=== PATIENT | male | born 1960 | race Caucasian/White ===

== ENCOUNTER 2019-08-23 00:23 | Emergency (ER) | payer MEDICARE, SELFPAY ==
[2019-08-23] VITALS (10 sets, daily range): BP systolic 125–159; BP diastolic 59–98; PULSE 88–100; RESP 20–26; TEMP 36.7; O2SAT 98–100
--- NOTE | ~2019-08-23 | XR_ITS ---
EXAMINATION: XR chest 2V DATE: 08/23/2019 01:14 INDICATION: Chest pain and shortness of breath TECHNIQUE: AP and lateral views of the chest are obtained. COMPARISON: 07/03/2019 FINDINGS: The lungs are free of acute opacities. There is no pleural effusion or pneumothorax. The ca rdiomediastinal silhouette is normal. There are multiple bilateral rib fractures as well as numerous thoracic compression fractures. IMPRESSION: 1. No acute cardiopulmonary abnormality. Reviewed, dictated and finalized at location A. TAL MEDIA ANALYST
--- NOTE | ~2019-08-23 | CT_ITS ---
EXAMINATION: CTA chest PE protocol DATE: 08/23/2019 02:02 INDICATION: Chest pain and shortness of breath TECHNIQUE: Computed tomography (CT) pulmonary angiogram of the chest was performed with 100 mL Omnipa que-350 intravenous contrast. Additional 3D reconstructions utilizing coronal maximum intensity proje ction (MIP) were performed. Automated exposure control and iterative reconstruction technique were em ployed. The dose-length product was 787.65 mGy-cm. COMPARISON: None FINDINGS: Good contrast opacification of the pulmonary arteries. There is mild streak artifact from dense contr ast in the superior vena cava and right atrium. Moderate to severe lower lung predominant scattered r espiratory motion artifact. This significantly decreases sensitivity in the segmental and more periph eral subsegmental pulmonary arteries, essentially nondiagnostic at the bilateral lung bases. No centr al pulmonary embolism identified through the lobar pulmonary arteries. No definitive pulmonary emboli in the segmental pulmonary arteries. Posterior basilar atelectasis in the bilateral lower lobes. Add itional mild discoid atelectasis tracking along the bilateral major fissures. No pulmonary edema or p leural effusion. Borderline heart size. No pericardial effusion. Thoracic aorta is normal in caliber with no dissection. No pathologically enlarged thoracic lymphadenopathy. 6.4 cm thick-walled fluid co llection at the upper pole of the right kidney. There are a few nonobstructing renal stones in the le ft kidney measuring up to 6 mm in maximal diameter. Osteopenia. Severe thoracic kyphosis with multipl e chronic appearing compression fractures throughout the thoracic and upper lumbar spine. Old healed sternal fractures. Numerous bilateral healed and chronic nonunited rib fractures. Additional old heal ed or healing fractures of the right clavicle, left glenoid and right scapular body. IMPRESSION: 1. No definite central pulmonary embolism through the segmental arteries with decreased sensitivity a t the segmental arteries and nondiagnostic evaluation of the more peripheral arteries due to signific ant respiratory motion. 2. 6.4 cm thick-walled fluid collection at the upper pole of the right kidney which could represent e ither severe hydronephrosis or large parapelvic cyst with surrounding renal parenchymal atrophy versu s a thick-walled cyst which would raise concern for renal cell carcinoma. Would further evaluation wi th pre and postcontrast MRI or CT of the abdomen. 3. Diffuse osteopenia with numerous thoracic and lumbar compression/burst fractures, numerous bilater al rib fractures and additional fractures of the sternum, right clavicle, left glenoid and right scap ular body. Reviewed, dictated and finalized at location A. LIFT MECHANIC IMPRESSION: 1. No definite central pulmonary embolism through the segmental arteries with d ecreased sensitivity at the segmental arteries and nondiagnostic evaluation of the more peripheral arteries due to significant respiratory motion. 2. 6.4 cm thick-walled fluid collection at the upper pole of the right kidney w hich could represent either severe hydronephrosis or large parapelvic cyst with surrounding renal parenchymal atrophy versus a thick-walled cyst which would r aise concern for renal cell carcinoma. Would further evaluation with pre and po stcontrast MRI or CT of the abdomen. 3. Diffuse osteopenia with numerous thoracic and lumbar compression/burst fract ures, numerous bilateral rib fractures and additional fractures of the sternum, right clavicle, left glenoid and right scapular body.
--- NOTE | 2019-08-23 00:35 | ECG_ITS ---
Measurements Intervals [place] Rate: 101 P: 36 WA: 164 QRS: -41 QRSD: 94 T: 91 QT: 313 QTc: 406 Interpretive Statements SINUS TACHYCARDIA SUPRAVENTRICULAR BIGEMINY LEFT AXIS DEVIATION VOLTAGE CRITERIA FOR LVH POOR R WAVE PROGRESSION, ANTERIOR LEADS BORDERLINE ST-T WAVE ABNORMALITY- LATERAL LEADS BASELINE ARTIFACT- I, II, III, AVR, AVL, AVF, V2 ABNORMAL ECG Electronically Signed On 08-23-2019 7:34:09 CONTRACTING ENGINEER by Junior Renner D.O.
--- NOTE | 2019-08-23 00:43 | ED.CHESTPAIN ---
HPI - Chest Pain General Chief Complaint: Chest Pain Stated Complaint: sob Time Seen by Provider: 08/23/19 00:36 Source: patient, family and RN notes reviewed Mode of arrival: ambulatory Limitations: no limitations History of Present Illness HPI narrative: Pt is a 58 y/o male with a Hx of COPD, who presents to the ED with c/o lt sided chest pain and SOB. He notes that he has had pain in the lt side of his chest for the past 3 days. Pt states that he has a Hx of sleep apnea, and notes that he has recently been having episodes where he stops breathing during his sleep. He states that he wakes up due to the lack of breathing and begins coughing. Pt notes that his chest pain is aggravated by the cough as well as exertion. He denies any fever, chills, rhinorrhea, or sore throat. Pt states that his CP is currently resolved. MD complaint: chest pain and other (SOB) Onset (ago): day(s) (3) Timing of current episode: now resolved Pain location: left chest Exacerbating factors: exertion and other (cough) Associated symptoms: cough Related Data Home Medications Medication Instructions Recorded Confirmed albuterol sulfate [ProAir HFA] 1 puff INHALATION QID PRN 07/03/19 08/17/19 aspirin 81 mg PO DAILY 07/03/19 08/17/19 atorvastatin 10 mg PO DAILY 07/03/19 08/17/19 budesonide-formoterol [Symbicort] 2 puff INHALATION Q12H 07/03/19 08/17/19 calcium carbonate-vitamin D3 tablet 07/03/19 08/17/19 [Calcium 500 + D (D3)] denosumab [Prolia] 60 mg SUBCUT [id number] 07/03/19 08/17/19 ipratropium-albuterol 3 ml INHALATION TID 07/03/19 08/17/19 lisinopril 2.5 mg PO DAILY 07/03/19 08/17/19 meloxicam 7.5 mg PO DAILY 07/03/19 08/17/19 metformin 2,000 mg PO DAILY 07/03/19 08/17/19 tamsulosin 0.4 mg PO DAILY 07/03/19 08/17/19 Allergies Allergy/AdvReac Type Severity Reaction Status Date / Time No Known Allergies Allergy Unknown Verified 08/17/19 13:43 Review of Systems Review of Systems: All systems reviewed & are unremarkable except as noted in HPI and below Constitutional: Constitutional: Denies chills and Denies fever(s) ENT: Denies nasal discharge and Denies sore throat Cardiovascular: Cardiovascular: Reports chest pain (lt sided) Respiratory: Respiratory: Reports cough and Reports dyspnea PMFSH Past Medical History Medical History Allergy to environmental factors Bilateral hip fractures BPH w/o urinary obs/LUTS COPD (chronic obstructive pulmonary disease) COPD mixed type Dyslipidemia Essential (primary) hypertension Femur fracture Hypothyroidism (acquired) SAVANNA (obstructive sleep apnea) Osteoarthritis Osteoporosis Type 2 diabetes mellitus without complication, without long-term current use of insulin Vitamin D deficiency Surgical History Surgical History History of hip surgery rods placed in bilateral hips Hx of partial nephrectomy lt kidney Social History Social History Smoking packs per day: 1.5 Smoking cigarettes per day: 30.0 Years smoked: 30 Smoking pack-years: 45.00 Smoking status: Current every day smoker Tobacco type: cigarettes Second hand tobacco smoke exposure: Yes Alcohol intake: current Substance use: never Substance use type: does not use Gender identity (if verbalized by the patient): Male Comments PCP is Dr. Adamson. Exam Narrative: Exam Narrative: GENERAL: Chronically ill-appearing, well-nourished, and in no acute distress. HEAD: Normocephalic, atraumatic. EYES: PERRL and EOMI. ENT: Mucous membranes moist. CHEST: Diffuse wheezing. Mildly tachypneic. HEART: Regular rate and rhythm. Normal peripheral pulses. ABDOMEN: Soft, nontender, nondistended. EXTREMITIES: Normal range of motion. 1+ edema of the lower extremities. SKIN: Warm, dry, no rash. NEURO: Alert and oriented x3. Course Course Emergency Course: Patient wheezing improvin
[2019-08-23 00:45] LABS: Basophils Absolute Auto 0.1 K/mm3 (0.0-0.1); Basophils Percent Auto 0.5 % (0.2-1.2); Eosinophils Absolute Auto 0.2 K/mm3 (0-0.3); Eosinophils Percent Auto 1.8 % (0-4.4); Hematocrit 47.9 % (42.0-52.0); Hemoglobin 15.6 g/dL (14.0-18.0); Immature Granulocyte Absolute 0.06 K/mm3 (0.00-0.031); Immature Granulocyte Percent A 0.6 % (0-0.5); Lymphocytes Absolute Auto 1.67 K/mm3 (0.9-3.2); Lymphocytes Percent Auto 17.4 % (18.3-44.2); Mean Corpuscular HGB Conc 32.6 g/dl (32-36); Mean Corpuscular Hemoglobin 28.1 pg (26-34); Mean Corpuscular Volume 86.3 fl (80-100); Mean Platelet Volume 8.5 fl (7.4-10.4); Monocytes Absolute Auto 0.8 K/mm3 (0.1-0.6); Monocytes Percent Auto 7.8 % (2.6-8.5); Neutrophils Absolute Auto 6.9 K/mm3 (1.3-6.7); Neutrophils Percent Auto 71.9 % (45.5-73.1); Platelet Count Result 376 k/mm3 (150-375); Red Blood Count 5.55 M/mm3 (4.6-6.20); Red Cell Distribution Width 17.4 % (11.5-14.5); White Blood Count 9.6 K/mm3 (4.5-10.0)
--- NOTE | 2019-08-23 00:53 | PC.NURSE ---
Called lab to add on d-dimer.
[2019-08-23 00:54] LABS: INR 0.9; Prothrombin Time 11.8 Seconds (11.1-14.7)
[2019-08-23 00:55] LABS: Partial Thromboplastin Time 29.7 SECONDS (22.3-36.8)
[2019-08-23 01:03] LABS: Blood Urea Nitrogen 19 mg/dL (9-20); Calcium 9.5 mg/dL (8.4-10.2); Carbon Dioxide 22 mmol/L (22-30); Chloride 101 mmol/L (98-107); D Dimer 0.83 ug/mL (<0.48); Estimated Glomerular Filt Rate > 60; Glucose 121 mg/dL (75-110); Potassium 4.8 mmol/L (3.4-5.0); Sodium 140 mmol/L (137-145)
[2019-08-23 01:12] LABS: Troponin I < 0.012 ng/mL (0.000-0.034)
[2019-08-23] MEDS: ALBUTEROL SULFATE NEB 2.5 MG/0.5 ML INH 5 MG INHALATION (02:41)
[2019-08-23] MEDS: IPRATROPIUM BR 0.02% INH SOLN 0.5 MG/2.5 ML VIAL INHALATION (02:41)
[2019-08-23 04:02] LABS: NT Pro B Type Natriuretic Pept 59 PG/ML (5-100)
[2019-08-23 04:06] LABS: Troponin I < 0.012 ng/mL (0.000-0.034)
== END 2019-08-23 05:07 | disposition home or self-care (01) ==
PROVIDERS: Emergency Provider Emergency Medicine; PCP Family Medicine
DX: J44.9 Chronic obstructive pulmonary disease, unspecified (principal); N40.0 Benign prostatic hyperplasia without lower urinary tract symptoms; E78.5 Hyperlipidemia, unspecified; I10 Essential (primary) hypertension; E03.9 Hypothyroidism, unspecified; G47.33 Obstructive sleep apnea (adult) (pediatric); M19.90 Unspecified osteoarthritis, unspecified site; M81.0 Age-related osteoporosis without current pathological fracture; E11.9 Type 2 diabetes mellitus without complications; E55.9 Vitamin D deficiency, unspecified; Z90.5 Acquired absence of kidney; F17.210 Nicotine dependence, cigarettes, uncomplicated; R00.0 Tachycardia, unspecified; R00.8 Other abnormalities of heart beat; R94.31 Abnormal electrocardiogram [ECG] [EKG]
CPT/HCPCS: 36415; 71046; 71275; 80048; 83880; 84484; 85025; 85380; 85610; 85730; 93005; 94640; 99284; Q9967

== ENCOUNTER 2019-09-02 00:09 | Emergency (ER) | payer MEDICARE, SELFPAY ==
[2019-09-02] VITALS (7 sets, daily range): BP systolic 116–154; BP diastolic 62–94; PULSE 85–113; RESP 17–25; TEMP 36.8; O2SAT 95–99
--- NOTE | ~2019-09-02 | XR_ITS ---
EXAMINATION: XR chest 2V DATE: 09/02/2019 01:30 INDICATION: Shortness of breath. TECHNIQUE: Frontal and lateral views of the chest were obtained on 3 radiographs. COMPARISON: Chest 2 views 08/23/2019, chest CT 08/23/2019 FINDINGS: There is mild atelectasis in the lower lung zones. There is blunting of the posterior costo phrenic angles, likely scarring. No pleural effusion or pneumothorax. The heart size is normal. There is kyphosis of thoracic spine with numerous chronic burst fractures. There is an old healed fracture deformity of the sternum. There are old healed rib fractures bilaterally. There is an old healed fra cture of right clavicle. IMPRESSION: 1. Mild atelectasis in the lower lung zones. Reviewed, dictated and finalized at location A. 'S OFFICER
--- NOTE | 2019-09-02 00:35 | ED.CHESTPAIN ---
HPI - Chest Pain General Chief Complaint: Shortness of Breath/Dyspnea Stated Complaint: l sided cp and back pain Time Seen by Provider: 09/02/19 00:34 Source: patient, RN notes reviewed and old records reviewed Mode of arrival: ambulatory Limitations: no limitations History of Present Illness HPI narrative: Pt is a 58 y/o male with a Hx of COPD, who presents to the ED with c/o lt sided chest pain starting last night. According to old records, the pt was evaluated in the [place] ED on 08/23/19 for similar symptoms. Pt was diagnosed with bronchitis and discharged home with Prednisone. He notes that he developed pain in the lt side of his chest while laying in bed last night. Pt states that his pain radiates into his lt upper back. He also reports SOB and sinus congestion, but denies any fever, ABD pain, nausea, or vomiting. Pt states that he currently uses a CPAP at night for his sleep apnea. He notes that he is currently following with the bone health program at [facility] in [place]. complaint: chest pain Onset (ago): day(s) (1) Prior episodes: Yes Onset: during rest Pain location: left chest Pain radiation: left scapula Context: recent illness (bronchitis) Associated symptoms: dyspnea and other (sinus congestion) Related Data Home Medications Medication Instructions Recorded Confirmed albuterol sulfate [ProAir HFA] 1 puff INHALATION QID PRN 07/03/19 08/17/19 aspirin 81 mg PO DAILY 07/03/19 08/17/19 atorvastatin 10 mg PO DAILY 07/03/19 08/17/19 budesonide-formoterol [Symbicort] 2 puff INHALATION Q12H 07/03/19 08/17/19 calcium carbonate-vitamin D3 tablet 07/03/19 08/17/19 [Calcium 500 + D (D3)] denosumab [Prolia] 60 mg SUBCUT [id number] 07/03/19 08/17/19 ipratropium-albuterol 3 ml INHALATION TID 07/03/19 08/17/19 lisinopril 2.5 mg PO DAILY 07/03/19 08/17/19 meloxicam 7.5 mg PO DAILY 07/03/19 08/17/19 metformin 2,000 mg PO DAILY 07/03/19 08/17/19 Allergies Allergy/AdvReac Type Severity Reaction Status Date / Time No Known Allergies Allergy Unknown Verified 09/02/19 00:39 Review of Systems Review of Systems: Narrative: CONSTITUTIONAL: Denies fever, chills, or sweats. ENT: Denies rhinorrhea, sore throat, or otalgia. Reports sinus congestion. CARDIOVASCULAR: Reports lt sided chest pain radiating into lt upper back. Denies palpitations. RESPIRATORY: Reports dyspnea. GASTROINTESTINAL: Denies abdominal pain, nausea, vomiting, or diarrhea. All systems reviewed & are unremarkable except as noted in HPI and below PMFSH Past Medical History Medical History (Updated 09/02/19 @ 04:53 by Aimee Yañez MD) Allergy to environmental factors Bilateral hip fractures BPH w/o urinary obs/LUTS COPD (chronic obstructive pulmonary disease) COPD mixed type Dyslipidemia Essential (primary) hypertension Femur fracture Hypothyroidism (acquired) SAVANNA (obstructive sleep apnea) uses CPAP Osteoarthritis Osteoporosis Type 2 diabetes mellitus without complication, without long-term current use of insulin Vitamin D deficiency Surgical History Surgical History History of hip surgery rods placed in bilateral hips Hx of partial nephrectomy lt kidney Social History Social History Smoking packs per day: 1.5 Smoking cigarettes per day: 30.0 Years smoked: 30 Smoking pack-years: 45.00 Smoking status: Current every day smoker Tobacco type: cigarettes Second hand tobacco smoke exposure: Yes Alcohol intake: current Substance use: never Substance use type: does not use Gender identity (if verbalized by the patient): Male Comments PCP is Dr. Adamson. Exam Narrative: Exam Narrative: GENERAL: Well-appearing, well-nourished, and in moderate respiratory distress. HEAD: Normocephalic, atraumatic. EYES: PERRLA and EOMI. ENT: Nares clear, no rhinorrhea or epistaxis. Mucous membranes moist. NECK: Supple. CHEST: Expi
[2019-09-02] MEDS: IPRATROPIUM BR 0.02% INH SOLN 0.5 MG/2.5 ML VIAL INHALATION (00:56)
[2019-09-02] MEDS: ALBUTEROL SULFATE NEB 2.5 MG/0.5 ML INH 5 MG INHALATION (00:56)
[2019-09-02 01:07] LABS: Alveolar/Arterial O2 Gradient 28.2 mmHg; Base Excess ABG -4.2 mEq/l (+/-2.0); Fractional Inspired Oxygen 21 %; Oxygen Content ABG 19.1 %vol (16.0-22.0); Oxygen Saturation ABG 95.9 % (95.0-100.0); Oxyhemoglobin 90.2 % THb (90.0-100.0); PCO2 ABG 34.2 mmHg (35.0-45.0); PO2 ABG 80.6 mmHg (80.0-100.0); PO2 FiO2 Ratio Arterial Blood 3.84 %; pH ABG 7.384 (7.350-7.450)
[2019-09-02 01:08] LABS: Device ROOM AIR; Modified Allen's Test Pass; Site Drawn LEFT RADIAL
[2019-09-02 01:09] LABS: Basophils Absolute Auto 0.1 K/mm3 (0.0-0.1); Basophils Percent Auto 0.5 % (0.2-1.2); Eosinophils Absolute Auto 0.2 K/mm3 (0-0.3); Eosinophils Percent Auto 1.7 % (0-4.4); Hematocrit 44.9 % (42.0-52.0); Hemoglobin 14.4 g/dL (14.0-18.0); Immature Granulocyte Absolute 0.14 K/mm3 (0.00-0.031); Immature Granulocyte Percent A 1.3 % (0-0.5); Lymphocytes Absolute Auto 1.73 K/mm3 (0.9-3.2); Lymphocytes Percent Auto 15.9 % (18.3-44.2); Mean Corpuscular HGB Conc 32.1 g/dl (32-36); Mean Corpuscular Hemoglobin 27.5 pg (26-34); Mean Corpuscular Volume 85.9 fl (80-100); Mean Platelet Volume 8.4 fl (7.4-10.4); Monocytes Absolute Auto 0.8 K/mm3 (0.1-0.6); Monocytes Percent Auto 7.7 % (2.6-8.5); Neutrophils Absolute Auto 7.9 K/mm3 (1.3-6.7); Neutrophils Percent Auto 72.9 % (45.5-73.1); Platelet Count Result 392 k/mm3 (150-375); Red Blood Count 5.23 M/mm3 (4.6-6.20); Red Cell Distribution Width 17.5 % (11.5-14.5); White Blood Count 10.9 K/mm3 (4.5-10.0)
[2019-09-02 01:26] LABS: INR 0.9; Partial Thromboplastin Time 27.4 SECONDS (22.3-36.8); Prothrombin Time 11.9 Seconds (11.1-14.7)
[2019-09-02] MEDS: SODIUM CHLORIDE 0.9% IV 500 ML 999 ML IV CONT (01:30)
[2019-09-02 01:31] LABS: Alanine Aminotransferase 26 U/L (4-50); Albumin Level 3.5 g/dL (3.5-5.1); Alkaline Phosphatase 105 U/L (38-126); Aspartate Amino Transferase 23 U/L (17-59); Bilirubin,Total 0.3 mg/dL (0.2-1.3); Blood Urea Nitrogen 26 mg/dL (9-20); Calcium 8.9 mg/dL (8.4-10.2); Carbon Dioxide 25 mmol/L (22-30); Chloride 102 mmol/L (98-107); Estimated Glomerular Filt Rate > 60; Glucose 127 mg/dL (75-110); Sodium 140 mmol/L (137-145)
[2019-09-02] MEDS: methylPREDNISolone SOD SUCC 125 MG VIAL IV PUSH (01:33)
[2019-09-02 01:35] LABS: NT Pro B Type Natriuretic Pept 55 PG/ML (5-100); Troponin I < 0.012 ng/mL (0.000-0.034)
[2019-09-02 04:46] LABS: Troponin I < 0.012 ng/mL (0.000-0.034)
== END 2019-09-02 05:25 | disposition home or self-care (01) ==
PROVIDERS: Emergency Provider Emergency Medicine; PCP Family Medicine
DX: R07.9 Chest pain, unspecified (principal); J44.1 Chronic obstructive pulmonary disease with (acute) exacerbation; N40.0 Benign prostatic hyperplasia without lower urinary tract symptoms; E78.5 Hyperlipidemia, unspecified; I10 Essential (primary) hypertension; E03.9 Hypothyroidism, unspecified; G47.33 Obstructive sleep apnea (adult) (pediatric); M19.90 Unspecified osteoarthritis, unspecified site; M81.0 Age-related osteoporosis without current pathological fracture; E11.9 Type 2 diabetes mellitus without complications; E55.9 Vitamin D deficiency, unspecified; Z90.5 Acquired absence of kidney; F17.210 Nicotine dependence, cigarettes, uncomplicated; Z79.82 Long term (current) use of aspirin; Z79.84 Long term (current) use of oral hypoglycemic drugs
CPT/HCPCS: 36415; 36600; 71046; 80053; 82805; 83880; 84484; 85025; 85610; 85730; 87804; 94640; 96374; 99284; J2930; J7040

== ENCOUNTER 2019-11-17 07:07 | Emergency (ER) | payer MEDICARE, SELFPAY ==
--- NOTE | ~2019-11-17 | XR_ITS ---
EXAMINATION: XR clavicle LT DATE: 11/17/2019 07:36 INDICATION: Left shoulder pain. TECHNIQUE: 2 views of left clavicle were obtained. COMPARISON: Chest CT 08/23/2019 FINDINGS: Bone alignment is normal. No acute fracture. There is an old healed fracture of the scapula r glenoid. There is moderate osteoarthritis of glenohumeral joint and mild osteoarthritis of acromioc lavicular joint. There are multiple old healed rib fractures. IMPRESSION: 1. Polyarticular osteoarthritis. Reviewed, dictated and finalized at location A.
--- NOTE | ~2019-11-17 | XR_ITS ---
EXAMINATION: XR shoulder LT min 2V DATE: 11/17/2019 07:36 INDICATION: Left shoulder pain. TECHNIQUE: 4 views of left shoulder were obtained. COMPARISON: Chest CT 08/23/2019 FINDINGS: Bone alignment is normal. There is an old healed fracture of the scapular glenoid. There is moderate osteoarthritis of glenohumeral joint and mild osteoarthritis of acromioclavicular joint. Th ere are multiple old healed rib fractures. IMPRESSION: 1. Polyarticular osteoarthritis. Reviewed, dictated and finalized at location A.
[2019-11-17 07:11] VITALS: BP 185/113; PULSE 95; RESP 24; TEMP 36.7; O2SAT 96
--- NOTE | 2019-11-17 07:21 | ED.UPPEXIN ---
HPI - Extremity Injury (Upper) General Chief Complaint: Extremity Injury, Upper Stated Complaint: Shoulder pain Time Seen by Provider: 11/17/19 07:15 History of Present Illness HPI narrative: Patient presents with his for left shoulder pain. Started last night without injury. He has 0 pain when he sitting still but severe pain with any motion at all. No fever chills or sweats. He has knee arthritis and has had both hips replaced. He has 2 orthopedic surgeons in [place]. He tried Tylenol without any improvement, He denies smoking drinking or drugs. He denies any recent illness. He says he does not eat much and his bowels are moving. He does not have his teeth in. MD complaint: injury to: left Onset (ago): day(s) Other Extremity Injury: Left: shoulder Other injuries: none Place: home Severity: severe Relieving factors: immobilization Exacerbating factors: movement of extremity Context: other (No trauma) Associated symptoms: denies other symptoms Treatments prior to arrival: other (None) Related Data Home Medications Medication Instructions Recorded Confirmed aspirin 81 mg PO DAILY 07/03/19 09/08/19 atorvastatin 10 mg PO DAILY 07/03/19 09/08/19 budesonide-formoterol [Symbicort] 2 puff INHALATION Q12H 07/03/19 09/08/19 calcium carbonate-vitamin D3 tablet 07/03/19 09/08/19 [Calcium 500 + D (D3)] denosumab [Prolia] 60 mg SUBCUT [id number] 07/03/19 09/08/19 ipratropium-albuterol 3 ml INHALATION TID 07/03/19 09/08/19 lisinopril 2.5 mg PO DAILY 07/03/19 09/08/19 meloxicam 7.5 mg PO DAILY 07/03/19 09/08/19 Allergies Allergy/AdvReac Type Severity Reaction Status Date / Time No Known Allergies Allergy Unknown Verified 11/17/19 07:14 Review of Systems Review of Systems: Narrative: CONSTITUTIONAL: Denies fever, chills, or sweats. EYES: Denies visual changes, redness, or discharge. ENT: Denies rhinorrhea, congestion, sore throat, or otalgia. CARDIOVASCULAR: Denies chest pain, palpitations, or edema. RESPIRATORY: Denies cough or dyspnea. GASTROINTESTINAL: Denies abdominal pain, nausea, vomiting, or diarrhea. GENITOURINARY: Denies dysuria or hematuria. SKIN: Denies rash or itching. MUSCULOSKELETAL: Denies back pain or myalgia. NEUROLOGIC: Denies headache, numbness, or weakness. PSYCHIATRIC: Denies anxiety or depression. [facility] Past Medical History Medical History Allergy to environmental factors Bilateral hip fractures BPH w/o urinary obs/LUTS COPD (chronic obstructive pulmonary disease) COPD mixed type Dyslipidemia Essential (primary) hypertension Femur fracture Hypothyroidism (acquired) SAVANNA (obstructive sleep apnea) uses CPAP Osteoarthritis Osteoporosis Type 2 diabetes mellitus without complication, without long-term current use of insulin Vitamin D deficiency Surgical History Surgical History History of hip surgery rods placed in bilateral hips Hx of partial nephrectomy lt kidney Social History Social History (Updated 11/17/19 @ 07:24 by Suly Barragan MD) Smoking packs per day: 1.5 Smoking cigarettes per day: 30.0 Years smoked: 30 Smoking pack-years: 45.00 Smoking status: Former smoker Tobacco type: cigarettes Second hand tobacco smoke exposure: Yes Alcohol intake: current Substance use: never Substance use type: does not use Gender identity (if verbalized by the patient): Male Exam Narrative: Exam Narrative: GENERAL: Well-appearing, well-nourished, and in no acute distress. Disheveled. Short stature. HEAD: Normocephalic, atraumatic. EYES: PERRLA and EOMI. ENT: Nares clear, no rhinorrhea or epistaxis. Mucous membranes moist. No teeth. NECK: Supple. CHEST: Clear to auscultation. No respiratory distress. HEART: Regular rate and rhythm. No murmur heard. Normal peripheral pulses. ABDOMEN: Soft, nontender, nondistended, normal active bowel sounds. EXTREMITIES: Le
[2019-11-17] MEDS: IBUPROFEN 600 MG TABLET PO (07:24)
[2019-11-17 07:27] VITALS: BP 156/89
[2019-11-17 08:27] VITALS: BP 145/78; PULSE 78; RESP 18; O2SAT 97
== END 2019-11-17 08:27 | disposition home or self-care (01) ==
PROVIDERS: Emergency Provider Emergency Medicine; PCP Family Medicine
DX: M19.012 Primary osteoarthritis, left shoulder (principal); M17.10 Unilateral primary osteoarthritis, unspecified knee; Z96.643 Presence of artificial hip joint, bilateral; N40.0 Benign prostatic hyperplasia without lower urinary tract symptoms; J44.9 Chronic obstructive pulmonary disease, unspecified; I10 Essential (primary) hypertension; E78.5 Hyperlipidemia, unspecified; G47.33 Obstructive sleep apnea (adult) (pediatric); M81.0 Age-related osteoporosis without current pathological fracture; E11.9 Type 2 diabetes mellitus without complications; E55.9 Vitamin D deficiency, unspecified; Z87.891 Personal history of nicotine dependence; Z79.82 Long term (current) use of aspirin
CPT/HCPCS: 73000; 73030; 99283; A9270

== ENCOUNTER 2019-11-21 17:32 | Observation (INO) | payer MEDICARE, SELFPAY ==
--- NOTE | ~2019-11-21 | US_ITS ---
EXAMINATION: US venous doppler [facility] DATE: 11/22/2019 10:40 INDICATION: Lower limb swelling TECHNIQUE: Grayscale ultrasound images without and with compression and Doppler ultrasound images of the bilateral lower extremity veins were obtained. COMPARISON: None. FINDINGS: The visualized portions of right common femoral vein, profunda (deep) femoral vein, femoral vein, pop liteal vein, posterior tibial veins, peroneal veins, gastrocnemius vein and greater saphenous vein ou tflow are patent. The visualized portions of left common femoral vein, profunda femoral vein, femoral vein, popliteal v ein, posterior tibial veins, peroneal veins, gastrocnemius vein and greater saphenous vein outflow ar e patent. IMPRESSION: 1. No deep venous thrombosis in either lower limb. Reviewed, dictated and finalized at location A.
--- NOTE | ~2019-11-21 | XR_ITS ---
EXAMINATION: XR chest 1V portable DATE: 11/21/2019 18:23 INDICATION: Inability to walk. TECHNIQUE: frontal view of the chest was obtained. COMPARISON: Chest radiograph dated 09/02/2019 FINDINGS: Lung volumes appear decreased due to a thoracic kyphosis but appreciated on the prior study. No focal airspace opacities, pulmonary edema, pleural effusion or pneumothorax. The cardiomediastinal silhoue tte is normal. Multiple old bilateral rib fractures. IMPRESSION: 1. No acute cardiopulmonary disease. Reviewed, dictated and finalized at location A.
--- NOTE | ~2019-11-21 | CT_ITS ---
EXAMINATION: CT pelvis wo con DATE: 11/21/2019 21:08 INDICATION: Left hip pain and inability to walk TECHNIQUE: High resolution computed tomography (CT) of the pelvis was performed without intravenous c ontrast. Additional sagittal and coronal reconstructions were performed. Automated exposure control a nd iterative reconstruction technique were employed. The dose-length product was 898.00 mGy-cm. COMPARISON: None FINDINGS: There is a nondisplaced fracture extending along the mid to lateral aspect of the left iliac crest an d extending inferiorly along the anterior iliac spine to the anterior margin of the left acetabulum. No evident intra-articular fracture line to involve the left acetabulum proper. No evident extension across the anterior or posterior columns. There are old healed fracture deformities of the left super ior and inferior pubic rami. There is still some discernible lucency along a healing intertrochanteri c/subtrochanteric fractures of the proximal left and right femurs, both with antegrade intramedullary blas and interlocking femoral neck screw fixations. Chronic L1-L5 compression fractures with central vertebral body height loss at each level. Likely chronic severe right hydronephrosis with severe chioma ical atrophy. There is a 7 mm stone in the dependent aspect of the dilated right renal pelvis however no stone is evident at the transition point located at the ureteropelvic junction. There are multipl e nonobstructing stones at the right kidney, the largest measuring up to 6 mm with no left hydronephr osis. Small calcified stone at the neck of the normal-appearing gallbladder with no evident wall thic kening or pericholecystic inflammatory change to suggest acute cholecystitis. His last liver is tom l. No intra-axial hepatic biliary ductal dilation. Pancreas and visualized portions of the spleen and bilateral adrenal glands are normal. There is mild colonic diverticulosis with a sigmoid predominanc e. There is no adjacent inflammatory change to suggest diverticulitis. Normal appendix. No bowel obs truction. Fat-containing umbilical and right inguinal hernias. There are few old bilateral lower rib fractures. IMPRESSION: 1. Nondisplaced relatively acute extra-articular fracture extending along the left iliac crest and an terior iliac spine. 2. Multiple chronic lumbar compression fractures, old healed left superior and inferior pubic rami fr actures, multiple old healed bilateral rib fractures and healing internally fixed intertrochanteric f ractures of the proximal left and right femurs. 3. Likely chronic right ureteropelvic junction obstruction with severe hydronephrosis and severe like ly secondary right renal cortical atrophy. 4. Bilateral nonobstructing nephrolithiasis. 5. Cholelithiasis. 6. Fat-containing umbilical and right inguinal hernias. Reviewed, dictated and finalized at location A. IMPRESSION: 1. Nondisplaced relatively acute extra-articular fracture extending along the l eft iliac crest and anterior iliac spine. 2. Multiple chronic lumbar compression fractures, old healed left superior and inferior pubic rami fractures, multiple old healed bilateral rib fractures and healing internally fixed intertrochanteric fractures of the proximal left and r ight femurs. 3. Likely chronic right ureteropelvic junction obstruction with severe hydronep hrosis and severe likely secondary right renal cortical atrophy. 4. Bilateral nonobstructing nephrolithiasis. 5. Cholelithiasis. 6. Fat-containing umbilical and right inguinal hernias.
--- NOTE | ~2019-11-21 | XR_ITS ---
EXAMINATION: XR hip LT 2V w AP pelvis DATE: 11/21/2019 18:23 INDICATION: Left hip pain and inability to walk TECHNIQUE: Anteroposterior view of the pelvis and anteroposterior and cross-table lateral views of th e left hip more distal femur were obtained. COMPARISON: Radiographs dated 09/15/2012, 09/13/[address] dated 01/14/2019 FINDINGS: Bilateral antegrade intramedullary rods and interlocking femoral neck screw fixations at both the lef t and right femurs. On the right disc extends to the mid diaphysis with an additional distal interloc jared screw. On the left the intramedullary blas extends to near the knee with an interlocking screw ti p of which extends beyond the anteromedial cortex. Alignment appears near-anatomic. No acute fracture s identified although evaluation of the femoral head and neck and pelvis is limited by underpenetrati on related to patient body habitus. Relatively symmetric chronic indolent appearing periosteal reacti on along the medial side of the bilateral femoral diaphyses. Mild polyarticular osteoarthritis at the left knee and bilateral hips. IMPRESSION: 1. No evident acute osseous abnormality. Evaluation at the pelvis and femoral head neck is however li mited by patient body habitus. Reviewed, dictated and finalized at location A. IMPRESSION: 1. No evident acute osseous abnormality. Evaluation at the pelvis and femoral h ead neck is however limited by patient body habitus.
[2019-11-21 17:31] VITALS: BP 150/92; PULSE 90; RESP 14; TEMP 36.8; O2SAT 95
--- NOTE | 2019-11-21 17:46 | ED.EXTPRO ---
HPI - Extremity Problem General Chief complaint: Extremity Problem,Nontraumatic <Suly Barragan MD - Last Filed: 11/21/19 18:57> Stated complaint: L HIP PAIN <Suly Barragan MD - Last Filed: 11/21/19 18:57> History of Present Illness HPI Narrative: Patient presents with his via EMS for left hip pain. He has not been able to walk on it for 3 days. There was no injury or trauma. He was seen here 4 days ago for left shoulder pain. <Suly Barragan MD - Last Filed: 11/21/19 18:57> MD Complaint: extremity pain <Suly Barragan MD - Last Filed: 11/21/19 18:57> Onset (ago): day(s) <Suly Barragan MD - Last Filed: 11/21/19 18:57> Pain Consistency: constant <Suly Barragan MD - Last Filed: 11/21/19 18:57> Location: left <Suly Barragan MD - Last Filed: 11/21/19 18:57> Severity scale (1-10): 9 <Suly Barragan MD - Last Filed: 11/21/19 18:57> Radiation: none <Suly Barragan MD - Last Filed: 11/21/19 18:57> Relieving factors: nothing <Suly Barragan MD - Last Filed: 11/21/19 18:57> Exacerbating factors: range of motion, weight bearing and walking <Suly Barragan MD - Last Filed: 11/21/19 18:57> Related Data Home medications: Home Medications Medication Instructions Recorded Confirmed aspirin 81 mg PO DAILY 07/03/19 11/22/19 atorvastatin 10 mg PO DAILY 07/03/19 11/22/19 budesonide-formoterol [Symbicort] 2 puff INHALATION Q12H 07/03/19 11/22/19 calcium carbonate-vitamin D3 1 tablet PO BID 07/03/19 11/22/19 [Calcium 500 + D (D3)] denosumab [Prolia] 60 mg SUBCUT [id number] 07/03/19 11/22/19 ipratropium-albuterol 3 ml INHALATION TID 07/03/19 11/22/19 albuterol sulfate [ProAir HFA] 1 puff INHALATION Q4H 11/22/19 11/22/19 lisinopril 2.5 mg PO DAILY 11/22/19 11/22/19 meloxicam 7.5 mg PO DAILY 11/22/19 11/22/19 metformin 1,000 mg PO BID 11/22/19 11/22/19 <Suly Barragan MD - Last Filed: 11/21/19 18:57> Allergies/Adverse reactions: Allergies Allergy/AdvReac Type Severity Reaction Status Date / Time No Known Allergies Allergy Unknown Verified 11/17/19 07:14 <Suly Barragan MD - Last Filed: 11/21/19 18:57> Review of Systems Review of Systems: Narrative: CONSTITUTIONAL: Denies fever, chills, or sweats. EYES: Denies visual changes, redness, or discharge. ENT: Denies rhinorrhea, congestion, sore throat, or otalgia. CARDIOVASCULAR: Denies chest pain, palpitations, or edema. RESPIRATORY: Denies cough or dyspnea. GASTROINTESTINAL: Denies abdominal pain, nausea, vomiting, or diarrhea. GENITOURINARY: Denies dysuria or hematuria. SKIN: Denies rash or itching. MUSCULOSKELETAL: Denies myalgia. NEUROLOGIC: Denies headache, numbness, or weakness. PSYCHIATRIC: Denies anxiety or depression. <Suly Barragan MD - Last Filed: 11/21/19 18:57> [facility] Past Medical History Medical History: Medical History (Updated 11/22/19 @ 06:41 by Jin Barron MD) Allergy to environmental factors Bilateral hip fractures BPH w/o urinary obs/LUTS COPD mixed type Diastolic dysfunction Dyslipidemia Essential (primary) hypertension Femur fracture Hypothyroidism (acquired) SAVANNA (obstructive sleep apnea) uses CPAP Osteoarthritis Osteoporosis Type 2 diabetes mellitus without complication, without long-term current use of insulin Vitamin D deficiency <Suly Barragan MD - Last Filed: 11/21/19 18:57> Surgical History Surgical History: Surgical History History of hip surgery rods placed in bilateral hips Hx of partial nephrectomy lt kidney <Suly Barragan MD - Last Filed: 11/21/19 18:57> Social History Social History: Social History (Updated 11/22/19 @ 02:12 by Peggy Pedroza DO) Social History: Primary care physician: Dr. Caity Adamson Code status: Full code Smoking packs per day: 1.5 Smoking cigarettes per day: 30.0 Years smoked: 30 Smoking pack-years: 45.00
[2019-11-21] MEDS: MORPHINE SULFATE 4 MG/ML INJ IV PUSH (18:26)
[2019-11-21 18:50] LABS: Basophils Absolute Auto 0.1 K/mm3 (0.0-0.1); Basophils Percent Auto 0.6 % (0.2-1.2); Eosinophils Absolute Auto 0.2 K/mm3 (0-0.3); Eosinophils Percent Auto 2.4 % (0-4.4); Hematocrit 41.5 % (42.0-52.0); Hemoglobin 13.3 g/dL (14.0-18.0); Immature Granulocyte Absolute 0.03 K/mm3 (0.00-0.031); Immature Granulocyte Percent A 0.4 % (0-0.5); Lymphocytes Absolute Auto 0.94 K/mm3 (0.9-3.2); Lymphocytes Percent Auto 11.2 % (18.3-44.2); Mean Corpuscular Hemoglobin 27.8 pg (26-34); Mean Corpuscular Volume 86.6 fl (80-100); Mean Platelet Volume 8.3 fl (7.4-10.4); Monocytes Absolute Auto 0.8 K/mm3 (0.1-0.6); Monocytes Percent Auto 9.2 % (2.6-8.5); Neutrophils Absolute Auto 6.4 K/mm3 (1.3-6.7); Neutrophils Percent Auto 76.2 % (45.5-73.1); Platelet Count Result 363 k/mm3 (150-375); Red Blood Count 4.79 M/mm3 (4.6-6.20); White Blood Count 8.4 K/mm3 (4.5-10.0)
[2019-11-21 19:05] LABS: Alanine Aminotransferase 17 U/L (4-50); Albumin Level 3.9 g/dL (3.5-5.1); Alkaline Phosphatase 135 U/L (38-126); Aspartate Amino Transferase 20 U/L (17-59); Bilirubin,Total 0.2 mg/dL (0.2-1.3); Blood Urea Nitrogen 22 mg/dL (9-20); CRP 3.6 mg/dL (<1.0); Calcium 8.8 mg/dL (8.4-10.2); Carbon Dioxide 25 mmol/L (22-30); Chloride 105 mmol/L (98-107); Estimated Glomerular Filt Rate > 60; Glucose 73 mg/dL (75-110); Potassium 5.3 mmol/L (3.4-5.0); Sodium 137 mmol/L (137-145)
[2019-11-21 19:18] LABS: Add Urine Microscopic? YES; Appearance Urine Clear (Clear); Bilirubin Urine Negative (Negative); Blood Urine 1+ (Negative); Color Urine Yellow (Yellow); Glucose Urine UA 1+ mg/dL (Negative); Ketones Urine Negative (Negative); Leukocyte Esterase Ur Negative LEU/UL (Negative); Mucus Urine Rare /lpf; Nitrate Urine Negative (Negative); Protein Urine 1+ mg/dL (Negative); Specific Grav Ur 1.021 (1.001-1.035); Squamous Epithelial Cell Urine Rare /hpf (Few); Urobilinogen Urine Negative mg/dL (<2.0); WBC Urine 0-3 /hpf
[2019-11-21 19:32] LABS: Erythrocyte Sedimentation Rate 23 mm/hr (0-20)
--- NOTE | 2019-11-21 20:41 | PC.NURSE ---
Went to ambulate pt. Pt states being confused as to what Dr Barron told him and is asking to speak with Anderson before he does anything further.
[2019-11-21 20:49] VITALS: BP 156/76; PULSE 91; RESP 20; O2SAT 96
--- NOTE | 2019-11-21 20:59 | PC.NURSE ---
Pt up to ambulate with walker. pt became very dyspnic and was unable to walk more than 5 ft. Pt complained of extreme hip pain while ambulating. ERP aware.
[2019-11-21 22:32] VITALS: BP 131/70; PULSE 92; RESP 20; O2SAT 96
[2019-11-22] VITALS (13 sets, daily range): BP systolic 116–133; BP diastolic 54–78; PULSE 75–94; RESP 18–23; TEMP 36.1–37.1; O2SAT 93–100; BMI 42.5
--- NOTE | 2019-11-22 01:00 | ADMGEN ---
This patient, Campbell Chandra, was admitted to 2 Medical Room 240-. Patient/family oriented to hospital policies and general routines including ID bracelet, bed and alarms, visiting hours, pain management, procedures, bathroom and other care routines, personal items, smoking policy, room service/diet, and visiting hours. Valuables list has been completed. Information on how to activate the Rapid Response Team has been discussed. Patient/Family are encouraged to report perceived risks to care and to ask questions if they do not understand what they are told or what they should do.
--- NOTE | 2019-11-22 01:05 | PM.IMHP ---
H&P: HPI History of Present Illness Chief complaint: pelvic fracture Narrative: Date and time of patient contact: 11/22/2019 at 1:05 a.m. Campbell Chandra is a 58 year old male with a past medical history of COPD, mild cognitive disability, numerous insufficiency fractures, and obstructive sleep apnea who presented to the ER via EMS with left hip pain. Pain is severe in intensity and aching. He has been having pain both at rest but it is worse with walking. He has not been able to bear any weight on his hip for 3 days. He denies any falls, injury or trauma. That the pain started when he woke up 3 days ago. His glucoses on EMS arrival were 55 he received oral glucose. The patient refused to take the entire oral glucose supplement. To the ER was 73. The patient was noted to be tachypneic on my arrival to bedside. He had decreased breath sounds bilaterally. He reports that he feels short of breath any time he does not get his scheduled nebulizers. He denies any cough, congestion, fevers or chills. He reports that he has had orthopnea for several months. He also reported lower extremity swelling that is been ongoing for couple of months. He has also had steady weight gain for the last couple of years. Just before I left the room the patient asked me for a Q-tip because his ears feel like they are full of wax. Instead I examined the patient's ears. He reported pain to the anti tragus the right ear. He had copious exudative drainage from the ear and perforated eardrum. His left ear also showed maceration and exudate however that ear drum was intact. His abdomen was quite distended but he reports that this is his baseline. He reports that his last bowel movement was yesterday and denies any blood in his stool. Denies any dysuria or changes in urinary frequency. He denied ever having had an echo before. However he did have an echocardiogram in December of 2018 which demonstrated grade 1 diastolic dysfunction onset EF of 70-75% Review of Systems Review of Systems: Narrative: 12 systems were reviewed with pertinent positives and negatives per HPI. Except as documented in the HPI, all other systems were reviewed and are negative. However the patient is only a fair to poor historian at baseline. [facility] Past Medical History Medical History (Updated 11/22/19 @ 02:30 by Peggy Pedroza DO) Allergy to environmental factors Bilateral hip fractures BPH w/o urinary obs/LUTS COPD mixed type Diastolic dysfunction Dyslipidemia Essential (primary) hypertension Femur fracture Hypothyroidism (acquired) SAVANNA (obstructive sleep apnea) uses CPAP Osteoarthritis Osteoporosis Type 2 diabetes mellitus without complication, without long-term current use of insulin Vitamin D deficiency Surgical History Surgical History History of hip surgery rods placed in bilateral hips Hx of partial nephrectomy lt kidney Social History Social History (Updated 11/22/19 @ 02:12 by Peggy Pedroza DO) Social History: Primary care physician: Dr. Caity Adamson Code status: Full code Smoking packs per day: 1.5 Smoking cigarettes per day: 30.0 Years smoked: 30 Smoking pack-years: 45.00 Smoking status: Current every day smoker Tobacco type: cigarettes Second hand tobacco smoke exposure: Yes Alcohol intake: current Alcohol use details: On occasion and in moderation. Substance use: never Substance use type: does not use Living arrangements: with family Additional living arrangements comments: The patient lives at home with his . They do not have any children. He ambulates with a walker. Additional occupation/education comments: Patient is disabled. Gender identity (if verbalized by the patient): Male Meds Home Medications and Allergies Home Medications Medication Instructions Recorded Confirmed Type aspirin 81 mg PO DAILY 07/03/19
[2019-11-22] MEDS: LEVOTHYROXINE SODIUM 100 MCG TABLET PO (05:39)
[2019-11-22] MEDS: LEVOTHYROXINE SODIUM 75 MCG TABLET PO (05:39)
[2019-11-22] MEDS: ALBUTEROL SULFATE NEB 2.5 MG/0.5 ML INH INHALATION ×3 (08:18→19:43)
[2019-11-22] MEDS: IPRATROPIUM BR 0.02% INH SOLN 0.5 MG/2.5 ML VIAL INHALATION ×3 (08:18→19:44)
[2019-11-22 08:21] LABS: Glucose Point of Care 75 (65-105)
[2019-11-22] MEDS: CIPROFLOXACIN HC OTIC 10 ML 3 DROP EACH EAR ×2 (09:08→20:59)
[2019-11-22] MEDS: MELOXICAM 7.5 MG TABLET PO (09:08)
[2019-11-22] MEDS: metFORMIN HCL XR 500 MG TAB.SR.24H 1000 MG PO ×2 (09:08→16:47)
[2019-11-22] MEDS: glipiZIDE XL 5 MG TABCR 10 MG PO (09:09)
[2019-11-22] MEDS: lisinopriL 2.5 MG TABLET PO (09:09)
[2019-11-22] MEDS: ENOXAPARIN 40 MG/0.4 ML SYRINGE SUB-Q (09:09)
[2019-11-22] MEDS: ASPIRIN 81 MG CHEWABLE TABLET PO (09:10)
[2019-11-22] MEDS: TAMSULOSIN HCL 0.4 MG CAPSULE PO (09:10)
[2019-11-22] MEDS: ATORVASTATIN 10 MG TABLET PO (09:10)
[2019-11-22 09:28] LABS: Hematocrit 42.2 % (42.0-52.0); Hemoglobin 13.6 g/dL (14.0-18.0); Mean Corpuscular HGB Conc 32.2 g/dl (32-36); Mean Platelet Volume 8.3 fl (7.4-10.4); Platelet Count Result 375 k/mm3 (150-375); Red Blood Count 4.85 M/mm3 (4.6-6.20); Red Cell Distribution Width 15.1 % (11.5-14.5); Reticulocyte Hemoglobin Conten 29.8 pg (28.2-35.7); Reticulocyte Percent 1.04 % (0.7-4.3); Reticulocytes Absolute 0.05 B/L (32.2-175.7); White Blood Count 7.3 K/mm3 (4.5-10.0)
[2019-11-22 09:46] LABS: Alanine Aminotransferase 17 U/L (4-50); Alkaline Phosphatase 131 U/L (38-126); Aspartate Amino Transferase 21 U/L (17-59); Bilirubin,Total 0.4 mg/dL (0.2-1.3); Blood Urea Nitrogen 20 mg/dL (9-20); Calcium 8.9 mg/dL (8.4-10.2); Carbon Dioxide 27 mmol/L (22-30); Chloride 104 mmol/L (98-107); Estimated Glomerular Filt Rate > 60; Glucose 101 mg/dL (75-110); Magnesium 1.9 mg/dL (1.6-2.3); Phosphorus 3.5 mg/dL (2.5-4.5); Potassium 5.3 mmol/L (3.4-5.0); Sodium 136 mmol/L (137-145)
[2019-11-22 09:59] LABS: Iron 69 ug/dL (49-181)
[2019-11-22 10:08] LABS: Percent Iron Saturation 19 % (20-50)
[2019-11-22 10:15] LABS: Parathyroid Intact 39.2 pg/mL (7.5-53.5)
[2019-11-22 11:00] LABS: Folic Acid 15.1 ng/mL (2.76->20)
[2019-11-22 12:26] LABS: Glucose Point of Care 88 (65-105)
--- NOTE | 2019-11-22 13:33 | PM.IMPN ---
Progress Note: A&P Assessment and Plan (1) Closed pelvic fracture: Qualifiers: Encounter type: subsequent encounter Pelvic bone location: ilium Fracture morphology: unspecified fracture morphology Fracture alignment: nondisplaced Laterality: left Fracture healing: with routine healing Qualified Code(s): S32.302D - Unspecified fracture of left ilium, subsequent encounter for fracture with routine healing Code(s): S32.9XXA - Fracture of unspecified parts of lumbosacral spine and pelvis, initial encounter for closed fracture Status: Acute Assessment and Plan: Orthopedic consultation although treatment is unlikely to involve surgery Analgesics PRN PT and OT snf rehab (2) COPD mixed type: Code(s): J44.9 - Chronic obstructive pulmonary disease, unspecified Status: Acute Assessment and Plan: Without evidence of acute exacerbation. Continue home steroid inhalers and scheduled nebulizers. (3) SAVANNA (obstructive sleep apnea): Code(s): G47.33 - Obstructive sleep apnea (adult) (pediatric) Status: Acute Assessment and Plan: Auto titrating BiPAP (4) Diastolic dysfunction: Code(s): I51.89 - Other ill-defined heart diseases Status: Acute Assessment and Plan: Slight increased lower extremity edema but without evidence of volume overload otherwise 11/21 venous Dopplers negative for DVT Echocardiogram pending (5) Osteoarthritis: Qualifiers: Osteoarthritis location: unspecified site Osteoarthritis type: unspecified Qualified Code(s): M19.90 - Unspecified osteoarthritis, unspecified site Code(s): M19.90 - Unspecified osteoarthritis, unspecified site Status: Acute Assessment and Plan: Analgesics p.r.n. (6) Essential (primary) hypertension: Code(s): I10 - Essential (primary) hypertension Status: Acute Assessment and Plan: Monitor on home regimen (7) Osteoporosis with pathological fracture: Qualifiers: Encounter type: subsequent encounter Fracture healing: with routine healing Qualified Code(s): M80.00XD - Age-related osteoporosis with current pathological fracture, unspecified site, subsequent encounter for fracture with routine healing Code(s): M80.00XA - Age-related osteoporosis with current pathological fracture, unspecified site, initial encounter for fracture Status: Acute Assessment and Plan: TSH, PTH, 25 hydroxy D, testosterone (8) Smoker: Code(s): F17.200 - Nicotine dependence, unspecified, uncomplicated Status: Acute Assessment and Plan: The patient is not interested in quitting smoking. Subjective Date/time seen: 11/22/19 13:33 Interval history: Admitted 11/20 for pathological fracture of pelvis 11/21Complains of pain in the right femoral crease. Moderate. Severe with movement. Prior history of pathological fracture left hip. Review of Systems Review of Systems: All systems reviewed & are unremarkable except as noted in HPI and below Exam Narrative: Exam Narrative: HEENT: EOMI, PERRL, sclerae nonicteric, pharyngeal mucosa pink and intact NECK: No JVD, adenopathy, or thyromegaly CHEST: Normal effort. Coarse breath sounds throughout. Barrel chest with increased AP diameter. HEART: NL S1/S2, regular, no murmur ABDOMEN: BS+, soft, nontender, no mass, no bruits EXTREMITIES: No cyanosis, 1+ ankle edema NEUROLOGIC: CN intact and symmetric to inspection. MUSCULOSKELETAL: Tone and strength symmetric. PSYCH: Alert. Oriented to person, place, and time. Objective Data Vital Signs Vital Signs: Vital Signs - 24 hr 11/21/19 17:31 11/21/19 20:49 11/21/19 22:32 Temperature 98.3 F Pulse Rate 90 91 92 Respiratory Rate 14 20 20 Blood Pressure 150/92 H 156/76 H 131/70 Pulse Oximetry 95 96 96 11/22/19 00:00 11/22/19 01:07 11/22/19 01:12 Temperature 97.0 F L Pulse Rate 88 88 Respirator
[2019-11-22] MEDS: SENNOSIDES 8.6 MG TABLET PO (16:47)
[2019-11-22 17:18] LABS: Glucose Point of Care 89 (65-105)
[2019-11-22 20:36] LABS: Glucose Point of Care 82 (65-105)
[2019-11-22 23:12] LABS: Glucose Point of Care 83 (65-105)
[2019-11-23] VITALS (12 sets, daily range): BP systolic 128–146; BP diastolic 81–88; PULSE 75–101; RESP 16–22; TEMP 36–36.2; O2SAT 93–100
--- NOTE | 2019-11-23 | ECHO_ITS ---
Patient Info Name: Campbell Chandra Age: 58 years : 1960 Gender: Male Ht: 57 in Wt: 196 lbs BSA: 1.95 m2 HR: 95 bpm BP: 128 / 88 mmHg Heart Rhythm: Sinus Rhythm Technical Quality: Good Exam Date: 11/23/2019 11:39 AM Exam Location: [facility] Pulmonary Patient Status: Inpatient Admit Date: 11/21/2019 Staff Ordering Physician: Peggy Pedroza DO Electric Screw Driver Operator: Eugenio Mcgregor RDCS, RT Attending Provider: Peggy Pedroza DO Referring Physician: Yovany MATA; Exam Type: CA echo doppler color flow Study Info Indications R60.0 - Localized edema Complete two-dimensional, color flow and Doppler transthoracic echocardiogram is performed. Summary 1. Left ventricular chamber dimension is normal. 2. Left ventricular systolic function is normal, estimated at 65-70%. 3. Right ventricular chamber dimension is mildly enlarged. 4. The left ventricular diastolic function is grade I diastolic dysfunction. 5. Compared with December and Mar no difference seen. Left Ventricle Left ventricular chamber dimension is normal. Left ventricular systolic function is normal, estimated at 65-70%. The left ventricular diastolic function is grade I diastolic dysfunction. Right Ventricle Right ventricular chamber dimension is mildly enlarged. Left Atria Left atrial chamber dimension is normal. Right Atria Right atrial chamber dimension is normal. Aortic Valve The aortic valve is not well visualized. Pulmonic Valve The pulmonic valve is not well visualized. Mitral Valve The mitral valve has normal leaflets. Tricuspid Valve The tricuspid valve leaflets are not well visualized. Pericardium/Pleural The pericardium appears normal. Aorta The aortic root size at the sinus of Valsalva is normal. Left Ventricular Outflow Tract Name Value Normal LVOT 2D LVOT Diameter 1.9 cm LVOT Doppler LVOT Peak Gradient 4 mmHg LVOT Mean Gradient 2 mmHg LVOT VTI 17 cm LVOT VTI/AV VTI Ratio 0.9 LVOT Stroke Volume 48 ml LVOT CO 4.3 l/min LVOT CI 2.2 l/min/m2 Mitral Valve Name Value Normal MV Doppler MV Decel Jerauld 270 cm/s2 MV PHT 81 ms MV Area (PHT) 2.7 cm2 4.0-5.0 MV Diastolic Function MV E Peak Velocity 76 cm/s MV A Peak Velocity 91 cm/s MV E/A 0.8 MV Decel Time 281 ms Tricuspid Valve Name
[2019-11-23] MEDS: MORPHINE SULFATE 4 MG/ML INJ IV PUSH ×3 (05:58→17:02)
[2019-11-23] MEDS: LEVOTHYROXINE SODIUM 75 MCG TABLET PO (05:58)
[2019-11-23] MEDS: LEVOTHYROXINE SODIUM 100 MCG TABLET PO (05:58)
[2019-11-23 06:32] LABS: Glucose Point of Care 69 (65-105)
[2019-11-23] MEDS: CIPROFLOXACIN HC OTIC 10 ML 3 DROP EACH EAR ×2 (08:35→19:58)
[2019-11-23] MEDS: ASPIRIN 81 MG CHEWABLE TABLET PO (08:35)
[2019-11-23] MEDS: ATORVASTATIN 10 MG TABLET PO (08:35)
[2019-11-23] MEDS: metFORMIN HCL XR 500 MG TAB.SR.24H 1000 MG PO ×2 (08:35→15:50)
[2019-11-23] MEDS: glipiZIDE XL 5 MG TABCR 10 MG PO (08:35)
[2019-11-23] MEDS: SENNOSIDES 8.6 MG TABLET PO ×2 (08:36→15:50)
[2019-11-23] MEDS: ENOXAPARIN 40 MG/0.4 ML SYRINGE SUB-Q (08:36)
[2019-11-23] MEDS: TAMSULOSIN HCL 0.4 MG CAPSULE PO (08:36)
[2019-11-23] MEDS: IPRATROPIUM BR 0.02% INH SOLN 0.5 MG/2.5 ML VIAL INHALATION ×3 (08:37→20:30)
[2019-11-23] MEDS: ALBUTEROL SULFATE NEB 2.5 MG/0.5 ML INH INHALATION ×3 (08:37→20:30)
[2019-11-23 09:18] LABS: Glucose Point of Care 97 (65-105)
[2019-11-23 09:27] LABS: Blood Urea Nitrogen 23 mg/dL (9-20); Calcium 9.4 mg/dL (8.4-10.2); Carbon Dioxide 25 mmol/L (22-30); Chloride 105 mmol/L (98-107); Estimated Glomerular Filt Rate > 60; Glucose 103 mg/dL (75-110); Potassium 5.1 mmol/L (3.4-5.0); Sodium 136 mmol/L (137-145)
[2019-11-23] MEDS: TOLNAFTATE 1% POWDER 45 GM BTL 1 APPLIC TOPICAL ×2 (10:47→19:58)
[2019-11-23 11:23] LABS: Glucose Point of Care 98 (65-105)
--- NOTE | 2019-11-23 13:24 | P.PNIM_ITS ---
Progress Note: A&P Assessment and Plan (1) Closed pelvic fracture: Qualifiers: Encounter type: subsequent encounter Fracture alignment: nondisplaced Fracture healing: with routine healing Fracture morphology: unspecified fracture morphology Laterality: left Pelvic bone location: ilium Qualified Code(s): S32.302D - Unspecified fracture of left ilium, subsequent encounter for fracture with routine healing Code(s): S32.9XXA - Fracture of unspecified parts of lumbosacral spine and pelvis, initial encounter for closed fracture Status: Acute Assessment and Plan: * Orthopedic consultation although treatment is unlikely to involve surgery * Analgesics PRN * PT and OT * [facility] rehab (awaiting results for SARS-CoV-2 rt-PCR screen required by SNF) (2) COPD mixed type: Code(s): J44.9 - Chronic obstructive pulmonary disease, unspecified Status: Acute Assessment and Plan: * Without evidence of acute exacerbation. * Continue home steroid inhalers and scheduled nebulizers. (3) SAVANNA (obstructive sleep apnea): Code(s): G47.33 - Obstructive sleep apnea (adult) (pediatric) Status: Acute Assessment and Plan: * Auto titrating BiPAP (4) Diastolic dysfunction: Code(s): I51.89 - Other ill-defined heart diseases Status: Acute Assessment and Plan: * Slight increased lower extremity edema but without evidence of volume overload otherwise * 11/21 venous Dopplers negative for DVT * An element of cor pulmonale is likely * Echocardiogram: 1. Left ventricular chamber dimension is normal. 2. Left ventricular systolic function is normal, estimated at 65-70%. 3. Right ventricular chamber dimension is mildly enlarged. 4. The left ventricular diastolic function is grade I diastolic dysfunction. 5. Compared with December and Mar no difference seen. (5) Osteoarthritis: Qualifiers: Osteoarthritis location: unspecified site Osteoarthritis type: unspecified Qualified Code(s): M19.90 - Unspecified osteoarthritis, unspecified site Code(s): M19.90 - Unspecified osteoarthritis, unspecified site Status: Acute Assessment and Plan: * Analgesics p.r.n. (6) Essential (primary) hypertension: Code(s): I10 - Essential (primary) hypertension Status: Acute Assessment and Plan: * Lisinopril stopped due to hyperkalemia * Monitor (7) Osteoporosis with pathological fracture: Qualifiers: Encounter type: subsequent encounter Fracture healing: with routine healing Qualified Code(s): M80.00XD - Age-related osteoporosis with current pathological fracture, unspecified site, subsequent encounter for fracture with routine healing Code(s): M80.00XA - Age-related osteoporosis with current pathological fracture, unspecified site, initial encounter for fracture Status: Acute Assessment and Plan: * TSH, PTH, 25 hydroxy D, Calcium, Phos, Mag all WNL * Testosterone pending * Continue Calcium w/ D * DEXA between 2014 and 2017 had improved from t-score -2.8 to -1.8 on denosumab * Will need to f/u with [facility] as outpatient when stable (8) Smoker: Code(s): F17.200 - Nicotine dependence, unspecified, uncomplicated Status: Acute Assessment and Plan: * Aware of need to quit Subjective Date/time seen: 11/23/19 13:24 Interval history: Admitted 11/20 for pathological fracture of pelvis 11/22 Complains of pain in the right femoral crease. Moderate. Severe with movement. Some re
--- NOTE | 2019-11-23 13:24 | PM.IMPN ---
Progress Note: A&P Assessment and Plan (1) Closed pelvic fracture: Qualifiers: Encounter type: subsequent encounter Fracture alignment: nondisplaced Fracture healing: with routine healing Fracture morphology: unspecified fracture morphology Laterality: left Pelvic bone location: ilium Qualified Code(s): S32.302D - Unspecified fracture of left ilium, subsequent encounter for fracture with routine healing Code(s): S32.9XXA - Fracture of unspecified parts of lumbosacral spine and pelvis, initial encounter for closed fracture Status: Acute Assessment and Plan: Orthopedic consultation although treatment is unlikely to involve surgery Analgesics PRN PT and OT [facility] rehab (awaiting results for SARS-CoV-2 rt-PCR screen required by SNF) (2) COPD mixed type: Code(s): J44.9 - Chronic obstructive pulmonary disease, unspecified Status: Acute Assessment and Plan: Without evidence of acute exacerbation. Continue home steroid inhalers and scheduled nebulizers. (3) SAVANNA (obstructive sleep apnea): Code(s): G47.33 - Obstructive sleep apnea (adult) (pediatric) Status: Acute Assessment and Plan: Auto titrating BiPAP (4) Diastolic dysfunction: Code(s): I51.89 - Other ill-defined heart diseases Status: Acute Assessment and Plan: Slight increased lower extremity edema but without evidence of volume overload otherwise 11/21 venous Dopplers negative for DVT An element of cor pulmonale is likely Echocardiogram: 1. Left ventricular chamber dimension is normal. 2. Left ventricular systolic function is normal, estimated at 65-70%. 3. Right ventricular chamber dimension is mildly enlarged. 4. The left ventricular diastolic function is grade I diastolic dysfunction. 5. Compared with December and Mar no difference seen. (5) Osteoarthritis: Qualifiers: Osteoarthritis location: unspecified site Osteoarthritis type: unspecified Qualified Code(s): M19.90 - Unspecified osteoarthritis, unspecified site Code(s): M19.90 - Unspecified osteoarthritis, unspecified site Status: Acute Assessment and Plan: Analgesics p.r.n. (6) Essential (primary) hypertension: Code(s): I10 - Essential (primary) hypertension Status: Acute Assessment and Plan: Lisinopril stopped due to hyperkalemia Monitor (7) Osteoporosis with pathological fracture: Qualifiers: Encounter type: subsequent encounter Fracture healing: with routine healing Qualified Code(s): M80.00XD - Age-related osteoporosis with current pathological fracture, unspecified site, subsequent encounter for fracture with routine healing Code(s): M80.00XA - Age-related osteoporosis with current pathological fracture, unspecified site, initial encounter for fracture Status: Acute Assessment and Plan: TSH, PTH, 25 hydroxy D, Calcium, Phos, Mag all WNL Testosterone pending Continue Calcium w/ D DEXA between 2014 and 2017 had improved from t-score -2.8 to -1.8 on denosumab Will need to f/u with [facility] as outpatient when stable (8) Smoker: Code(s): F17.200 - Nicotine dependence, unspecified, uncomplicated Status: Acute Assessment and Plan: Aware of need to quit Subjective Date/time seen: 11/23/19 13:24 Interval history: Admitted 11/20 for pathological fracture of pelvis 11/22 Complains of pain in the right femoral crease. Moderate. Severe with movement. Some relief with morphine 4mg IV. No cp. Chronic BOBO. Mild edema. No GI or c/o. Prior history of pathological fracture left hip 07/2017 was treated at [facility]. Review of Systems Review of Systems: All systems reviewed & are unremarkable except as noted in HPI and below Exam Narrative: Exam Narrative: HEENT: EOMI, PERRL, sclerae nonicteric, pharyngeal mucosa pink and intact NECK: No JVD, adenopathy, or thyrom
[2019-11-23] MEDS: GLUCOSE ORAL GEL 15 GM OF GLUCSE IN 37.5 GM TUBE PO (15:56)
[2019-11-23] MEDS: DEXTROSE 50% 25 GM/50 ML SYRINGE IV PUSH (16:23)
[2019-11-23 16:39] LABS: Glucose Point of Care 54 (65-105)
[2019-11-23 16:39] LABS: Glucose Point of Care 51 (65-105)
[2019-11-23 16:39] LABS: Glucose Point of Care 133 (65-105)
--- NOTE | 2019-11-23 17:03 | PC.NURSE ---
dr mitchell notified of glucose 51 this evening, new orders received.
[2019-11-23 20:45] LABS: Glucose Point of Care 93 (65-105)
[2019-11-24] VITALS (12 sets, daily range): BP systolic 122–150; BP diastolic 69–77; PULSE 62–106; RESP 16–20; TEMP 36.3–36.4; O2SAT 89–98
[2019-11-24] MEDS: LEVOTHYROXINE SODIUM 100 MCG TABLET PO (06:01)
[2019-11-24] MEDS: LEVOTHYROXINE SODIUM 75 MCG TABLET PO (06:01)
[2019-11-24 06:07] LABS: Blood Urea Nitrogen 29 mg/dL (9-20); Calcium 9.8 mg/dL (8.4-10.2); Carbon Dioxide 27 mmol/L (22-30); Chloride 104 mmol/L (98-107); Estimated Glomerular Filt Rate 57; Glucose 73 mg/dL (75-110); Potassium 5.6 mmol/L (3.4-5.0); Sodium 138 mmol/L (137-145)
[2019-11-24] MEDS: ASPIRIN 81 MG CHEWABLE TABLET PO (08:00)
[2019-11-24] MEDS: TAMSULOSIN HCL 0.4 MG CAPSULE PO (08:01)
[2019-11-24] MEDS: SENNOSIDES 8.6 MG TABLET PO ×2 (08:01→16:22)
[2019-11-24] MEDS: CIPROFLOXACIN HC OTIC 10 ML 3 DROP EACH EAR ×2 (08:01→20:05)
[2019-11-24] MEDS: ENOXAPARIN 40 MG/0.4 ML SYRINGE SUB-Q (08:01)
[2019-11-24] MEDS: TOLNAFTATE 1% POWDER 45 GM BTL 1 APPLIC TOPICAL ×2 (08:01→20:05)
[2019-11-24] MEDS: ATORVASTATIN 10 MG TABLET PO (08:01)
[2019-11-24 08:39] LABS: Glucose Point of Care 85 (65-105)
[2019-11-24 08:39] LABS: Glucose Point of Care 66 (65-105)
[2019-11-24] MEDS: ALBUTEROL SULFATE NEB 2.5 MG/0.5 ML INH INHALATION ×3 (09:45→20:50)
[2019-11-24] MEDS: IPRATROPIUM BR 0.02% INH SOLN 0.5 MG/2.5 ML VIAL INHALATION ×3 (09:45→20:50)
[2019-11-24] MEDS: metFORMIN HCL XR 500 MG TAB.SR.24H 1000 MG PO ×2 (09:58→16:23)
[2019-11-24 11:26] LABS: Glucose Point of Care 89 (65-105)
--- NOTE | 2019-11-24 14:29 | P.PNIM_ITS ---
Progress Note: A&P Assessment and Plan (1) Closed pelvic fracture: Qualifiers: Encounter type: subsequent encounter Fracture alignment: nondisplaced Fracture healing: with routine healing Fracture morphology: unspecified fracture morphology Laterality: left Pelvic bone location: ilium Qualified Code(s): S32.302D - Unspecified fracture of left ilium, subsequent encounter for fracture with routine healing Code(s): S32.9XXA - Fracture of unspecified parts of lumbosacral spine and pelvis, initial encounter for closed fracture Status: Acute Assessment and Plan: * Orthopedic consultation although treatment is unlikely to involve surgery * Analgesics PRN * PT and OT * half-way rehab (awaiting results for SARS-CoV-2 rt-PCR screen required by SNF) (2) COPD mixed type: Code(s): J44.9 - Chronic obstructive pulmonary disease, unspecified Status: Acute Assessment and Plan: * Without evidence of acute exacerbation. * Continue home steroid inhalers and scheduled nebulizers. * O2 1 L nasal cannula at present (3) SAVANNA (obstructive sleep apnea): Code(s): G47.33 - Obstructive sleep apnea (adult) (pediatric) Status: Acute Assessment and Plan: * Auto titrating BiPAP (4) Diastolic dysfunction: Code(s): I51.89 - Other ill-defined heart diseases Status: Acute Assessment and Plan: * Slight increased lower extremity edema but without evidence of volume overload otherwise * 11/21 venous Dopplers negative for DVT * An element of cor pulmonale is likely * Echocardiogram: 1. Left ventricular chamber dimension is normal. 2. Left ventricular systolic function is normal, estimated at 65-70%. 3. Right ventricular chamber dimension is mildly enlarged. 4. The left ventricular diastolic function is grade I diastolic dysfunction. 5. Compared with December and Mar no difference seen. (5) Osteoarthritis: Qualifiers: Osteoarthritis location: unspecified site Osteoarthritis type: unspecified Qualified Code(s): M19.90 - Unspecified osteoarthritis, unspecified site Code(s): M19.90 - Unspecified osteoarthritis, unspecified site Status: Acute Assessment and Plan: * Analgesics p.r.n. (6) Essential (primary) hypertension: Code(s): I10 - Essential (primary) hypertension Status: Acute Assessment and Plan: * Lisinopril stopped due to hyperkalemia, Kayexalate today with potassium back to 5.6 * Monitor (7) Osteoporosis with pathological fracture: Qualifiers: Encounter type: subsequent encounter Fracture healing: with routine healing Qualified Code(s): M80.00XD - Age-related osteoporosis with current pathological fracture, unspecified site, subsequent encounter for fracture with routine healing Code(s): M80.00XA - Age-related osteoporosis with current pathological fracture, unspecified site, initial encounter for fracture Status: Acute Assessment and Plan: * TSH, PTH, 25 hydroxy D, Calcium, Phos, Mag all WNL * Testosterone pending * Continue Calcium w/ D * DEXA between 2014 and 2018 had improved from t-score -2.8 to -1.8 on denosumab * Will need to f/u with [facility] as outpatient when stable (8) Smoker: Code(s): F17.200 - Nicotine dependence, unspecified, uncomplicated Status: Acute Assessment and Plan: * Aware of need to quit Subjective Date/time seen: 11/24/19 14:29 Interval history: Admitted 11/20 for pathological fracture of pelvis 11/23 C
--- NOTE | 2019-11-24 14:29 | PM.IMPN ---
Progress Note: A&P Assessment and Plan (1) Closed pelvic fracture: Qualifiers: Encounter type: subsequent encounter Fracture alignment: nondisplaced Fracture healing: with routine healing Fracture morphology: unspecified fracture morphology Laterality: left Pelvic bone location: ilium Qualified Code(s): S32.302D - Unspecified fracture of left ilium, subsequent encounter for fracture with routine healing Code(s): S32.9XXA - Fracture of unspecified parts of lumbosacral spine and pelvis, initial encounter for closed fracture Status: Acute Assessment and Plan: Orthopedic consultation although treatment is unlikely to involve surgery Analgesics PRN PT and OT longterm rehab (awaiting results for SARS-CoV-2 rt-PCR screen required by SNF) (2) COPD mixed type: Code(s): J44.9 - Chronic obstructive pulmonary disease, unspecified Status: Acute Assessment and Plan: Without evidence of acute exacerbation. Continue home steroid inhalers and scheduled nebulizers. O2 1 L nasal cannula at present (3) SAVANNA (obstructive sleep apnea): Code(s): G47.33 - Obstructive sleep apnea (adult) (pediatric) Status: Acute Assessment and Plan: Auto titrating BiPAP (4) Diastolic dysfunction: Code(s): I51.89 - Other ill-defined heart diseases Status: Acute Assessment and Plan: Slight increased lower extremity edema but without evidence of volume overload otherwise 11/21 venous Dopplers negative for DVT An element of cor pulmonale is likely Echocardiogram: 1. Left ventricular chamber dimension is normal. 2. Left ventricular systolic function is normal, estimated at 65-70%. 3. Right ventricular chamber dimension is mildly enlarged. 4. The left ventricular diastolic function is grade I diastolic dysfunction. 5. Compared with December and Mar no difference seen. (5) Osteoarthritis: Qualifiers: Osteoarthritis location: unspecified site Osteoarthritis type: unspecified Qualified Code(s): M19.90 - Unspecified osteoarthritis, unspecified site Code(s): M19.90 - Unspecified osteoarthritis, unspecified site Status: Acute Assessment and Plan: Analgesics p.r.n. (6) Essential (primary) hypertension: Code(s): I10 - Essential (primary) hypertension Status: Acute Assessment and Plan: Lisinopril stopped due to hyperkalemia, Kayexalate today with potassium back to 5.6 Monitor (7) Osteoporosis with pathological fracture: Qualifiers: Encounter type: subsequent encounter Fracture healing: with routine healing Qualified Code(s): M80.00XD - Age-related osteoporosis with current pathological fracture, unspecified site, subsequent encounter for fracture with routine healing Code(s): M80.00XA - Age-related osteoporosis with current pathological fracture, unspecified site, initial encounter for fracture Status: Acute Assessment and Plan: TSH, PTH, 25 hydroxy D, Calcium, Phos, Mag all WNL Testosterone pending Continue Calcium w/ D DEXA between 2014 and 2017 had improved from t-score -2.8 to -1.8 on denosumab Will need to f/u with [facility] as outpatient when stable (8) Smoker: Code(s): F17.200 - Nicotine dependence, unspecified, uncomplicated Status: Acute Assessment and Plan: Aware of need to quit Subjective Date/time seen: 11/24/19 14:29 Interval history: Admitted 11/20 for pathological fracture of pelvis 11/23 Complains of pain in the right femoral crease as before Moderate. Severe with movement. No cp. Chronic BOBO. Mild edema. No GI or c/o. Prior history of pathological fracture left hip 07/2017 was treated at [facility]. Exam Narrative: Exam Narrative: Blood pressure 150/74 pulse is 96 saturating 95% L nasal cannula afebrile HEENT: PERRL, sclerae nonicteric, NECK: No, adenopathy, supple CHEST: . Coarse breath sounds
[2019-11-24] MEDS: SODIUM POLYSTYRENE SULFONONATE 15 GM/60 ML BTL PO (14:32)
[2019-11-24 16:22] LABS: Glucose Point of Care 78 (65-105)
[2019-11-24] MEDS: ONDANSETRON INJ 4 MG/2 ML VIAL IV PUSH (16:22)
[2019-11-24 19:07] LABS: IFOB Positive Control Positive; Immunochemical Fecal Occult Bl Positive (N)
--- NOTE | 2019-11-24 19:12 | PM.CNOR ---
Assessment and Plan Assessment and plan (1) Closed pelvic fracture: Qualifiers: Encounter type: subsequent encounter Fracture alignment: nondisplaced Fracture healing: with routine healing Fracture morphology: unspecified fracture morphology Laterality: left Pelvic bone location: ilium Qualified Code(s): S32.302D - Unspecified fracture of left ilium, subsequent encounter for fracture with routine healing Code(s): S32.9XXA - Fracture of unspecified parts of lumbosacral spine and pelvis, initial encounter for closed fracture Status: Acute Assessment and Plan: Minimally displaced fracture of the left iliac wing. Pathologic insufficiency fracture. History of multiple previous fractures including spinal compression fractures and bilateral intertrochanteric hip fractures. No recent injury. The fracture will be treated conservatively. I expect he will need several weeks of rehab, until the pain lessens. He may increase activity gradually as tolerated. Repeat pelvic xrays in 3 weeks. He may follow up as an outpatient in 4-6 weeks. History of Present Illness HPI Consult date: 11/24/19 Chief complaint: pelvic fracture Narrative: Complains of left hip and flank pain. Sharp, severe pain worse with movement. No numbness, tingling or other associated symptoms. No history of recent fall. Review of Systems Review of Systems: All systems reviewed & are unremarkable except as noted in HPI and below (refer to H and P documented by Peggy Pedroza DO, 11/22/19.) [facility] Past Medical History Medical History Allergy to environmental factors Bilateral hip fractures BPH w/o urinary obs/LUTS COPD mixed type Diastolic dysfunction Dyslipidemia Essential (primary) hypertension Femur fracture Hypothyroidism (acquired) SAVANNA (obstructive sleep apnea) uses CPAP Osteoarthritis Osteoporosis Type 2 diabetes mellitus without complication, without long-term current use of insulin Vitamin D deficiency Surgical History Surgical History History of hip surgery rods placed in bilateral hips Hx of partial nephrectomy lt kidney Family History Family History Father Lung cancer Social History Social History Social History: Primary care physician: Dr. Caity Adamson Code status: Full code Smoking packs per day: 1.5 Smoking cigarettes per day: 30.0 Years smoked: 30 Smoking pack-years: 45.00 Smoking status: Current every day smoker Tobacco type: cigarettes Second hand tobacco smoke exposure: Yes Alcohol intake: current Alcohol use details: On occasion and in moderation. Substance use: never Substance use type: does not use Living arrangements: with family Additional living arrangements comments: The patient lives at home with his . They do not have any children. He ambulates with a walker. Additional occupation/education comments: Patient is disabled. Gender identity (if verbalized by the patient): Male Meds Home Medications and Allergies Home Medications Medication Instructions Recorded Confirmed Type aspirin 81 mg PO DAILY 07/03/19 11/22/19 History atorvastatin 10 mg PO DAILY 07/03/19 11/22/19 History budesonide-formoterol [Symbicort] 2 puff INHALATION Q12H 07/03/19 11/22/19 History calcium carbonate-vitamin D3 1 tablet PO BID 07/03/19 11/22/19 History [Calcium 500 + D (D3)] denosumab [Prolia] 60 mg SUBCUT [id number] 07/03/19 11/22/19 History ipratropium-albuterol 3 ml INHALATION TID 07/03/19 11/22/19 History tamsulosin 0.4 mg capsule 0.4 mg PO DAILY #90 cap 08/24/19 11/22/19 Rx blood sugar diagnostic #300 each 09/08/19 11/22/19 Rx glipizide 10 mg tablet, extended 10 mg PO DAILY #90 tablet 09/14/19 11/22/19 Rx release
[2019-11-25 02:46] VITALS: PULSE 92; RESP 16; O2SAT 94
[2019-11-25 03:16] LABS: Glucose Point of Care 110 (65-105)
[2019-11-25] MEDS: LEVOTHYROXINE SODIUM 100 MCG TABLET PO (04:29)
[2019-11-25] MEDS: LEVOTHYROXINE SODIUM 75 MCG TABLET PO (04:29)
[2019-11-25 05:25] VITALS: BP 140/72; PULSE 91; RESP 18; TEMP 36.1; O2SAT 96
[2019-11-25 05:51] LABS: Blood Urea Nitrogen 27 mg/dL (9-20); Calcium 8.8 mg/dL (8.4-10.2); Carbon Dioxide 27 mmol/L (22-30); Chloride 103 mmol/L (98-107); Estimated Glomerular Filt Rate > 60; Glucose 108 mg/dL (75-110); Potassium 4.7 mmol/L (3.4-5.0); Sodium 137 mmol/L (137-145)
[2019-11-25 06:16] LABS: Hemoglobin A1C 6.2 % (<5.7)
[2019-11-25 07:55] LABS: Glucose Point of Care 83 (65-105)
[2019-11-25 08:21] LABS: Glucose Point of Care 110 (65-105)
[2019-11-25] MEDS: SENNOSIDES 8.6 MG TABLET PO (08:36)
[2019-11-25] MEDS: TAMSULOSIN HCL 0.4 MG CAPSULE PO (08:36)
[2019-11-25] MEDS: ASPIRIN 81 MG CHEWABLE TABLET PO (08:36)
[2019-11-25] MEDS: ATORVASTATIN 10 MG TABLET PO (08:36)
[2019-11-25] MEDS: CIPROFLOXACIN HC OTIC 10 ML 3 DROP EACH EAR (08:37)
[2019-11-25] MEDS: TOLNAFTATE 1% POWDER 45 GM BTL 1 APPLIC TOPICAL (08:37)
[2019-11-25] MEDS: ENOXAPARIN 40 MG/0.4 ML SYRINGE SUB-Q (08:37)
[2019-11-25 09:13] VITALS: PULSE 90; RESP 18; O2SAT 95
[2019-11-25] MEDS: ALBUTEROL SULFATE NEB 2.5 MG/0.5 ML INH INHALATION (09:13)
[2019-11-25] MEDS: IPRATROPIUM BR 0.02% INH SOLN 0.5 MG/2.5 ML VIAL INHALATION (09:13)
[2019-11-25 09:23] VITALS: PULSE 84; RESP 20
[2019-11-25 09:44] VITALS: O2SAT 92
[2019-11-25 09:45] VITALS: PULSE 96; RESP 17; O2SAT 92
--- NOTE | 2019-11-25 18:26 | P.DS_ITS ---
DS: Admitting Diagnosis Admitting Diagnosis Admitting Diagnosis: Pain in left hip DS: Discharge Diagnosis Discharge Diagnosis (1) Closed pelvic fracture: Qualifiers: Encounter type: subsequent encounter Fracture alignment: nondisplaced Fracture healing: with routine healing Fracture morphology: unspecified fracture morphology Laterality: left Pelvic bone location: ilium Qualified Code(s): S32.302D - Unspecified fracture of left ilium, subsequent encounter for fracture with routine healing Code(s): S32.9XXA - Fracture of unspecified parts of lumbosacral spine and pelvis, initial encounter for closed fracture Status: Acute Assessment and Plan: * Orthopedic consultation agreed with conservative treatment and will need a x- rays in about 3 weeks and follow-up with ortho in 4-6 * Analgesics PRN * PT and OT as tolerated [facility] (2) COPD mixed type: Code(s): J44.9 - Chronic obstructive pulmonary disease, unspecified Status: Acute Assessment and Plan: * Without evidence of acute exacerbation. * Continued home steroid inhalers and scheduled nebulizers. * O2 1 L nasal cannula at present and at discharge was 92% on room air (3) SAVANNA (obstructive sleep apnea): Code(s): G47.33 - Obstructive sleep apnea (adult) (pediatric) Status: Acute Assessment and Plan: * Auto titrating BiPAP which will continue had SNF (4) Diastolic dysfunction: Code(s): I51.89 - Other ill-defined heart diseases Status: Acute Assessment and Plan: * Slight increased lower extremity edema but without evidence of volume overload otherwise * 11/21 venous Dopplers negative for DVT * An element of cor pulmonale is likely * Echocardiogram: 1. Left ventricular chamber dimension is normal. 2. Left ventricular systolic function is normal, estimated at 65-70%. 3. Right ventricular chamber dimension is mildly enlarged. 4. The left ventricular diastolic function is grade I diastolic dysfunction. 5. Compared with December and Mar no difference seen. (5) Osteoarthritis: Qualifiers: Osteoarthritis location: unspecified site Osteoarthritis type: unspecified Qualified Code(s): M19.90 - Unspecified osteoarthritis, unspecified site Code(s): M19.90 - Unspecified osteoarthritis, unspecified site Status: Acute Assessment and Plan: * Analgesics p.r.n. (6) Essential (primary) hypertension: Code(s): I10 - Essential (primary) hypertension Status: Acute Assessment and Plan: * Lisinopril stopped due to hyperkalemia, Kayexalate 11/23 with potassium back to 5.6, and potassium 4.8 day of discharge * Monitor with basic metabolic profile and approximately 7-10 days (7) Osteoporosis with pathological fracture: Qualifiers: Encounter type: subsequent encounter Fracture healing: with routine healing Qualified Code(s): M80.00XD - Age-related osteoporosis with current pathological fracture, unspecified site, subsequent encounter for fracture with routine healing Code(s): M80.00XA - Age-related osteoporosis with current pathological fracture, unspecified site, initial encounter for fracture Status: Acute Assessment and Plan: * TSH, PTH, 25 hydroxy D, Calcium, Phos, Mag all WNL * Testosterone pending * Continue Calcium w/ D * DEXA between 2014 and 2018 had improved from t-score -2.8 to -1.8 on denosumab * Will need to f/u with [facility] as outpatient when stable (8) Smoker: Code(s): F17.200 - Nicotine depend
--- NOTE | 2019-11-25 18:26 | PM.DS ---
DS: Admitting Diagnosis Admitting Diagnosis Admitting Diagnosis: Pain in left hip DS: Discharge Diagnosis Discharge Diagnosis (1) Closed pelvic fracture: Qualifiers: Encounter type: subsequent encounter Fracture alignment: nondisplaced Fracture healing: with routine healing Fracture morphology: unspecified fracture morphology Laterality: left Pelvic bone location: ilium Qualified Code(s): S32.302D - Unspecified fracture of left ilium, subsequent encounter for fracture with routine healing Code(s): S32.9XXA - Fracture of unspecified parts of lumbosacral spine and pelvis, initial encounter for closed fracture Status: Acute Assessment and Plan: Orthopedic consultation agreed with conservative treatment and will need a x-rays in about 3 weeks and follow-up with ortho in 4-6 Analgesics PRN PT and OT as tolerated care home rehab 11/24) (2) COPD mixed type: Code(s): J44.9 - Chronic obstructive pulmonary disease, unspecified Status: Acute Assessment and Plan: Without evidence of acute exacerbation. Continued home steroid inhalers and scheduled nebulizers. O2 1 L nasal cannula at present and at discharge was 92% on room air (3) SAVANNA (obstructive sleep apnea): Code(s): G47.33 - Obstructive sleep apnea (adult) (pediatric) Status: Acute Assessment and Plan: Auto titrating BiPAP which will continue had SNF (4) Diastolic dysfunction: Code(s): I51.89 - Other ill-defined heart diseases Status: Acute Assessment and Plan: Slight increased lower extremity edema but without evidence of volume overload otherwise 11/21 venous Dopplers negative for DVT An element of cor pulmonale is likely Echocardiogram: 1. Left ventricular chamber dimension is normal. 2. Left ventricular systolic function is normal, estimated at 65-70%. 3. Right ventricular chamber dimension is mildly enlarged. 4. The left ventricular diastolic function is grade I diastolic dysfunction. 5. Compared with December and Mar no difference seen. (5) Osteoarthritis: Qualifiers: Osteoarthritis location: unspecified site Osteoarthritis type: unspecified Qualified Code(s): M19.90 - Unspecified osteoarthritis, unspecified site Code(s): M19.90 - Unspecified osteoarthritis, unspecified site Status: Acute Assessment and Plan: Analgesics p.r.n. (6) Essential (primary) hypertension: Code(s): I10 - Essential (primary) hypertension Status: Acute Assessment and Plan: Lisinopril stopped due to hyperkalemia, Kayexalate 11/23 with potassium back to 5.6, and potassium 4.8 day of discharge Monitor with basic metabolic profile and approximately 7-10 days (7) Osteoporosis with pathological fracture: Qualifiers: Encounter type: subsequent encounter Fracture healing: with routine healing Qualified Code(s): M80.00XD - Age-related osteoporosis with current pathological fracture, unspecified site, subsequent encounter for fracture with routine healing Code(s): M80.00XA - Age-related osteoporosis with current pathological fracture, unspecified site, initial encounter for fracture Status: Acute Assessment and Plan: TSH, PTH, 25 hydroxy D, Calcium, Phos, Mag all WNL Testosterone pending Continue Calcium w/ D DEXA between 2014 and 2018 had improved from t-score -2.8 to -1.8 on denosumab Will need to f/u with [facility] as outpatient when stable (8) Smoker: Code(s): F17.200 - Nicotine dependence, unspecified, uncomplicated Status: Acute Assessment and Plan: Aware of need to quit (9) Diabetes mellitus: Code(s): E11.9 - Type 2 diabetes mellitus without complications Status: Acute Assessment and Plan: Blood sugar random low at times while here an A1c was only 6.2, glipizide was discontinued and metformin continued DS: Summary Hospital Course Hos
[2019-11-26 01:37] LABS: Methylmalonic Acid 301 nmol/L (87-318)
[2019-11-26 04:53] LABS: Albumin 3.2 g/dL (3.8-4.8); Alpha 1 Globulin 0.4 g/dL (0.2-0.3); Alpha 2 Globulin 0.8 g/dL (0.5-0.9); Beta 1 Globulin 0.5 g/dL (0.4-0.6); Gamma Globulin 0.8 g/dL (0.8-1.7)
[2019-11-26 13:21] LABS: Testosterone Free 17.9 pg/mL (35.0-155.0); Testosterone Total 138 ng/dL (250-1100)
[2019-11-27 15:00] LABS: Creatinine, Random Urine 58 mg/dL (20-320); Total Protein/Creatinine Ratio 431 mg/g creat (22-128)
== END 2019-11-25 11:41 ==
LOC: ANHED 23:04 → ANH2MED 11-22 06:41
PROVIDERS: Internal Medicine; Admitting Provider Internal Medicine; Emergency Provider Emergency Medicine; PCP Family Medicine; Visit Provider Internal Medicine
DX: M84.454A Pathological fracture, pelvis, initial encounter for fracture (principal); E66.9 Obesity, unspecified; E11.9 Type 2 diabetes mellitus without complications; F17.210 Nicotine dependence, cigarettes, uncomplicated; G47.33 Obstructive sleep apnea (adult) (pediatric); I11.9 Hypertensive heart disease without heart failure; J44.9 Chronic obstructive pulmonary disease, unspecified; M19.90 Unspecified osteoarthritis, unspecified site; N40.0 Benign prostatic hyperplasia without lower urinary tract symptoms; R22.43 Localized swelling, mass and lump, lower limb, bilateral; Z90.5 Acquired absence of kidney; Z68.41 Body mass index [BMI] 40.0-44.9, adult; Z79.84 Long term (current) use of oral hypoglycemic drugs; Z20.828 Contact with and (suspected) exposure to other viral communicable diseases
CPT/HCPCS: 36415; 71045; 72192; 73502; 80048; 80053; 81001; 82274; 82306; 82570; 82607; 82746; 82948; 83036; 83540; 83550; 83735; 83921; 83970; 84100; 84155; 84156; 84165; 84166; 84402; 84403; 84443; 85025; 85027; 85046; 85652; 86140; 87635; 93306; 93970; 94640; 96372; 96374; 96375; 96376; 97110; 97161; 97165; 97530; 97535; 99285; A9270; C9803; G0378; J1650; J2270; J2405; U0003

== ENCOUNTER 2020-01-14 09:52 | Outpatient (CLI) | payer MEDICARE, SELFPAY ==
--- NOTE | ~2020-01-14 | MR_ITS ---
EXAMINATION: MR abdomen wo/w con DATE: 01/14/2020 11:44 INDICATION: Disorder of kidney and ureter. TECHNIQUE: Magnetic resonance imaging (MRI) of the abdomen was performed without and with 16 mL Multi Zamzam intravenous contrast. Sequences included coronal T2-weighted FS FSE, coronal and axial FIESTA F S, coronal LAVA-flex, axial LAVA, axial T2-weighted FSE, axial T1-weighted dual-echo FSPGR, axial STI R FSE, and axial DWI. Postcontrast sequences included coronal LAVA-flex and a time course of axial LA VA. COMPARISON: Pelvis CT 11/21/2019, lumbar spine MRI 08/07/2011 FINDINGS: There is a small left pleural effusion. The liver, gallbladder, spleen, pancreas, and adrenal glands are normal. There is severe atrophy of right kidney. There is a 9 mm cyst in right kidney. There is s evere right hydronephrosis with transition point at the ureteropelvic junction. There is cortical thi nning of left kidney. There is mild left hydronephrosis. There are no dilated loops of bowel. There a re no pathologically enlarged lymph nodes. There is no free intraperitoneal fluid. The prostate is mi ldly enlarged. There is internal fixation of the occipital femora. IMPRESSION: 1. Severe right hydronephrosis with transition point at the ureteropelvic junction. Severe right kidn ey atrophy. 2. Chronic mild left hydronephrosis. Cortical thinning of left kidney. Reviewed, dictated and finalized at location A. IMPRESSION: 1. Severe right hydronephrosis with transition point at the ureteropelvic junct ion. Severe right kidney atrophy. 2. Chronic mild left hydronephrosis. Cortical thinning of left kidney.
[2020-01-14 10:54] LABS: Estimated Glomerular Filt Rate > 60
== END 2020-01-14 09:53 | disposition home or self-care (01) ==
PROVIDERS: PCP Family Medicine; Visit Provider Family Medicine
DX: N28.9 Disorder of kidney and ureter, unspecified (principal)
CPT/HCPCS: 36415; 74183; A9577

== ENCOUNTER 2020-02-02 18:26 | Emergency (ER) | payer MEDICARE, SELFPAY ==
[2020-02-02] VITALS (9 sets, daily range): BP systolic 124–157; BP diastolic 67–100; PULSE 96–104; RESP 14–23; TEMP 36.8; O2SAT 96–100
--- NOTE | ~2020-02-02 | XR_ITS ---
XR chest 2V 02/02/2020 19:08 Indication: Dyspnea. History of COPD. Hypertension. Procedure: 2 view chest Comparison: Comparison to multiple prior studies sequentially, with oldest reviewed study dated 06/08. Findings: Cardiomegaly. No focal air space disease, pulmonary edema, pleural effusion or suspected pn eumothorax. There is a healing left clavicular fracture. Impression: 1: No acute cardiopulmonary disease. 2: Healing left clavicular fracture with callus formation. Reviewed, dictated and finalized at location A. Impression: 1: No acute cardiopulmonary disease. 2: Healing left clavicular fracture with callus formation.
--- NOTE | ~2020-02-02 | XR_ITS ---
XR hip LT 2V w AP pelvis 02/02/2020 20:20 Indication: Left hip pain Procedure: AP pelvis and 3 views left hip Comparison: 11/21/2019 and 01/07/2020 Findings: There is a fracture of the left ilium with stable position compared with prior examination. There is a probable healed left inferior pubic ramus fracture. There are intramedullary rods in the femurs bilaterally with compression screws in the femoral necks. There are degenerative changes of th e hips. No new fractures are identified. Osteopenia. Impression: 1: No new fractures. 2: Stable appearance to longitudinally oriented fracture of the left ilium. Reviewed, dictated and finalized at location A. Impression: 1: No new fractures. 2: Stable appearance to longitudinally oriented fracture of the left ilium.
[2020-02-02 18:33] LABS: Glucose Point of Care 124 (65-105)
--- NOTE | 2020-02-02 18:36 | ECG_ITS ---
Measurements Intervals [place] Rate: 96 P: 33 NV: 166 QRS: -53 QRSD: 97 T: 76 QT: 300 QTc: 380 Interpretive Statements SINUS RHYTHM ATRIAL PREMATURE COMPLEXES LEFT ANTERIOR FASCICULAR BLOCK VOLTAGE CRITERIA FOR LVH BORDERLINE ST-T WAVE ABNORMALITY- HIGH LATERAL LEADS ABNORMAL ECG Electronically Signed On 02-03-2020 6:49:26 CDT by Junior Renner D.O.
[2020-02-02 18:53] LABS: Basophils Absolute Auto 0.1 K/mm3 (0.0-0.1); Basophils Percent Auto 0.8 % (0.2-1.2); Eosinophils Absolute Auto 0.2 K/mm3 (0-0.3); Eosinophils Percent Auto 2.1 % (0-4.4); Hematocrit 38.6 % (42.0-52.0); Hemoglobin 12.3 g/dL (14.0-18.0); Immature Granulocyte Absolute 0.04 K/mm3 (0.00-0.031); Immature Granulocyte Percent A 0.5 % (0-0.5); Lymphocytes Absolute Auto 1.03 K/mm3 (0.9-3.2); Lymphocytes Percent Auto 13.6 % (18.3-44.2); Mean Corpuscular HGB Conc 31.9 g/dl (32-36); Mean Corpuscular Hemoglobin 27.2 pg (26-34); Mean Corpuscular Volume 85.4 fl (80-100); Mean Platelet Volume 8.2 fl (7.4-10.4); Monocytes Absolute Auto 0.7 K/mm3 (0.1-0.6); Monocytes Percent Auto 8.8 % (2.6-8.5); Neutrophils Absolute Auto 5.6 K/mm3 (1.3-6.7); Neutrophils Percent Auto 74.2 % (45.5-73.1); Platelet Count Result 374 k/mm3 (150-375); Red Blood Count 4.52 M/mm3 (4.6-6.20); Red Cell Distribution Width 16.2 % (11.5-14.5); White Blood Count 7.6 K/mm3 (4.5-10.0)
[2020-02-02 19:02] LABS: Anion Gap 14.3 mmol/L (7-16); Blood Urea Nitrogen 22 mg/dL (9-20); Calcium 8.8 mg/dL (8.4-10.2); Carbon Dioxide 23 mmol/L (22-30); Chloride 104 mmol/L (98-107); Estimated Glomerular Filt Rate > 60; Glucose 116 mg/dL (75-110); Potassium 5.3 mmol/L (3.4-5.0); Sodium 136 mmol/L (137-145)
--- NOTE | 2020-02-02 19:18 | PC.NURSE ---
Assumed care of pt at this time. Report from YOGESH Pastor
--- NOTE | 2020-02-02 19:30 | ED.SOB ---
HPI - SOB/Dyspnea General Chief Complaint: Shortness of Breath/Dyspnea Stated Complaint: SOB/HIP PAIN Time Seen by Provider: 02/02/20 19:03 History of Present Illness HPI Narrative: Shortness of breath for a few weeks. Associated with cough. No fever. He has COPD. Receiving all meds as prescribed. Also c/o intermittent left hip pain. Recent fracture. Hospitalized then went to rehab. Pain is coming back. No new injury. He says that he is currently being worked upo for fluid around his kidney . He says that he urinates every hour. Straining. Weak stream. No pain. Related Data Home Medications Medication Instructions Recorded Confirmed Prolia 60 mg SUBCUT [id number] 07/03/19 01/13/20 aspirin 81 mg PO DAILY 07/03/19 01/13/20 budesonide-formoterol [Symbicort] 2 puff INHALATION Q12H 07/03/19 01/13/20 calcium carbonate-vitamin D3 1 tablet PO BID 07/03/19 01/13/20 [Calcium 500 + D (D3)] ipratropium-albuterol 3 ml INHALATION TID 07/03/19 01/13/20 albuterol sulfate [ProAir HFA] 1 puff INHALATION Q4H 11/22/19 01/13/20 meloxicam 7.5 mg PO DAILY 11/22/19 01/13/20 metformin 1,000 mg PO BID 11/22/19 01/13/20 glipizide 10 mg tablet 10 mg PO DAILY 01/13/20 01/13/20 lisinopril 2.5 mg tablet 2.5 mg PO DAILY 01/13/20 01/13/20 Allergies Allergy/AdvReac Type Severity Reaction Status Date / Time No Known Allergies Allergy Unknown Verified 01/07/20 11:03 Review of Systems Review of Systems: All systems reviewed & are unremarkable except as noted in HPI and below Constitutional: Constitutional: Denies fever(s) Cardiovascular: Cardiovascular: Denies chest pain Respiratory: Respiratory: Reports cough, Reports dyspnea and Reports wheezing Gastrointestinal: Gastrointestinal: Denies nausea and Denies vomiting Genitourinary: Genitourinary: Reports oliguria and Reports urinary frequency Neurologic: Denies dizziness and Denies weakness [facility] Past Medical History Medical History Allergy to environmental factors Bilateral hip fractures BPH w/o urinary obs/LUTS COPD mixed type Degenerative arthritis of knee, bilateral Diastolic dysfunction Dyslipidemia Essential (primary) hypertension Femur fracture Hemoglobin A1c less than 7.0% Hypothyroidism (acquired) SAVANNA (obstructive sleep apnea) uses CPAP Osteoarthritis Osteoporosis Type 2 diabetes mellitus without complication, without long-term current use of insulin Vitamin D deficiency Surgical History Surgical History History of hip surgery rods placed in bilateral hips Hx of partial nephrectomy lt kidney Family History Family History Father Lung cancer Social History Social History Social History: Primary care physician: Dr. Caity Adamson Code status: Full code Smoking packs per day: 1.5 Smoking cigarettes per day: 30.0 Years smoked: 30 Smoking pack-years: 45.00 Smoking status: Former smoker Tobacco type: cigarettes Second hand tobacco smoke exposure: Yes Alcohol intake: current Substance use: never Substance use type: does not use Additional living arrangements comments: The patient lives at home with his . They do not have any children. He ambulates with a walker. Additional occupation/education comments: Patient is disabled. Gender identity (if verbalized by the patient): Male Exam Const: General: no acute distress and alert Orientation/consciousness: patient oriented x3 Other: Dwarfism HENMT: Head: normal to inspection Neck: Neck: normal visual inspection and no lymphadenopathy Chest: Chest palpation & inspection: no tenderness Resp: Effort & Inspection: normal respiratory effort Auscultation: clear to auscultation bilaterally, no rales, no rhonchi and wheezes Cardio: Jugular
[2020-02-02] MEDS: IPRATROPIUM BR 0.02% INH SOLN 0.5 MG/2.5 ML VIAL INHALATION (19:43)
[2020-02-02] MEDS: ALBUTEROL SULFATE NEB 2.5 MG/0.5 ML INH 5 MG INHALATION (19:43)
[2020-02-02] MEDS: methylPREDNISolone SOD SUCC 125 MG VIAL IV PUSH (19:47)
[2020-02-02 20:04] LABS: Add Urine Microscopic? YES; Appearance Urine Clear (Clear); Bilirubin Urine Negative (Negative); Blood Urine Negative (Negative); Color Urine Straw (Yellow); Glucose Urine UA Negative (Negative); Ketones Urine Negative (Negative); Leukocyte Esterase Ur Trace LEU/UL (Negative); Mucus Urine Rare /lpf; Nitrate Urine Negative (Negative); Protein Urine Negative (Negative); RBC Urine 0-2 /hpf (0-2); Specific Grav Ur 1.014 (1.001-1.035); Squamous Epithelial Cell Urine Few /hpf (Few); Urobilinogen Urine Negative mg/dL (<2.0); WBC Urine 0-3 /hpf
--- NOTE | 2020-02-02 20:37 | PC.NURSE ---
Bladder scanned pt post void. Pt. has 500+ mL in bladder
--- NOTE | 2020-02-02 20:50 | PC.NURSE ---
PT REFUSED WHATLEY CATHETER. RN NOTIFIED.
[2020-02-02] MEDS: TAMSULOSIN HCL 0.4 MG CAPSULE PO (21:28)
== END 2020-02-02 21:29 | disposition home or self-care (01) ==
PROVIDERS: Emergency Medicine; Emergency Provider Emergency Medicine; PCP Family Medicine
DX: J44.1 Chronic obstructive pulmonary disease with (acute) exacerbation (principal); N40.1 Benign prostatic hyperplasia with lower urinary tract symptoms; R33.8 Other retention of urine; M17.0 Bilateral primary osteoarthritis of knee; E78.5 Hyperlipidemia, unspecified; I10 Essential (primary) hypertension; E03.9 Hypothyroidism, unspecified; G47.33 Obstructive sleep apnea (adult) (pediatric); E11.9 Type 2 diabetes mellitus without complications; Z79.84 Long term (current) use of oral hypoglycemic drugs; Z90.5 Acquired absence of kidney; Z77.22 Contact with and (suspected) exposure to environmental tobacco smoke (acute) (chronic); I49.1 Atrial premature depolarization; I44.4 Left anterior fascicular block; R94.31 Abnormal electrocardiogram [ECG] [EKG]
CPT/HCPCS: 36415; 71046; 73502; 80048; 81001; 82948; 85025; 93005; 94640; 96374; 99284; A9270; J2930

== ENCOUNTER 2020-02-19 10:58 | Outpatient (CLI) | payer MEDICARE, SELFPAY ==
--- NOTE | ~2020-02-19 | NM_ITS ---
EXAMINATION: MARK allen renal scan DATE: 02/19/2020 13:11 INDICATION: Hydronephrosis TECHNIQUE: 8.2 mCi Tc-99m MAG3 was administered IV. 40 mg furosemide was administered IV immediately afterward. The patient was scanned in the supine position. A posterior abdominal radionuclide angiog wilmer was obtained. A subsequent time course of static images of the kidneys, ureters, and bladder was obtained. COMPARISON: None FINDINGS: The posterior abdominal radionuclide angiogram and sequential static images show normal size, positio n, and morphology of the left kidney. There is insufficient activity in the right kidney to assess fo r location or position. Peak renal parenchymal uptake was 5.5 min in left kidney unable to be calcula fern due to insufficient activity in the right kidney (normal peak 3-5 minutes). The relative early r enal uptake was 16% on the right and 84% on the left (<40% is abnormal). No abnormalities of the lef t ureter or bladder are seen. T1/2 for clearance of activity from the left kidney and proximal collecting system was 17 minutes. T1/2 for clearance of activity from the right kidney and proximal collecting system was unable to be calculated due to no appreciable uptake above the first pass baseline. Notes on interpretation: T1/2 <10 minutes is normal, 10-15 minutes is low grade obstruction of questionable clinical significance, 15-20 minutes is partial obstruction that is likely clinically significant, >20 minutes is high grade obstruction. Note that false positives may be seen with supine positioning, dehydration, severely di lated nonobstructed kidney, atonic collecting system, poor renal function, and chronic furosemide use . IMPRESSION: 1. Negligible uptake at the right kidney which is essentially indiscernible from the surrounding david kground precluding assessment for clearance. 2. Moderately delayed clearance from the left kidney consistent with partial obstruction which may b e clinically significant. Reviewed, dictated and finalized at location A. IMPRESSION: 1. Negligible uptake at the right kidney which is essentially indiscernible fr om the surrounding background precluding assessment for clearance. 2. Moderately delayed clearance from the left kidney consistent with partial o bstruction which may be clinically significant.
== END 2020-02-19 10:59 | disposition home or self-care (01) ==
PROVIDERS: PCP Family Medicine; Visit Provider Urology
DX: N13.30 Unspecified hydronephrosis (principal)
CPT/HCPCS: 78708; A9562; J1940

== ENCOUNTER 2020-05-25 16:54 | Emergency (ER) | payer MEDICARE, SELFPAY ==
--- NOTE | ~2020-05-25 | XR_ITS ---
EXAMINATION: XR knee LT 3V DATE: 05/25/2020 17:40 INDICATION: Left knee pain and swelling after palpable pop earlier in the day. TECHNIQUE: Anteroposterior, oblique, sunrise and crosstable lateral views of the left knee were obtai marguerite COMPARISON: 01/13/2019 FINDINGS: Again seen is an partially visualized antegrade intramedullary blas the left femoral diaphysis with in terlocking screw at the metaphyseal region. There is a new cortical interruption at location along th e anterior margin of the patella which is not seen on the prior study and which is suspicious for age indeterminate nondisplaced fracture. No other lesions suspicious for fracture identified. Mild trico mpartmental osteoarthritis at the left knee. Small left knee joint effusion is present. Diffuse osteo penia. IMPRESSION: 1. Indeterminate intraperitoneal articular cortex along the anterior margin of the patella without cl early defined lucent fracture line or overlying soft tissue swelling potentially related to age indet erminate fracture. Correlate for point tenderness at this location. 2. Small left knee joint effusion. 3. Mild tricompartmental osteoarthritis at the left knee. Reviewed, dictated and finalized at location H. ND [employer]AN IMPRESSION: 1. Indeterminate intraperitoneal articular cortex along the anterior margin of the patella without clearly defined lucent fracture line or overlying soft tiss ue swelling potentially related to age indeterminate fracture. Correlate for po int tenderness at this location. 2. Small left knee joint effusion. 3. Mild tricompartmental osteoarthritis at the left knee.
[2020-05-25 17:09] VITALS: BP 146/77; PULSE 94; RESP 20; TEMP 36.4; O2SAT 99
--- NOTE | 2020-05-25 17:24 | PC.NURSE ---
Pt unable to verify home medications. PT states I forgot my list at home.
--- NOTE | 2020-05-25 18:07 | ED.EXTPRO ---
HPI - Extremity Problem General Chief complaint: Extremity Problem,Nontraumatic Stated complaint: lt knee pain Time Seen by Provider: 05/25/20 17:18 Source: patient, family and EMS Mode of arrival: EMS History of Present Illness HPI Narrative: Patient is a 59-year-old male who presents with left knee pain was getting out of bed when he felt a pop in the left knee denies any direct trauma or other injury patient notes aching pain worse with weightbearing and activity with swelling of the knee joint patient on arrival has not had anything for pain patient appears uncomfortable but in no distress upon arrival Related Data Home Medications Medication Instructions Recorded Confirmed Prolia 60 mg SUBCUT [id number] 07/03/19 01/13/20 aspirin 81 mg PO DAILY 07/03/19 01/13/20 calcium carbonate-vitamin D3 1 tablet PO BID 07/03/19 01/13/20 [Calcium 500 + D (D3)] meloxicam 7.5 mg PO DAILY 11/22/19 01/13/20 lisinopril 2.5 mg tablet 2.5 mg PO DAILY 01/13/20 01/13/20 Allergies Allergy/AdvReac Type Severity Reaction Status Date / Time No Known Allergies Allergy Unknown Verified 05/25/20 17:24 Review of Systems Review of Systems: All systems reviewed & are unremarkable except as noted in HPI and below PMFSH Past Medical History Medical History (Updated 05/25/20 @ 18:58 by Tay Pace PA-C) Allergy to environmental factors Bilateral hip fractures BPH w/o urinary obs/LUTS COPD mixed type Degenerative arthritis of knee, bilateral Diastolic dysfunction Dyslipidemia Essential (primary) hypertension Femur fracture Hemoglobin A1c less than 7.0% Hypothyroidism (acquired) SAVANNA (obstructive sleep apnea) uses CPAP Osteoarthritis Osteoporosis Type 2 diabetes mellitus without complication, without long-term current use of insulin Vitamin D deficiency Surgical History Surgical History History of hip surgery rods placed in bilateral hips Hx of partial nephrectomy lt kidney Family History Family History Father Lung cancer Social History Social History Social History: Primary care physician: Dr. Caity Adamson Code status: Full code Smoking packs per day: 1.5 Smoking cigarettes per day: 30.0 Years smoked: 30 Smoking pack-years: 45.00 Smoking status: Former smoker Tobacco type: cigarettes Second hand tobacco smoke exposure: Yes Alcohol intake: current Substance use: never Substance use type: does not use Additional living arrangements comments: The patient lives at home with his . They do not have any children. He ambulates with a walker. Additional occupation/education comments: Patient is disabled. Gender identity (if verbalized by the patient): Male Exam Narrative: Exam Narrative: GENERAL: Well-appearing, well-nourished, and in no acute distress. HEAD: Normocephalic, atraumatic. EYES: PERRLA and EOMI. ENT: Nares clear, no rhinorrhea or epistaxis. Mucous membranes moist. EXTREMITIES: Swelling of the left knee joint no bruising or direct tenderness of the patella remainder of extremity nontender no deformity SKIN: Warm, dry, no rash. NEURO: No focal deficits. Alert and oriented x3. Cranial nerves II through XII grossly intact. Neurovascularly intact PSYCH: Normal mood and affect. Course Course Emergency Course: Patient aware of case findings treatment plan diagnosis has been given an Russell wrap and placed in the immobilizer and will follow with orthopedic surgery is aware of discussion with orthopedic surgery as well Consultations Consultation #1: Discussed case with orthopedic surgery would like the patient to be placed in the immobilizer and follow in clinic Date: 05/25/20 Time: 18:57 Vital Signs Vital signs: Vital Signs Temperature 97.6 F 05/25/20 17:09 Pulse Rate 94 05/25/20 17:
[2020-05-25] MEDS: HYDROcodone/acetaminophen (*CRX) 5-325 MG TABLET 1 TAB PO (19:01)
--- NOTE | 2020-05-25 19:04 | PC.NURSE ---
Report given to YOGESH Houston
[2020-05-25 20:15] VITALS: BP 138/86; PULSE 88; RESP 22; O2SAT 97
== END 2020-05-25 20:17 | disposition home or self-care (01) ==
PROVIDERS: Emergency Provider Emergency Medicine; PCP Family Medicine
DX: M23.92 Unspecified internal derangement of left knee (principal); N40.0 Benign prostatic hyperplasia without lower urinary tract symptoms; J44.9 Chronic obstructive pulmonary disease, unspecified; M17.10 Unilateral primary osteoarthritis, unspecified knee; E78.5 Hyperlipidemia, unspecified; I10 Essential (primary) hypertension; E03.9 Hypothyroidism, unspecified; G47.33 Obstructive sleep apnea (adult) (pediatric); M81.0 Age-related osteoporosis without current pathological fracture; E55.9 Vitamin D deficiency, unspecified; Z90.5 Acquired absence of kidney; Z87.891 Personal history of nicotine dependence; M17.12 Unilateral primary osteoarthritis, left knee
CPT/HCPCS: 73562; 99283; A9270

== ENCOUNTER → 2020-10-03 10:29 | Outpatient (CLI) | payer MEDICARE, SELFPAY ==
--- NOTE | ~2020-10-03 | CT_ITS ---
EXAMINATION: CT soft tissue neck w con EXAM DATE: 10/03/2020 11:12 INDICATION: Localized right neck mass, sialoadenitis. TECHNIQUE: Spiral CT of the neck was performed following intravenous injection of 75 mL Omnipaque 350 . Axial, coronal and sagittal images were reviewed. The dose-length product (DLP) for this examinat ion was 412.26 mGy-cm. The exposure was tailored according to patient size (auto mA exposure control ), and iterative reconstruction (ASIR) was used as additional dose reduction technique. Comparison is made to prior examination from 05/03/2017. FINDINGS: There is a right neck cystic mass measuring 4.2 x 2.3 cm, most likely a pathological level 2 lymph node. With its size, it is contiguous to the right submandibular gland and also the inferior margin of the right parotid gland. No other pathologically enlarged lymph nodes identified. This has developed compared to prior study. Clinical and histologic correlation for infection versus metastati c disease. There is large left submandibular duct stone measuring 1.7 cm again noted. Previously seen right subm andibular duct stone no longer identified. Previously seen right sialolithiasis no longer identified. The thyroid gland is unremarkable. The superior mediastinum is unremarkable. The airway is unrema rkable. Parapharyngeal and pre-glottic fat planes are preserved. The opacified vasculature is pat ent. Patient has had bilateral ocular lens surgery. Visualized sinuses and mastoid air cells are well aerated. There is diffusely heterogeneous bone marrow density, and patient has numerous fractures including bi lateral clavicular fractures, left of which is new compared to previous examination, spinous process fractures at C6, C7, T1, T2, T3 which appear chronic but are new compared to 2017 as well. There are compression fractures at T2, T3, T4, T5. These could be pathological from some physiologic process ca using such as renal osteodystrophy or parathyroid disease causing weak bones. Multiple myeloma and me tastatic disease could also be considered, but there is no focal cortical destruction identified as w ould be expected. There is cervical spondylosis. IMPRESSION: 1. Necrotic right neck mass, most likely level 2 pathological lymph node; clinical and histologic co rrelation recommended. 2. Large left-sided sialolithiasis. 3. Pathological bones with numerous chronic appearing fractures, more have developed compared to 201 7. Probably more likely some physiologic disorder such as renal osteodystrophy or parathyroid disorde r than multiple myeloma or metastatic disease. Again, clinical correlation. Reviewed, dictated and finalized at location A. IMPRESSION: 1. Necrotic right neck mass, most likely level 2 pathological lymph node; clin ical and histologic correlation recommended. 2. Large left-sided sialolithiasis. 3. Pathological bones with numerous chronic appearing fractures, more have dev eloped compared to 2017. Probably more likely some physiologic disorder such as renal osteodystrophy or parathyroid disorder than multiple myeloma or metastat ic disease. Again, clinical correlation.
[2020-10-03 10:59] LABS: Estimated Glomerular Filt Rate > 60
== END ==
PROVIDERS: Visit Provider Otolaryngology
DX: R22.1 Localized swelling, mass and lump, neck (principal); K11.20 Sialoadenitis, unspecified
CPT/HCPCS: 70491; Q9967

== ENCOUNTER 2020-10-17 10:08 | Outpatient (CLI) | payer MEDICARE, SELFPAY ==
--- NOTE | ~2020-10-17 | US_ITS ---
EXAMINATION: US biopsy lymph node DATE: 10/17/2020 11:21 INDICATION: Right cervical lymphadenopathy. TECHNIQUE: The procedure including the risks, benefits, and alternatives was discussed with the patie nt. Risks discussed included bleeding and infection. The patient understood the risks and agreed to p roceed. The skin overlying the right neck was prepped and draped in usual sterile fashion. Anestheti c was administered with 1% lidocaine subcutaneously. An 18 gauge core biopsy needle was then used to obtain 3 core biopsy specimens under continuous sonographic guidance. The entry site was cleaned and dressed. There were no immediate complications. FINDINGS: Ultrasound images demonstrate the needle in a 3.1 x 2.0 cm right internal jugular chain lym ph node. IMPRESSION: 1. Ultrasound-guided core needle biopsy of an enlarged right internal jugular chain lymph node. Reviewed, dictated and finalized at location A. IMPRESSION: 1. Ultrasound-guided core needle biopsy of an enlarged right internal jugular c tomas lymph node.
== END 2020-10-17 10:09 | disposition home or self-care (01) ==
PROVIDERS: PCP Family Medicine; Visit Provider Otolaryngology
DX: R22.1 Localized swelling, mass and lump, neck (principal)
CPT/HCPCS: 38505; 76942; 88305

== ENCOUNTER 2020-12-06 08:32 | Outpatient (CLI) | payer MEDICARE, SELFPAY ==
--- NOTE | ~2020-12-06 | PE_ITS ---
EXAMINATION: PET skull to mid thigh DATE: 12/06/2020 10:32 INDICATION: Cancer of larynx. TECHNIQUE: Blood glucose level was 92 mg/dL. 10.092 mCi of 18-fluorodeoxyglucose (18-FDG) was adminis tered i.v. Low dose computed tomography (CT) images were acquired from the base of the brain to the p roximal thighs for attenuation correction and anatomic localization. Automated exposure control was e mployed. Dose-length product (DLP) was 935 mGy-cm. Positron emission tomography (PET) images were acq uired in the same distribution. COMPARISON: CT neck 10/03/2020 FINDINGS: Head/neck: There is increased activity in the oral cavity, oropharynx, and paraspinal muscles without CT correlate, likely physiologic. There is a mass of the right true vocal cord with maximum SUV of 1 4.0. There is a 2.2 x 1.9 cm right high internal jugular chain node with maximum SUV is 16.0. There i s a 15 mm sialolith superomedial to left submandibular gland. Chest: There is increased activity in muscles of the shoulders without CT correlate, likely physiolog ic. There is increased activity in the upper esophagus without CT correlate, likely inflammation. The re is mild atelectasis in the lower lobes. No pleural effusion. The heart size is normal. No pericard ial effusion. There are coronary artery calcifications. There are old healed rib fractures bilaterall y. There are numerous old fracture deformities of the vertebral bodies and sternum. There is increase d activity in T7 vertebral body. There are old healed fractures of the clavicles and scapulae. Abdomen/pelvis/proximal thighs: There is diffuse hepatic steatosis. There is a gallstone in the gallb ladder, which is normal in size. The spleen, pancreas, and adrenal glands are normal. There is severe right hydronephrosis. There is severe atrophy of right kidney. There is a 17 mm cyst in right kidney . There is a 9 mm nonobstructing stone in right renal pelvis. The prostate is mildly enlarged. There are 3 stones in the bladder measuring up to 5 mm. There is cortical thinning of left kidney. There ar e approximately 6 stones in left kidney measuring up to 7 mm. There is diverticulosis of the colon wi thout evidence of diverticulitis. There are no dilated loops of bowel. The appendix is normal. There is a right inguinal hernia containing fat. There is instrumentation of the proximal femora. There is an old fracture of left iliac wing and anterior inferior left iliac spine. There are old healed fract ures of the superior and inferior pubic rami. There are numerous old fractures in the spine. There is increased activity in L4 vertebral body. IMPRESSION: 1. Mass in right true vocal cord with increased activity, consistent with primary squamous cell carci noma. 2. Enlarged high right internal jugular chain lymph node with increased activity, consistent with met astatic disease. 3. Severe right hydronephrosis with severe right kidney atrophy. 4. Increased activity in T7 and L4 vertebral bodies, which demonstrate old fracture deformities, most likely inflammation. Metastatic disease cannot be excluded. Reviewed, dictated and finalized at location A. IMPRESSION: 1. Mass in right true vocal cord with increased activity, consistent with prima ry squamous cell carcinoma. 2. Enlarged high right internal jugular chain lymph node with increased activit y, consistent with metastatic disease. 3. Severe right hydronephrosis with severe right kidney atrophy. 4. Increased activity in T7 and L4 vertebral bodies, which demonstrate old frac ture deformities, most likely inflammation. Metastatic disease cannot be exclud ed.
[2020-12-06 09:05] LABS: Glucose Point of Care 92 mg/dl (65-105)
== END 2020-12-06 08:33 | disposition home or self-care (01) ==
PROVIDERS: PCP Family Medicine; Visit Provider Radiology Radiation Oncology
DX: C32.8 Malignant neoplasm of overlapping sites of larynx (principal)
CPT/HCPCS: 78815; 82948; A9552

== ENCOUNTER 2020-12-26 16:45 | Observation (INO) | payer MEDICARE, SELFPAY ==
[2020-12-26] VITALS (24 sets, daily range): BP systolic 132–202; BP diastolic 67–119; PULSE 80–107; RESP 13–32; TEMP 36.4–36.6; O2SAT 95–100; BMI 43.7
--- NOTE | ~2020-12-26 | XR_ITS ---
EXAMINATION: XR chest 1V portable DATE: 12/26/2020 17:42 INDICATION: Shortness of breath. TECHNIQUE: A single frontal view of the chest was obtained. COMPARISON: Chest 2 views 02/02/2020, PET CT 12/06/2020 FINDINGS: There are old healed fractures of the clavicles and many bilateral ribs, which decreases se nsitivity for lung disease. There is no pneumonia, pleural effusion, or pneumothorax. The heart size is normal. IMPRESSION: 1. No acute cardiopulmonary disease. Reviewed, dictated and finalized at location A.
--- NOTE | 2020-12-26 16:49 | ECG_ITS ---
Measurements Intervals [place] Rate: 96 P: 24 HI: 174 QRS: -58 QRSD: 105 T: 33 QT: 311 QTc: 393 Interpretive Statements SINUS RHYTHM LEFT ANTERIOR FASCICULAR BLOCK ABNORMAL ECG Electronically Signed On 12-26-2020 19:50:22 CDT by Junior Renner D.O.
[2020-12-26] MEDS: EPINEPHrine HCL INJ 1 MG/ML AMPUL 0.3 MG IM (16:58)
--- NOTE | 2020-12-26 17:00 | ED.SOB ---
HPI - SOB/Dyspnea General Chief Complaint: Shortness of Breath/Dyspnea Stated Complaint: sob Time Seen by Provider: 12/26/20 16:56 History of Present Illness HPI Narrative: 60 male w/ h/o COPD, throat cancer presents to the ED for shortness of breath. He had sudden onset of SOB after receiving his first chemo infusion today. He tried his rescue inhaler without relief. No chest pain. History limited by medical condition. Related Data Home Medications Medication Instructions Recorded Confirmed Prolia 60 mg SUBCUT [id number] 07/03/19 12/26/20 aspirin 81 mg PO DAILY 07/03/19 12/26/20 calcium carbonate-vitamin D3 1 tablet PO BID 07/03/19 12/26/20 [Calcium 500 + D (D3)] Allergies Allergy/AdvReac Type Severity Reaction Status Date / Time No Known Allergies Allergy Unknown Verified 12/26/20 10:38 Review of Systems Constitutional: Constitutional: Denies fever(s) Cardiovascular: Cardiovascular: Denies chest pain Respiratory: Respiratory: Reports dyspnea Gastrointestinal: Gastrointestinal: Denies abdominal pain and Denies nausea Neurologic: Reports confusion and Denies weakness PMFSH Past Medical History Medical History Bilateral hip fractures BPH w/o urinary obs/LUTS Closed pelvic fracture COPD mixed type Degenerative arthritis of knee, bilateral Diastolic dysfunction Dyslipidemia Essential (primary) hypertension Femur fracture Hypothyroidism (acquired) SAVANNA (obstructive sleep apnea) uses CPAP Osteoarthritis Osteoporosis Smoker Vitamin D deficiency Surgical History Surgical History History of hip surgery (~2015) rods placed in bilateral hips R: 2016, L: 2018 Hx of partial nephrectomy (~1973) lt kidney Submandibular sialolithiasis bilateral - s/p surgical removal 2017 and 2018 Family History Family History Father Lung cancer Sibling Diabetes mellitus Hypertension Grandparent Kidney disease Social History Social History Social History: Primary care physician: Dr. Caity Adamson Code status: Full code Smoking packs per day: 2 Smoking cigarettes per day: 40.0 Years smoked: 46 Smoking pack-years: 92.00 Smoking status: Former smoker Tobacco type: cigarettes Second hand tobacco smoke exposure: Yes Alcohol intake: never Substance use: never Substance use type: does not use Additional living arrangements comments: The patient lives at home with his . They do not have any children. He ambulates with a walker. Additional occupation/education comments: Patient is disabled. Gender identity (if verbalized by the patient): Male Spiritual care concerns: No Exam Const: General: alert and ill appearing Orientation/consciousness: patient oriented x3 Other: moderate distress HENMT: Head: normal to inspection Other: hoarse voice Resp: Auscultation: diminished lung sounds Cardio: Rate: tachycardic Rhythm: regular rhythm GI: Inspection: distended GI Palp: No Tenderness to palpation present (GI) Skin: General skin exam: normal color Neuro: General: patient oriented x3, moves all extremities, no focal motor deficits and CN's II-XI intact bilaterally Course Vital Signs Vital signs: Vital Signs Pulse Rate 107 H 12/26/20 16:51 Respiratory Rate 26 H 12/26/20 16:51 Blood Pressure 202/97 H 12/26/20 16:51 Pulse Oximetry 95 12/26/20 16:51 Pulse Rate 96 12/26/20 18:20 Respiratory Rate 24 H 12/26/20 18:20 Blood Pressure 155/79 H 12/26/20 17:31 Pulse Oximetry 100 12/26/20 17:31 MDM - SOB/Dyspnea MDM Narrative Medical decision making narrative: CXR clear. Tolerating BIPAP well. I will admit for observation. Differential Diagnosis Differential diagnosis: Likely acute exacerbation of
[2020-12-26 17:09] LABS: Basophils Percent Auto 0.4 % (0.2-1.2); Eosinophils Percent Auto 0.2 % (0-4.4); Hematocrit 47.1 % (42.0-52.0); Hemoglobin 14.2 g/dL (14.0-18.0); Immature Granulocyte Absolute 0.07 K/mm3 (0.00-0.031); Immature Granulocyte Percent A 0.6 % (0-0.5); Lymphocytes Absolute Auto 0.68 K/mm3 (0.9-3.2); Lymphocytes Percent Auto 6.1 % (18.3-44.2); Mean Corpuscular HGB Conc 30.1 g/dl (32-36); Mean Corpuscular Hemoglobin 25.8 pg (26-34); Mean Corpuscular Volume 85.6 fl (80-100); Mean Platelet Volume 8.6 fl (7.4-10.4); Monocytes Absolute Auto 0.1 K/mm3 (0.1-0.6); Neutrophils Absolute Auto 10.1 K/mm3 (1.3-6.7); Neutrophils Percent Auto 91.7 % (45.5-73.1); Platelet Count Result 432 k/mm3 (150-375); Red Cell Distribution Width 17.2 % (11.5-14.5); White Blood Count 11.1 K/mm3 (4.5-10.0)
[2020-12-26] MEDS: ALBUTEROL SULFATE NEB 2.5 MG/0.5 ML INH 10 MG INHALATION (17:12)
[2020-12-26] MEDS: IPRATROPIUM BR 0.02% INH SOLN 0.5 MG/2.5 ML VIAL 1 MG INHALATION (17:13)
[2020-12-26 17:23] LABS: Anion Gap 12 mmol/L (8-16); Blood Urea Nitrogen 13 mg/dL (9-20); Calcium 8.8 mg/dL (8.4-10.2); Carbon Dioxide 20 mmol/L (22-30); Chloride 109 mmol/L (98-107); Estimated Glomerular Filt Rate > 60; Glucose 122 mg/dL (75-110); Potassium 5.8 mmol/L (3.4-5.0); Sodium 141 mmol/L (137-145)
[2020-12-26 17:24] LABS: Alveolar/Arterial O2 Gradient 43.2 mmHg; Base Excess ABG -6.5 mEq/l (+/-2.0); Carboxyhemoglobin 0.8 % THb (0-2.0); Fractional Inspired Oxygen 28 %; HCO3 ABG 19.6 mEq/l (22.0-26.0); Methemoglobin ABG 0.2 %THb (0-1.5); Oxygen Content ABG 19.4 %vol (16.0-22.0); Oxygen Saturation ABG 97.4 % (95.0-100.0); Oxyhemoglobin 96.5 % THb (90.0-100.0); PCO2 ABG 41.4 mmHg (35.0-45.0); PO2 ABG 107.6 mmHg (80.0-100.0); PO2 FiO2 Ratio Arterial Blood 3.84 %; Reduced Hemoglobin 2.5 %THb (0-5.0); Total Hemoglobin 14.2 g/dL (12.0-18.0); pH ABG 7.294 (7.350-7.450)
[2020-12-26 17:24] LABS: Prothrombin Time 13.3 Seconds (11.1-14.7)
[2020-12-26 17:25] LABS: Device NASAL CANNULA; Modified Allen's Test Pass; Site Drawn LEFT RADIAL
[2020-12-26 17:25] LABS: Partial Thromboplastin Time 28.2 SECONDS (22.3-36.8)
[2020-12-26 17:31] LABS: NT Pro B Type Natriuretic Pept 65 pg/mL (5-100); Troponin I < 0.012 ng/mL (0.000-0.034)
[2020-12-26 18:14] LABS: Lactic Acid Reflex 1.2 mmol/L (0.7-2.1)
[2020-12-26] MEDS: DEXAMETHASONE SOD PHOS INJ 4 MG/ML VIAL 10 MG IV PUSH (18:48)
--- NOTE | 2020-12-26 21:57 | PC.NURSE ---
This patient, Campbell Chandra, was admitted to IMU Room 231-01. Patient/family oriented to hospital policies and general routines including ID bracelet, bed and alarms, visiting hours, pain management, procedures, bathroom and other care routines, personal items, smoking policy, room service/diet, and visiting hours. Information on how to activate the Rapid Response Team has been discussed. Patient/Family are encouraged to report perceived risks to care and to ask questions if they do not understand what they are told or what they should do.
--- NOTE | 2020-12-26 22:16 | PM.IMHP ---
H&P: HPI History of Present Illness Date/Time: 12/26/20 22:16 this is a 60-year-old male patient who has a history of throat cancer. The patient underwent his 1st chemo and radiation treatment today. He also has a history of COPD. The patient had a sudden shortness of breath after his treatments today. He tried his rescue inhaler without relief. 7.294. O2 was 107.6. CO2 was normal. The patient was given an epinephrine injection in the emergency room for possible an anaphylactic reaction and he was given a dose of Decadron and a nebulizer treatment. The patient was placed on a BiPAP machine 18/01 and he appeared to be tolerating the CPAP well. The patient is being admitted to observation status on the date of service of 12/26/2020 Chief Complaint: Shortness of breath Review of Systems Review of Systems: All systems reviewed & are unremarkable except as noted in HPI and below Constitutional: Constitutional: Reports as per HPI and Reports no additional constitutional complaints Eyes: Eyes: Reports as per HPI and Reports no additional eye complaints ENT: Reports system reviewed and no additional complaints, except as documented and Reports Normal hearing present Cardiovascular: Cardiovascular: Reports no additional cardiovascular complaints Respiratory: Respiratory: Reports no additional respiratory complaints and Reports no additional respiratory complaints Gastrointestinal: Gastrointestinal: Reports as per HPI and Reports no additional gastrointestinal complaints Musculoskeletal: Musculoskeletal: Reports no additional musculoskeletal complaints Integumentary/Breasts: Skin/Breast: Reports system reviewed and no additional complaints, except as docu and Reports as per HPI Neurologic: Reports system reviewed and no additional complaints, except as documented, Reports as per HPI and Reports Normal hearing present Psychiatric: Psychiatric: Reports no additional psychiatric complaints and Reports as per HPI Endocrine: Endocrine: Reports no additional endocrine complaints Hematologic/Lymphatic: Hematologic/Lymphatic: Reports no additional hematologic/lymphatic complaints Allergic/Immunologic: Allergic/Immunologic: Reports no additional allergic/immunologic complaints [facility] Past Medical History Medical History (Updated 12/26/20 @ 22:23 by Bobbi eRbolledo NP) Bilateral hip fractures BPH w/o urinary obs/LUTS Closed pelvic fracture COPD mixed type Degenerative arthritis of knee, bilateral Diastolic dysfunction DM2 (diabetes mellitus, type 2) Dyslipidemia Essential (primary) hypertension Femur fracture Hypothyroidism (acquired) SAVANNA (obstructive sleep apnea) uses CPAP Osteoarthritis Osteoporosis Smoker Vitamin D deficiency Surgical History Surgical History History of hip surgery (~2015) rods placed in bilateral hips R: 2016, L: 2018 Hx of partial nephrectomy (~1973) lt kidney Submandibular sialolithiasis bilateral - s/p surgical removal 2016 and 2017 Family History Family History Father Lung cancer Sibling Diabetes mellitus Hypertension Grandparent Kidney disease Social History Social History Social History: Primary care physician: Dr. Caity Adamson Code status: Full code Smoking packs per day: 2 Smoking cigarettes per day: 40.0 Years smoked: 45 Smoking pack-years: 90.00 Smoking status: Former smoker Tobacco type: cigarettes Second hand tobacco smoke exposure: Yes Alcohol intake: never Substance use: never Substance use type: does not use Additional living arrangements comments: The patient lives at home with his . They do not have any children. He ambulates with a walker. Additional occupation/education comments: Patient is disabled. Gender identity (if verbalized by the patient): Tod
[2020-12-27] VITALS (26 sets, daily range): BP systolic 116–142; BP diastolic 55–75; PULSE 65–84; RESP 10–26; TEMP 35.9–36.4; O2SAT 94–100
[2020-12-27] MEDS: ATORVASTATIN 10 MG TABLET BY MOUTH ×2 (00:23→20:28)
[2020-12-27] MEDS: methylPREDNISolone SOD SUCC 125 MG VIAL 60 MG IV PUSH ×4 (00:24→17:28)
[2020-12-27 04:48] LABS: Alveolar/Arterial O2 Gradient 100.6 mmHg; Base Excess ABG -2.8 mEq/l (+/-2.0); Carboxyhemoglobin 0.3 % THb (0-2.0); Fractional Inspired Oxygen 40 %; HCO3 ABG 22.7 mEq/l (22.0-26.0); Methemoglobin ABG 0.3 %THb (0-1.5); Oxygen Content ABG 19.2 %vol (16.0-22.0); Oxygen Saturation ABG 98.6 % (95.0-100.0); Oxyhemoglobin 97.6 % THb (90.0-100.0); PCO2 ABG 41.7 mmHg (35.0-45.0); PO2 ABG 136.6 mmHg (80.0-100.0); PO2 FiO2 Ratio Arterial Blood 3.42 %; Reduced Hemoglobin 1.8 %THb (0-5.0); Total Hemoglobin 13.8 g/dL (12.0-18.0); pH ABG 7.353 (7.350-7.450)
[2020-12-27 04:49] LABS: Modified Allen's Test Pass; Site Drawn RIGHT RADIAL
[2020-12-27 04:50] LABS: Device NON-INVASIVE VENT; Non-Invasive Expiratory Pressure 7 CMH2O; Non-Invasive Inspiratory Pressure 14 CMH2O; Non-Invasive Vent Rate 4 /MIN
[2020-12-27 04:55] LABS: Basophils Percent Auto 0.2 % (0.2-1.2); Hematocrit 41.4 % (42.0-52.0); Immature Granulocyte Absolute 0.03 K/mm3 (0.00-0.031); Immature Granulocyte Percent A 0.7 % (0-0.5); Lymphocytes Absolute Auto 0.24 K/mm3 (0.9-3.2); Lymphocytes Percent Auto 5.4 % (18.3-44.2); Mean Corpuscular HGB Conc 31.4 g/dl (32-36); Mean Corpuscular Hemoglobin 26.4 pg (26-34); Mean Corpuscular Volume 84.1 fl (80-100); Mean Platelet Volume 8.1 fl (7.4-10.4); Monocytes Absolute Auto 0.1 K/mm3 (0.1-0.6); Monocytes Percent Auto 1.1 % (2.6-8.5); Neutrophils Absolute Auto 4.2 K/mm3 (1.3-6.7); Neutrophils Percent Auto 92.6 % (45.5-73.1); Platelet Count Result 362 k/mm3 (150-375); Red Blood Count 4.92 M/mm3 (4.6-6.20); Red Cell Distribution Width 16.6 % (11.5-14.5); White Blood Count 4.5 K/mm3 (4.5-10.0)
[2020-12-27 05:03] LABS: Hemoglobin A1C 6.5 % (<5.7)
[2020-12-27 05:12] LABS: Alanine Aminotransferase 21 U/L (4-50); Albumin Level 4.1 g/dL (3.5-5.1); Alkaline Phosphatase 121 U/L (38-126); Anion Gap 10 mmol/L (8-16); Aspartate Amino Transferase 26 U/L (17-59); Bilirubin,Total 0.2 mg/dL (0.2-1.3); Blood Urea Nitrogen 21 mg/dL (9-20); Calcium 8.7 mg/dL (8.4-10.2); Carbon Dioxide 22 mmol/L (22-30); Chloride 108 mmol/L (98-107); Estimated Glomerular Filt Rate > 60; Glucose 162 mg/dL (75-110); Magnesium 2.1 mg/dL (1.6-2.3); Potassium 5.6 mmol/L (3.4-5.0); Sodium 140 mmol/L (137-145)
[2020-12-27] MEDS: LEVOTHYROXINE SODIUM 100 MCG TABLET PO (05:39)
[2020-12-27] MEDS: LEVOTHYROXINE SODIUM 75 MCG TABLET PO (05:39)
[2020-12-27 05:49] LABS: Thyroid Stimulating Hormone Reflex 0.114 uIU/mL (0.465-4.68)
[2020-12-27] MEDS: IPRATROPIUM BR 0.02% INH SOLN 0.5 MG/2.5 ML VIAL INHALATION ×3 (07:15→21:55)
[2020-12-27] MEDS: ALBUTEROL SULFATE NEB 2.5 MG/0.5 ML INH INHALATION ×3 (07:16→21:55)
[2020-12-27 08:14] LABS: Glucose Point of Care 159 mg/dl (65-105)
[2020-12-27] MEDS: TAMSULOSIN HCL 0.4 MG CAPSULE BY MOUTH (08:54)
[2020-12-27] MEDS: MELOXICAM 7.5 MG TABLET BY MOUTH (08:54)
[2020-12-27] MEDS: glipiZIDE XL 5 MG TABCR BY MOUTH (08:54)
[2020-12-27] MEDS: lisinopriL 2.5 MG TABLET BY MOUTH (08:54)
[2020-12-27] MEDS: metFORMIN HCL XR 500 MG TAB.SR.24H 1000 MG BY MOUTH ×2 (08:54→17:28)
[2020-12-27] MEDS: ASPIRIN 81 MG CHEWABLE TABLET PO (08:54)
[2020-12-27 08:55] LABS: Free T4 Free Thyroxine Reflex 1.95 ng/dL (0.78-2.19)
[2020-12-27 09:58] LABS: Total Triiodothyronine (T3) 1.06 NG/ML (0.97-1.69)
[2020-12-27 12:32] LABS: Glucose Point of Care 247 mg/dl (65-105)
[2020-12-27 15:49] LABS: Glucose Point of Care 145 mg/dl (65-105)
--- NOTE | 2020-12-27 17:08 | PM.IMPN ---
Progress Note: A&P Assessment and Plan (1) COPD mixed type: Code(s): J44.9 - Chronic obstructive pulmonary disease, unspecified Status: Acute Assessment and Plan: The patient has wheezes and diminished lung sounds. This sounds more like an exacerbation of COPD. Continue with the steroids and neb treatments. 12/27/20 17:08 this is a 60-year-old male patient who has a history of throat cancer. The patient underwent his 1st chemo and radiation treatment today. He also has a history of COPD. The patient had a sudden shortness of breath after his treatments today. He tried his rescue inhaler without relief. 7.294. O2 was 107.6. CO2 was normal. The patient was given an epinephrine injection in the emergency room for possible an anaphylactic reaction and he was given a dose of Decadron and a nebulizer treatment. The patient was placed on a BiPAP machine 18/01 and he appeared to be tolerating the CPAP well. The patient is being admitted to observation status on the date of service of 12/26/202012/27 patient with history of throat cancer patient is started on chemotherapy presented emergency department with a complaint of shortness of breath suspected patient may have allergic reaction to chemotherapy initially patient was given Decadron and updraft, patient was switched over Solu-Medrol, currently patient is clinically stable denies any complaint of shortness of breath or wheezing, will monitor patient overnight for any worsening symptoms if remains clinically stable and no complaint of shortness of breath, wheezing of pharyngeal edema will discharge the patient home tomorrow. (2) Squamous cell carcinoma: Status: Acute Assessment and Plan: Consult Dr. angela euecda as the patient has been getting chemotherapy and radiation. It sounds like this may have been his 1st treatment. (3) Hypothyroidism (acquired): Code(s): E03.9 - Hypothyroidism, unspecified Status: Acute Assessment and Plan: Continue with levothyroxine and check thyroid level. (4) Diabetes mellitus: Code(s): E11.9 - Type 2 diabetes mellitus without complications Status: Acute Assessment and Plan: Accu-Cheks AC and HS. Check A1cHe is able to take p.o. and he is off the BiPAP. (5) Osteoporosis with pathological fracture: Qualifiers: Encounter type: subsequent encounter Fracture healing: with routine healing Qualified Code(s): M80.00XD - Age-related osteoporosis with current pathological fracture, unspecified site, subsequent encounter for fracture with routine healing Code(s): M80.00XA - Age-related osteoporosis with current pathological fracture, unspecified site, initial encounter for fracture Status: Acute Assessment and Plan: It looks like the patient is on Prolia every 6 months. (6) Essential (primary) hypertension: Code(s): I10 - Essential (primary) hypertension Status: Acute Assessment and Plan: Still waiting home medication reconciliation. I will do some p.r.n. hydralazine with parameters. Continue with home medications when able. The patient is on a BiPAP at this time so we may not be able to resume his p.o. medication till in the morning. (7) Dyslipidemia: Code(s): E78.5 - Hyperlipidemia, unspecified Status: Acute Assessment and Plan: Resume home medications when the patient is off the BiPAP. (8) SAVANNA (obstructive sleep apnea): Code(s): G47.33 - Obstructive sleep apnea (adult) (pediatric) Status: Acute Assessment and Plan: The patient has a CPAP at home. Subjective Date/time seen: 12/27/20 17:08 this is a 60-year-old male patient who has a history of throat cancer. The patient underwent his 1st chemo and radiation treatment today. He also has a history of COPD. The patient had a sudden shortness of breath after his treatments today. He tried his rescue inhaler without relief. 7.294. O2 was 107.6. CO2 was
[2020-12-27 20:22] LABS: Glucose Point of Care 173 mg/dl (65-105)
[2020-12-27] MEDS: MAGNES & ALUM HYD/SIMETH/DIPHENHYD/LIDOCAINE 119 ML MOUTHWASH BY MOUTH (20:25)
[2020-12-28] VITALS (10 sets, daily range): BP systolic 124–149; BP diastolic 61–74; PULSE 72–102; RESP 12–26; TEMP 36.2–36.9; O2SAT 96–99
[2020-12-28] MEDS: methylPREDNISolone SOD SUCC 125 MG VIAL 60 MG IV PUSH ×2 (00:09→05:44)
[2020-12-28] MEDS: ALBUTEROL SULFATE NEB 2.5 MG/0.5 ML INH INHALATION ×2 (02:40→08:42)
[2020-12-28] MEDS: IPRATROPIUM BR 0.02% INH SOLN 0.5 MG/2.5 ML VIAL INHALATION ×2 (02:40→08:41)
[2020-12-28] MEDS: LEVOTHYROXINE SODIUM 100 MCG TABLET PO (05:44)
[2020-12-28] MEDS: LEVOTHYROXINE SODIUM 75 MCG TABLET PO (05:44)
[2020-12-28 07:32] LABS: Glucose Point of Care 111 mg/dl (65-105)
[2020-12-28] MEDS: MELOXICAM 7.5 MG TABLET BY MOUTH (08:31)
[2020-12-28] MEDS: TAMSULOSIN HCL 0.4 MG CAPSULE BY MOUTH (08:31)
[2020-12-28] MEDS: metFORMIN HCL XR 500 MG TAB.SR.24H 1000 MG BY MOUTH (08:31)
[2020-12-28] MEDS: glipiZIDE XL 5 MG TABCR BY MOUTH (08:33)
[2020-12-28] MEDS: ASPIRIN 81 MG CHEWABLE TABLET PO (08:33)
[2020-12-28] MEDS: lisinopriL 2.5 MG TABLET BY MOUTH (08:33)
[2020-12-28 11:06] LABS: Glucose Point of Care 176 mg/dl (65-105)
[2020-12-28 11:32] LABS: Hematocrit 38.4 % (42.0-52.0); Hemoglobin 12.2 g/dL (14.0-18.0); Mean Corpuscular HGB Conc 31.8 g/dl (32-36); Mean Corpuscular Hemoglobin 26.1 pg (26-34); Mean Corpuscular Volume 82.2 fl (80-100); Mean Platelet Volume 8.8 fl (7.4-10.4); Platelet Count Result 386 k/mm3 (150-375); Red Blood Count 4.67 M/mm3 (4.6-6.20); Red Cell Distribution Width 17.2 % (11.5-14.5); White Blood Count 9.9 K/mm3 (4.5-10.0)
[2020-12-28 11:42] LABS: Anion Gap 10 mmol/L (8-16); Blood Urea Nitrogen 52 mg/dL (9-20); Calcium 9.7 mg/dL (8.4-10.2); Carbon Dioxide 20 mmol/L (22-30); Chloride 106 mmol/L (98-107); Estimated Glomerular Filt Rate 52; Glucose 173 mg/dL (75-110); Potassium 4.9 mmol/L (3.4-5.0); Sodium 136 mmol/L (137-145)
--- NOTE | 2020-12-28 12:24 | PM.DS ---
DS: Admitting Diagnosis Admitting Diagnosis Admitting Diagnosis: Chief Complaint: Shortness of breath DS: Discharge Diagnosis Discharge Diagnosis (1) COPD mixed type: Code(s): J44.9 - Chronic obstructive pulmonary disease, unspecified Status: Acute Assessment and Plan: The patient has wheezes and diminished lung sounds. This sounds more like an exacerbation of COPD. Continue with the steroids and neb treatments. 12/27/20 17:08 this is a 60-year-old male patient who has a history of throat cancer. The patient underwent his 1st chemo and radiation treatment today. He also has a history of COPD. The patient had a sudden shortness of breath after his treatments today. He tried his rescue inhaler without relief. 7.294. O2 was 107.6. CO2 was normal. The patient was given an epinephrine injection in the emergency room for possible an anaphylactic reaction and he was given a dose of Decadron and a nebulizer treatment. The patient was placed on a BiPAP machine 18/01 and he appeared to be tolerating the CPAP well. The patient is being admitted to observation status on the date of service of 12/26/202012/27 patient with history of throat cancer patient is started on chemotherapy presented emergency department with a complaint of shortness of breath suspected patient may have allergic reaction to chemotherapy initially patient was given Decadron and updraft, patient was switched over Solu-Medrol, currently patient is clinically stable denies any complaint of shortness of breath or wheezing, will monitor patient overnight for any worsening symptoms if remains clinically stable and no complaint of shortness of breath, wheezing of pharyngeal edema will discharge the patient home tomorrow. (2) Squamous cell carcinoma: Status: Acute Assessment and Plan: Consult Dr. angela euceda as the patient has been getting chemotherapy and radiation. It sounds like this may have been his 1st treatment. (3) Hypothyroidism (acquired): Code(s): E03.9 - Hypothyroidism, unspecified Status: Acute Assessment and Plan: Continue with levothyroxine and check thyroid level. (4) Diabetes mellitus: Code(s): E11.9 - Type 2 diabetes mellitus without complications Status: Acute Assessment and Plan: Accu-Cheks AC and HS. Check A1cHe is able to take p.o. and he is off the BiPAP. (5) Osteoporosis with pathological fracture: Qualifiers: Encounter type: subsequent encounter Fracture healing: with routine healing Qualified Code(s): M80.00XD - Age-related osteoporosis with current pathological fracture, unspecified site, subsequent encounter for fracture with routine healing Code(s): M80.00XA - Age-related osteoporosis with current pathological fracture, unspecified site, initial encounter for fracture Status: Acute Assessment and Plan: It looks like the patient is on Prolia every 6 months. (6) Essential (primary) hypertension: Code(s): I10 - Essential (primary) hypertension Status: Acute Assessment and Plan: Still waiting home medication reconciliation. I will do some p.r.n. hydralazine with parameters. Continue with home medications when able. The patient is on a BiPAP at this time so we may not be able to resume his p.o. medication till in the morning. (7) Dyslipidemia: Code(s): E78.5 - Hyperlipidemia, unspecified Status: Acute Assessment and Plan: Resume home medications when the patient is off the BiPAP. (8) SAVANNA (obstructive sleep apnea): Code(s): G47.33 - Obstructive sleep apnea (adult) (pediatric) Status: Acute Assessment and Plan: The patient has a CPAP at home. DS: Summary Hospital Course Reason for hospitalization: this is a 60-year-old male patient who has a history of throat cancer. The patient underwent his 1st chemo and radiation treatment today. He also has a history of COPD. The patient had a sudden s
--- NOTE | 2020-12-28 18:09 | PDONCCN ---
HPI - Date of Consult Date/Time: 12/28/20 18:09 Requesting Physician: Faiza Caldera MD Primary Care Provider: Caity Adamson MD - Consult Narrative Reason for consult: Head and neck cancer Narrative: Campbell Chandra is a 60 year old male with recent diagnosis of true vocal cord cancer locally advanced currently receiving radiation therapy and received 1st round of chemotherapy treatment with cisplatin day prior to that admission. After the completion of cisplatin treatment patient started having significant shortness of breath and was recommended to go to the hospital. Patient has a history of COPD. He denies any cough fevers and chills. Chest x-ray was performed that showed no acute cardiopulmonary disease. Patient is now feeling much better. He is ready to be discharged home today. Review of Systems - Review of Systems All systems reviewed & are unremarkable except as noted in HPI and bel - Neurologic Reports system reviewed and no additional complaints, except as documented, Reports hearing normal, Reports confusion, Denies weakness PMFSH Medical History: Medical History (Last Updated 12/26/20 @ 22:23 by Bobbi Rebolledo NP) Bilateral hip fractures BPH w/o urinary obs/LUTS Closed pelvic fracture COPD mixed type Degenerative arthritis of knee, bilateral Diastolic dysfunction DM2 (diabetes mellitus, type 2) Dyslipidemia Essential (primary) hypertension Femur fracture Hypothyroidism (acquired) SAVANNA (obstructive sleep apnea) uses CPAP Osteoarthritis Osteoporosis Smoker Vitamin D deficiency Surgical History: Surgical History (Last Reviewed 12/26/20 @ 22:24 by Bobbi Rebolledo NP) History of hip surgery Onset Date: ~2015 rods placed in bilateral hips R: 2016, L: 2018 Hx of partial nephrectomy Onset Date: ~1973 lt kidney Submandibular sialolithiasis bilateral - s/p surgical removal 2017 and 2018 Family History: Family History (Last Reviewed 12/26/20 @ 23:54 by Josefa Robledo RN) Father Lung cancer Sibling Diabetes mellitus Hypertension Grandparent Kidney disease - Social History Social History: Social History (Last Reviewed 12/26/20 @ 22:24 by Bobbi Rebolledo NP) Gender Identity: Gender identity (if verbalized by the patient): Male Alcohol Use: Alcohol intake: never Substance Use: Substance use: never Substance use type: does not use Others: Spiritual care concerns: No Smoking Status: Smoking status: Former smoker Tobacco type: cigarettes Second hand tobacco smoke exposure: Yes Approximate Smoking End Date: November 2019 Smoking Pack-years: Smoking packs per day: 2 Smoking cigarettes per day: 40.0 Years smoked: 45 Smoking pack-years: 90.00 Meds Home Medications Medication Instructions Recorded Confirmed Type Prolia 60 mg SUBCUT [id number] 07/03/19 12/26/20 History aspirin 81 mg PO DAILY 07/03/19 12/26/20 History calcium carbonate-vitamin D3 1 tablet PO BID 07/03/19 12/26/20 History [Calcium 500 + D (D3)] glipizide 10 mg tablet, extended See Rx Instructions .ROUTE 04/11/20 12/26/20 Rx release 24 hr .COMPLEX #90 tablet metformin 500 mg tablet,extended See Rx Instructions .ROUTE 05/11/20 12/26/20 Rx release 24 hr .COMPLEX #360 tablet meloxicam 7.5 mg tablet See Rx Instructions .ROUTE 08/17/20 12/26/20 Rx .COMPLEX #90 tablet tamsulosin 0.4 mg capsule See Rx Instructions .ROUTE 08/17/20 12/26/20 Rx .COMPLEX #90 cap levothyroxine 175 mcg tablet See Rx Instructions .ROUTE 10/12/20 12/26/20 Rx .COMPLEX #90 tablet lisinopril 2.5 mg tablet See Rx Instructions .ROUTE 10/12/20 12/26/20 Rx .COMPLEX #90 tablet atorvastatin 10 mg tablet See Rx Instructions .ROUTE 10/19/20 12/26/20 Rx .COMPLEX #90 tablet Magic Mouthwash (Dr. Hickman) 5 - 10 ml PO QID #120 ml 12/26/20 12/26/20 Rx albuterol sulfate [ProAir HFA] See Rx Instructions .ROUTE 12/26/20 12/26/20 History .COM
== END 2020-12-28 13:15 | disposition home or self-care (01) ==
LOC: ANHED 18:38 → ANHIMU 19:43
PROVIDERS: Nurse Practitioner; Admitting Provider Family Medicine; Emergency Provider Emergency Medicine; PCP Family Medicine; Visit Provider Family Medicine
DX: R06.02 Shortness of breath (principal); J44.9 Chronic obstructive pulmonary disease, unspecified; E11.9 Type 2 diabetes mellitus without complications; E03.9 Hypothyroidism, unspecified; E78.5 Hyperlipidemia, unspecified; G47.33 Obstructive sleep apnea (adult) (pediatric); I10 Essential (primary) hypertension; Z85.21 Personal history of malignant neoplasm of larynx; Z79.84 Long term (current) use of oral hypoglycemic drugs; Z92.21 Personal history of antineoplastic chemotherapy; Z87.891 Personal history of nicotine dependence
CPT/HCPCS: 36415; 36600; 71045; 77386; 80048; 80053; 82375; 82805; 82948; 83036; 83050; 83605; 83735; 83880; 84439; 84443; 84480; 84484; 85025; 85027; 85610; 85730; 93005; 94002; 94003; 94640; 94660; 96366; 96367; 96368; 96372; 96374; 96375; 96376; 96413; 96415; 99285; A9270; G0378; J0171; J1100; J1453; J2469; J2930; J3475; J3480; J7030; J7040; J9060

== ENCOUNTER 2021-01-16 16:04 | Inpatient (IN) | payer MEDICARE, SELFPAY ==
[2021-01-16] VITALS (39 sets, daily range): BP systolic 110–173; BP diastolic 61–101; PULSE 100–125; RESP 17–41; TEMP 36.4–37.1; O2SAT 68–100; BMI 38.0
--- NOTE | ~2021-01-16 | CT_ITS ---
EXAMINATION: CT soft tissue neck w con EXAM DATE: 01/16/2021 18:49 INDICATION: Throat cancer. TECHNIQUE: Spiral CT of the neck was performed following intravenous injection of 100 mL Omnipaque 35 0 (same bolus as the pulmonary scan). Axial, coronal and sagittal images were reviewed. The dose-le ngth product (DLP) for this examination was 1047.60 mGy-cm. The exposure was tailored according to p atient size (auto mA exposure control), and iterative reconstruction (ASIR) was used as additional do se reduction technique. Comparison is made to prior examination from 10/03/2020. FINDINGS: Previously seen enlarged right-sided necrotic lymph node no longer identified, correlate wi th any surgical history or other treatment. There is some soft tissue opacity within that region bety suring up to about 15 mm, probably scarring but can't exclude residual cancer. The thyroid gland is u nremarkable. The submandibular and parotid glands are symmetric. The superior mediastinum is unr emarkable. The airway is unremarkable. Parapharyngeal and pre-glottic fat planes are preserved. The opacified vasculature is patent. The orbits are unremarkable. Visualized sinuses and mastoid air cells are well aerated. Diffusely mottled bone density unchanged, could be renal osteodystrophy, other disorder of calcium tu rnover/parathyroid disorders. Difficult to totally exclude diffuse malignant infiltration. Multiple o ld thoracic, rib fractures, clavicular fractures. No cervical fracture. Similar appearance on prior s tudy, correlate with CT chest report. IMPRESSION: 1. Interval treatment previously seen necrotic right internal jugular chain lymph node, small residu al soft tissue probably scarring but can't exclude residual tumor. 2. Diffuse abnormal appearing bones unchanged with numerous old fractures. Reviewed, dictated and finalized at location A. IMPRESSION: 1. Interval treatment previously seen necrotic right internal jugular chain ly mph node, small residual soft tissue probably scarring but can't exclude residu al tumor. 2. Diffuse abnormal appearing bones unchanged with numerous old fractures.
--- NOTE | ~2021-01-16 | CT_ITS ---
EXAMINATION: CTA chest PE protocol EXAM DATE: 01/16/2021 18:49 INDICATION: Shortness of breath. Throat cancer. TECHNIQUE: Spiral CTA of the chest (pulmonary arteries) was performed with 100 cc Omnipaque 350 intr avenous contrast injection. Images were acquired during the pulmonary arterial phase. Coronal maxi mum intensity projection 3D-reconstructions were created by the technologist on dedicated workstation . Axial, coronal and sagittal reformatted images were reviewed. The dose-length product (DLP) for t his examination was 1047.60 mGy-cm. The exposure was tailored according to patient size (auto mA ex posure control), and iterative reconstruction (ASIR) was used as additional dose reduction technique. Comparison is made to prior examination from 08/23/2019. FINDINGS: Pulmonary scan positive for several right lower lobe and right upper lobe segmental pulmon theodore arteries, low clot burden. No evidence of right heart strain. No thoracic aortic dissection. Th ere is segmental right lower lobe, subsegmental left lower lobe atelectasis. Mild emphysema. There ar e no pleural or pericardial effusions. Tracheobronchial tree is patent. There is no mediastinal, hilar or axillary lymphadenopathy. There is no pneumothorax. Heart normal in size. There is mil d coronary arterial calcification, arterial sclerosis. Hepatic steatosis. Cholelithiasis. Left nephrolithiasis. Severe chronic right-sided hydronephrosis wi th renal cortical thinning. There are multiple old rib fractures and chronic compression and burst fr actures, mostly unchanged compared to prior study. Kyphosis. IMPRESSION: 1. Several right upper lobe, lower lobe segmental pulmonary emboli. 2. Bibasilar atelectasis. 3. Mild emphysema. 4. Chronic abdominal findings. 5. Numerous fractures of varying ages, but mostly chronic I discussed pulmonary emboli with Virginie Love MD at 18:47 PM CDT. Reviewed, dictated and finalized at location A.
--- NOTE | ~2021-01-16 | US_ITS ---
EXAMINATION: US renal BI EXAM DATE: 01/18/2021 10:14 INDICATION: Acute kidney insufficiency. TECHNIQUE: Multiple grayscale and Doppler images of the kidneys were obtained (by a technologist who performed the scan) and subsequently reviewed. Correlation is made to MR abdomen 01/14/2020. FINDINGS: Right kidney: Right kidney measures 15.3 x 9.8 x 8.1 centimeters. There is severe right-sided hydrone phrosis. There is echogenic focus with artifact in the renal pelvis likely stone measuring 1.3 cm, bu t this appears to be lying in the dependent portion rather than causing the obstruction. Severe hydro nephrosis was also noted on an MR abdomen January 2020, is chronic. Left kidney: There is normal contour and echogenicity. It measures 11.1 x 4.2 x 4.9 centimeters. Th ere are no focal renal lesions identified. Probable 1.3 cm nonobstructing calyceal stone. Bladder unremarkable. IMPRESSION: 1. Severe chronic right hydronephrosis with probable nonobstructing renal pelvic stone. 2. Probable left nonobstructing nephrolithiasis. Reviewed, dictated and finalized at location A. IMPRESSION: 1. Severe chronic right hydronephrosis with probable nonobstructing renal pelv ic stone. 2. Probable left nonobstructing nephrolithiasis.
--- NOTE | ~2021-01-16 | US_ITS ---
EXAMINATION: US venous doppler [facility] DATE: 01/17/2021 14:30 INDICATION: Acute pulmonary embolism. TECHNIQUE: Grayscale ultrasound images without and with compression and Doppler ultrasound images of the bilateral lower extremity veins were obtained. COMPARISON: Ultrasound 11/22/2019 FINDINGS: The visualized portions of right common femoral vein, profunda (deep) femoral vein, femoral vein, pop liteal vein, peroneal veins, posterior tibial veins, and greater saphenous vein outflow are patent. The visualized portions of left profunda femoral vein, femoral vein, popliteal vein, peroneal veins, posterior tibial veins, and greater saphenous vein outflow are patent. There is thrombus in left comm on femoral vein. IMPRESSION: 1. Acute deep vein thrombus involving left common femoral vein. Reviewed, dictated and finalized at location A.
--- NOTE | ~2021-01-16 | XR_ITS ---
EXAMINATION: XR chest 1V portable EXAM DATE: 01/16/2021 16:43 INDICATION: SOB, HX: COPD, DM2, HTN, SMOKING. TECHNIQUE: Portable AP frontal chest x-ray was obtained. Comparison is made to prior examination from 12/26/2020. FINDINGS: The lungs are clear. There are no pleural effusions. Cardiac silhouette is prominent but magnified on this AP technique. There is no pneumothorax suspected. The bones are osteopenic. The re are bony degenerative changes. Probable old right rib fractures. IMPRESSION: No acute cardiopulmonary findings. Reviewed, dictated and finalized at location A.
--- NOTE | 2021-01-16 16:20 | ECG_ITS ---
Measurements Intervals [place] Rate: 118 P: 15 NH: 157 QRS: -53 QRSD: 110 T: 111 QT: 271 QTc: 380 Interpretive Statements SINUS TACHYCARDIA LEFT ANTERIOR FASCICULAR BLOCK LEFT VENTRICULAR HYPERTROPHY AND ST-T CHANGE BORDERLINE ST-T WAVE ABNORMALITY- HIGH LATERAL LEADS BASELINE ARTIFACT- I, II, III, AVR, AVL,A VF, V1, V3-V6 ABNORMAL ECG Electronically Signed On 01-16-2021 16:31:31 CDT by Junior Renner D.O.
[2021-01-16 16:25] LABS: Alveolar/Arterial O2 Gradient 378.9 mmHg; Base Excess ABG -9.2 mEq/l (+/-2.0); Fractional Inspired Oxygen 80 %; HCO3 ABG 20.2 mEq/l (22.0-26.0); Oxygen Content ABG 20.1 %vol (16.0-22.0); Oxygen Saturation ABG 97.7 % (95.0-100.0); Oxyhemoglobin 96.4 % THb (90.0-100.0); PCO2 ABG 58.7 mmHg (35.0-45.0); PO2 ABG 129.9 mmHg (80.0-100.0); PO2 FiO2 Ratio Arterial Blood 1.62 %; Total Hemoglobin 14.7 g/dL (12.0-18.0)
[2021-01-16 16:26] LABS: Device NON-INVASIVE VENT; Modified Allen's Test Unable to perform; Non-Invasive Expiratory Pressure 10 CMH2O; Non-Invasive Inspiratory Pressure 16 CMH2O; Non-Invasive Vent Rate 20 /MIN; Site Drawn RIGHT RADIAL; pH ABG 7.155 (7.350-7.450)
[2021-01-16 16:35] LABS: Basophils Percent Auto 0.4 % (0.2-1.2); Eosinophils Percent Auto 0.4 % (0-4.4); Hematocrit 46.4 % (42.0-52.0); Immature Granulocyte Absolute 0.04 K/mm3 (0.00-0.031); Immature Granulocyte Percent A 1.7 % (0-0.5); Lymphocytes Absolute Auto 0.43 K/mm3 (0.9-3.2); Lymphocytes Percent Auto 18.5 % (18.3-44.2); Mean Corpuscular HGB Conc 30.2 g/dl (32-36); Mean Corpuscular Hemoglobin 26.1 pg (26-34); Mean Corpuscular Volume 86.6 fl (80-100); Monocytes Absolute Auto 0.1 K/mm3 (0.1-0.6); Neutrophils Absolute Auto 1.7 K/mm3 (1.3-6.7); Platelet Count Result 364 k/mm3 (150-375); Red Blood Count 5.36 M/mm3 (4.6-6.20); Red Cell Distribution Width 18.1 % (11.5-14.5); White Blood Count 2.3 K/mm3 (4.5-10.0)
[2021-01-16 16:52] LABS: Anion Gap 8 mmol/L (8-16); Blood Urea Nitrogen 21 mg/dL (9-20); Carbon Dioxide 22 mmol/L (22-30); Chloride 109 mmol/L (98-107); Estimated Glomerular Filt Rate > 60; Glucose 167 mg/dL (75-110); Sodium 139 mmol/L (137-145)
--- NOTE | 2021-01-16 16:54 | PC.NURSE ---
Attempted to call patient's at patient's request. No answer at this time.
--- NOTE | 2021-01-16 16:56 | PC.NURSE ---
Pt's returned my call. Gave her an update on patient, will call back once admission / discharge decision is made.
--- NOTE | 2021-01-16 17:56 | ED.GENADULT ---
HPI - General Adult General Chief complaint: Shortness of Breath/Dyspnea Stated complaint: SOB/CP Time Seen by Provider: 01/16/21 16:26 Source: patient History of Present Illness HPI narrative: Patient is a 60 y/o male complaining of severe SOB today. There is no alleviating or exacerbating factor. He has some cough, but no chest pain. EMS reports that pulse ox 68% initially. He is not on O2 at home. Patient was placed on BiPAP. He has known history of COPD as well as throat cancer. Related Data Home Medications Medication Instructions Recorded Confirmed aspirin 81 mg PO DAILY 07/03/19 01/16/21 calcium carbonate-vitamin D3 1 tablet PO BID 07/03/19 01/17/21 [Calcium 500 + D (D3)] albuterol sulfate [ProAir HFA] See Rx Instructions .ROUTE 12/26/20 01/16/21 .COMPLEX PRN budesonide-formoterol [Symbicort] 2 puff INHALATION TID 12/26/20 01/16/21 glipizide 10 mg PO DAILY 01/17/21 01/16/21 levothyroxine 175 mcg PO DAILY 01/17/21 01/16/21 lisinopril 2.5 mg PO DAILY 01/17/21 01/16/21 tamsulosin 0.4 mg PO DAILY 01/17/21 01/17/21 Allergies Allergy/AdvReac Type Severity Reaction Status Date / Time No Known Allergies Allergy Unknown Verified 01/16/21 18:45 Review of Systems Constitutional: Constitutional: Denies chills, Denies fever(s), Denies headache(s) and Denies weakness Eyes: Eyes: Denies blurry vision ENT: Denies headache(s) and Denies neck pain Cardiovascular: Cardiovascular: Denies chest pain and Reports dyspnea Respiratory: Respiratory: Reports cough and Reports dyspnea Gastrointestinal: Gastrointestinal: Denies abdominal pain, Denies diarrhea, Denies nausea and Denies vomiting Genitourinary: Genitourinary: Denies hematuria and Denies dysuria Musculoskeletal: Musculoskeletal: Denies back pain and Denies neck pain Neurologic: Denies headache(s) and Denies weakness [facility] Past Medical History Medical History (Updated 01/17/21 @ 13:10 by Virginie Love MD) BPH w/o urinary obs/LUTS Chronic kidney disease February 2020 nuclear medicine Lasix renal scan:1. Negligible uptake at the right kidney which is essentially indiscernible from the surrounding background precluding assessment for clearance. 2. Moderately delayed clearance from the left kidney consistent with partial obstruction which may be clinically significant. Closed pelvic fracture (11/2020) COPD mixed type Degenerative arthritis of knee, bilateral Diastolic dysfunction (11/2020) DM2 (diabetes mellitus, type 2) Dyslipidemia Essential (primary) hypertension Hydronephrosis of right kidney severe chronic right hydronephrosis with severe right renal cortical atrophy Hypothyroidism (acquired) Kidney stones bilateral nonobstructing nephrolithiasis SAVANNA (obstructive sleep apnea) uses CPAP Osteoarthritis Osteoporosis uncertain etiology with multiple insufficiency fractures iliac crest, multiple lumbar compression fractures, old healed superior and inferior pubic rami fractures, multiple old bilateral rib fractures Smoker 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atic spread right cervical level 2 lymph node with clinically overt extranodal extension Vitamin D deficiency Surgical History Surgical History History of hip surgery (~2015) rods placed in bilateral hips R: 2016, L: 2018 Hx of partial nephrectomy (~1973) lt kidney Submandibular sialolithiasis bilateral - s/p surgical removal 2016 and 2018 Family History Family History Father Lung cancer Sibling Diabetes mellitus Hypertension Grandparent Kidney disease Social History Social History (Updated 01/16/21 @ 20:35 by Peggy Pedroza DO) Social History: Primary care physician: Dr. Caity Adamson Code
--- NOTE | 2021-01-16 18:13 | PC.NURSE ---
Patient to radiology.
--- NOTE | 2021-01-16 19:34 | PC.NURSE ---
Repeat potassium / PT INR drawn peripherally and sent
[2021-01-16 19:50] LABS: Potassium 5.9 mmol/L (3.4-5.0)
[2021-01-16 19:54] LABS: Prothrombin Time 12.8 Seconds (11.1-14.7)
[2021-01-16 19:56] LABS: Partial Thromboplastin Time 23.1 SECONDS (22.3-36.8)
--- NOTE | 2021-01-16 20:17 | PM.IMHP ---
H&P: HPI History of Present Illness Date/Time: 01/16/21 20:17 Chief Complaint: Respiratory distress Narrative: 60-year-old male with past medical history of COPD , chronic tobacco abuse, mild intellectual disability, obstructive sleep apnea and laryngeal cancer currently undergoing chemotherapy who presented [facility] the ER [facility] via EMSin respiratory distress.The patient was hospitalized for similar symptoms on 12/26/2020 following his 1st dose of chemotherapy. He reports that he is currently on day 17 of radiation therapy for his orange ill cancer. He stated that his oncologist change his chemotherapy this time so that hopefully he would an in-depth having respiratory distress but he still developed respiratory distress. When the patient arrived to the ER from the [facility] he was satting 68% On room air and was placed on CPAP. He was placed on BiPAP in the ER. His initial ABG demonstrated respiratory acidosis. he had rapid improvement in his respiratory symptoms a by time he arrived to the medical floor his breathing had returned to baseline. He reports that prior to his chemotherapy treatment he was breathing normally. He does still smoke. He denies having any lower extremity swelling or pain. However CTA chest performed in the ER did demonstrate several right upper lobe and lower lobe segment pulmonary emboli. He has been having some difficulty with dysphagia of solids since initiation of radiation therapy. He is tolerating liquids easily. He reports that he has been prescribed some medications to switch in his mouth due to what sounds like mucositis. He denies any recent fevers or chills. He has received his COVID vaccine. He denies any nausea or vomiting. He reports having normal bowel movements. He is concerned that he developed respiratory distress again after his chemotherapy treatment. He is considering not proceeding with chemotherapy as he is afraid this will happen again with his next chemotherapy treatment. Review of Systems Review of Systems: Narrative: 12 systems were reviewed with pertinent positives and negatives per HPI. Except as documented in the HPI, all other systems were reviewed and are negative. [facility] Past Medical History Medical History (Updated 01/17/21 @ 06:36 by Peggy Pedroza DO) BPH w/o urinary obs/LUTS Chronic kidney disease February 2020 nuclear medicine Lasix renal scan:1. Negligible uptake at the right kidney which is essentially indiscernible from the surrounding background precluding assessment for clearance. 2. Moderately delayed clearance from the left kidney consistent with partial obstruction which may be clinically significant. Closed pelvic fracture (11/2020) COPD mixed type Degenerative arthritis of knee, bilateral Diastolic dysfunction (11/2020) DM2 (diabetes mellitus, type 2) Dyslipidemia Essential (primary) hypertension Hydronephrosis of right kidney severe chronic right hydronephrosis with severe right renal cortical atrophy Hypothyroidism (acquired) Kidney stones bilateral nonobstructing nephrolithiasis SAVANNA (obstructive sleep apnea) uses CPAP Osteoarthritis Osteoporosis uncertain etiology with multiple insufficiency fractures iliac crest, multiple lumbar compression fractures, old healed superior and inferior pubic rami fractures, multiple old bilateral rib fractures Smoker 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
[2021-01-16] MEDS: ENOXAPARIN 100 MG/ML SYRINGE 85 MG SUB-Q (20:29)
[2021-01-16] MEDS: CALCIUM GLUCONATE 1,000 MG/10 ML VIAL 1000 MG IV PUSH (20:31)
[2021-01-16] MEDS: DEXTROSE 50% 25 GM/50 ML SYRINGE IV PUSH (20:44)
[2021-01-16] MEDS: INSULIN HUMAN REGULAR (*BKC) 100 UNITS/ML 10 UNITS IV PUSH (20:56)
[2021-01-16] MEDS: SODIUM BICARBONATE 8.4% 50 MEQ/50 ML VIAL IV PUSH (20:57)
[2021-01-16] MEDS: SODIUM POLYSTYRENE SULFONONATE 15 GM/60 ML BTL PO (20:58)
[2021-01-16 21:39] LABS: Alveolar/Arterial O2 Gradient 108.1 mmHg; Base Excess ABG -2.7 mEq/l (+/-2.0); Fractional Inspired Oxygen 32 %; HCO3 ABG 22.9 mEq/l (22.0-26.0); Oxygen Saturation ABG 93.4 % (95.0-100.0); Oxyhemoglobin 92.6 % THb (90.0-100.0); PCO2 ABG 42.4 mmHg (35.0-45.0); PO2 ABG 70.5 mmHg (80.0-100.0); Total Hemoglobin 13.8 g/dL (12.0-18.0)
[2021-01-16 21:41] LABS: Device NASAL CANNULA; Modified Allen's Test Pass; Site Drawn LEFT RADIAL
--- NOTE | 2021-01-16 23:26 | ADMGEN ---
This patient, Campbell Chandra, was admitted to Medical Room 343-01. Patient/family oriented to hospital policies and general routines including ID bracelet, bed and alarms, visiting hours, pain management, procedures, bathroom and other care routines, personal items, smoking policy, room service/diet, and visiting hours. Information on how to activate the Rapid Response Team has been discussed. Patient/Family are encouraged to report perceived risks to care and to ask questions if they do not understand what they are told or what they should do.
[2021-01-17] VITALS (15 sets, daily range): BP systolic 102–108; BP diastolic 49–73; PULSE 70–106; RESP 20–30; TEMP 36.1–36.9; O2SAT 91–100; BMI 38.0
--- NOTE | 2021-01-17 | ECHO_ITS ---
Patient Info Name: Campbell Chandra Age: 60 years : 1960 Gender: Male Ht: 57 in Wt: 175 lbs BSA: 1.83 m2 HR: 101 bpm BP: 102 / 49 mmHg Technical Quality: Poor Exam Date: 01/17/2021 12:52 PM Exam Location: [facility] Patient Status: Inpatient Admit Date: 01/16/2021 Staff Ordering Physician: Alice Lopez PA-C Art Sales Consultant: Ayse Kirk RDCS Attending Provider: Alice Lopez PA-C Referring Physician: Jessica DIXON; Exam Type: CA echo dop color flow w con Study Info Indications - HYPOXIA - PULMONARY EMBOLISM Complete two-dimensional, color flow and Doppler transthoracic echocardiogram is performed with contrast to opacify the left ventricle and to improve the deliniation of the left ventricle endocardial borders. Contrast/Agitated Saline Contrast/Ag. Saline: Definity Amount: 2.50 ml Administered By: Yvonne Babcock RN Existing IV Access: Yes IV Access Condition: patent with no signs of infiltration Reason for Poor Study: poor echocardiographic windows Summary 1. Technically suboptimal study due to poor sonographic images. 2. Left ventricular chamber dimension is normal. 3. Definity contrast administered improved wall motion interpretation. 4. Left ventricular systolic function is normal, estimated at 65-70%. 5. The left ventricular diastolic function is grade I diastolic dysfunction. 6. E/e' 13 is mildly elevated. 7. Right ventricular chamber dimension is moderately enlarged. 8. Right ventricular systolic function is mild-moderately reduced. 9. Mild pulmonary hypertension, estimated pulmonary arterial systolic pressure is 44 mmHg. Left Ventricle E/e' 13 is mildly elevated. Definity contrast administered improved wall motion interpretation. Technically suboptimal study due to poor sonographic images. Left ventricular chamber dimension is normal. Left ventricular systolic function is normal, estimated at 65-70%. The left ventricular diastolic function is grade I diastolic dysfunction. Right Ventricle Right ventricular chamber dimension is moderately enlarged. Right ventricular systolic function is mild-moderately reduced. Left Atria Left atrial chamber dimension is normal. Right Atria Right atrial chamber dimension is not well visualized. Aortic Valve The aortic valve is trileaflet. There is no aortic valve stenosis. There is no aortic valve regurgitation. Pulmonic Valve The pulmonic valve is not well visualized. Mitral Valve There is no mitral valve stenosis. There is no mitral valve regurgitation. Tricuspid Valve There is no tricuspid valve regurgitation. Mild pulmonary hypertension, estimated pulmonary arterial systolic pressure is 44 mmHg. Pericardium/Pleural There is no pericardial effusion. Inferior Vena Cava Inferior vena cava is not well visualized. Aorta The aortic root size at the sinus of Valsalva is normal. Left Ventricular Outflow Tract Name Value Normal LVOT 2D LVOT Diameter 2.01 cm LVOT Doppler LVOT Peak Gradient 4 mmHg LVOT Mean Gradient
[2021-01-17 00:29] LABS: Glucose Point of Care 134 mg/dl (65-105)
[2021-01-17 07:11] LABS: Hematocrit 40.9 % (42.0-52.0); Hemoglobin 12.9 g/dL (14.0-18.0); Mean Corpuscular HGB Conc 31.5 g/dl (32-36); Mean Corpuscular Hemoglobin 26.5 pg (26-34); Mean Platelet Volume 8.2 fl (7.4-10.4); Platelet Count Result 267 k/mm3 (150-375); Red Blood Count 4.87 M/mm3 (4.6-6.20); Red Cell Distribution Width 17.7 % (11.5-14.5); White Blood Count 2.8 K/mm3 (4.5-10.0)
[2021-01-17 07:45] LABS: Glucose Point of Care 136 mg/dl (65-105)
[2021-01-17 08:09] LABS: Anion Gap 10 mmol/L (8-16); Blood Urea Nitrogen 24 mg/dL (9-20); Carbon Dioxide 24 mmol/L (22-30); Chloride 105 mmol/L (98-107); Estimated Glomerular Filt Rate 52; Glucose 130 mg/dL (75-110); Potassium 4.9 mmol/L (3.4-5.0); Sodium 139 mmol/L (137-145)
[2021-01-17] MEDS: IPRATROPIUM BR 0.02% INH SOLN 0.5 MG/2.5 ML VIAL INHALATION ×3 (08:15→21:01)
[2021-01-17] MEDS: ASPIRIN 81 MG CHEWABLE TABLET PO (09:08)
[2021-01-17] MEDS: LEVOTHYROXINE SODIUM 100 MCG, LEVOTHYROXINE SODIUM 75 MCG 175 MCG PO (09:08)
[2021-01-17] MEDS: ENOXAPARIN 100 MG/ML SYRINGE 85 MG SUB-Q ×2 (09:09→20:15)
--- NOTE | 2021-01-17 09:29 | ECG_ITS ---
Measurements Intervals [place] Rate: 93 P: 15 NH: 175 QRS: -71 QRSD: 105 T: 41 QT: 332 QTc: 415 Interpretive Statements SINUS RHYTHM INCOMPLETE RIGHT BUNDLE BRANCH BLOCK LEFT ANTERIOR FASCICULAR BLOCK EXTENSIVE ANTERIOR INFARCT, AGE INDETERMINATE CONSIDER INFERIOR INFARCT, AGE INDETERMINATE BASELINE ARTIFACT- AVR, AVL, AVF, V1 ABNORMAL ECG Electronically Signed On 01-17-2021 12:06:08 CDT by Junior Renner D.O.
--- NOTE | 2021-01-17 09:31 | PM.IMPN ---
Progress Note: A&P Assessment and Plan (1) Acute respiratory failure with hypoxia and hypercapnia: Code(s): J96.01 - Acute respiratory failure with hypoxia; J96.02 - Acute respiratory failure with hypercapnia Status: Acute Assessment and Plan: secondary to PE - improving and now on oxygen satting 99% but was previously on BiPAP - wean oxygen as tolerated - mild emphysema; continue xopenex, symbicort, and atrovent - he does have a short neck and SAVANNA, continue cpap at night and with naps (uses at home as well) (2) Pulmonary embolism: Qualifiers: Acute cor pulmonale presence: without acute cor pulmonale Chronicity: unspecified Pulmonary embolism type: unspecified Qualified Code(s): I26.99 - Other pulmonary embolism without acute cor pulmonale Code(s): I26.99 - Other pulmonary embolism without acute cor pulmonale Status: Acute Assessment and Plan: noted on CTA -draw BNP, order echo and repeat EKG -No CP at this time, no troponins indicated at this point -Continue lovenox, await hematology's recommendations on oral anticoagulation (3) COPD with acute exacerbation: Code(s): J44.1 - Chronic obstructive pulmonary disease with (acute) exacerbation Status: Acute Assessment and Plan: As above -Continue symbicort, xopenex and atrovent (4) Squamous cell carcinoma: Onset Date: 10/03/20 Status: Acute Assessment and Plan: Undergoing tx for laryngeal cancer -sees Dr. Verma (5) Hyperkalemia: Code(s): E87.5 - Hyperkalemia Status: Acute Assessment and Plan: Resolved -hold lisinopril -could be due to slight DEANA. Check UA. (6) DM2 (diabetes mellitus, type 2): Qualifiers: Diabetes mellitus [employer] insulin use: without mcfp use Diabetes mellitus complication status: with other specified complication Qualified Code(s): E11.69 - Type 2 diabetes mellitus with other specified complication Code(s): E11.9 - Type 2 diabetes mellitus without complications Status: Chronic Assessment and Plan: Hold oral agents and continue SSI -last glucose 136 (7) Leukopenia: Code(s): D72.819 - Decreased white blood cell count, unspecified Status: Acute Assessment and Plan: Last WBC 2.8 -likely due to chemo -monitor -no signs of infection Additional Plan renal fx went up a bit but pt is eating and drinking today. Will hold off on fluids. Check UA. If worse tomorrow may consider fluids or renal u/s Time Spent With Patient Time with patient: 25 - 35 minutes Subjective Date/time seen: 01/17/21 09:31 Interval history: Pt is a 60-year-old male here for PE and hypoxia. Patient was seen today and states he is feeling okay. He is breathing better and does not feel short of breath. He has no chest pain, nausea, vomiting, fevers, chills, or abdominal pain. No dysuria. He says he has a sore on the back of his left thigh that is giving him problems. Review of Systems Review of Systems: All systems reviewed & are unremarkable except as noted in HPI and below Exam Narrative: Exam Narrative: General: Well developed well nourished patient in NAD HEENT: normocephalic Neck: short, supple Neuro: Alert and oriented x4 CV:RRR. Telemetry with normal sinus rhythm Resp: coarse breath sounds bilaterally with good air movement. No conversational dyspnea Abd: Soft, non distended. No pain to palpation. Positive bowel sounds. yeast noted in folds Extremities: no swelling to the lower extremities. He does have a small open sore on his left thigh which does not look infected. Chronic discoloration. Objective Data Vital Signs Vital Signs: Vital Signs - 24 hr 01/16/21 16:12 01/16/21 16:15 01/16/21 16:20 Temperature 97.6 F Pulse Rate 125 H 115 H 124 H Respiratory Rate 30 H 41 H 40 H Blood Pressure 173/98 H Pulse Oximetry 68 L 98 99 01/16/21 16
[2021-01-17 10:44] LABS: NT Pro B Type Natriuretic Pept 1900 pg/mL (5-100)
--- NOTE | 2021-01-17 10:49 | PC.NURSE ---
Oxygen removed, monitored patient for the last 15 minutes while resting quietly. O2 sat 93% on room air.
[2021-01-17 11:26] LABS: Glucose Point of Care 230 mg/dl (65-105)
[2021-01-17] MEDS: INSULIN ASPART (*BKC) 100 UNITS/ML SUB-Q (11:27)
[2021-01-17 11:42] LABS: Add Urine Microscopic? YES; Appearance Urine Clear (Clear); Bilirubin Urine Negative (Negative); Blood Urine 1+ (Negative); Color Urine Yellow (Yellow); Glucose Urine UA 1+ mg/dL (Negative); Ketones Urine Trace mg/dL (Negative); Leukocyte Esterase Ur Negative LEU/UL (Negative); Nitrate Urine Negative (Negative); Protein Urine 1+ mg/dL (Negative); RBC Urine 0-2 /hpf (0-2); Urobilinogen Urine Negative mg/dL (<2.0)
--- NOTE | 2021-01-17 11:58 | PC.NURSE ---
Bladder scan showed 210mls.
[2021-01-17] MEDS: TAMSULOSIN HCL 0.4 MG CAPSULE PO (12:14)
[2021-01-17] MEDS: predniSONE 20 MG TABLET 60 MG PO (12:14)
[2021-01-17] MEDS: NYSTATIN 100,000 UNITS/ML SUSP 5 ML ORAL.SUSP 10 ML PO ×3 (12:15→20:16)
[2021-01-17 12:16] LABS: Specific Grav Ur 1.033 (1.001-1.035)
[2021-01-17] MEDS: MAGNES & ALUM HYD/SIMETH/DIPHENHYD/LIDOCAINE 119 ML MOUTHWASH BY MOUTH (12:17)
[2021-01-17] MEDS: TOLNAFTATE 1% POWDER 45 GM BTL 1 APPLIC TOPICAL ×2 (12:21→20:16)
--- NOTE | 2021-01-17 12:52 | PDONCCN ---
HPI - Date of Consult Date/Time: 01/17/21 12:53 Requesting Physician: Alice Lopez PA-C Primary Care Provider: Caity Adamson MD - Consult Narrative Reason for consult: Locally advanced laryngeal cancer Narrative: Campbell Chandra is a 60 year old male with locally advanced laryngeal cancer currently on going radiation therapy and chemotherapy with cisplatin. He was receiving 2nd dose of chemotherapy with cisplatin in the office and started having shortness of breath along with some chest discomfort almost at the end of the chemotherapy treatment. Nine 1 was called in the office. Patient was taken to the ER where CT chest was performed that showed several right upper lobe and lower lobe segmental pulmonary embolism. He was started on Lovenox. He denies any previous history of thromboembolic events. He denies any bleeding and bruising. He is feeling much better and currently requiring no oxygen. He is currently getting echocardiogram done. Denies any other complaints. Review of Systems - Review of Systems All systems reviewed & are unremarkable except as noted in HPI and bel - Neurologic Denies headache(s), Denies weakness [facility] Medical History: Medical History (Last Updated 01/16/21 @ 20:35 by Peggy Pedroza DO) BPH w/o urinary obs/LUTS Chronic kidney disease February 2020 nuclear medicine Lasix renal scan:1. Negligible uptake at the right kidney which is essentially indiscernible from the surrounding background precluding assessment for clearance. 2. Moderately delayed clearance from the left kidney consistent with partial obstruction which may be clinically significant. Closed pelvic fracture Onset Date: 11/2020 COPD mixed type Degenerative arthritis of knee, bilateral Diastolic dysfunction Onset Date: 11/2020 DM2 (diabetes mellitus, type 2) Dyslipidemia Essential (primary) hypertension Hydronephrosis of right kidney severe chronic right hydronephrosis with severe right renal cortical atrophy Hypothyroidism (acquired) Kidney stones bilateral nonobstructing nephrolithiasis SAVANNA (obstructive sleep apnea) uses CPAP Osteoarthritis Osteoporosis uncertain etiology with multiple insufficiency fractures iliac crest, multiple lumbar compression fractures, old healed superior and inferior pubic rami fractures, multiple old bilateral rib fractures Smoker Squamous cell carcinoma Onset Date: 10/03/20 stage IVB ( T3 N3 M0 ) 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atic spread right cervical level 2 lymph node with clinically overt extranodal extension Vitamin D deficiency Surgical History: Surgical History (Last Reviewed 01/16/21 @ 20:35 by Peggy Pedroza DO) History of hip surgery Onset Date: ~2015 rods placed in bilateral hips R: 2015, L: 2018 Hx of partial nephrectomy Onset Date: ~1973 lt kidney Submandibular sialolithiasis bilateral - s/p surgical removal 2017 and 2017 Family History: Family History (Last Reviewed 01/16/21 @ 20:35 by Peggy Pedroza DO) Father Lung cancer Sibling Diabetes mellitus Hypertension Grandparent Kidney disease - Social History Social History: Social History (Last Updated 01/16/21 @ 20:35 by Peggy Pedroza DO) Gender Identity: Gender identity (if verbalized by the patient): Male Alcohol Use: Alcohol intake: never Alcohol use details: On occasion and in moderation. Substance Use: Substance use: never Substance use type: does not use Others: Spiritual care concerns: No Smoking Status: Smoking status: Former smoker Tobacco type: cigarettes Second hand tobacco smoke exposure: Yes Approximate Smoking End Date: 2019 Smoking Pack-years: Smoking packs per day: 2 Smoking cigarettes per day: 40.0 Years smoked: 45 Smoking pack-years: 90.00 Meds Home M
--- NOTE | 2021-01-17 13:11 | PCOTNOTE ---
OT evaluation attempted. Patient having echo and then going to testing. Will attempt at later time.
--- NOTE | 2021-01-17 13:25 | PCPTNOTE ---
PT evaluation attempted. Patient having echo and then going to testing. Will attempt at later time.
[2021-01-17] MEDS: PERFLUTREN LIPID MICROSPHERES 1.5 ML VIAL DILUTED TO 10 ML TOTAL VOLUME IV PUSH (13:35)
[2021-01-17 17:05] LABS: Glucose Point of Care 187 mg/dl (65-105)
[2021-01-17] MEDS: ATORVASTATIN 10 MG TABLET BY MOUTH (20:15)
[2021-01-17 21:12] LABS: Glucose Point of Care 189 mg/dl (65-105)
[2021-01-18] VITALS (21 sets, daily range): BP systolic 124–135; BP diastolic 62–75; PULSE 87–101; RESP 16–22; TEMP 35.7–36.2; O2SAT 92–98
[2021-01-18] MEDS: IPRATROPIUM BR 0.02% INH SOLN 0.5 MG/2.5 ML VIAL INHALATION ×4 (03:31→20:56)
[2021-01-18] MEDS: LEVOTHYROXINE SODIUM 100 MCG, LEVOTHYROXINE SODIUM 75 MCG 175 MCG PO (05:52)
[2021-01-18 06:11] LABS: Hematocrit 38.9 % (42.0-52.0); Hemoglobin 12.4 g/dL (14.0-18.0); Mean Corpuscular HGB Conc 31.9 g/dl (32-36); Mean Corpuscular Hemoglobin 26.3 pg (26-34); Mean Corpuscular Volume 82.4 fl (80-100); Mean Platelet Volume 8.3 fl (7.4-10.4); Platelet Count Result 259 k/mm3 (150-375); Red Blood Count 4.72 M/mm3 (4.6-6.20); Red Cell Distribution Width 17.3 % (11.5-14.5); White Blood Count 3.5 K/mm3 (4.5-10.0)
[2021-01-18 06:24] LABS: Anion Gap 8 mmol/L (8-16); Blood Urea Nitrogen 36 mg/dL (9-20); Calcium 8.5 mg/dL (8.4-10.2); Carbon Dioxide 26 mmol/L (22-30); Chloride 105 mmol/L (98-107); Estimated Glomerular Filt Rate 36; Glucose 135 mg/dL (75-110); Potassium 4.7 mmol/L (3.4-5.0); Sodium 139 mmol/L (137-145)
[2021-01-18] MEDS: LACTATED RINGERS 500 ML 80 ML IV CONT (09:48)
[2021-01-18] MEDS: TAMSULOSIN HCL 0.4 MG CAPSULE PO (09:55)
[2021-01-18] MEDS: NYSTATIN 100,000 UNITS/ML SUSP 5 ML ORAL.SUSP 10 ML PO ×3 (09:55→20:03)
[2021-01-18] MEDS: ASPIRIN 81 MG CHEWABLE TABLET PO (09:55)
[2021-01-18] MEDS: predniSONE 20 MG TABLET 60 MG PO (09:55)
[2021-01-18] MEDS: ENOXAPARIN 100 MG/ML SYRINGE 85 MG SUB-Q ×2 (09:56→20:04)
[2021-01-18] MEDS: TOLNAFTATE 1% POWDER 45 GM BTL 1 APPLIC TOPICAL ×2 (10:03→20:04)
[2021-01-18 10:07] LABS: Glucose Point of Care 116 mg/dl (65-105)
--- NOTE | 2021-01-18 10:39 | PM.IMPN ---
Progress Note: A&P Assessment and Plan (1) DEANA (acute kidney injury): Code(s): N17.9 - Acute kidney failure, unspecified Status: Acute Assessment and Plan: Cr on admission was 1.1--->1.4 and now 1.9 -Unclear etiology, obtain renal u/s. No signs of UTI. -He stats he is eating and drinking well. 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 He also mentions his left works at 95% and his right works at 5%. No hx of kidney stones. Although he has all this hx, he denies having a robotics specialist and says he knows how much his kidneys are working because he had it checked once . -If not improved by tomorrow, consider nephrology consult (2) Acute respiratory failure with hypoxia and hypercapnia: Code(s): J96.01 - Acute respiratory failure with hypoxia; J96.02 - Acute respiratory failure with hypercapnia Status: Acute Assessment and Plan: secondary to PE - improving and now on RA -Echo shows mild/mod right ventricular systolic dysfunction but no CP -Will continue loevnox and transition to Eliquis outpt. it is $47 a month and CC is checking with the pt to ensure he can afford this - mild emphysema; continue xopenex, symbicort, and atrovent. Will decrease steroids - he does have a short neck and SAVANNA, continue cpap at night and with naps (uses at home as well) (3) Pulmonary embolism: Qualifiers: Acute cor pulmonale presence: without acute cor pulmonale Chronicity: unspecified Pulmonary embolism type: unspecified Qualified Code(s): I26.99 - Other pulmonary embolism without acute cor pulmonale Code(s): I26.99 - Other pulmonary embolism without acute cor pulmonale Status: Acute Assessment and Plan: noted on CTA -No CP at this time, no troponins indicated at this point -Continue lovenox, transition to eliquis at d/c (4) COPD with acute exacerbation: Code(s): J44.1 - Chronic obstructive pulmonary disease with (acute) exacerbation Status: Acute Assessment and Plan: As above -Continue symbicort, xopenex and atrovent -decrease oral steroids (5) Squamous cell carcinoma: Onset Date: 10/03/20 Status: Acute Assessment and Plan: Undergoing tx for laryngeal cancer -sees Dr. Verma (6) Hyperkalemia: Code(s): E87.5 - Hyperkalemia Status: Acute Assessment and Plan: Resolved -hold lisinopril (7) DM2 (diabetes mellitus, type 2): Qualifiers: Diabetes mellitus meterman insulin use: without snf use Diabetes mellitus complication status: with other specified complication Qualified Code(s): E11.69 - Type 2 diabetes mellitus with other specified complication Code(s): E11.9 - Type 2 diabetes mellitus without complications Status: Chronic Assessment and Plan: Hold oral agents and continue SSI -last glucose 116 -Continue diabetic diet (8) Leukopenia: Code(s): D72.819 - Decreased white blood cell count, unspecified Status: Acute Assessment and Plan: Last WBC 3.5 -likely due to chemo -monitor -no signs of infection Subjective Date/time seen: 01/18/21 10:39 Interval history: Pt is a 60-year-old male here for PE and hypoxia. Patient was seen today and states he is feeling okay. He is breathing better and does not feel short of breath as much. He continues to cough but is not coughing up blood. He has no chest pain, vomiting, fevers, diarrhea, constipation chills, or abdominal pain. No dysuria. He had some nausea earlier but feeling better. He claims he is drinking. 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 He also mentions his left works at 95% and his right works at 5%. No hx of kidney stones. Although he has al
[2021-01-18 12:48] LABS: Glucose Point of Care 207 mg/dl (65-105)
[2021-01-18 17:19] LABS: Glucose Point of Care 232 mg/dl (65-105)
[2021-01-18] MEDS: ATORVASTATIN 10 MG TABLET BY MOUTH (20:03)
[2021-01-18 21:25] LABS: Glucose Point of Care 252 mg/dl (65-105)
[2021-01-19] VITALS (18 sets, daily range): BP systolic 125–144; BP diastolic 75–80; PULSE 75–99; RESP 16–20; TEMP 35.8–36.4; O2SAT 93–98
[2021-01-19] MEDS: IPRATROPIUM BR 0.02% INH SOLN 0.5 MG/2.5 ML VIAL INHALATION ×4 (03:07→20:12)
[2021-01-19] MEDS: LEVOTHYROXINE SODIUM 100 MCG, LEVOTHYROXINE SODIUM 75 MCG 175 MCG PO (06:08)
[2021-01-19 06:15] LABS: Hematocrit 37.3 % (42.0-52.0); Hemoglobin 11.7 g/dL (14.0-18.0); Mean Corpuscular HGB Conc 31.4 g/dl (32-36); Mean Corpuscular Hemoglobin 26.2 pg (26-34); Mean Corpuscular Volume 83.6 fl (80-100); Mean Platelet Volume 9.4 fl (7.4-10.4); Platelet Count Result 226 k/mm3 (150-375); Red Blood Count 4.46 M/mm3 (4.6-6.20); Red Cell Distribution Width 17.4 % (11.5-14.5); White Blood Count 2.9 K/mm3 (4.5-10.0)
[2021-01-19 06:55] LABS: Anion Gap 9 mmol/L (8-16); Blood Urea Nitrogen 48 mg/dL (9-20); Calcium 8.3 mg/dL (8.4-10.2); Carbon Dioxide 25 mmol/L (22-30); Chloride 102 mmol/L (98-107); Estimated Glomerular Filt Rate 31; Glucose 116 mg/dL (75-110); Potassium 4.2 mmol/L (3.4-5.0); Sodium 136 mmol/L (137-145)
[2021-01-19 07:57] LABS: Glucose Point of Care 103 mg/dl (65-105)
[2021-01-19] MEDS: NYSTATIN 100,000 UNITS/ML SUSP 5 ML ORAL.SUSP 10 ML PO ×3 (09:30→20:31)
[2021-01-19] MEDS: predniSONE 20 MG TABLET 40 MG PO (09:30)
[2021-01-19] MEDS: TAMSULOSIN HCL 0.4 MG CAPSULE PO (09:30)
[2021-01-19] MEDS: ASPIRIN 81 MG CHEWABLE TABLET PO (09:30)
[2021-01-19] MEDS: TOLNAFTATE 1% POWDER 45 GM BTL 1 APPLIC TOPICAL ×2 (09:31→20:35)
[2021-01-19] MEDS: APIXABAN 5 MG TABLET 10 MG PO ×2 (10:09→20:31)
[2021-01-19 12:36] LABS: Glucose Point of Care 215 mg/dl (65-105)
--- NOTE | 2021-01-19 14:03 | PC.NURSE ---
call to pharm for missing dose of nystantin swish and swallow
--- NOTE | 2021-01-19 14:20 | PM.IMPN ---
Progress Note: A&P Assessment and Plan (1) DEANA (acute kidney injury): Code(s): N17.9 - Acute kidney failure, unspecified Status: Acute Assessment and Plan: Creatinine on admission 1.1 gradually trending up now up to 2.2 today. Suspect contrast from CTA on arrival may have contributed? Received trial of 500mL IV fluids yesterday without improvement. Recently started on cisplatin chemotherapy for locally advanced laryngeal cancer - last dose on day of arrival - may have contributed? 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 Renal ultrasound shows chronic severe right hydronephrosis with some [place] nonobstructing stones. Patient adamantly tells me he would not want dialysis if it were required down the road. Appreciate nephrology consultation. Trend renal function daily and may trial more IV fluids pending nephrology input. (2) Acute respiratory failure with hypoxia and hypercapnia: Code(s): J96.01 - Acute respiratory failure with hypoxia; J96.02 - Acute respiratory failure with hypercapnia Status: Resolved Assessment and Plan: Suspect SOB and hypoxia were related to PE. Resolved, tolerating room air. No respiratory distress. (3) Pulmonary embolism: Qualifiers: Acute cor pulmonale presence: without acute cor pulmonale Chronicity: unspecified Pulmonary embolism type: unspecified Qualified Code(s): I26.99 - Other pulmonary embolism without acute cor pulmonale Code(s): I26.99 - Other pulmonary embolism without acute cor pulmonale Status: Acute Assessment and Plan: Patient presented from the infusion center for evaluation of sudden shortness of breath during a chemotherapy treatment. CTA chest demonstrated right upper lobe pulmonary emboli without evidence of right heart strain. US shows L femoral DVT. Was on therapeutic lovenox, transitioned to Eliquis this morning. Eliquis 10mg BID x 7 days followed by 5mg BID thereafter. (4) COPD with acute exacerbation: Code(s): J44.1 - Chronic obstructive pulmonary disease with (acute) exacerbation Status: Acute Assessment and Plan: No wheezing or respiratory distress today. Will finish out a short burst of the prednisone. Continue Symbicort, xopenex and atrovent. 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 Patient of Dr Chiang. Continue oncology recommendations. (6) Hyperkalemia: Code(s): E87.5 - Hyperkalemia Status: Acute Assessment and Plan: Resolved. Lisinopril held. (7) DM2 (diabetes mellitus, type 2): Qualifiers: Diabetes mellitus alf insulin use: without alf use Diabetes mellitus complication status: with other specified complication Qualified Code(s): E11.69 - Type 2 diabetes mellitus with other specified complication Code(s): E11.9 - Type 2 diabetes mellitus without complications Status: Chronic Assessment and Plan: Metformin held due to contrast exposure now DEANA. Continue to monitor with accu-cheks and adjust treatment as needed, cover with SSI. Hgb A1c 6.5% last month. (8) Leukopenia: Code(s): D72.819 - Decreased white blood cell count, unspecified Status: Acute Assessment and Plan: Persistent, suspect related to cancer and cancer treatment. No signs or symptoms of acute infection. Continue heme/onc recomm
--- NOTE | 2021-01-19 14:57 | PC.NURSE ---
second call to pharm for missing med
--- NOTE | 2021-01-19 15:49 | PM.CNNEP ---
Assessment and Plan Assessment and plan (1) DEANA (acute kidney injury): Code(s): N17.9 - Acute kidney failure, unspecified Status: Acute Assessment and Plan: likely due to contrast exposure, LAINA-I and NSAID use, and possible chemotherapy in conjunction with decreased nephron mass (right kidney likely non-functional) renal ultrasound noted still making urine no critical electrolytes at this time check urine electrolytes follow trend of repeat labs and UOP (2) Pulmonary embolism: Qualifiers: Acute cor pulmonale presence: without acute cor pulmonale Chronicity: unspecified Pulmonary embolism type: unspecified Qualified Code(s): I26.99 - Other pulmonary embolism without acute cor pulmonale Code(s): I26.99 - Other pulmonary embolism without acute cor pulmonale Status: Acute Assessment and Plan: as noted by CT angiogram of chest on anticoagulation left femoral DVT noted by ultrasound (3) Acute respiratory failure with hypoxia and hypercapnia: Code(s): J96.01 - Acute respiratory failure with hypoxia; J96.02 - Acute respiratory failure with hypercapnia Status: Resolved Assessment and Plan: resolved continue supportive therapy (4) Squamous cell carcinoma: Onset Date: 10/03/20 Status: Chronic Assessment and Plan: as per Oncology Will continue to follow. History of Present Illness Reason for Consult Consult date: 01/19/21 Reason for consult: acute renal failure Chief Complaint Chief complaint: acute respiratory failure History of Present Illness Narrative: The patient is a 60-year-old male with past medical history as outlined below who presented to the [facility] ER from [facility] via EMS for further evaluation of respiratory distress. The patient just recently completed chemotherapy which apparently triggered his respiratory distress. He apparently had a similar situation about a month ago when he received chemotherapy and presented to the ER for respiratory distress at that time as well. His oncologist adjusted his chemotherapy in the hopes of avoiding this problem but clearly this did not seem to occurred. On his evaluation in the emergency room, he was apparently saturating 60% on room air on arrival. He was immediately placed on BiPAP in the ER and his initial ABG showed evidence of respiratory acidosis. with institution of BiPAP and supportive therapy, his respiratory status improved significantly by the time of his admission to the floor. Further testing emergency room included a CT angiogram of the chest which did demonstrate several right upper lobe and lower lobe segment pulmonary emboli. Given his issues with respiratory distress as well as the CT scan findings, he was admitted the hospital for further management. Since his admission, he has been started on anticoagulation for his pulmonary embolism and subsequent imaging has also showed a left femoral DVT. He has been tolerating current therapy but has been noted in the last few days that his creatinine/ kidney function has been slowly deteriorating despite all therapy to date. Renal consultation was requested due to his acute kidney injury/acute renal failure. From review of his records, the patient has normal baseline kidney function and this was the case on presentation to the hospital as well. However within 24 hours of his admission, his creatinine started to decline and has been slowly rising since. Interestingly, despite his rising creatinine, he continues to make fairly good urine output and has no critical electrolyte abnormalities. he denies any history /problems with previous kidney issues, nephrolithiasis, hematuria, dysuria, or flank pain. Currently, at the time my visit, he appears to be in no acute distress. Review of Systems Review of Systems: Narrative: As per HPI. [facility] Past Medical History Medical History (Updated
[2021-01-19 17:14] LABS: Glucose Point of Care 233 mg/dl (65-105)
[2021-01-19] MEDS: INSULIN ASPART (*BKC) 100 UNITS/ML SUB-Q (17:30)
[2021-01-19] MEDS: ATORVASTATIN 10 MG TABLET BY MOUTH (20:31)
[2021-01-19 21:38] LABS: Glucose Point of Care 215 mg/dl (65-105)
[2021-01-20] VITALS (11 sets, daily range): BP systolic 131–156; BP diastolic 74–80; PULSE 59–82; RESP 12–22; TEMP 36.2–36.6; O2SAT 94–98
[2021-01-20] MEDS: IPRATROPIUM BR 0.02% INH SOLN 0.5 MG/2.5 ML VIAL INHALATION ×4 (02:20→21:27)
[2021-01-20 05:31] LABS: Eosinophils Percent Auto 0.4 % (0-4.4); Hematocrit 35.8 % (42.0-52.0); Hemoglobin 11.4 g/dL (14.0-18.0); Immature Granulocyte Absolute 0.02 K/mm3 (0.00-0.031); Immature Granulocyte Percent A 0.9 % (0-0.5); Lymphocytes Absolute Auto 0.19 K/mm3 (0.9-3.2); Lymphocytes Percent Auto 8.1 % (18.3-44.2); Mean Corpuscular HGB Conc 31.8 g/dl (32-36); Mean Corpuscular Hemoglobin 25.9 pg (26-34); Mean Corpuscular Volume 81.4 fl (80-100); Mean Platelet Volume 8.5 fl (7.4-10.4); Monocytes Absolute Auto 0.4 K/mm3 (0.1-0.6); Monocytes Percent Auto 14.9 % (2.6-8.5); Neutrophils Absolute Auto 1.8 K/mm3 (1.3-6.7); Neutrophils Percent Auto 75.7 % (45.5-73.1); Platelet Count Result 206 k/mm3 (150-375); Red Cell Distribution Width 16.7 % (11.5-14.5); White Blood Count 2.4 K/mm3 (4.5-10.0)
[2021-01-20 05:48] LABS: Alanine Aminotransferase 61 U/L (4-50); Albumin Level 3.3 g/dL (3.5-5.1); Alkaline Phosphatase 77 U/L (38-126); Anion Gap 10 mmol/L (8-16); Aspartate Amino Transferase 26 U/L (17-59); Bilirubin,Total 0.3 mg/dL (0.2-1.3); Blood Urea Nitrogen 59 mg/dL (9-20); Calcium 8.5 mg/dL (8.4-10.2); Carbon Dioxide 23 mmol/L (22-30); Chloride 103 mmol/L (98-107); Estimated Glomerular Filt Rate 24; Glucose 113 mg/dL (75-110); Magnesium 2.1 mg/dL (1.6-2.3); Potassium 4.3 mmol/L (3.4-5.0); Sodium 136 mmol/L (137-145)
[2021-01-20] MEDS: LEVOTHYROXINE SODIUM 100 MCG, LEVOTHYROXINE SODIUM 75 MCG 175 MCG PO (05:56)
[2021-01-20 08:33] LABS: Glucose Point of Care 103 mg/dl (65-105)
--- NOTE | 2021-01-20 08:59 | PCPTNOTE ---
Attempted to see patient for PT, patient declined, asked if therapy could come back at 10:30 due to his bringing his rollator at 10:30.
[2021-01-20] MEDS: predniSONE 20 MG TABLET 40 MG PO (09:47)
[2021-01-20] MEDS: APIXABAN 5 MG TABLET 10 MG PO ×2 (09:48→20:04)
[2021-01-20] MEDS: ASPIRIN 81 MG CHEWABLE TABLET PO (09:48)
[2021-01-20] MEDS: NYSTATIN 100,000 UNITS/ML SUSP 5 ML ORAL.SUSP 10 ML PO ×4 (09:48→20:05)
[2021-01-20] MEDS: TOLNAFTATE 1% POWDER 45 GM BTL 1 APPLIC TOPICAL ×2 (09:49→20:08)
[2021-01-20] MEDS: TAMSULOSIN HCL 0.4 MG CAPSULE PO (09:49)
--- NOTE | 2021-01-20 10:46 | PCNFU ---
Nutrition Follow-Up Complete: Inadequate oral intake related to acute respiratory failure, hypoxia, and throat cancer as evidenced by patient reported weight loss of 2-13 pounds without trying and 25% meal consumption for breakfast on 01/17/2021. Goal: Patient to meet estimated nutritional needs without further unintentional weight loss. Patient is progressing towards goal. No new goal at this time. Pt current nutrition is diabetic consistent carbohydrate diet. Last recorded weight is 79.6 kg. Recommend re-weighing patient prior to discharge to track weight loss. Bowel Motility: + BM 01/16/2021. Labs Reviewed: Hgb 11.4, Hct 35.8, Alb 3.3, Na 136, GFR 24, BUN 59, Cr 2.7, Glu 113 Meds Noted: Lipitor, Flomax, Calcium Carbonate, Lovenox, Atrovent Neb, Novolog, Prednisone Additional Notes: Followed up with patient. Patient is receiving ensue compact BID providing him with an additional 220 calories and 9 grams of protein. Patient stated the nutritional supplement was okay and he was able to tolerate it. He has been eating on average 54% of meals. His has been bringing him food occasionally to help meet his nutritional needs. Due to chemotherapy treatment for throat cancer he has a hard time consuming any food containing acid as it johnson his throat. Will closely monitor his meal intake as well as weight. Monitor patient's labs, medications, weight, and oral intake every 5 days.
[2021-01-20 12:27] LABS: Glucose Point of Care 182 mg/dl (65-105)
--- NOTE | 2021-01-20 12:47 | P.PNIM_ITS ---
Progress Note: A&P Assessment and Plan (1) DEANA (acute kidney injury): Code(s): N17.9 - Acute kidney failure, unspecified Status: Acute Assessment and Plan: * Creatinine on admission 1.1 gradually trending up now up to 2.7 today. * Suspect contrast from CTA on arrival may have contributed. * Recently started on cisplatin chemotherapy for locally advanced laryngeal cancer - last dose on day of arrival - may have contributed? 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 * Renal ultrasound shows chronic severe right hydronephrosis with some [place] nonobstructing stones. * Patient adamantly tells me he would not want dialysis if it were required down the road. * Appreciate nephrology consultation. Discussed with Dr Sesay - we agreed on giving 1 L IV fluids slowly through this evening. (2) Acute respiratory failure with hypoxia and hypercapnia: Code(s): J96.01 - Acute respiratory failure with hypoxia; J96.02 - Acute respiratory failure with hypercapnia Status: Resolved Assessment and Plan: * Suspect SOB and hypoxia were related to PE. Resolved, tolerating room air. No respiratory distress. (3) Pulmonary embolism: Qualifiers: Acute cor pulmonale presence: without acute cor pulmonale Chronicity: unspecified Pulmonary embolism type: unspecified Qualified Code(s): I26.99 - Other pulmonary embolism without acute cor pulmonale Code(s): I26.99 - Other pulmonary embolism without acute cor pulmonale Status: Acute Assessment and Plan: * Patient presented from the infusion center for evaluation of sudden shortness of breath during a chemotherapy treatment. * CTA chest demonstrated right upper lobe pulmonary emboli without evidence of right heart strain. US shows L femoral DVT. * Was on therapeutic lovenox, transitioned to Eliquis 01/19. Eliquis 10mg BID x 7 days followed by 5mg BID thereafter. (4) COPD with acute exacerbation: Code(s): J44.1 - Chronic obstructive pulmonary disease with (acute) exacerbation Status: Acute Assessment and Plan: * No wheezing or respiratory distress today. Will finish out a short burst of the prednisone. Continue Symbicort, xopenex and atrovent. * He does have a short neck and SAVNANA, continue CPAP at night and with naps (uses at home as well) (5) Squamous cell carcinoma: Onset Date: 10/03/20 Status: Chronic Assessment and Plan: * Has locally advanced laryngeal cancer on chemotherapy with cisplatin. * Patient of Dr Chiang. Continue oncology recommendations. (6) Hyperkalemia: Code(s): E87.5 - Hyperkalemia Status: Acute Assessment and Plan: * Resolved. Lisinopril held. (7) DM2 (diabetes mellitus, type 2): Qualifiers: Diabetes mellitus care home insulin use: without care home use Diabetes mellitus complication status: with other specified complication Qualified Code(s): E11.69 - Type 2 diabetes mellitus with other specified complication Code(s): E11.9 - Type 2 diabetes mellitus without complications Status: Chronic Assessment and Plan: * Metformin held due to contrast exposure now DEANA. Continue to monitor with accu-cheks and adjust treatment as needed, cover with SSI. * Hgb A1c 6.5% last month. Blood sugars bett
--- NOTE | 2021-01-20 12:47 | PM.IMPN ---
Progress Note: A&P Assessment and Plan (1) DEANA (acute kidney injury): Code(s): N17.9 - Acute kidney failure, unspecified Status: Acute Assessment and Plan: Creatinine on admission 1.1 gradually trending up now up to 2.7 today. Suspect contrast from CTA on arrival may have contributed. Recently started on cisplatin chemotherapy for locally advanced laryngeal cancer - last dose on day of arrival - may have contributed? 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 Renal ultrasound shows chronic severe right hydronephrosis with some [place] nonobstructing stones. Patient adamantly tells me he would not want dialysis if it were required down the road. Appreciate nephrology consultation. Discussed with Dr Sesay - we agreed on giving 1 L IV fluids slowly through this evening. (2) Acute respiratory failure with hypoxia and hypercapnia: Code(s): J96.01 - Acute respiratory failure with hypoxia; J96.02 - Acute respiratory failure with hypercapnia Status: Resolved Assessment and Plan: Suspect SOB and hypoxia were related to PE. Resolved, tolerating room air. No respiratory distress. (3) Pulmonary embolism: Qualifiers: Acute cor pulmonale presence: without acute cor pulmonale Chronicity: unspecified Pulmonary embolism type: unspecified Qualified Code(s): I26.99 - Other pulmonary embolism without acute cor pulmonale Code(s): I26.99 - Other pulmonary embolism without acute cor pulmonale Status: Acute Assessment and Plan: Patient presented from the infusion center for evaluation of sudden shortness of breath during a chemotherapy treatment. CTA chest demonstrated right upper lobe pulmonary emboli without evidence of right heart strain. US shows L femoral DVT. Was on therapeutic lovenox, transitioned to Eliquis 01/19. Eliquis 10mg BID x 7 days followed by 5mg BID thereafter. (4) COPD with acute exacerbation: Code(s): J44.1 - Chronic obstructive pulmonary disease with (acute) exacerbation Status: Acute Assessment and Plan: No wheezing or respiratory distress today. Will finish out a short burst of the prednisone. Continue Symbicort, xopenex and atrovent. 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 Patient of Dr Chiang. Continue oncology recommendations. (6) Hyperkalemia: Code(s): E87.5 - Hyperkalemia Status: Acute Assessment and Plan: Resolved. Lisinopril held. (7) DM2 (diabetes mellitus, type 2): Qualifiers: Diabetes mellitus landscape nurseryman insulin use: without landscape nurseryman use Diabetes mellitus complication status: with other specified complication Qualified Code(s): E11.69 - Type 2 diabetes mellitus with other specified complication Code(s): E11.9 - Type 2 diabetes mellitus without complications Status: Chronic Assessment and Plan: Metformin held due to contrast exposure now DEANA. Continue to monitor with accu-cheks and adjust treatment as needed, cover with SSI. Hgb A1c 6.5% last month. Blood sugars better today. (8) Leukopenia: Code(s): D72.819 - Decreased white blood cell count, unspecified Status: Acute Assessment and Plan: Persistent, suspect related to cancer and cancer treatment. No signs or symptoms of acute infection. Continue heme/onc recommendations.
[2021-01-20] MEDS: SODIUM CHLORIDE 0.9% IV 1,000 ML 75 ML IV CONT (13:11)
--- NOTE | 2021-01-20 13:49 | PM.PNNEP ---
Progress Note: A&P Assessment and Plan (1) DEANA (acute kidney injury): Code(s): N17.9 - Acute kidney failure, unspecified Status: Acute Assessment and Plan: likely due to contrast exposure, LAINA-I and NSAID use, and possible chemotherapy in conjunction with decreased nephron mass (right kidney likely non-functional) renal ultrasound noted still making urine no critical electrolytes at this time not opposed to trial of IVFs follow trend of repeat labs and UOP (2) Pulmonary embolism: Qualifiers: Acute cor pulmonale presence: without acute cor pulmonale Chronicity: unspecified Pulmonary embolism type: unspecified Qualified Code(s): I26.99 - Other pulmonary embolism without acute cor pulmonale Code(s): I26.99 - Other pulmonary embolism without acute cor pulmonale Status: Acute Assessment and Plan: as noted by CT angiogram of chest on anticoagulation left femoral DVT noted by ultrasound (3) Acute respiratory failure with hypoxia and hypercapnia: Code(s): J96.01 - Acute respiratory failure with hypoxia; J96.02 - Acute respiratory failure with hypercapnia Status: Resolved Assessment and Plan: resolved continue supportive therapy (4) Squamous cell carcinoma: Onset Date: 10/03/20 Status: Chronic Assessment and Plan: as per Oncology Will continue to follow. Subjective Date/time seen: 01/20/21 13:49 No apparent issues or problems to report at this time; no issues/events overnight or earlier this AM; anxious for discharge but understanding of the need to at least make sure his renal function is improving/recovering before discharge. Exam Narrative: Exam Narrative: General: WD/WN male in NAD Heart: normal S1 and S2; no rub Lungs: clear to auscultation Abdomen: soft, nontender, nondistended, positive bowel sounds Extremities: no cyanosis or clubbing; no edema Skin: warm and dry Objective Data Vital Signs Vital Signs: Vital Signs Temp Pulse Resp BP Pulse Ox 01/20/21 09:39 82 22 H 95 01/20/21 05:58 36.6 C 73 18 140/80 97 01/20/21 02:20 77 12 01/20/21 02:15 77 12 96 01/19/21 22:35 82 17 96 01/19/21 21:15 36.4 C 80 18 134/76 97 01/19/21 20:26 76 18 01/19/21 20:15 93 07/15/21 20:14 75 18 01/19/21 16:00 87 01/19/21 14:50 35.8 C L 86 16 125/75 95 Intake/Output Intake/Output: Intake & Output 01/17/21 01/18/21 01/19/21 01/20/21 23:59 23:59 23:59 23:59 Intake Total 1225 1730 1130 776 Output Total 841 685 8933 275 Balance 575 880 80 501 Meds/Results Medications: Active Medications Generic Name Dose Route Start Last Admin Trade Name Freq PRN Reason Stop Dose Admin Apixaban 10 mg 01/19/21 09:20 01/20/21 09:48 Apixaban 5 Mg Tablet PO 01/25/21 21:01 10 mg Q12HR FANNIE Administration Apixaban 5 mg 01/26/21 09:00 Apixaban 5 Mg Tablet PO Q12HR FANNIE Aspirin 81 mg 01/17/21 09:00 01/20/21 09:48 Aspirin 81 Mg Chewable Tablet PO 81 mg DAILY FANNIE Administration Atorvastatin Calcium 10 mg 01/17/21 21:00 01/19/21 20:31 Atorvastatin 10 Mg Tablet BY MOUTH 10 mg HS FANNIE Administration Budesonide/Formoterol Fumarate 2 puff 01/17/21 20:00 01/20/21 09:53 Budesonide/Form 160-4.5 Mcg (*Sp) INHALATION 2 puff Q12HRT FANNIE Administration Calcium Carbonate 500 mg 01/17/21 09:00 01/20/21 09:48 Calcium/Vitamin D 500 Mg Tablet PO 500 mg BID FANNIE Administration Dextrose 12.5 gm 01/17/21 06:28 Dextrose 50% 25 Gm/50 Ml Syringe IV PUSH PRN PRN Hypoglycemia Protocol Glucagon 1 mg 01/17/21 06:28 Glucagon For Inj 1 Mg Vial IM PRN PRN Hypoglycemia Protocol Glucose 15 gm 01/17/21 06:28 Glucose Oral Gel 15 Gm Of Glucse In 37.5 Gm Tube PO PRN PRN Hypoglycemia Protocol Dextrose 1,000 mls @ 100 mls/hr 01/17/21 06:28 Dextrose 5% 1,000 Ml IVP
[2021-01-20 15:50] LABS: Glucose Point of Care 242 mg/dl (65-105)
[2021-01-20] MEDS: INSULIN ASPART (*BKC) 100 UNITS/ML SUB-Q (17:35)
[2021-01-20] MEDS: ATORVASTATIN 10 MG TABLET BY MOUTH (20:05)
[2021-01-20 20:20] LABS: Glucose Point of Care 280 mg/dl (65-105)
[2021-01-21] VITALS (13 sets, daily range): BP systolic 133–149; BP diastolic 75–76; PULSE 60–73; RESP 14–20; TEMP 35.6–36.4; O2SAT 95–98
[2021-01-21] MEDS: IPRATROPIUM BR 0.02% INH SOLN 0.5 MG/2.5 ML VIAL INHALATION ×4 (03:22→21:01)
[2021-01-21] MEDS: LEVOTHYROXINE SODIUM 100 MCG, LEVOTHYROXINE SODIUM 75 MCG 175 MCG PO (06:20)
[2021-01-21 06:33] LABS: Hematocrit 35.6 % (42.0-52.0); Hemoglobin 11.4 g/dL (14.0-18.0); Mean Corpuscular Hemoglobin 26.1 pg (26-34); Mean Corpuscular Volume 81.5 fl (80-100); Mean Platelet Volume 8.9 fl (7.4-10.4); Platelet Count Result 207 k/mm3 (150-375); Red Blood Count 4.37 M/mm3 (4.6-6.20); Red Cell Distribution Width 16.4 % (11.5-14.5)
[2021-01-21 06:43] LABS: Anion Gap 11 mmol/L (8-16); Blood Urea Nitrogen 63 mg/dL (9-20); Calcium 8.5 mg/dL (8.4-10.2); Carbon Dioxide 25 mmol/L (22-30); Chloride 100 mmol/L (98-107); Estimated Glomerular Filt Rate 22; Glucose 111 mg/dL (65-110); Magnesium 1.9 mg/dL (1.6-2.3); Potassium 3.9 mmol/L (3.4-5.0); Sodium 136 mmol/L (137-145)
[2021-01-21 08:09] LABS: Glucose Point of Care 90 mg/dl (65-105)
[2021-01-21] MEDS: NYSTATIN 100,000 UNITS/ML SUSP 5 ML ORAL.SUSP 10 ML PO ×4 (08:52→20:27)
[2021-01-21] MEDS: MAGNES & ALUM HYD/SIMETH/DIPHENHYD/LIDOCAINE 119 ML MOUTHWASH BY MOUTH ×2 (08:52→13:20)
[2021-01-21] MEDS: TOLNAFTATE 1% POWDER 45 GM BTL 1 APPLIC TOPICAL ×2 (08:53→20:28)
[2021-01-21] MEDS: ASPIRIN 81 MG CHEWABLE TABLET PO (08:53)
[2021-01-21] MEDS: TAMSULOSIN HCL 0.4 MG CAPSULE PO (08:53)
[2021-01-21] MEDS: predniSONE 20 MG TABLET 40 MG PO (08:53)
[2021-01-21] MEDS: APIXABAN 5 MG TABLET 10 MG PO ×2 (08:53→20:27)
--- NOTE | 2021-01-21 09:22 | PC.NURSE ---
All meds administered since 0700 on 01/21 were administered by Miranda Reyes RN, not Luis Alfredo Beard RN.
--- NOTE | 2021-01-21 11:18 | P.PNIM_ITS ---
Progress Note: A&P Assessment and Plan (1) DEANA (acute kidney injury): Code(s): N17.9 - Acute kidney failure, unspecified Status: Acute Assessment and Plan: * Creatinine on admission 1.1 gradually trending up now up to 3.0 today. * Suspect multifactorial; contrast from CTA on arrival, LAINA-inhibitor, cisplatin use on CKD may have contributed. 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 * Renal ultrasound shows chronic severe right hydronephrosis with some [place] nonobstructing stones. * Patient adamantly tells me he would not want dialysis if it were required down the road. * Appreciate nephrology input. Will give another 1 L of normal saline over the next 10 hours. (2) Acute respiratory failure with hypoxia and hypercapnia: Code(s): J96.01 - Acute respiratory failure with hypoxia; J96.02 - Acute respiratory f ailure with hypercapnia Status: Resolved Assessment and Plan: * Suspect SOB and hypoxia were related to PE. Resolved, tolerating room air. No respiratory distress. (3) Pulmonary embolism: Qualifiers: Acute cor pulmonale presence: without acute cor pulmonale Chronicity: unspecified Pulmonary embolism type: unspecified Qualified Code(s): I26.99 - Other pulmonary embolism without acute cor pulmonale Code(s): I26.99 - Other pulmonary embolism without acute cor pulmonale Status: Acute Assessment and Plan: * Patient presented from the infusion center for evaluation of sudden shortness of breath during a chemotherapy treatment. * CTA chest demonstrated right upper lobe pulmonary emboli without evidence of right heart strain. US shows L femoral DVT. * Was on therapeutic lovenox, transitioned to Eliquis 01/19. Eliquis 10mg BID x 7 days followed by 5mg BID thereafter. (4) COPD with acute exacerbation: Code(s): J44.1 - Chronic obstructive pulmonary disease with (acute) exacerbation Status: Acute Assessment and Plan: * No wheezing or respiratory distress today. Will finish out a short burst of the prednisone. Continue Symbicort, xopenex and atrovent. 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 * Patient of Dr Chiang. Continue oncology recommendations. (6) Hyperkalemia: Code(s): E87.5 - Hyperkalemia Status: Acute Assessment and Plan: * Resolved. Lisinopril held. (7) DM2 (diabetes mellitus, type 2): Qualifiers: Diabetes mellitus fdc insulin use: without fdc use Diabetes mellitus complication status: with other specified complication Qualified Code(s): E11.69 - Type 2 diabetes mellitus with other specified complication Code(s): E11.9 - Type 2 diabetes mellitus without complications Status: Chronic Assessment and Plan: * Metformin held due to contrast exposure now DEANA. Continue to monitor with accu-cheks and adjust treatment as needed, cover with SSI. * Hgb A1c 6.5% last month. Blood sugars stable so far today. (8) Leukopenia: Code(s): D72.819 - Dec
--- NOTE | 2021-01-21 11:18 | PM.IMPN ---
Progress Note: A&P Assessment and Plan (1) DEANA (acute kidney injury): Code(s): N17.9 - Acute kidney failure, unspecified Status: Acute Assessment and Plan: Creatinine on admission 1.1 gradually trending up now up to 3.0 today. Suspect multifactorial; contrast from CTA on arrival, LAINA-inhibitor, cisplatin use on CKD may have contributed. 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 Renal ultrasound shows chronic severe right hydronephrosis with some [place] nonobstructing stones. Patient adamantly tells me he would not want dialysis if it were required down the road. Appreciate nephrology input. Will give another 1 L of normal saline over the next 10 hours. (2) Acute respiratory failure with hypoxia and hypercapnia: Code(s): J96.01 - Acute respiratory failure with hypoxia; J96.02 - Acute respiratory failure with hypercapnia Status: Resolved Assessment and Plan: Suspect SOB and hypoxia were related to PE. Resolved, tolerating room air. No respiratory distress. (3) Pulmonary embolism: Qualifiers: Acute cor pulmonale presence: without acute cor pulmonale Chronicity: unspecified Pulmonary embolism type: unspecified Qualified Code(s): I26.99 - Other pulmonary embolism without acute cor pulmonale Code(s): I26.99 - Other pulmonary embolism without acute cor pulmonale Status: Acute Assessment and Plan: Patient presented from the infusion center for evaluation of sudden shortness of breath during a chemotherapy treatment. CTA chest demonstrated right upper lobe pulmonary emboli without evidence of right heart strain. US shows L femoral DVT. Was on therapeutic lovenox, transitioned to Eliquis 01/19. Eliquis 10mg BID x 7 days followed by 5mg BID thereafter. (4) COPD with acute exacerbation: Code(s): J44.1 - Chronic obstructive pulmonary disease with (acute) exacerbation Status: Acute Assessment and Plan: No wheezing or respiratory distress today. Will finish out a short burst of the prednisone. Continue Symbicort, xopenex and atrovent. 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 Patient of Dr Chiang. Continue oncology recommendations. (6) Hyperkalemia: Code(s): E87.5 - Hyperkalemia Status: Acute Assessment and Plan: Resolved. Lisinopril held. (7) DM2 (diabetes mellitus, type 2): Qualifiers: Diabetes mellitus retirement insulin use: without retirement use Diabetes mellitus complication status: with other specified complication Qualified Code(s): E11.69 - Type 2 diabetes mellitus with other specified complication Code(s): E11.9 - Type 2 diabetes mellitus without complications Status: Chronic Assessment and Plan: Metformin held due to contrast exposure now DEANA. Continue to monitor with accu-cheks and adjust treatment as needed, cover with SSI. Hgb A1c 6.5% last month. Blood sugars stable so far today. (8) Leukopenia: Code(s): D72.819 - Decreased white blood cell count, unspecified Status: Acute Assessment and Plan: Persistent, suspect related to cancer and cancer treatment. No signs or symptoms of acute infection. Continue heme/onc recommendations. Subjective Date/time seen: 01/21/21 11:00 Interval history: Mr. Chandra is a 60yo M ad
[2021-01-21 12:00] LABS: Glucose Point of Care 174 mg/dl (65-105)
--- NOTE | 2021-01-21 13:11 | PM.PNNEP ---
Progress Note: A&P Assessment and Plan (1) DEANA (acute kidney injury): Code(s): N17.9 - Acute kidney failure, unspecified Status: Acute Assessment and Plan: likely due to contrast exposure, LAINA-I and NSAID use, and possible chemotherapy in conjunction with decreased nephron mass (right kidney likely non-functional) renal ultrasound noted still making urine no critical electrolytes at this time on trial of IVFs follow trend of repeat labs and UOP - rate of rise in creatinine decreasing so hopefully he will peak/plautea soon... (2) Pulmonary embolism: Qualifiers: Acute cor pulmonale presence: without acute cor pulmonale Chronicity: unspecified Pulmonary embolism type: unspecified Qualified Code(s): I26.99 - Other pulmonary embolism without acute cor pulmonale Code(s): I26.99 - Other pulmonary embolism without acute cor pulmonale Status: Acute Assessment and Plan: as noted by CT angiogram of chest on anticoagulation left femoral DVT noted by ultrasound (3) Acute respiratory failure with hypoxia and hypercapnia: Code(s): J96.01 - Acute respiratory failure with hypoxia; J96.02 - Acute respiratory failure with hypercapnia Status: Resolved Assessment and Plan: resolved continue supportive therapy (4) Squamous cell carcinoma: Onset Date: 10/03/20 Status: Chronic Assessment and Plan: as per Oncology Will continue to follow. Subjective Date/time seen: 01/21/21 13:11 No new issues or problems to report at this time; no apparent distress to report; no issues/events overnight or earlier this AM; continues to make reasonably urine output; remains still quite anxious for discharge. Exam Narrative: Exam Narrative: General: WD/WN male in NAD Heart: normal S1 and S2; no rub Lungs: clear to auscultation Abdomen: soft, nontender, nondistended, positive bowel sounds Extremities: no cyanosis or clubbing; no edema Skin: warm and intact Objective Data Vital Signs Vital Signs: Vital Signs Temp Pulse Resp BP Pulse Ox 01/21/21 14:00 35.6 C L 63 18 149/75 H 95 01/21/21 13:37 67 20 01/21/21 13:30 72 20 01/21/21 07:25 68 20 01/21/21 07:15 66 20 98 01/21/21 06:00 36.3 C L 67 20 133/75 98 01/21/21 03:23 61 14 01/21/21 03:17 61 14 96 01/20/21 22:45 66 16 97 01/20/21 22:00 36.2 C L 65 20 156/74 H 98 01/20/21 21:31 59 L 16 01/20/21 21:29 60 18 94 01/20/21 20:00 79 18 98 01/20/21 15:44 79 18 Intake/Output Intake/Output: Intake & Output 01/18/21 01/19/21 01/20/21 01/21/21 23:59 23:59 23:59 23:59 Intake Total 1730 1130 1016 1820 Output Total 850 1050 275 900 Balance 880 80 741 920 Meds/Results Medications: Active Medications Generic Name Dose Route Start Last Admin Trade Name Freq PRN Reason Stop Dose Admin Apixaban 10 mg 01/19/21 09:20 01/21/21 08:53 Apixaban 5 Mg Tablet PO 01/25/21 21:01 10 mg Q12HR FANNIE Administration Apixaban 5 mg 01/26/21 09:00 Apixaban 5 Mg Tablet PO Q12HR FANNIE Aspirin 81 mg 01/17/21 09:00 01/21/21 08:53 Aspirin 81 Mg Chewable Tablet PO 81 mg DAILY FANNIE Administration Atorvastatin Calcium 10 mg 01/17/21 21:00 01/20/21 20:05 Atorvastatin 10 Mg Tablet BY MOUTH 10 mg HS FANNIE Administration Budesonide/Formoterol Fumarate 2 puff 01/17/21 20:00 01/21/21 07:19 Budesonide/Form 160-4.5 Mcg (*Sp) INHALATION 2 puff Q12HRT FANNIE Administration Calcium Carbonate 500 mg 01/17/21 09:00 01/21/21 08:53 Calcium/Vitamin D 500 Mg Tablet PO 500 mg BID FANNIE Administration Dextrose 12.5 gm 01/17/21 06:28 Dextrose 50% 25 Gm/50 Ml Syringe IV PUSH PRN PRN Hypoglycemia Protocol Glucagon 1 mg 01/17/21 06:28 Glucagon For Inj 1 Mg Vial IM PRN PRN Hypoglycemia Protocol Glucose 15 gm 01/17/21 06:28 Glucose Oral Gel 15 Gm
[2021-01-21] MEDS: SODIUM CHLORIDE 0.9% IV 1,000 ML 100 ML IV CONT (13:20)
[2021-01-21 17:07] LABS: Glucose Point of Care 240 mg/dl (65-105)
[2021-01-21] MEDS: INSULIN ASPART (*BKC) 100 UNITS/ML SUB-Q (17:12)
[2021-01-21] MEDS: ATORVASTATIN 10 MG TABLET BY MOUTH (20:28)
[2021-01-21 20:31] LABS: Glucose Point of Care 290 mg/dl (65-105)
[2021-01-22] VITALS (11 sets, daily range): BP systolic 134–160; BP diastolic 75–80; PULSE 62–80; RESP 16–24; TEMP 36.1–37.1; O2SAT 95–99
[2021-01-22] MEDS: IPRATROPIUM BR 0.02% INH SOLN 0.5 MG/2.5 ML VIAL INHALATION ×4 (03:25→21:14)
[2021-01-22] MEDS: LEVOTHYROXINE SODIUM 100 MCG, LEVOTHYROXINE SODIUM 75 MCG 175 MCG PO (06:06)
[2021-01-22 06:36] LABS: Hematocrit 37.2 % (42.0-52.0); Hemoglobin 11.8 g/dL (14.0-18.0); Mean Corpuscular HGB Conc 31.7 g/dl (32-36); Mean Corpuscular Hemoglobin 26.2 pg (26-34); Mean Corpuscular Volume 82.7 fl (80-100); Mean Platelet Volume 8.9 fl (7.4-10.4); Platelet Count Result 190 k/mm3 (150-375); Red Cell Distribution Width 16.7 % (11.5-14.5); White Blood Count 2.6 K/mm3 (4.5-10.0)
[2021-01-22 06:45] LABS: Alanine Aminotransferase 53 U/L (4-50); Albumin Level 3.4 g/dL (3.5-5.1); Alkaline Phosphatase 89 U/L (38-126); Anion Gap 8 mmol/L (8-16); Aspartate Amino Transferase 20 U/L (17-59); Bilirubin,Total 0.3 mg/dL (0.2-1.3); Blood Urea Nitrogen 62 mg/dL (9-20); Calcium 8.5 mg/dL (8.4-10.2); Carbon Dioxide 29 mmol/L (22-30); Chloride 102 mmol/L (98-107); Estimated Glomerular Filt Rate 21; Glucose 98 mg/dL (65-110); Magnesium 1.7 mg/dL (1.6-2.3); Potassium 4.1 mmol/L (3.4-5.0); Sodium 139 mmol/L (137-145)
[2021-01-22 08:12] LABS: Glucose Point of Care 95 mg/dl (65-105)
[2021-01-22] MEDS: APIXABAN 5 MG TABLET 10 MG PO ×2 (09:56→20:34)
[2021-01-22] MEDS: MAGNES & ALUM HYD/SIMETH/DIPHENHYD/LIDOCAINE 119 ML MOUTHWASH BY MOUTH ×3 (09:56→16:47)
[2021-01-22] MEDS: NYSTATIN 100,000 UNITS/ML SUSP 5 ML ORAL.SUSP 10 ML PO ×4 (09:57→20:35)
[2021-01-22] MEDS: TAMSULOSIN HCL 0.4 MG CAPSULE PO (09:57)
[2021-01-22] MEDS: ASPIRIN 81 MG CHEWABLE TABLET PO (09:57)
[2021-01-22] MEDS: MAGNESIUM OXIDE 400 MG TABLET PO (09:57)
[2021-01-22] MEDS: predniSONE 20 MG TABLET 40 MG PO (09:57)
[2021-01-22] MEDS: TOLNAFTATE 1% POWDER 45 GM BTL 1 APPLIC TOPICAL ×2 (10:12→20:36)
[2021-01-22 11:50] LABS: Glucose Point of Care 159 mg/dl (65-105)
--- NOTE | 2021-01-22 14:38 | PM.PNNEP ---
Progress Note: A&P Assessment and Plan (1) DEANA (acute kidney injury): Code(s): N17.9 - Acute kidney failure, unspecified Status: Acute Assessment and Plan: likely due to contrast exposure, LAINA-I and NSAID use, and possible chemotherapy in conjunction with decreased nephron mass (right kidney likely non-functional) renal ultrasound noted still making urine no critical electrolytes at this time on trial of IVFs follow trend of repeat labs and UOP - rate of rise in creatinine decreasing so hopefully he will peak/plautea soon... (2) Pulmonary embolism: Qualifiers: Acute cor pulmonale presence: without acute cor pulmonale Chronicity: unspecified Pulmonary embolism type: unspecified Qualified Code(s): I26.99 - Other pulmonary embolism without acute cor pulmonale Code(s): I26.99 - Other pulmonary embolism without acute cor pulmonale Status: Acute Assessment and Plan: as noted by CT angiogram of chest on anticoagulation left femoral DVT noted by ultrasound (3) Acute respiratory failure with hypoxia and hypercapnia: Code(s): J96.01 - Acute respiratory failure with hypoxia; J96.02 - Acute respiratory failure with hypercapnia Status: Resolved Assessment and Plan: resolved continue supportive therapy (4) Squamous cell carcinoma: Onset Date: 10/03/20 Status: Chronic Assessment and Plan: as per Oncology Will continue to follow. Subjective Date/time seen: 01/22/21 14:38 No apparent distress noted; continues to make reasonably urine output and tolerating IVF challenge/trials; no new issues/problems overnight or earlier today; still remains quite anxious for discharge but understanding the necessity of monitoring renal function/creatinine. Exam Narrative: Exam Narrative: General: WD/WN male in NAD Heart: normal S1 and S2; no rub Lungs: clear to auscultation Abdomen: soft, nontender, nondistended, positive bowel sounds Extremities: no cyanosis or clubbing; no edema Skin: warm and dry Objective Data Vital Signs Vital Signs: Vital Signs Temp Pulse Resp BP Pulse Ox 01/22/21 14:35 69 20 01/22/21 14:11 37.1 C 66 18 146/77 H 95 01/22/21 08:58 71 24 H 01/22/21 06:00 36.1 C L 65 20 134/75 99 01/22/21 03:38 62 20 01/22/21 03:30 63 20 98 01/22/21 03:28 63 20 01/21/21 23:53 69 15 96 01/21/21 22:00 36.4 C 73 20 134/76 98 01/21/21 21:15 60 20 01/21/21 21:03 62 20 96 01/21/21 20:00 63 18 95 Intake/Output Intake/Output: Intake & Output 01/19/21 01/20/21 01/21/21 01/22/21 23:59 23:59 23:59 23:59 Intake Total 1130 1016 2610 2220 Output Total 8615 791 6317 1650 Balance 80 741 1410 570 Meds/Results Medications: Active Medications Generic Name Dose Route Start Last Admin Trade Name Freq PRN Reason Stop Dose Admin Apixaban 10 mg 01/19/21 09:20 01/22/21 09:56 Apixaban 5 Mg Tablet PO 01/25/21 21:01 10 mg Q12HR FANNIE Administration Apixaban 5 mg 01/26/21 09:00 Apixaban 5 Mg Tablet PO Q12HR FANNIE Aspirin 81 mg 01/17/21 09:00 01/22/21 09:57 Aspirin 81 Mg Chewable Tablet PO 81 mg DAILY FANNIE Administration Atorvastatin Calcium 10 mg 01/17/21 21:00 01/21/21 20:28 Atorvastatin 10 Mg Tablet BY MOUTH 10 mg HS FANNIE Administration Budesonide/Formoterol Fumarate 2 puff 01/17/21 20:00 01/22/21 09:57 Budesonide/Form 160-4.5 Mcg (*Sp) INHALATION 2 puff Q12HRT FANNIE Administration Calcium Carbonate 500 mg 01/17/21 09:00 01/22/21 16:46 Calcium/Vitamin D 500 Mg Tablet PO 500 mg BID FANNIE Administration Dextrose 12.5 gm 01/17/21 06:28 Dextrose 50% 25 Gm/50 Ml Syringe IV PUSH PRN PRN Hypoglycemia Protocol Glucagon 1 mg 01/17/21 06:28 Glucagon For Inj 1 Mg Vial IM PRN PRN Hypoglycemia Protocol Glucose 15 gm 01/17/21 06:28 Glucose Oral Gel 15 Gm Of Gl
--- NOTE | 2021-01-22 14:42 | P.PNIM_ITS ---
Progress Note: A&P Assessment and Plan (1) DEANA (acute kidney injury): Code(s): N17.9 - Acute kidney failure, unspecified Status: Acute Assessment and Plan: * Creatinine on admission 1.1 - still gradually trending up now to 3.1 today. * Suspect multifactorial; contrast from CTA on arrival, LAINA-inhibitor, cisplatin use on CKD may have contributed. 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 * Renal ultrasound shows chronic severe right hydronephrosis with some [place] nonobstructing stones. * Patient adamantly tells me he would not want dialysis if it were required down the road. * Appreciate nephrology input. Gave 1L NS on 01/20 and another 1L 01/21, none today as he is drinking an adequate amount. (2) Acute respiratory failure with hypoxia and hypercapnia: Code(s): J96.01 - Acute respiratory failure with hypoxia; J96.02 - Acute respiratory failure with hypercapnia Status: Resolved Assessment and Plan: * Suspect SOB and hypoxia were related to PE. Resolved, tolerating room air. No respiratory distress. (3) Pulmonary embolism: Qualifiers: Acute cor pulmonale presence: without acute cor pulmonale Chronicity: unspecified Pulmonary embolism type: unspecified Qualified Code(s): I26.99 - Other pulmonary embolism without acute cor pulmonale Code(s): I26.99 - Other pulmonary embolism without acute cor pulmonale Status: Acute Assessment and Plan: * Patient presented from the infusion center for evaluation of sudden shortness of breath during a chemotherapy treatment. * CTA chest demonstrated right upper lobe pulmonary emboli without evidence of right heart strain. US shows L femoral DVT. * Was on therapeutic lovenox, transitioned to Eliquis 01/19. Eliquis 10mg BID x 7 days followed by 5mg BID thereafter. (4) COPD with acute exacerbation: Code(s): J44.1 - Chronic obstructive pulmonary disease with (acute) exacerbation Status: Acute Assessment and Plan: * No wheezing or respiratory distress today. Will finish out a short burst of the prednisone. Continue Symbicort, xopenex and atrovent. 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 * Patient of Dr Chiang. Continue oncology recommendations. (6) Hyperkalemia: Code(s): E87.5 - Hyperkalemia Status: Acute Assessment and Plan: * Resolved. Lisinopril held. 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 Continue to monitor with accu-cheks and adjust treatment as needed, cover with SSI. * Hgb A1c 6.5% last month. Blood sugars stable today. (8) Leukopenia: Cod
--- NOTE | 2021-01-22 14:42 | PM.IMPN ---
Progress Note: A&P Assessment and Plan (1) DEANA (acute kidney injury): Code(s): N17.9 - Acute kidney failure, unspecified Status: Acute Assessment and Plan: Creatinine on admission 1.1 - still gradually trending up now to 3.1 today. Suspect multifactorial; contrast from CTA on arrival, LAINA-inhibitor, cisplatin use on CKD may have contributed. 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 Renal ultrasound shows chronic severe right hydronephrosis with some [place] nonobstructing stones. Patient adamantly tells me he would not want dialysis if it were required down the road. Appreciate nephrology input. Gave 1L NS on 01/20 and another 1L 01/21, none today as he is drinking an adequate amount. (2) Acute respiratory failure with hypoxia and hypercapnia: Code(s): J96.01 - Acute respiratory failure with hypoxia; J96.02 - Acute respiratory failure with hypercapnia Status: Resolved Assessment and Plan: Suspect SOB and hypoxia were related to PE. Resolved, tolerating room air. No respiratory distress. (3) Pulmonary embolism: Qualifiers: Acute cor pulmonale presence: without acute cor pulmonale Chronicity: unspecified Pulmonary embolism type: unspecified Qualified Code(s): I26.99 - Other pulmonary embolism without acute cor pulmonale Code(s): I26.99 - Other pulmonary embolism without acute cor pulmonale Status: Acute Assessment and Plan: Patient presented from the infusion center for evaluation of sudden shortness of breath during a chemotherapy treatment. CTA chest demonstrated right upper lobe pulmonary emboli without evidence of right heart strain. US shows L femoral DVT. Was on therapeutic lovenox, transitioned to Eliquis 01/19. Eliquis 10mg BID x 7 days followed by 5mg BID thereafter. (4) COPD with acute exacerbation: Code(s): J44.1 - Chronic obstructive pulmonary disease with (acute) exacerbation Status: Acute Assessment and Plan: No wheezing or respiratory distress today. Will finish out a short burst of the prednisone. Continue Symbicort, xopenex and atrovent. 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 Patient of Dr Chiang. Continue oncology recommendations. (6) Hyperkalemia: Code(s): E87.5 - Hyperkalemia Status: Acute Assessment and Plan: Resolved. Lisinopril held. 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 Continue to monitor with accu-cheks and adjust treatment as needed, cover with SSI. Hgb A1c 6.5% last month. Blood sugars stable today. (8) Leukopenia: Code(s): D72.819 - Decreased white blood cell count, unspecified Status: Acute Assessment and Plan: Persistent, suspect related to cancer and cancer treatment. No signs or symptoms of acute infection. Continue heme/onc recommendations. Subjective Date/time seen: 01/22/21 14:00 Interval history: Mr
[2021-01-22 15:55] LABS: Glucose Point of Care 223 mg/dl (65-105)
[2021-01-22] MEDS: INSULIN ASPART (*BKC) 100 UNITS/ML SUB-Q (16:45)
[2021-01-22] MEDS: ATORVASTATIN 10 MG TABLET BY MOUTH (20:34)
[2021-01-22 21:00] LABS: Glucose Point of Care 288 mg/dl (65-105)
[2021-01-23] VITALS (12 sets, daily range): BP systolic 144–162; BP diastolic 84–87; PULSE 62–90; RESP 16–20; TEMP 36.1–36.5; O2SAT 95–97
[2021-01-23] MEDS: IPRATROPIUM BR 0.02% INH SOLN 0.5 MG/2.5 ML VIAL INHALATION ×4 (03:49→21:52)
[2021-01-23] MEDS: LEVOTHYROXINE SODIUM 100 MCG, LEVOTHYROXINE SODIUM 75 MCG 175 MCG PO (05:34)
[2021-01-23 05:54] LABS: Basophils Percent Auto 0.8 % (0.2-1.2); Hematocrit 37.6 % (42.0-52.0); Hemoglobin 12.1 g/dL (14.0-18.0); Immature Granulocyte Absolute 0.04 K/mm3 (0.00-0.031); Immature Granulocyte Percent A 1.7 % (0-0.5); Lymphocytes Absolute Auto 0.26 K/mm3 (0.9-3.2); Lymphocytes Percent Auto 10.9 % (18.3-44.2); Mean Corpuscular HGB Conc 32.2 g/dl (32-36); Mean Corpuscular Volume 80.9 fl (80-100); Mean Platelet Volume 8.9 fl (7.4-10.4); Monocytes Absolute Auto 0.5 K/mm3 (0.1-0.6); Monocytes Percent Auto 18.9 % (2.6-8.5); Neutrophils Absolute Auto 1.6 K/mm3 (1.3-6.7); Neutrophils Percent Auto 67.7 % (45.5-73.1); Platelet Count Result 198 k/mm3 (150-375); Red Blood Count 4.65 M/mm3 (4.6-6.20); Red Cell Distribution Width 16.4 % (11.5-14.5); White Blood Count 2.4 K/mm3 (4.5-10.0)
[2021-01-23 06:09] LABS: Alanine Aminotransferase 54 U/L (4-50); Albumin Level 3.4 g/dL (3.5-5.1); Alkaline Phosphatase 88 U/L (38-126); Anion Gap 8 mmol/L (8-16); Aspartate Amino Transferase 21 U/L (17-59); Bilirubin,Total 0.3 mg/dL (0.2-1.3); Blood Urea Nitrogen 61 mg/dL (9-20); Calcium 8.4 mg/dL (8.4-10.2); Carbon Dioxide 28 mmol/L (22-30); Chloride 101 mmol/L (98-107); Estimated Glomerular Filt Rate 20; Glucose 110 mg/dL (65-110); Magnesium 1.7 mg/dL (1.6-2.3); Potassium 4.2 mmol/L (3.4-5.0); Sodium 137 mmol/L (137-145)
[2021-01-23 09:13] LABS: Glucose Point of Care 98 mg/dl (65-105)
[2021-01-23] MEDS: MAGNESIUM OXIDE 400 MG TABLET PO (09:43)
[2021-01-23] MEDS: predniSONE 20 MG TABLET 40 MG PO (09:43)
[2021-01-23] MEDS: ASPIRIN 81 MG CHEWABLE TABLET PO (09:43)
[2021-01-23] MEDS: APIXABAN 5 MG TABLET 10 MG PO ×2 (09:43→20:46)
[2021-01-23] MEDS: TAMSULOSIN HCL 0.4 MG CAPSULE PO (09:44)
[2021-01-23] MEDS: NYSTATIN 100,000 UNITS/ML SUSP 5 ML ORAL.SUSP 10 ML PO ×4 (09:44→20:47)
[2021-01-23] MEDS: TOLNAFTATE 1% POWDER 45 GM BTL 1 APPLIC TOPICAL ×2 (09:44→20:48)
[2021-01-23 11:55] LABS: Glucose Point of Care 154 mg/dl (65-105)
--- NOTE | 2021-01-23 12:28 | P.PNIM_ITS ---
Progress Note: A&P Assessment and Plan (1) DEANA (acute kidney injury): Code(s): N17.9 - Acute kidney failure, unspecified Status: Acute Assessment and Plan: * Creatinine on admission 1.1 - still gradually trending up now to 3.2 today. Rate of increase slowing down hopefully we are near the peak and will start to see some improvement soon. * Suspect multifactorial; contrast from CTA on arrival, LAINA-inhibitor, cisplatin use on CKD may have contributed. 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 * Renal ultrasound shows chronic severe right hydronephrosis with some [place] nonobstructing stones. * Patient adamantly tells me he would not want dialysis if it were required down the road. * Appreciate nephrology input. Gave 1L NS on 01/20 and another 1L 01/21, none today as he has been drinking an adequate amount. (2) Acute respiratory failure with hypoxia and hypercapnia: Code(s): J96.01 - Acute respiratory failure with hypoxia; J96.02 - Acute respiratory failure with hypercapnia Status: Resolved Assessment and Plan: * Suspect SOB and hypoxia were related to PE. Resolved, tolerating room air. No respiratory distress. (3) Pulmonary embolism: Qualifiers: Acute cor pulmonale presence: without acute cor pulmonale Chronicity: unspecified Pulmonary embolism type: unspecified Qualified Code(s): I26.99 - Other pulmonary embolism without acute cor pulmonale Code(s): I26.99 - Other pulmonary embolism without acute cor pulmonale Status: Acute Assessment and Plan: * Patient presented from the infusion center for evaluation of sudden shortness of breath during a chemotherapy treatment. * CTA chest demonstrated right upper lobe pulmonary emboli without evidence of right heart strain. US shows L femoral DVT. * Was on therapeutic lovenox, transitioned to Eliquis 01/19. Eliquis 10mg BID x 7 days followed by 5mg BID thereafter. (4) COPD with acute exacerbation: Code(s): J44.1 - Chronic obstructive pulmonary disease with (acute) exacerbation Status: Acute Assessment and Plan: * No wheezing or respiratory distress today. Finish burst of prednisone today (5 days). Continue Symbicort, xopenex and atrovent. 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 * Patient of Dr Verma's. Continue oncology recommendations. (6) Hyperkalemia: Code(s): E87.5 - Hyperkalemia Status: Acute Assessment and Plan: * Resolved. Lisinopril held. (7) DM2 (diabetes mellitus, type 2): Qualifiers: Diabetes mellitus alf insulin use: without alf use Diabetes mellitus complication status: with other specified complication Qualified Code( s): E11.69 - Type 2 diabetes mellitus with other specified complication Code(s): E11.9 - Type 2 diabetes mellitus without complications Status: Chronic Assessment and Plan: * Metformin held due to contrast exposure now DEANA. Continue to monitor with a ccu-cheks and adjust treatment as needed, cover with SSI. * Hgb A1c 6.5% last mo
--- NOTE | 2021-01-23 12:28 | PM.IMPN ---
Progress Note: A&P Assessment and Plan (1) DEANA (acute kidney injury): Code(s): N17.9 - Acute kidney failure, unspecified Status: Acute Assessment and Plan: Creatinine on admission 1.1 - still gradually trending up now to 3.2 today. Rate of increase slowing down hopefully we are near the peak and will start to see some improvement soon. Suspect multifactorial; contrast from CTA on arrival, LAINA-inhibitor, cisplatin use on CKD may have contributed. 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 Renal ultrasound shows chronic severe right hydronephrosis with some [place] nonobstructing stones. Patient adamantly tells me he would not want dialysis if it were required down the road. Appreciate nephrology input. Gave 1L NS on 01/20 and another 1L 01/21, none today as he has been drinking an adequate amount. (2) Acute respiratory failure with hypoxia and hypercapnia: Code(s): J96.01 - Acute respiratory failure with hypoxia; J96.02 - Acute respiratory failure with hypercapnia Status: Resolved Assessment and Plan: Suspect SOB and hypoxia were related to PE. Resolved, tolerating room air. No respiratory distress. (3) Pulmonary embolism: Qualifiers: Acute cor pulmonale presence: without acute cor pulmonale Chronicity: unspecified Pulmonary embolism type: unspecified Qualified Code(s): I26.99 - Other pulmonary embolism without acute cor pulmonale Code(s): I26.99 - Other pulmonary embolism without acute cor pulmonale Status: Acute Assessment and Plan: Patient presented from the infusion center for evaluation of sudden shortness of breath during a chemotherapy treatment. CTA chest demonstrated right upper lobe pulmonary emboli without evidence of right heart strain. US shows L femoral DVT. Was on therapeutic lovenox, transitioned to Eliquis 01/19. Eliquis 10mg BID x 7 days followed by 5mg BID thereafter. (4) COPD with acute exacerbation: Code(s): J44.1 - Chronic obstructive pulmonary disease with (acute) exacerbation Status: Acute Assessment and Plan: No wheezing or respiratory distress today. Finish burst of prednisone today (5 days). Continue Symbicort, xopenex and atrovent. 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 Patient of Dr Chiang. Continue oncology recommendations. (6) Hyperkalemia: Code(s): E87.5 - Hyperkalemia Status: Acute Assessment and Plan: Resolved. Lisinopril held. (7) DM2 (diabetes mellitus, type 2): Qualifiers: Diabetes mellitus retreader insulin use: without longterm use Diabetes mellitus complication status: with other specified complication Qualified Code(s): E11.69 - Type 2 diabetes mellitus with other specified complication Code(s): E11.9 - Type 2 diabetes mellitus without complications Status: Chronic Assessment and Plan: Metformin held due to contrast exposure now DEANA. Continue to monitor with accu-cheks and adjust treatment as needed, cover with SSI. Hgb A1c 6.5% last month. Blood sugars stable today. (8) Leukopenia: Code(s): D72.819 - Decreased white blood cell count, unspecified Status: Acute Assessment and Plan: Persistent, suspect related to cancer and cancer treatment. No signs or symptoms of acute infection. Continue heme/onc recommendations.
[2021-01-23] MEDS: INSULIN ASPART (*BKC) 100 UNITS/ML SUB-Q (16:20)
[2021-01-23 16:45] LABS: Glucose Point of Care 239 mg/dl (65-105)
--- NOTE | 2021-01-23 16:54 | P.PNNP_ITS ---
Progress Note: A&P Assessment and Plan (1) DEANA (acute kidney injury): Code(s): N17.9 - Acute kidney failure, unspecified Status: Acute Assessment and Plan: * DEANA * UA is bland. 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 Eating and drinking well. * Creatinine has been about the same the last 3 days. * Will keep watching this. Hopefully a trend downward will occur so we can send him home. * Discussed with JODI Finnegan (2) Pulmonary embolism: Qualifiers: Acute cor pulmonale presence: without acute cor pulmonale Chronicity: unspecified Pulmonary embolism type: unspecified Qualified Code(s): I26.99 - Other pulmonary embolism without acute cor pulmonale Code(s): I26.99 - Other pulmonary embolism without acute cor pulmonale Status: Acute Assessment and Plan: * as noted by CT angiogram of chest * on anticoagulation * left femoral DVT noted by ultrasound (3) Acute respiratory failure with hypoxia and hypercapnia: Code(s): J96.01 - Acute respiratory failure with hypoxia; J96.02 - Acute respiratory failure with hypercapnia Status: Resolved Assessment and Plan: * resolved * continue supportive therapy (4) Squamous cell carcinoma: Onset Date: 10/03/20 Status: Chronic Assessment and Plan: * as per Oncology Will continue to follow. Subjective Date/time seen: 01/23/21 16:54 Interval history: Patient feels okay. He is eager for discharge. Exam Narrative: Exam Narrative: General: WD/WN male in NAD Heart: normal S1 and S2; no rub Lungs: clear to auscultation Abdomen: soft, nontender, nondistended, positive bowel sounds Extremities: no cyanosis or clubbing; no edema Skin: No rash Objective Data Vital Signs Vital Signs: Vital Signs - 24 hr 01/22/21 20:24 01/22/21 21:19 01/22/21 21:25 Temperature 36.4 C Pulse Rate 80 71 68 Respiratory Rate 18 16 18 Blood Pressure 160/80 H Pulse Oximetry 98 01/22/21 22:11 01/23/21 03:44 01/23/21 03:52 Temperature Pulse Rate 72 72 70 Respiratory Rate 19 17 16 Blood Pressure Pulse Oximetry 97 96 01/23/21 06:00 01/23/21 09:38 01/23/21 09:49 Temperature 36.5 C Pulse Rate 65 69 72 Respiratory Rate 20 18 18 Blood Pressure 162/87 H Pulse Oximetry 95 01/23/21 14:40 01/23/21 14:49 01/23/21 15:42 Temperature 36.1 C L Pulse Rate 62 66 86 Respiratory Rate 18 18 18 Blood Pressure 144/84 H Pulse Oximetry 97 Intake/Output Intake/Output: Intake & Output 01/20/21 01/21/21 01/22/21 01/23/21 23:59 23:59 23:59 23:59 Intake Total 1016 2610 2220 680 Output Total 275 1200 1650 1175 Balance 741 1410 160 -501 Meds/Results Medications: Active Medications Generic Name Dose Route Start Last Admin Trade Name Freq PRN Reason Stop Dose Admin Apixaban 10 mg 01/19/21 09:20 01/23/21 09:43 Apixaban 5 Mg Tablet
--- NOTE | 2021-01-23 16:54 | PM.PNNEP ---
Progress Note: A&P Assessment and Plan (1) DEANA (acute kidney injury): Code(s): N17.9 - Acute kidney failure, unspecified Status: Acute Assessment and Plan: DEANA UA is bland. 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 Eating and drinking well. Creatinine has been about the same the last 3 days. Will keep watching this. Hopefully a trend downward will occur so we can send him home. Discussed with JODI Finnegan (2) Pulmonary embolism: Qualifiers: Acute cor pulmonale presence: without acute cor pulmonale Chronicity: unspecified Pulmonary embolism type: unspecified Qualified Code(s): I26.99 - Other pulmonary embolism without acute cor pulmonale Code(s): I26.99 - Other pulmonary embolism without acute cor pulmonale Status: Acute Assessment and Plan: as noted by CT angiogram of chest on anticoagulation left femoral DVT noted by ultrasound (3) Acute respiratory failure with hypoxia and hypercapnia: Code(s): J96.01 - Acute respiratory failure with hypoxia; J96.02 - Acute respiratory failure with hypercapnia Status: Resolved Assessment and Plan: resolved continue supportive therapy (4) Squamous cell carcinoma: Onset Date: 10/03/20 Status: Chronic Assessment and Plan: as per Oncology Will continue to follow. Subjective Date/time seen: 01/23/21 16:54 Interval history: Patient feels okay. He is eager for discharge. Exam Narrative: Exam Narrative: General: WD/WN male in NAD Heart: normal S1 and S2; no rub Lungs: clear to auscultation Abdomen: soft, nontender, nondistended, positive bowel sounds Extremities: no cyanosis or clubbing; no edema Skin: No rash Objective Data Vital Signs Vital Signs: Vital Signs - 24 hr 01/22/21 20:24 01/22/21 21:19 01/22/21 21:25 Temperature 36.4 C Pulse Rate 80 71 68 Respiratory Rate 18 16 18 Blood Pressure 160/80 H Pulse Oximetry 98 01/22/21 22:11 01/23/21 03:44 01/23/21 03:52 Temperature Pulse Rate 72 72 70 Respiratory Rate 19 17 16 Blood Pressure Pulse Oximetry 97 96 01/23/21 06:00 07/19/21 09:38 01/23/21 09:49 Temperature 36.5 C Pulse Rate 65 69 72 Respiratory Rate 20 18 18 Blood Pressure 162/87 H Pulse Oximetry 95 01/23/21 14:40 01/23/21 14:49 01/23/21 15:42 Temperature 36.1 C L Pulse Rate 62 66 86 Respiratory Rate 18 18 18 Blood Pressure 144/84 H Pulse Oximetry 97 Intake/Output Intake/Output: Intake & Output 01/20/21 01/21/21 01/22/21 01/23/21 23:59 23:59 23:59 23:59 Intake Total 1016 2610 2220 680 Output Total 275 1200 1650 1175 Balance 741 1410 570 -180 Meds/Results Medications: Active Medications Generic Name Dose Route Start Last Admin Trade Name Freq PRN Reason Stop Dose Admin Apixaban 10 mg 01/19/21 09:20 01/23/21 09:43 Apixaban 5 Mg Tablet PO 01/25/21 21:01 10 mg Q12HR FANNIE Administration Apixaban 5 mg 01/26/21 09:00 Apixaban 5 Mg Tablet PO Q12HR FANNIE Aspirin 81 mg 01/17/21 09:00 01/23/21 09:43 Aspirin 81 Mg Chewable Tablet PO 81 mg DAILY FANNIE Administration Atorvastatin Calcium 10 mg 01/17/21 21:00 01/22/21 20:34 Atorvastatin 10 Mg Tablet BY MOUTH 10 mg HS FANNIE Administration Budesonide/Formoterol Fumarate 2 puff 01/17/21 20:00 01/23/21 09:41 Budesonide/Form 160-4.5 Mcg (*Sp) INHALATION 2 puff Q12HRT FANNIE Administration Calcium Carbonate 500 mg 01/17/21 09:00 01/23/21 16:21 Calcium/Vitamin D 500 Mg Tablet PO 500 mg BID FANNIE Administration Dextrose 12.5 gm 01/17/21 06:28 Dextrose 50% 25 Gm/50 Ml Syringe IV PUSH PRN PRN Hypoglycemia Protocol Glucagon 1 mg 01/17/21 06:28 Glucagon For Inj 1 Mg Vial I
[2021-01-23 20:15] LABS: Glucose Point of Care 297 mg/dl (65-105)
[2021-01-23] MEDS: ATORVASTATIN 10 MG TABLET BY MOUTH (20:47)
[2021-01-24] VITALS (13 sets, daily range): BP systolic 130–156; BP diastolic 78–83; PULSE 63–80; RESP 16–21; TEMP 36.1–36.6; O2SAT 96–98
[2021-01-24] MEDS: IPRATROPIUM BR 0.02% INH SOLN 0.5 MG/2.5 ML VIAL INHALATION ×4 (02:14→20:58)
[2021-01-24 05:49] LABS: Hematocrit 37.8 % (42.0-52.0); Hemoglobin 12.1 g/dL (14.0-18.0)
[2021-01-24 06:02] LABS: Anion Gap 7 mmol/L (8-16); Blood Urea Nitrogen 59 mg/dL (9-20); Calcium 8.4 mg/dL (8.4-10.2); Carbon Dioxide 28 mmol/L (22-30); Chloride 102 mmol/L (98-107); Estimated Glomerular Filt Rate 22; Glucose 106 mg/dL (65-110); Magnesium 1.6 mg/dL (1.6-2.3); Potassium 3.8 mmol/L (3.4-5.0); Sodium 137 mmol/L (137-145)
[2021-01-24] MEDS: LEVOTHYROXINE SODIUM 100 MCG, LEVOTHYROXINE SODIUM 75 MCG 175 MCG PO (07:34)
[2021-01-24] MEDS: MAGNESIUM SULF 2 GM/WATER 50ML 2 GM/50 ML BAG IVPB (07:35)
[2021-01-24 07:53] LABS: Glucose Point of Care 96 mg/dl (65-105)
[2021-01-24] MEDS: MAGNESIUM OXIDE 400 MG TABLET PO (09:02)
[2021-01-24] MEDS: ASPIRIN 81 MG CHEWABLE TABLET PO (09:02)
[2021-01-24] MEDS: APIXABAN 5 MG TABLET 10 MG PO ×2 (09:03→20:48)
[2021-01-24] MEDS: NYSTATIN 100,000 UNITS/ML SUSP 5 ML ORAL.SUSP 10 ML PO ×4 (09:03→20:48)
[2021-01-24] MEDS: TAMSULOSIN HCL 0.4 MG CAPSULE PO (09:04)
[2021-01-24] MEDS: TOLNAFTATE 1% POWDER 45 GM BTL 1 APPLIC TOPICAL ×2 (09:04→22:02)
[2021-01-24 11:45] LABS: Glucose Point of Care 140 mg/dl (65-105)
--- NOTE | 2021-01-24 16:36 | PM.PNNEP ---
Progress Note: A&P Assessment and Plan (1) DEANA (acute kidney injury): Code(s): N17.9 - Acute kidney failure, unspecified Status: Acute Assessment and Plan: DEANA UA is bland. 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 Eating and drinking well. Creatinine is better today. check another tomorrow. if better then okay for d/c from renal standpoint (2) Pulmonary embolism: Qualifiers: Acute cor pulmonale presence: without acute cor pulmonale Chronicity: unspecified Pulmonary embolism type: unspecified Qualified Code(s): I26.99 - Other pulmonary embolism without acute cor pulmonale Code(s): I26.99 - Other pulmonary embolism without acute cor pulmonale Status: Acute Assessment and Plan: as noted by CT angiogram of chest on anticoagulation left femoral DVT noted by ultrasound (3) Acute respiratory failure with hypoxia and hypercapnia: Code(s): J96.01 - Acute respiratory failure with hypoxia; J96.02 - Acute respiratory failure with hypercapnia Status: Resolved Assessment and Plan: resolved continue supportive therapy (4) Squamous cell carcinoma: Onset Date: 10/03/20 Status: Chronic Assessment and Plan: as per Oncology Will continue to follow. Subjective Date/time seen: 01/24/21 16:36 Interval history: Patient feels okay. no cp or sob eating okasy Exam Narrative: Exam Narrative: General: WD/WN male in NAD Heart: normal S1 and S2; no rub Lungs: clear to auscultation Abdomen: soft, nontender, nondistended, positive bowel sounds Extremities: no edema Skin: No rash or sq nodules Objective Data Vital Signs Vital Signs: Vital Signs - 24 hr 01/23/21 19:42 01/23/21 21:55 01/23/21 21:57 Temperature 36.3 C L Pulse Rate 90 76 74 Respiratory Rate 20 18 18 Blood Pressure 154/85 H Pulse Oximetry 96 01/23/21 22:10 01/24/21 02:16 01/24/21 02:17 Temperature Pulse Rate 74 70 71 Respiratory Rate 20 21 H 21 H Blood Pressure Pulse Oximetry 97 96 01/24/21 02:27 01/24/21 05:13 01/24/21 07:23 Temperature 36.6 C Pulse Rate 75 73 69 Respiratory Rate 21 H 19 18 Blood Pressure 148/78 H Pulse Oximetry 96 96 01/24/21 07:36 01/24/21 15:21 01/24/21 15:26 Temperature 36.1 C L Pulse Rate 63 80 77 Respiratory Rate 18 16 16 Blood Pressure 130/80 Pulse Oximetry 96 97 01/24/21 15:35 Temperature Pulse Rate 80 Respiratory Rate 18 Blood Pressure Pulse Oximetry Intake/Output Intake/Output: Intake & Output 01/21/21 01/22/21 01/23/21 01/24/21 23:59 23:59 23:59 23:59 Intake Total 2610 2220 1020 640 Output Total 1200 1650 1725 600 Balance 1410 570 -705 40 Meds/Results Medications: Active Medications Generic Name Dose Route Start Last Admin Trade Name Freq PRN Reason Stop Dose Admin Apixaban 10 mg 01/19/21 09:20 01/24/21 09:03 Apixaban 5 Mg Tablet PO 01/25/21 21:01 10 mg Q12HR FANNIE Administration Apixaban 5 mg 01/26/21 09:00 Apixaban 5 Mg Tablet PO Q12HR FANNIE Aspirin 81 mg 01/17/21 09:00 01/24/21 09:02 Aspirin 81 Mg Chewable Tablet PO 81 mg DAILY FANNIE Administration Atorvastatin Calcium 10 mg 01/17/21 21:00 01/23/21 20:47 Atorvastatin 10 Mg Tablet BY MOUTH 10 mg HS FANNIE Administration Budesonide/Formoterol Fumarate 2 puff 01/17/21 20:00 01/24/21 07:36 Budesonide/Form 160-4.5 Mcg (*Sp) INHALATION 2 puff Q12HRT FANNIE Administration Calcium Carbonate 500 mg 01/17/21 09:00 01/24/21 16:08 Calcium/Vitamin D 500 Mg Tablet PO 500 mg BID FANNIE Administration Dextrose 12.5 gm 01/17/21 06:28 Dextrose 50% 25 Gm/50 Ml Syringe IV PUSH PRN PRN Hypoglycemia Protocol Glucagon 1 mg 01/17/21 06:28
[2021-01-24 16:50] LABS: Glucose Point of Care 168 mg/dl (65-105)
--- NOTE | 2021-01-24 18:34 | P.PNIM_ITS ---
Progress Note: A&P Assessment and Plan (1) DEANA (acute kidney injury): Code(s): N17.9 - Acute kidney failure, unspecified Status: Acute Assessment and Plan: * Creatinine on admission 1.1 - gradually trended up to 3.2 - finally trending down today. * Suspect multifactorial; contrast from CTA on arrival, LAINA-inhibitor, cisplatin use on CKD may have contributed. 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 * Renal ultrasound shows chronic severe right hydronephrosis with some [place] nonobstructing stones. * Patient adamantly tells me he would not want dialysis if it were required down the road. * Appreciate nephrology input. Gave 1L NS on 01/20 and another 1L 01/21. - Hopeful for discharge tomorrow if still trending down. (2) Acute respiratory failure with hypoxia and hypercapnia: Code(s): J96.01 - Acute respiratory failure with hypoxia; J96.02 - Acute respiratory failure with hypercapnia Status: Resolved Assessment and Plan: * Suspect SOB and hypoxia were related to PE. Resolved, tolerating room air. No respiratory distress. (3) Pulmonary embolism: Qualifiers: Acute cor pulmonale presence: without acute cor pulmonale Chronicity: unspecified Pulmonary embolism type: unspecified Qualified Code(s): I26.99 - Other pulmonary embolism without acute cor pulmonale Code(s): I26.99 - Other pulmonary embolism without acute cor pulmonale Status: Acute Assessment and Plan: * Patient presented from the infusion center for evaluation of sudden shortness of breath during a chemotherapy treatment. * CTA chest demonstrated right upper lobe pulmonary emboli without evidence of right heart strain. US shows L femoral DVT. * Was on therapeutic lovenox, transitioned to Eliquis 01/19. Eliquis 10mg BID x 7 days followed by 5mg BID thereafter. (4) COPD with acute exacerbation: Code(s): J44.1 - Chronic obstructive pulmonary disease with (acute) exacerbation Status: Acute Assessment and Plan: * No wheezing or respiratory distress today. Finish burst of prednisone today (5 days). Continue Symbicort, xopenex and atrovent. 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 * Patient of Dr Chiang. Continue oncology recommendations. (6) Hyperkalemia: Code(s): E87.5 - Hyperkalemia Status: Acute Assessment and Plan: * Resolved. Lisinopril held. (7) DM2 (diabetes mellitus, type 2): Qualifiers: Diabetes mellitus finance business manager insulin use: without finance business manager use Diabetes mellitus complication status: with other specified complication Qualified Code(s): E11.69 - Type 2 diabetes mellitus with other specified complication Code(s): E11.9 - Type 2 diabetes mellitus without complications Status: Chronic Assessment and Plan: * Metformin held due to contrast exposure now DEANA. Continue to monitor with accu-cheks and adjust treatment as needed, cover with SSI. * Hgb A1c 6.5% last month. Blood sugars stable today. (8) Leukop
--- NOTE | 2021-01-24 18:34 | PM.IMPN ---
Progress Note: A&P Assessment and Plan (1) DEANA (acute kidney injury): Code(s): N17.9 - Acute kidney failure, unspecified Status: Acute Assessment and Plan: Creatinine on admission 1.1 - gradually trended up to 3.2 - finally trending down today. Suspect multifactorial; contrast from CTA on arrival, LAINA-inhibitor, cisplatin use on CKD may have contributed. 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 Renal ultrasound shows chronic severe right hydronephrosis with some [place] nonobstructing stones. Patient adamantly tells me he would not want dialysis if it were required down the road. Appreciate nephrology input. Gave 1L NS on 01/20 and another 1L 01/21. - Hopeful for discharge tomorrow if still trending down. (2) Acute respiratory failure with hypoxia and hypercapnia: Code(s): J96.01 - Acute respiratory failure with hypoxia; J96.02 - Acute respiratory failure with hypercapnia Status: Resolved Assessment and Plan: Suspect SOB and hypoxia were related to PE. Resolved, tolerating room air. No respiratory distress. (3) Pulmonary embolism: Qualifiers: Acute cor pulmonale presence: without acute cor pulmonale Chronicity: unspecified Pulmonary embolism type: unspecified Qualified Code(s): I26.99 - Other pulmonary embolism without acute cor pulmonale Code(s): I26.99 - Other pulmonary embolism without acute cor pulmonale Status: Acute Assessment and Plan: Patient presented from the infusion center for evaluation of sudden shortness of breath during a chemotherapy treatment. CTA chest demonstrated right upper lobe pulmonary emboli without evidence of right heart strain. US shows L femoral DVT. Was on therapeutic lovenox, transitioned to Eliquis 01/19. Eliquis 10mg BID x 7 days followed by 5mg BID thereafter. (4) COPD with acute exacerbation: Code(s): J44.1 - Chronic obstructive pulmonary disease with (acute) exacerbation Status: Acute Assessment and Plan: No wheezing or respiratory distress today. Finish burst of prednisone today (5 days). Continue Symbicort, xopenex and atrovent. 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 Patient of Dr Chiang. Continue oncology recommendations. (6) Hyperkalemia: Code(s): E87.5 - Hyperkalemia Status: Acute Assessment and Plan: Resolved. Lisinopril held. (7) DM2 (diabetes mellitus, type 2): Qualifiers: Diabetes mellitus fpc insulin use: without religion department chair use Diabetes mellitus complication status: with other specified complication Qualified Code(s): E11.69 - Type 2 diabetes mellitus with other specified complication Code(s): E11.9 - Type 2 diabetes mellitus without complications Status: Chronic Assessment and Plan: Metformin held due to contrast exposure now DEANA. Continue to monitor with accu-cheks and adjust treatment as needed, cover with SSI. Hgb A1c 6.5% last month. Blood sugars stable today. (8) Leukopenia: Code(s): D72.819 - Decreased white blood cell count, unspecified Status: Acute Assessment and Plan: Persistent, suspect related to cancer and cancer treatment. No signs or symptoms of acute infection. Continue heme/onc recommendations. Subjective Date/time seen: 01/24/21 1500 Inter
[2021-01-24 20:39] LABS: Glucose Point of Care 197 mg/dl (65-105)
[2021-01-24] MEDS: ATORVASTATIN 10 MG TABLET BY MOUTH (20:48)
[2021-01-25] MEDS: IPRATROPIUM BR 0.02% INH SOLN 0.5 MG/2.5 ML VIAL INHALATION ×2 (02:36→08:49)
[2021-01-25 02:40] VITALS: PULSE 76; RESP 20
[2021-01-25 02:46] VITALS: PULSE 78; RESP 20
[2021-01-25 05:19] VITALS: BP 157/88; PULSE 73; RESP 20; TEMP 36.1; O2SAT 99
[2021-01-25] MEDS: LEVOTHYROXINE SODIUM 100 MCG, LEVOTHYROXINE SODIUM 75 MCG 175 MCG PO (06:23)
[2021-01-25 07:55] LABS: Glucose Point of Care 116 mg/dl (65-105)
[2021-01-25] MEDS: NYSTATIN 100,000 UNITS/ML SUSP 5 ML ORAL.SUSP 10 ML PO (08:18)
[2021-01-25] MEDS: ASPIRIN 81 MG CHEWABLE TABLET PO (08:18)
[2021-01-25] MEDS: MAGNESIUM OXIDE 400 MG TABLET PO (08:19)
[2021-01-25] MEDS: TAMSULOSIN HCL 0.4 MG CAPSULE PO (08:19)
[2021-01-25] MEDS: APIXABAN 5 MG TABLET 10 MG PO (08:19)
[2021-01-25] MEDS: TOLNAFTATE 1% POWDER 45 GM BTL 1 APPLIC TOPICAL (08:19)
[2021-01-25 08:51] VITALS: PULSE 78; RESP 18
[2021-01-25 08:58] VITALS: PULSE 83; RESP 18
[2021-01-25 09:02] LABS: Albumin Level 3.4 g/dL (3.5-5.1); Anion Gap 7 mmol/L (8-16); Blood Urea Nitrogen 56 mg/dL (9-20); Calcium 8.7 mg/dL (8.4-10.2); Carbon Dioxide 29 mmol/L (22-30); Chloride 102 mmol/L (98-107); Estimated Glomerular Filt Rate 25; Glucose 93 mg/dL (65-110); Magnesium 1.9 mg/dL (1.6-2.3); Phosphorus 4.1 mg/dL (2.5-4.5); Potassium 4.4 mmol/L (3.4-5.0); Sodium 138 mmol/L (137-145)
--- NOTE | 2021-01-25 10:09 | PM.DS ---
DS: Admitting Diagnosis Admitting Diagnosis Admitting Diagnosis: PE DS: Discharge Diagnosis Discharge Diagnosis (1) DEANA (acute kidney injury): Code(s): N17.9 - Acute kidney failure, unspecified Status: Acute Assessment and Plan: Improving by the day, suspect it will continue to improve outpt -Creatinine on admission 1.1 - gradually trended up to 3.2 - and now 2.6 at d/c -Suspect multifactorial; contrast from CTA on arrival, LAINA-inhibitor, cisplatin use on CKD may have contributed. -Patient reports a vague remote history of having part of his left kidney removed many years ago because it wasn't working right . -Renal ultrasound shows chronic severe right hydronephrosis with some [place] nonobstructing stones. -Nephrology consulted throughout his stay. (2) Acute respiratory failure with hypoxia and hypercapnia: Code(s): J96.01 - Acute respiratory failure with hypoxia; J96.02 - Acute respiratory failure with hypercapnia Status: Resolved Assessment and Plan: Resolved. Suspect SOB and hypoxia were related to PE. -tolerating room air. No respiratory distress. (3) Pulmonary embolism: Qualifiers: Acute cor pulmonale presence: without acute cor pulmonale Chronicity: unspecified Pulmonary embolism type: unspecified Qualified Code(s): I26.99 - Other pulmonary embolism without acute cor pulmonale Code(s): I26.99 - Other pulmonary embolism without acute cor pulmonale Status: Acute Assessment and Plan: Patient presented from the infusion center for evaluation of sudden shortness of breath during a chemotherapy treatment. -CTA chest demonstrated right upper lobe pulmonary emboli without evidence of right heart strain. US shows L femoral DVT. -Was on therapeutic lovenox, transitioned to Eliquis 01/19. He received eliquis 10mg BID followed by 5mg BID thereafter. (4) COPD with acute exacerbation: Code(s): J44.1 - Chronic obstructive pulmonary disease with (acute) exacerbation Status: Acute Assessment and Plan: No wheezing or respiratory distress today. Finish burst of prednisone today (5 days) - Continue Symbicort, xopenex and atrovent. -He does have a short neck and SAVANNA, continue CPAP at night and with naps at home (5) Squamous cell carcinoma: Onset Date: 10/03/20 Status: Chronic Assessment and Plan: Has locally advanced laryngeal cancer on chemotherapy with cisplatin. -Patient of Dr Verma's. f/u with oncology (6) Hyperkalemia: Code(s): E87.5 - Hyperkalemia Status: Acute Assessment and Plan: Resolved. Lisinopril discontinued (7) DM2 (diabetes mellitus, type 2): Qualifiers: Diabetes mellitus ad terminal makeup operator insulin use: without ad terminal makeup operator use Diabetes mellitus complication status: with other specified complication Qualified Code(s): E11.69 - Type 2 diabetes mellitus with other specified complication Code(s): E11.9 - Type 2 diabetes mellitus without complications Status: Chronic Assessment and Plan: Metformin discontinued due to contrast exposure now DEANA. Hgb A1c 6.5% last month. continue home glipizide (8) Leukopenia: Code(s): D72.819 - Decreased white blood cell count, unspecified Status: Acute Assessment and Plan: Persistent, suspect related to cancer and cancer treatment. No signs or symptoms of acute infection. DS: Summary Hospital Course Hospital Course: Pt is a 60 y/o male undergoing chemotherapy tx for squamous cell carcinoma, COPD, DM and SAVANNA who presented to the ED on 01/16/21 for SOB found to have a pulse ox of 68%. CBC showed a wbc 2.8, hgb 12.9, hct 40.9, platelets 267. Cr 1.1. CTA of the chest: 1. Several right upper lobe, lower lobe segmental pulmonary emboli. Bibasilar atelectasis, and mild emphysema. Pt was started on lovenox and admitted to the hospital service. He underwent an echo which was a suboptimal study b
== END 2021-01-25 11:15 | disposition home health service (06) | DRG 175 ==
LOC: ANHED 20:09 → ANH3MED 20:20
PROVIDERS: Internal Medicine; Internal Medicine Nephrology; Physician Assistant; Admitting Provider Internal Medicine; Emergency Provider Emergency Medicine; PCP Family Medicine; Visit Provider Physician Assistant
DX: I26.99 Other pulmonary embolism without acute cor pulmonale (principal); J96.01 Acute respiratory failure with hypoxia; J96.02 Acute respiratory failure with hypercapnia; J44.1 Chronic obstructive pulmonary disease with (acute) exacerbation; C77.0 Secondary and unspecified malignant neoplasm of lymph nodes of head, face and neck; N17.9 Acute kidney failure, unspecified; I82.412 Acute embolism and thrombosis of left femoral vein; E87.5 Hyperkalemia; C32.3 Malignant neoplasm of laryngeal cartilage; E11.22 Type 2 diabetes mellitus with diabetic chronic kidney disease; I12.9 Hypertensive chronic kidney disease with stage 1 through stage 4 chronic kidney disease, or unspecified chronic kidney disease; N18.9 Chronic kidney disease, unspecified; I51.89 Other ill-defined heart diseases; E03.9 Hypothyroidism, unspecified; G47.33 Obstructive sleep apnea (adult) (pediatric); D72.819 Decreased white blood cell count, unspecified; F70 Mild intellectual disabilities; N40.0 Benign prostatic hyperplasia without lower urinary tract symptoms; N20.0 Calculus of kidney; M19.90 Unspecified osteoarthritis, unspecified site; E55.9 Vitamin D deficiency, unspecified; M81.0 Age-related osteoporosis without current pathological fracture; Z79.899 Other long term (current) drug therapy; Z87.891 Personal history of nicotine dependence
CPT/HCPCS: 36415; 36600; 70491; 71045; 71275; 76775; 77386; 80048; 80053; 80069; 81001; 82805; 82948; 83735; 83880; 84132; 85014; 85018; 85025; 85027; 85610; 85730; 93005; 93970; 94002; 94640; 96366; 96367; 96368; 96375; 96413; 96415; 97110; 97116; 97161; 97166; 97535; 99291; A9270; C8929; J0610; J1100; J1453; J1650; J1720; J1815; J2469; J3475; J3480; J7030; J7040; J7050; J7120; J7512; J9060; Q9957; Q9967

== ENCOUNTER 2021-02-17 09:47 | Outpatient (CLI) | payer MEDICARE, SELFPAY ==
--- NOTE | ~2021-02-17 | DEXA_ITS ---
Bone Density Report Name: Campbell Chandra Age: 60 Sex: Male Ethnicity: White Date of : 1960 Indication: osteoporosis; height loss; prior fracture; cancer; asthma or emphysema; end stage renal disease; secondary osteoporosis; postmenopausal Referring Provider: Ania Adamson Study: Bone densitometry was performed. Exam Date: February 17, 2021 Accession number: [id number] Bone Density: Region BMD T-score Z-score Classification AP Spine (L1-L4) 0.845 -2.2 -1.6 Osteopenia World Health Organization criteria for BMD impression classify patients as: Normal (T-score at or above -1.0), Osteopenia (T-score between -1.0 and -2.5), or Osteoporosis (T-score at or below -2.5). Previous Exams: Region Exam Age BMD T-score BMD Change BMD Change Date g/cm2 vs Baseline vs Previous AP Spine(L1-L4) 02/17/2021 60 0.845 -2.2 0.203(31.5%)# 0.203(31.5%)# 03/28/2009 48 0.643 -4.1 *Denotes significance at 95% confidence level, LSC for AP Spine = 0.022 g/cm2 Clinical Information Provided by Patient: Have had a previous hip or vertebral fracture Has had a low trauma fracture Has secondary osteoporosis Has used the following medications: Prolia (i.e. denosumab) Has the following medical conditions: Asthma or Emphysema, Cancer, End stage renal disease Patient maximum height was 66 No regular weight bearing exercise Drinks caffeinated beverages Impression: The patient has low bone mass, based on the Total Spine T-score. The patient has risk factors, including: previous fracture. No significant bone loss was observed. Discussion: INCREASED RISK OF FRACTURE DUE TO HISTORY OF LOW TRAUMA FRACTURE. The patient's previous fracture puts the patient at high risk of a future fracture. In untreated patients, the risk of osteoporotic fracture increases approximately two-fold for each 1.0 SD decrease in T-score. Low bone density is not the only risk factor for fracture; also consider factors such as patient's age, frailty or poor health, risk of falling, risk of injury, previous osteoporotic fracture, family history of osteoporosis, cigarette smoking, low body weight, etc. Not everyone with a low trauma fracture has osteoporosis; osteomalacia and other metabolic bone disorders should also be considered. Patients who have osteoporosis should be evaluated for specific diseases and conditions (secondary causes) that may cause or contribute to bone loss and fracture risk. National Osteoporosis Foundation (NOF) recommends pharmacologic intervention for patients with a prior low trauma hip or vertebral fracture regardless of BMD T-score. The patient should follow a healthful lifestyle (good nutrition with adequate calcium and vitamin D, and appropriate weight-bearing exercise).
== END 2021-02-17 09:48 | disposition home or self-care (01) ==
PROVIDERS: PCP Family Medicine; Visit Provider Family Medicine
DX: N17.9 Acute kidney failure, unspecified (principal); M80.00XD Age-related osteoporosis with current pathological fracture, unspecified site, subsequent encounter for fracture with routine healing; M85.88 Other specified disorders of bone density and structure, other site
CPT/HCPCS: 77080

== ENCOUNTER 2021-03-31 09:46 | Outpatient (CLI) | payer MEDICARE, SELFPAY ==
--- NOTE | ~2021-03-31 | CT_ITS ---
EXAMINATION: CT soft tissue neck wo con DATE: 03/31/2021 10:18 INDICATION: Malignant neoplasm of glottis. TECHNIQUE: Computed tomography (CT) of the neck was performed without intravenous contrast. Automated exposure control and iterative reconstruction technique were employed. The dose-length product was 5 83.14 mGy-cm. COMPARISON: Neck CT 01/16/2021, 05/03/17, 10/03/2020 FINDINGS: The visualized portions of the lungs demonstrate mild atelectasis. There is a small right p leural effusion. There is a 2.0 x 1.0 cm sialolith in the duct for left submandibular gland. There ar e no pathologically enlarged lymph nodes. There is a 19 x 19 mm mass abutting right submandibular gla nd and sternocleidomastoid muscle with associated fat stranding. There are no pathologically enlarged lymph nodes. There is mucosal thickening in the larynx, consistent with changes of radiation therapy . There are multiple old healed rib fractures bilaterally. There are old healed fractures of the clav icles. There are old fractures of multiple vertebral bodies and spinous processes. There is an old fr acture of the sternum. There are old fractures of the scapulae. IMPRESSION: 1. Stable mass abutting right submandibular gland and sternocleidomastoid muscle, likely residual sca rring from treated alex metastatic disease. 2. Small right pleural effusion. Reviewed, dictated and finalized at location A. IMPRESSION: 1. Stable mass abutting right submandibular gland and sternocleidomastoid muscl e, likely residual scarring from treated alex metastatic disease. 2. Small right pleural effusion.
== END 2021-03-31 09:47 | disposition home or self-care (01) ==
PROVIDERS: PCP Family Medicine; Visit Provider Radiology Radiation Oncology
DX: C32.0 Malignant neoplasm of glottis (principal); J90 Pleural effusion, not elsewhere classified
CPT/HCPCS: 70490

== ENCOUNTER 2021-05-30 10:39 | Outpatient (CLI) | payer MEDICARE, SELFPAY ==
--- NOTE | ~2021-05-30 | PE_ITS ---
EXAMINATION: PET skull to mid thigh DATE: 05/30/2021 13:13 INDICATION: Malignant neoplasm of the larynx TECHNIQUE: Blood glucose level was 83 mg/dL. 8.155 mCi of 18-fluorodeoxyglucose (18-FDG) was administ ered i.v. Low dose computed tomography (CT) images were acquired from the base of the brain to the pr oximal thighs for attenuation correction and anatomic localization. Positron emission tomography (PET ) images were acquired in the same distribution beginning 63 minutes after injection. Images includin g fused PET/CT images were reconstructed in axial, coronal, and sagittal planes. Automated exposure c ontrol technique was employed. The dose-length product was 807.57mGy-cm. COMPARISON: PET/CT dated 12/06/[address] dated 10/03/2020 FINDINGS: Head/neck: Interval decompression of a cystic mass which measured 4.2 x 2.3 cm on the prior CT which demonstrate d marked FDG uptake with maximal SUV of 16.0 on the prior PET study. The mass now appears flattened m easuring 2.1 x 0.9 cm with small central calcification without evident FDG uptake consistent with tracy ated metastatic disease. There is significant decrease in FDG uptake on the right side of the true vo john cord with current maximal SUV of 3.8, previously 14.0. The associated nodular contour on the prio r study has also resolved with the vocal cords appearing relatively symmetric. There is symmetric inc reased activity in the oral cavity including the musculature of the tongue and of the ocular muscles without CT correlate, likely physiologic. Unchanged 18 x 9 mm sialolith at the left submandibular gla nd. Interval decrease in asymmetric mildly increased muscular activity at the right base of the occip ut which is likely physiologic and compensatory for a mild cervical rotoscoliosis. No new or enlarged cervical lymphadenopathy or other suspicious foci of increased FDG uptake in the visualized head or neck. Chest: There are multiple old fractures including at the bilateral clavicles, bilateral scapulae, the sternu m, multiple bilateral ribs and multiple thoracic vertebral bodies. The left clavicular fracture remai ns ununited with mild increased FDG uptake at the fracture likely related to ongoing healing. There i s additional unchanged mild FDG uptake with maximal SUV of 2.2 associated with the T7 compression fra cture, previous with maximal SUV of 3.9. Mild atelectasis at the posterior basilar segments of the bi lateral lower lobes. No pneumonia, suspicious pulmonary nodules or pleural effusion. Cardiomegaly. No pericardial effusion. Atherosclerotic coronary artery calcifications. Normal caliber and tortuous th oracic aorta. Persistent prominent increased muscular activity at the right teres minor muscle belly without radiologic correlate which is likely physiologic. No pathologically enlarged thoracic lymphad enopathy or other abnormal FDG avid lesions in the thorax. Abdomen/pelvis/proximal thighs: Physiologic renal accumulation and excretion of FDG activity in the left kidney, bladder and along po rtions of the left ureter. There is severe right hydronephrosis with transition point at the ureterop elvic junction. Severe focal atrophy of the surrounding right kidney with no evident FDG activity at the right kidney or collecting system suggesting significant secondary decreased right renal function . Bilateral nonobstructing nephrolithiasis with at least 6 stones in the left kidney measuring up to 6 mm and single 7 mm nonobstructing stone in an inferior calyx of the right kidney. Normal degree and heterogenous pattern of increased uptake throughout the liver without radiologic correlate or domina nt FDG avid lesion. The gallbladder, pancreas, spleen and bilateral adrenal glands are normal. Mild u ptake scattered throughout the bowels without radiologic correlate, also likely physiologic. Small fa t-containing umbilical hernia. Prostatomegaly. No other abnormal foci of
[2021-05-30 11:35] LABS: Glucose Point of Care 83 mg/dl (65-105)
== END 2021-05-30 10:40 | disposition home or self-care (01) ==
LOC: ANHIMG 10:42
PROVIDERS: PCP Family Medicine; Visit Provider Radiology Radiation Oncology
DX: C32.0 Malignant neoplasm of glottis (principal); N20.1 Calculus of ureter; N26.1 Atrophy of kidney (terminal); M48.54XA Collapsed vertebra, not elsewhere classified, thoracic region, initial encounter for fracture; N13.30 Unspecified hydronephrosis
CPT/HCPCS: 78815; A9552

== ENCOUNTER 2021-08-02 10:31 | Emergency (ER) | payer MEDICARE, SELFPAY ==
[2021-08-02] VITALS (11 sets, daily range): BP systolic 119–181; BP diastolic 72–98; PULSE 91–109; RESP 17–29; TEMP 36.8; O2SAT 96–100
--- NOTE | ~2021-08-02 | CT_ITS ---
EXAMINATION: CT hip LT wo con DATE: 08/02/2021 15:22 INDICATION: Left hip pain. TECHNIQUE: Computed tomography (CT) of the left hip was performed without intravenous contrast. Autom ated exposure control and iterative reconstruction technique were employed. The dose-length product w as 426.62 mGy-cm. COMPARISON: Left hip radiographs 08/02/2021, pelvis CT 11/21/2019, PET/CT 05/30/21 FINDINGS: There are old healed fractures of left superior and inferior pubic rami. Again seen is a sutton btrochanteric fracture of proximal left femur. Internal fixation is seen with antegrade intramedullar y blas and 2 femoral head/neck screws. There is a basicervical fracture of left femoral neck that is n ew from 11/21/19. The distal fracture fragment demonstrates impaction and 15 degrees varus angulation . The tips of the femoral head/neck screws now extend beyond the bone margins. There is severe left h ip osteoarthritis. Partially visualized is a healing fracture of left iliac wing. There is a healing fracture of left sacral ala. IMPRESSION: 1. Basicervical fracture of left femoral neck, likely subacute. 2. Healing subtrochanteric fracture of proximal femur with internal fixation. The femoral head screws now extend beyond the bone margins. 3. Severe left hip osteoarthritis. 4. Healing fractures of left iliac wing and left sacral ala. Reviewed, dictated and finalized at location A. RNET PROGRAMMER IMPRESSION: 1. Basicervical fracture of left femoral neck, likely subacute. 2. Healing subtrochanteric fracture of proximal femur with internal fixation. T he femoral head screws now extend beyond the bone margins. 3. Severe left hip osteoarthritis. 4. Healing fractures of left iliac wing and left sacral ala.
--- NOTE | ~2021-08-02 | CT_ITS ---
EXAMINATION: CT soft tissue neck w con DATE: 08/02/2021 12:26 INDICATION: Dysphagia. TECHNIQUE: Computed tomography (CT) of the neck was performed with 75 mL Omnipaque-350 intravenous co ntrast. Automated exposure control and iterative reconstruction technique were employed. The dose-magdy gth product was 577.45 mGy-cm. COMPARISON: CT neck 03/31/2021 FINDINGS: The visualized portions of the lungs demonstrate mild atelectasis. There are likely change s of ocular lens replacement surgeries. There is a 19 x 9 mm stone in the duct for left submandibular gland. There is a 2.2 x 1.6 cm mass abutting right-sided submandibular gland and right sternocleidom astoid muscle. There is asymmetric increased density in right parotid gland with surrounding fat stra nding, consistent with parotiditis. Some of the fat stranding in the anterior neck bilaterally may be from changes of radiation therapy.. There is a 13 x 15 mm left submandibular node. There is thickeni ng of the mucosal space in the pharynx and larynx, consistent with changes of radiation therapy. Ther e is mild mucosal thickening in the paranasal sinuses. There is a trace right mastoid effusion. There is a trace left mastoid effusion. The patient is edentulous. There are old healed fractures of the c lavicles and numerous vertebral bodies and ribs. There are old healed fractures of the sternum. IMPRESSION: 1. Stable mass abutting right submandibular gland and sternocleidomastoid muscle, likely residual sca rring from treated alex metastatic disease. 2. Mildly enlarged left submandibular lymph node, new from 03/31/2021. 3. Right-sided parotiditis. No sialolith in right parotid gland. 4. Stone in the duct of left submandibular gland. Reviewed, dictated and finalized at location A. ANICAL ASSEMBLY TECHNICIAN IMPRESSION: 1. Stable mass abutting right submandibular gland and sternocleidomastoid muscl e, likely residual scarring from treated alex metastatic disease. 2. Mildly enlarged left submandibular lymph node, new from 03/31/2021. 3. Right-sided parotiditis. No sialolith in right parotid gland. 4. Stone in the duct of left submandibular gland.
--- NOTE | ~2021-08-02 | XR_ITS ---
XR hip LT 2V w AP pelvis 08/02/2021 14:15 Indication: Left hip pain Procedure: 5 views of the left hip including AP pelvis Comparison: 02/24/2020 Findings: There are age-indeterminate bilateral intertrochanteric fractures. There is hardware transf ixing the femoral necks and proximal femurs bilaterally. Diffuse osteopenia. No significant soft tiss ue abnormality. Impression: 1: Bilateral age-indeterminate femoral intertrochanteric fractures, not definitely seen on prior exam ination. No significant change to alignment. Reviewed, dictated and finalized at location B. ON PUNCHER Impression: 1: Bilateral age-indeterminate femoral intertrochanteric fractures, not definit oralia seen on prior examination. No significant change to alignment.
--- NOTE | ~2021-08-02 | XR_ITS ---
XR chest 1V portable 08/02/2021 12:18 Indication: Hypertension. Shortness of breath. COPD. Procedure: AP portable chest Comparison: Comparison to multiple prior studies sequentially, with oldest reviewed study dated 11/20. Findings: Cardiomegaly. No focal air space disease, pulmonary edema, pleural effusion or suspected pn eumothorax. There are multiple healed left rib fractures. Impression: 1: No acute cardiopulmonary disease. Reviewed, dictated and finalized at location B. OGRAPH TRANSFERRER Impression: 1: No acute cardiopulmonary disease.
[2021-08-02 11:20] LABS: Add Urine Microscopic? YES; Appearance Urine Clear (Clear); Bilirubin Urine Negative (Negative); Blood Urine 1+ (Negative); Color Urine Colorless (Yellow); Glucose Urine UA 1+ mg/dL (Negative); Ketones Urine Negative (Negative); Leukocyte Esterase Ur Negative LEU/UL (Negative); Mucus Urine Rare /lpf; Nitrate Urine Negative (Negative); Protein Urine Negative (Negative); RBC Urine 0-2 /hpf (0-2); Specific Grav Ur 1.009 (1.001-1.035); Urobilinogen Urine Negative mg/dL (<2.0); WBC Urine 0-3 /hpf
--- NOTE | 2021-08-02 11:37 | ED.GENADULT ---
HPI - General Adult General Chief complaint: Shortness of Breath/Dyspnea Stated complaint: SOB Time Seen by Provider: 08/02/21 11:21 Source: patient and RN notes reviewed Limitations: no limitations History of Present Illness HPI narrative: 60-year-old male with history of throat cancer post chemo and radiation presenting to the emergency department for evaluation of worsening breathing.. Patient was scheduled to have follow-up with ENT today but states due to his worsening throat swelling and shortness of breath he presented to the emergency department for evaluation. Patient does have history of COPD but quit smoking approximately 2 years ago. Patient does have swelling of the neck. Patient states his neck is always swollen but states he feels it is a little worse than normal. On arrival to the emerge department patient was in no distress. Patient had no stridor at rest. Patient had some wheeze on exam. Patient is also complaining of left hip pain. Patient did have surgical repair of a femur fracture in 2018 at [facility]. Patient denies any other significant falls or injuries. Related Data Home Medications Medication Instructions Recorded Confirmed aspirin 81 mg PO DAILY 07/03/19 07/26/21 calcium carbonate-vitamin D3 1 tablet PO BID 07/03/19 07/26/21 [Calcium 500 + D (D3)] atorvastatin 10 mg tablet 10 mg PO QHS tablet 04/04/21 07/26/21 denosumab 60 mg/mL subcutaneous 60 mg SUBCUT [id number] 04/04/21 07/26/21 syringe glipizide 10 mg tablet 10 mg PO DAILY 07/26/21 07/26/21 Allergies Allergy/AdvReac Type Severity Reaction Status Date / Time No Known Allergies Allergy Unknown Verified 08/02/21 12:05 Review of Systems Review of Systems: CONSTITUTIONAL: Denies fever, chills, or sweats. EYES: Denies visual changes, redness, or discharge. ENT: Acutely worsening throat swelling. CARDIOVASCULAR: Denies chest pain, palpitations, or edema. RESPIRATORY: Increased shortness of breath. GASTROINTESTINAL: Denies abdominal pain, nausea, vomiting, or diarrhea. GENITOURINARY: Denies dysuria or hematuria. SKIN: Denies rash or itching. MUSCULOSKELETAL: Denies back pain, joint pain, or myalgia. NEUROLOGIC: Denies headache, numbness, or weakness PMFSH Past Medical History Medical History Atrophy of right kidney BPH w/o urinary obs/LUTS Chronic kidney disease February 2020 nuclear medicine Lasix renal scan:1. Negligible uptake at the right kidney which is essentially indiscernible from the surrounding background precluding assessment for clearance. 2. Moderately delayed clearance from the left kidney consistent with partial obstruction which may be clinically significant. CKD (chronic kidney disease) stage 3, GFR 30-59 ml/min Closed pelvic fracture (11/2020) COPD mixed type Degenerative arthritis of knee, bilateral Diastolic dysfunction (11/2020) Dyslipidemia Essential (primary) hypertension Hemoglobin A1c less than 7.0% 04/11/21 A1C = 5.7 Hydronephrosis of right kidney severe chronic right hydronephrosis with severe right renal cortical atrophy Hypothyroidism (acquired) Kidney stones bilateral nonobstructing nephrolithiasis SAVANNA (obstructive sleep apnea) uses CPAP Osteoarthritis Osteoporosis uncertain etiology with multiple insufficiency fractures iliac crest, multiple lumbar compression fractures, old healed superior and inferior pubic rami fractures, multiple old bilateral rib fractures Smoker 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
[2021-08-02 11:46] LABS: Basophils Percent Auto 0.5 % (0.2-1.2); Eosinophils Absolute Auto 0.1 K/mm3 (0-0.3); Eosinophils Percent Auto 1.4 % (0-4.4); Hematocrit 34.4 % (42.0-52.0); Hemoglobin 11.3 g/dL (14.0-18.0); Immature Granulocyte Absolute 0.04 K/mm3 (0.00-0.031); Immature Granulocyte Percent A 0.6 % (0-0.5); Lymphocytes Absolute Auto 0.38 K/mm3 (0.9-3.2); Lymphocytes Percent Auto 5.7 % (18.3-44.2); Mean Corpuscular HGB Conc 32.8 g/dl (32-36); Mean Corpuscular Hemoglobin 28.6 pg (26-34); Mean Corpuscular Volume 87.1 fl (80-100); Mean Platelet Volume 8.1 fl (7.4-10.4); Monocytes Absolute Auto 0.6 K/mm3 (0.1-0.6); Monocytes Percent Auto 9.3 % (2.6-8.5); Neutrophils Absolute Auto 5.5 K/mm3 (1.3-6.7); Neutrophils Percent Auto 82.5 % (45.5-73.1); Platelet Count Result 302 k/mm3 (150-375); Red Blood Count 3.95 M/mm3 (4.6-6.20); Red Cell Distribution Width 14.9 % (11.5-14.5); White Blood Count 6.7 K/mm3 (4.5-10.0)
[2021-08-02] MEDS: ALBUTEROL SULFATE NEB 2.5 MG/0.5 ML INH 5 MG INHALATION ×2 (11:51→16:49)
[2021-08-02 11:59] LABS: Alanine Aminotransferase 15 U/L (4-50); Albumin Level 4.2 g/dL (3.5-5.1); Alkaline Phosphatase 120 U/L (38-126); Anion Gap 10 mmol/L (8-16); Aspartate Amino Transferase 21 U/L (17-59); Bilirubin,Total 0.4 mg/dL (0.2-1.3); Blood Urea Nitrogen 28 mg/dL (9-20); Calcium 9.4 mg/dL (8.4-10.2); Carbon Dioxide 25 mmol/L (22-30); Chloride 99 mmol/L (98-107); Estimated Glomerular Filt Rate 41; Glucose 108 mg/dL (65-110); Potassium 4.7 mmol/L (3.4-5.0); Sodium 134 mmol/L (137-145)
[2021-08-02 16:49] LABS: Glucose Point of Care 102 mg/dl (65-105)
[2021-08-02] MEDS: DEXAMETHASONE 2 MG TABLET 6 MG PO (17:26)
== END 2021-08-02 17:29 | disposition home or self-care (01) ==
PROVIDERS: Emergency Medicine; Emergency Provider Emergency Medicine; PCP Family Medicine
DX: R09.89 Other specified symptoms and signs involving the circulatory and respiratory systems (principal); M25.552 Pain in left hip; Z85.21 Personal history of malignant neoplasm of larynx; Z85.79 Personal history of other malignant neoplasms of lymphoid, hematopoietic and related tissues; N18.30 Chronic kidney disease, stage 3 unspecified; N40.0 Benign prostatic hyperplasia without lower urinary tract symptoms; E78.5 Hyperlipidemia, unspecified; E03.9 Hypothyroidism, unspecified; E55.9 Vitamin D deficiency, unspecified; G47.33 Obstructive sleep apnea (adult) (pediatric); M17.0 Bilateral primary osteoarthritis of knee; M16.12 Unilateral primary osteoarthritis, left hip; M81.0 Age-related osteoporosis without current pathological fracture; Z86.718 Personal history of other venous thrombosis and embolism; Z87.442 Personal history of urinary calculi; Z92.3 Personal history of irradiation; Z87.891 Personal history of nicotine dependence; Z92.21 Personal history of antineoplastic chemotherapy; Z79.82 Long term (current) use of aspirin; Z79.01 Long term (current) use of anticoagulants; Z79.84 Long term (current) use of oral hypoglycemic drugs; K11.20 Sialoadenitis, unspecified
CPT/HCPCS: 36415; 70491; 71045; 73502; 73700; 80053; 81001; 82948; 85025; 94640; 99284; J8540; Q9967

== ENCOUNTER 2021-08-09 11:44 | Emergency (ER) | payer MEDICARE, SELFPAY ==
[2021-08-09] VITALS (16 sets, daily range): BP systolic 152–181; BP diastolic 82–99; PULSE 93–106; RESP 18–24; TEMP 36.2–36.4; O2SAT 94–98
--- NOTE | ~2021-08-09 | XR_ITS ---
XR chest 1V portable DATE: 08/09/2021 12:18 INDICATION: Shortness of breath, chest tightness. History of COPD. TECHNIQUE: Portable AP chest on August 09, 2021 at 1215 hours COMPARISON: 08/02/2021 portable AP chest FINDINGS: Cardiomegaly. No pulmonary infiltrate or consolidation, pleural effusion, pulmonary vascula r congestion or pneumothorax is evident. There are old left rib fracture deformities. There is diffuse osteopenia. IMPRESSION: Cardiomegaly; no significant change since 08/02/2021 Reviewed, dictated and finalized at location [facility]
[2021-08-09 12:01] LABS: Glucose Point of Care 100 mg/dl (65-105)
--- NOTE | 2021-08-09 12:05 | ECG_ITS ---
Measurements Intervals [place] Rate: 96 P: 20 NH: 144 QRS: -64 QRSD: 106 T: 81 QT: 321 QTc: 407 Interpretive Statements SINUS RHYTHM INCOMPLETE RIGHT BUNDLE BRANCH BLOCK LEFT ANTERIOR FASCICULAR BLOCK CANNOT RULE OUT SEPTAL INFARCT, AGE INDETERMINATE BORDERLINE ST-T WAVE ABNORMALITY- HIGH LATERAL LEADS BASELINE ARTIFACT- I, II, III, AVR, AVL, AVF, V3-V6 ABNORMAL ECG Electronically Signed On 08-09-2021 12:29:17 [employer]PER[employer] by Junior Renner D.O.
[2021-08-09 12:17] LABS: Basophils Percent Auto 0.1 % (0.2-1.2); Eosinophils Percent Auto 0.6 % (0-4.4); Hematocrit 36.8 % (42.0-52.0); Hemoglobin 11.5 g/dL (14.0-18.0); Immature Granulocyte Absolute 0.04 K/mm3 (0.00-0.031); Immature Granulocyte Percent A 0.6 % (0-0.5); Lymphocytes Absolute Auto 0.23 K/mm3 (0.9-3.2); Lymphocytes Percent Auto 3.4 % (18.3-44.2); Mean Corpuscular HGB Conc 31.3 g/dl (32-36); Mean Corpuscular Hemoglobin 27.8 pg (26-34); Mean Corpuscular Volume 88.9 fl (80-100); Mean Platelet Volume 8.3 fl (7.4-10.4); Monocytes Absolute Auto 0.6 K/mm3 (0.1-0.6); Monocytes Percent Auto 8.8 % (2.6-8.5); Neutrophils Absolute Auto 5.8 K/mm3 (1.3-6.7); Neutrophils Percent Auto 86.5 % (45.5-73.1); Platelet Count Result 277 k/mm3 (150-375); Red Blood Count 4.14 M/mm3 (4.6-6.20); Red Cell Distribution Width 15.8 % (11.5-14.5); White Blood Count 6.7 K/mm3 (4.5-10.0)
--- NOTE | 2021-08-09 12:19 | PC.NURSE ---
C/ DYSPNEA X 1 WEEK. KNOWM PMH OF COPD AND DM PT REPORTS PCP TOOK HIM OFF OF ALL INSULIN. 4+ PITTING EDEMA TO BLE. PT HAS C/O CHRONIC LEFT HIP PAIN, REPOSITIONED FOR COMFORT. PT HAS REDNESS UNDER ABD FOLD AND ALONG INGUINAL AEAS, APPEAR TO BE MOISTURE ASSOCIATED DERMATITIS. PT HAS FREQUENT URINE INCONTINENCE. AREA CLEANSED AND DRIED OF MOISTURE
[2021-08-09 12:27] LABS: Alanine Aminotransferase 21 U/L (4-50); Albumin Level 4.1 g/dL (3.5-5.1); Alkaline Phosphatase 129 U/L (38-126); Anion Gap 5 mmol/L (8-16); Aspartate Amino Transferase 26 U/L (17-59); Bilirubin,Total 0.2 mg/dL (0.2-1.3); Blood Urea Nitrogen 42 mg/dL (9-20); Calcium 9.2 mg/dL (8.4-10.2); Carbon Dioxide 31 mmol/L (22-30); Chloride 99 mmol/L (98-107); Estimated Glomerular Filt Rate 29; Glucose 100 mg/dL (65-110); Potassium 4.7 mmol/L (3.4-5.0); Sodium 135 mmol/L (137-145)
--- NOTE | 2021-08-09 13:14 | ED.SOB ---
HPI - SOB/Dyspnea General Chief Complaint: Shortness of Breath/Dyspnea Stated Complaint: SOB Time Seen by Provider: 08/09/21 12:05 History of Present Illness HPI Narrative: Patient is a 60-year-old male with complex history of head neck cancer. He has been having issues with glottic edema over the last month. He has been seen by ENT x2 and in the ER couple of times. He has been instructed to follow-up with the ear nose and throat physicians at [facility] who originally treated his head neck cancer. Patient underwent multiple rounds of radiation in the last year for this cancer. He is refused laryngectomy due to the fact that he cannot read or write he be left without a way to communicate. He is recently finished 2 rounds of Medrol Dosepak for this issue. He was scoped yesterday in ENT office. ENT feels patient's breathing and voice have improved. Patient feels like his voice is gotten more hoarse than last 2 or 3 weeks. He is able to eat and drink. He reports that his had unchanged labored breathing over the last 3 weeks. No cough. No fevers or chills or sweats. Related Data Home Medications Medication Instructions Recorded Confirmed aspirin 81 mg PO DAILY 07/03/19 08/08/21 calcium carbonate-vitamin D3 1 tablet PO BID 07/03/19 08/08/21 [Calcium 500 + D (D3)] atorvastatin 10 mg tablet 10 mg PO QHS tablet 04/04/21 08/08/21 denosumab 60 mg/mL subcutaneous 60 mg SUBCUT [id number] 04/04/21 08/08/21 syringe glipizide 10 mg tablet 10 mg PO DAILY 07/26/21 08/08/21 Allergies Allergy/AdvReac Type Severity Reaction Status Date / Time No Known Allergies Allergy Unknown Verified 08/08/21 14:19 Review of Systems Review of Systems: All systems reviewed & are unremarkable except as noted in HPI and below Constitutional: Constitutional: Denies chills, Denies fever(s) and Denies weakness ENT: Denies dysphagia, Denies nasal congestion and Denies sore throat Comments: Neck swelling (chronic) Cardiovascular: Cardiovascular: Denies chest pain, Denies rapid heart rate and Denies radiating jaw, neck or arm pain Respiratory: Respiratory: Denies chest congestion, Denies cough, Reports dyspnea and Denies wheezing Gastrointestinal: Gastrointestinal: Denies abdominal pain, Denies nausea and Denies vomiting Musculoskeletal: Musculoskeletal: Reports arthralgias (left hip, chronic), Denies joint swelling and Denies muscle cramps Integumentary/Breasts: Skin/Breast: Reports rash (yeast rash groin) and Denies skin ulcer PMFSH Past Medical History Medical History (Reviewed 08/08/21 @ 14:20 by Aye Khoury [facility]) Atrophy of right kidney BPH w/o urinary obs/LUTS Chronic kidney disease February 2020 nuclear medicine Lasix renal scan:1. Negligible uptake at the right kidney which is essentially indiscernible from the surrounding background precluding assessment for clearance. 2. Moderately delayed clearance from the left kidney consistent with partial obstruction which may be clinically significant. CKD (chronic kidney disease) stage 3, GFR 30-59 ml/min Closed pelvic fracture (11/2020) COPD mixed type Degenerative arthritis of knee, bilateral Diastolic dysfunction (11/2020) Dyslipidemia Essential (primary) hypertension Hemoglobin A1c less than 7.0% 04/11/21 A1C = 5.7 Hydronephrosis of right kidney severe chronic right hydronephrosis with severe right renal cortical atrophy Hypothyroidism (acquired) Kidney stones bilateral nonobstructing nephrolithiasis SAVANNA (obstructive sleep apnea) uses CPAP Osteoarthritis Osteoporosis uncertain etiology with multiple insufficiency fractures iliac crest, multiple lumbar compression fractures, old healed superior and inferior pubic rami fractures, multiple old bilateral rib fractures Smoker 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
[2021-08-09] MEDS: SODIUM CHLORIDE 0.9% IV 500 ML 999 ML IV CONT (13:28)
[2021-08-09] MEDS: HYDROcodone/acetaminophen (*CRX) 5-325 MG TABLET 1 TAB PO (14:55)
== END 2021-08-09 15:34 | disposition home or self-care (01) ==
PROVIDERS: Emergency Medicine; Emergency Provider Emergency Medicine; PCP Family Medicine
DX: B37.2 Candidiasis of skin and nail (principal); R06.00 Dyspnea, unspecified; E86.0 Dehydration; I12.9 Hypertensive chronic kidney disease with stage 1 through stage 4 chronic kidney disease, or unspecified chronic kidney disease; N18.30 Chronic kidney disease, stage 3 unspecified; Z87.891 Personal history of nicotine dependence; J44.9 Chronic obstructive pulmonary disease, unspecified; E78.5 Hyperlipidemia, unspecified; M19.90 Unspecified osteoarthritis, unspecified site
CPT/HCPCS: 36415; 71045; 80053; 82948; 85025; 93005; 96360; 99283; A9270; J7040

== ENCOUNTER 2021-08-11 13:55 | Inpatient (IN) | payer MEDICARE, SELFPAY ==
[2021-08-11] VITALS (26 sets, daily range): BP systolic 119–157; BP diastolic 72–110; PULSE 70–99; RESP 0–32; TEMP 36.1; O2SAT 99–100
--- NOTE | ~2021-08-11 | CT_ITS ---
EXAMINATION: CT soft tissue neck chest wo EXAM DATE: 08/12/2021 18:24 INDICATION: Airway obstruction, COVID. Airway obstruction. TECHNIQUE: Spiral CT of the neck and chest was performed without contrast. Axial, coronal and sagit tori images were reviewed. The dose-length product (DLP) for this examination was 1035.54 mGy-cm. Th e exposure was tailored according to patient size (auto mA exposure control), and iterative reconstru ction (ASIR) was used as additional dose reduction technique. Comparison is made to prior examination from CT neck from 08/02/2021. FINDINGS: There is a small to moderate right-sided pneumothorax. NECK CT: Tracheostomy tube and nasogastric tubes are in position. Generalized nonspecific fat strandi ng within the subcutaneous tissues of the neck. Mass previously described abutting the right submandi bular gland, treated alex metastatic disease probably visualized on this noncontrast study There is no cervical lymphadenopathy. There are no masses identified. The superior mediastinum is unremar kable. The airway is unremarkable. Parapharyngeal and pre-glottic fat planes are preserved. Soto ited evaluation of cervical vessels on this noncontrast study. Patient has had bilateral ocular magdy s surgery. Visualized sinuses and mastoid air cells are well aerated. There is moderate amount of nasal cavity opacity. Bones have diffusely mottled appearance, with multiple rib fractures, bilateral clavicle fractures. Appears to be an underlying lesion at the right rib fracture and there is possib ility of diffuse metastatic disease or multiple myeloma. Fractures are varying ages but most likely c hronic. CHEST CT: There is multi segmental right lower lobe, segmental left lower lobe atelectasis. Mild card iomegaly. Mottled appearance to the bones with sclerosis and osteopenic regions, differential diagnos is including metastatic disease, myeloma, aggressive osteoporosis. There may be tracheobronchial chloe dromalacia. No airspace disease suspicious for pneumonia. No thoracic lymphadenopathy. Small to moder ate right-sided pneumothorax. Small right, trace left pleural effusions. Left nephrolithiasis. Severe chronic right hydronephrosis with severe renal cortical thinning, a chronic long-standing finding. IMPRESSION: 1. Small to moderate right-sided pneumothorax. 2. Mottled bone appearance, with numerous fractures most likely chronic but some subacute. Consider aggressive osteopenia, metastatic disease, multiple myeloma. 3. Multisegmental right lower lobe, segmental left lower lobe atelectasis. 4. Cardiomegaly. 5. Chronic findings. 6. Tubes in position. I called the small to moderate right-sided pneumothorax result to ICU nurse at 08/12/2021 18:39 HUSKER OPERATOR Reviewed, dictated and finalized at location . ER OPERATOR IMPRESSION: 1. Small to moderate right-sided pneumothorax. 2. Mottled bone appearance, with numerous fractures most likely chronic but so me subacute. Consider aggressive osteopenia, metastatic disease, multiple myelo ma. 3. Multisegmental right lower lobe, segmental left lower lobe atelectasis. 4. Cardiomegaly. 5. Chronic findings. 6. Tubes in position. I called the small to moderate right-sided pneumothorax result to ICU nurse at 08/12/2021 18:39 HUSKER OPERATOR
--- NOTE | ~2021-08-11 | XR_ITS ---
EXAMINATION: XR chest 1V portable DATE: 08/14/2021 06:26 INDICATION: Respiratory failure TECHNIQUE: frontal view of the chest was obtained. COMPARISON: Chest radiograph dated 08/13/2021 FINDINGS: Tracheostomy tube at the thoracic inlet. Nasogastric tube with distal tip in the body of the stomach. Unchanged right-sided chest tube which projects over the midlung zone. Lung volumes are small. Patchy bilateral airspace opacities, unchanged in the right lung and with int erval progression in the left lower lung zone. No pneumothorax or right-sided pleural effusion. Possi ble left pleural effusion. Cardiomegaly. Bilateral rib fractures. IMPRESSION: 1. Small lung volumes and interval progression in the left lower lung zone of bilateral lung disease which could represent atelectasis and/or pneumonia, possibly with superimposed small left pleural eff usion. 2. Cardiomegaly. Reviewed, dictated and finalized at location A. UCT ASSURANCE ENGINEER IMPRESSION: 1. Small lung volumes and interval progression in the left lower lung zone of b ilateral lung disease which could represent atelectasis and/or pneumonia, possi luis with superimposed small left pleural effusion. 2. Cardiomegaly.
--- NOTE | ~2021-08-11 | XR_ITS ---
EXAMINATION: XR chest 1V portable DATE: 08/15/2021 05:44 INDICATION: Respiratory failure TECHNIQUE: frontal view of the chest was obtained. COMPARISON: Chest radiograph dated 08/14/2021 FINDINGS: Tracheostomy tube in expected position at the thoracic inlet. Nasogastric tube tip in proximal side p ort in the body of the stomach. Right upper extremity peripherally inserted central venous catheter ( PICC) tip at the caudal superior vena cava. Unchanged chest tube projecting over the right midlung. Lung volumes remain small. Persistent scattered bilateral patchy airspace opacities relatively sparin g the apices. No pneumothorax or definitive pleural effusion. Cardiomegaly. IMPRESSION: 1. No significant change in diffuse bilateral lung disease consistent with atelectasis versus pneumon ia. 2. Cardiomegaly. Reviewed, dictated and finalized at location A. ER ADJUSTER IMPRESSION: 1. No significant change in diffuse bilateral lung disease consistent with atel ectasis versus pneumonia. 2. Cardiomegaly.
--- NOTE | ~2021-08-11 | XR_ITS ---
XR chest 1V portable 08/13/2021 06:14 Indication: Respiratory failure Procedure: AP portable chest Comparison: Comparison to multiple prior studies sequentially, with oldest reviewed study dated 08/02. Findings: There is tracheostomy tube present. NG tube in the stomach. Right-sided chest tube is prese nt. No definite pneumothorax. There is diffuse bilateral airspace disease. Cardiomegaly. Impression: 1: Stable diffuse bilateral airspace disease which may represent pneumonia and/or edema. Reviewed, dictated and finalized at location A. T METAL DUCT WORKER SUPERVISOR Impression: 1: Stable diffuse bilateral airspace disease which may represent pneumonia and/ or edema.
--- NOTE | ~2021-08-11 | XR_ITS ---
XR abdomen/kub 1V 08/12/2021 09:34 Indication: NG tube placement Procedure: KUB Comparison: No prior studies for comparison. Findings: Nonobstructive bowel gas pattern. NG tube in the stomach. No abnormal calcifications. There are surgical changes of both hips. There is lumbar spondylosis, not well visualized. Impression: 1: Nonobstructive bowel gas pattern with NG tube in the stomach. Reviewed, dictated and finalized at location A. [facility] OUTREACH WORKER Impression: 1: Nonobstructive bowel gas pattern with NG tube in the stomach.
--- NOTE | ~2021-08-11 | XR_ITS ---
EXAMINATION: XR chest PICC line DATE: 08/14/2021 19:37 INDICATION: Central line placement. TECHNIQUE: A single frontal view of the chest was obtained on 2 radiographs. COMPARISON: Chest single view at 5:17 AM, chest CT 08/12/2021 FINDINGS: There are airspace opacities in all lung zones bilaterally, worst at left lung base. No ple ural effusion or pneumothorax. Cardiomegaly is noted. There is a right-sided chest tube in expected p osition. A tracheostomy tube is noted. The nasogastric tube tip is in the stomach. A right upper extr emity peripherally inserted central venous catheter (PICC) is seen with tip at the superior cavoatria l junction. There are old fractures of the clavicles and numerous ribs bilaterally. IMPRESSION: 1. PICC tip at superior cavoatrial junction. 2. Stable diffuse lung disease, consistent with atelectasis versus pneumonia. 3. Cardiomegaly. Reviewed, dictated and finalized at location E. OGRAPHIC PRINTER
--- NOTE | ~2021-08-11 | XR_ITS ---
EXAMINATION: XR chest-chest tube insert/pos EXAM DATE: 08/12/2021 20:11 INDICATION: chest tube placement . Small to moderate-sized right pneumothorax on CT chest performed. TECHNIQUE: Portable AP frontal chest x-ray was obtained. Comparison is made to prior examination from 08/11/2021. FINDINGS: There is a right-sided chest tube projecting over the pleural cavity. No pneumothorax ident ified on this exam. Feeding tube is in position. There is bilateral airspace disease, atelectasis and could be superimposed pneumonia. There is cardiomegaly. No sizable pleural effusion. There are no os seous abnormalities identified. IMPRESSION: 1. Right-sided chest tube in position. 2. Bilateral airspace disease atelectasis an/or pneumonia unchanged. Reviewed, dictated and finalized at location G. RING MANAGER
--- NOTE | ~2021-08-11 | XR_ITS ---
XR chest 1V portable DATE: 08/11/2021 14:37 INDICATION: Extreme shortness of breath, tachypnea for 2 days TECHNIQUE: Portable AP chest on 08/11/2021 at 1432 COMPARISON: 08/09/2021 portable AP chest FINDINGS: Cardiomegaly. Relatively low lung volumes. Patchy bilateral predominantly mid and lower cindy g mild pulmonary infiltrates are suggested. No pleural effusion or pneumothorax. Prominent diffuse osteopenia. Multiple bilateral old rib fracture deformities. IMPRESSION: Relatively low lung volumes; suggestion of mild patchy bilateral mid and lower lung infil trates. Differential diagnosis includes bilateral pneumonia, congestive changes/pulmonary edema Cardiomegaly Reviewed, dictated and finalized at location B. ORATOR IMPRESSION: Relatively low lung volumes; suggestion of mild patchy bilateral mi d and lower lung infiltrates. Differential diagnosis includes bilateral pneumon ia, congestive changes/pulmonary edema Cardiomegaly
--- NOTE | 2021-08-11 14:09 | ECG_ITS ---
Measurements Intervals [place] Rate: 96 P: 30 NE: 144 QRS: -62 QRSD: 121 T: 86 QT: 331 QTc: 420 Interpretive Statements SINUS RHYTHM LEFT ANTERIOR FASCICULAR BLOCK BORDERLINE ST-T WAVE ABNORMALITY- HIGH LATERAL LEADS BASELINE ARTIFACT- I, II, III, AVR, AVL, AVF, V1-V6 ABNORMAL ECG Electronically Signed On 08-11-2021 15:23:52 [employer] by Junior Renner D.O.
[2021-08-11 14:35] LABS: Hematocrit 37.1 % (42.0-52.0); Hemoglobin 11.7 g/dL (14.0-18.0); Immature Granulocyte Absolute 0.03 K/mm3 (0.00-0.031); Immature Granulocyte Percent A 0.6 % (0-0.5); Lymphocytes Absolute Auto 0.12 K/mm3 (0.9-3.2); Lymphocytes Percent Auto 2.4 % (18.3-44.2); Mean Corpuscular HGB Conc 31.5 g/dl (32-36); Mean Corpuscular Hemoglobin 27.8 pg (26-34); Mean Corpuscular Volume 88.1 fl (80-100); Mean Platelet Volume 8.2 fl (7.4-10.4); Monocytes Absolute Auto 0.1 K/mm3 (0.1-0.6); Monocytes Percent Auto 2.6 % (2.6-8.5); Neutrophils Absolute Auto 4.7 K/mm3 (1.3-6.7); Neutrophils Percent Auto 94.4 % (45.5-73.1); Platelet Count Result 232 k/mm3 (150-375); Red Blood Count 4.21 M/mm3 (4.6-6.20); Red Cell Distribution Width 15.7 % (11.5-14.5); White Blood Count 4.9 K/mm3 (4.5-10.0)
[2021-08-11] MEDS: ALBUTEROL SULFATE NEB 2.5 MG/0.5 ML INH 5 MG INHALATION (14:40)
[2021-08-11] MEDS: IPRATROPIUM BR 0.02% INH SOLN 0.5 MG/2.5 ML VIAL INHALATION (14:40)
--- NOTE | 2021-08-11 14:40 | ED.SOB ---
HPI - SOB/Dyspnea General Chief Complaint: Shortness of Breath/Dyspnea Stated Complaint: SOB Time Seen by Provider: 08/11/21 14:14 Source: patient Mode of arrival: EMS Limitations: clinical condition History of Present Illness HPI Narrative: Patient is a 60-year-old male with a history of respiratory failure, COPD, PE and malignant neoplasm of the larynx complaining of shortness of breath that started today. Patient in respiratory distress upon arrival to the emergency room. Patient denies any chest pain, abdominal pain, nausea, vomiting, diaphoresis, fever or chills. Related Data Home Medications Medication Instructions Recorded Confirmed aspirin 81 mg PO DAILY 07/03/19 08/08/21 calcium carbonate-vitamin D3 1 tablet PO BID 07/03/19 08/08/21 [Calcium 500 + D (D3)] atorvastatin 10 mg tablet 10 mg PO QHS tablet 04/04/21 08/08/21 denosumab 60 mg/mL subcutaneous 60 mg SUBCUT [id number] 04/04/21 08/08/21 syringe glipizide 10 mg tablet 10 mg PO DAILY 07/26/21 08/08/21 Allergies Allergy/AdvReac Type Severity Reaction Status Date / Time No Known Allergies Allergy Unknown Verified 08/08/21 14:19 Review of Systems Review of Systems: Per HPI ROS unobtainable: Yes unobtainable due to medical condition PMFSH Past Medical History Medical History Atrophy of right kidney BPH w/o urinary obs/LUTS Chronic kidney disease February 2020 nuclear medicine Lasix renal scan:1. Negligible uptake at the right kidney which is essentially indiscernible from the surrounding background precluding assessment for clearance. 2. Moderately delayed clearance from the left kidney consistent with partial obstruction which may be clinically significant. CKD (chronic kidney disease) stage 3, GFR 30-59 ml/min Closed pelvic fracture (11/2020) COPD mixed type Degenerative arthritis of knee, bilateral Diastolic dysfunction (11/2020) Dyslipidemia Essential (primary) hypertension Hemoglobin A1c less than 7.0% 04/11/21 A1C = 5.7 Hydronephrosis of right kidney severe chronic right hydronephrosis with severe right renal cortical atrophy Hypothyroidism (acquired) Kidney stones bilateral nonobstructing nephrolithiasis SAVANNA (obstructive sleep apnea) uses CPAP Osteoarthritis Osteoporosis uncertain etiology with multiple insufficiency fractures iliac crest, multiple lumbar compression fractures, old healed superior and inferior pubic rami fractures, multiple old bilateral rib fractures Smoker 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 hips R: 2016, L: 2018 Hx of partial nephrectomy (~1973) lt kidney Submandibular sialolithiasis bilateral - s/p surgical removal 2016 and 2017 Family History Family History Father Lung cancer Sibling Diabetes mellitus Hypertension Grandparent Kidney disease Social History Social History Social History: Primary care physician: Dr. Caity Adamson Code status: Full code Smoking packs per day: 2 Smoking cigarettes per day: 40.0 Years smoked: 45 Smoking pack-years: 90.00 Smoking status: Former smoker Tobacco type: cigarettes Second hand tobacco smoke exposure: Yes Alcohol intake: never Alcohol use details: On occasion and in moderation. Substance use: never Substance use type: does not use Additional living arrangements comments: The patient lives at home with his wif
[2021-08-11 14:45] LABS: INR 1.2; Prothrombin Time 15.1 Seconds (11.1-14.7)
[2021-08-11 14:46] LABS: Partial Thromboplastin Time 34.7 SECONDS (22.3-36.8)
[2021-08-11 14:48] LABS: Alanine Aminotransferase 24 U/L (4-50); Albumin Level 4.3 g/dL (3.5-5.1); Alkaline Phosphatase 131 U/L (38-126); Anion Gap 9 mmol/L (8-16); Aspartate Amino Transferase 34 U/L (17-59); Bilirubin,Total 0.4 mg/dL (0.2-1.3); Blood Urea Nitrogen 49 mg/dL (9-20); Calcium 9.1 mg/dL (8.4-10.2); Carbon Dioxide 27 mmol/L (22-30); Chloride 98 mmol/L (98-107); Estimated Glomerular Filt Rate 28; Glucose 232 mg/dL (65-110); Potassium 5.2 mmol/L (3.4-5.0); Sodium 134 mmol/L (137-145)
[2021-08-11] MEDS: LORazepam INJ (*CRX) 2 MG/ML VIAL IV PUSH (14:58)
[2021-08-11] MEDS: DEXAMETHASONE SOD PHOS INJ 4 MG/ML VIAL 10 MG IV PUSH (14:59)
[2021-08-11 15:02] LABS: Alveolar/Arterial O2 Gradient 182.9 mmHg; Base Excess ABG -1.2 mEq/l (+/-2.0); Carboxyhemoglobin 0.3 % THb (0-2.0); Fractional Inspired Oxygen 100 %; HCO3 ABG 25.1 mEq/l (22.0-26.0); Methemoglobin ABG 0.2 %THb (0-1.5); Oxygen Content ABG 18.3 %vol (16.0-22.0); Oxygen Saturation ABG 99.9 % (95.0-100.0); Oxyhemoglobin 98.8 % THb (90.0-100.0); PCO2 ABG 48.7 mmHg (35.0-45.0); PO2 ABG 481.4 mmHg (80.0-100.0); PO2 FiO2 Ratio Arterial Blood 4.81 %; Reduced Hemoglobin 0.7 %THb (0-5.0); Total Hemoglobin 12.2 g/dL (12.0-18.0)
[2021-08-11 15:03] LABS: Device BIPAP; Modified Allen's Test Pass; Site Drawn RIGHT RADIAL
[2021-08-11 15:04] LABS: Expiratory Pressure 6 cmH2O; Inspiratory Pressure 14 cmH2O
[2021-08-11 15:09] LABS: Add Urine Microscopic? YES; Appearance Urine Clear (Clear); Bilirubin Urine Negative (Negative); Blood Urine 1+ (Negative); Color Urine Yellow (Yellow); Glucose Urine UA 1+ mg/dL (Negative); Ketones Urine Negative (Negative); Leukocyte Esterase Ur Negative LEU/UL (Negative); Nitrate Urine Negative (Negative); Protein Urine 1+ mg/dL (Negative); RBC Urine 21-50 /hpf (0-2); Specific Grav Ur 1.014 (1.001-1.035); Squamous Epithelial Cell Urine Rare /hpf (Few); Urobilinogen Urine Negative mg/dL (<2.0); WBC Urine 0-3 /hpf
[2021-08-11 15:11] LABS: NT Pro B Type Natriuretic Pept 405 pg/mL (5-100); Troponin I 0.045 ng/mL (0.000-0.034)
[2021-08-11 15:12] LABS: Platelet Estimate Adequate (Adequate)
[2021-08-11 15:13] LABS: Ovalocytes 1+ (NORMAL)
[2021-08-11 15:27] LABS: SARS-CoV-2 RNA PCR Positive
--- NOTE | 2021-08-11 15:56 | WPDANESEPPF ---
Anes - Initial Pre Proc Eval Procedure: Operation Date: 08/11/21 15:45 Proposed Procedures p Tracheostomy - Randy Vela MD Date/Time: 08/11/21 15:56 Surgeon: Randy Vela MD Pre Op Diagnosis: SOB Patient Data Age: 60 Gender: M Height: 1.45 m Weight: 97.2 kg Last Vital Signs Pulse 99 08/11/21 14:04 Resp 20 08/11/21 15:10 BP 157/110 H 08/11/21 14:04 Pulse Ox 99 08/11/21 14:04 Allergies Allergy/AdvReac Type Severity Reaction Status Date / Time No Known Allergies Allergy Unknown Verified 08/08/21 14:19 Home Medications Medication Instructions Recorded Confirmed Type aspirin 81 mg PO DAILY 07/03/19 08/08/21 History calcium carbonate-vitamin D3 1 tablet PO BID 07/03/19 08/08/21 History [Calcium 500 + D (D3)] magnesium oxide 400 mg PO DAILY #30 tablet 01/25/21 08/08/21 Rx apixaban 5 mg tablet 5 mg PO Q12HR #180 tablet 03/09/21 08/08/21 Rx glipizide 10 mg tablet, extended 10 mg PO DAILY #30 tablet 03/22/21 08/08/21 Rx release 24 hr atorvastatin 10 mg tablet 10 mg PO QHS tablet 04/04/21 08/08/21 History budesonide-formoterol HFA 160 2 puff INHALATION BID #30.6 g 04/04/21 08/08/21 Rx mcg-4.5 mcg/actuation aerosol inhaler denosumab 60 mg/mL subcutaneous 60 mg SUBCUT [id number] 04/04/21 08/08/21 History syringe amlodipine 5 mg tablet 5 mg PO DAILY #30 tablet 05/10/21 08/08/21 Rx blood sugar diagnostic See Rx Instructions .ROUTE 05/15/21 08/08/21 Rx .COMPLEX #300 strip albuterol sulfate 90 mcg/actuation See Rx Instructions .ROUTE 05/22/21 08/08/21 Rx aerosol inhaler .COMPLEX PRN #8.5 g levothyroxine 175 mcg tablet 175 mcg PO DAILY #90 tablet 05/25/21 08/08/21 Rx tamsulosin 0.4 mg capsule 0.4 mg PO DAILY #90 cap 05/25/21 08/08/21 Rx fluticasone propionate 50 2 spray INTRANASAL BID #16 ml 07/26/21 08/08/21 Rx mcg/actuation nasal spray,suspension glipizide 10 mg tablet 10 mg PO DAILY 07/26/21 08/08/21 History ipratropium 0.5 mg-albuterol 3 mg 3 ml INHALATION Q6H #540 ml 07/26/21 08/08/21 Rx (2.5 mg base)/3 mL nebulization soln methylprednisolone 4 mg tablets in See Rx Instructions PO PER PKG DIR 07/26/21 08/08/21 Rx a dose pack #21 ea omeprazole 20 mg capsule,delayed 20 mg PO DAILY #7 cap 07/26/21 08/08/21 Rx release methylprednisolone [Medrol (Rliey)] See Rx Instructions .ROUTE 08/02/21 08/08/21 Rx .COMPLEX #21 ea methylprednisolone [Medrol (Riley)] See Rx Instructions .ROUTE 08/09/21 Rx .COMPLEX #21 ea nystatin 1 applic TOPICAL TID #30 g 08/09/21 Rx Laboratory Tests 08/11/21 08/11/21 08/11/21 14:25 14:25 14:25 WBC 4.9 K/mm3 K/mm3 (4.5-10.0) RBC 4.21 M/mm3 L M/mm3 (4.6-6.20) Hgb 11.7 g/dL L g/dL (14.0-18.0) Hct 37.1 % L % (42.0-52.0) MCV 88.1 fl fl (80-100) MCH 27.8 pg pg (26-34) MCHC 31.5 g/dl L g/dl (32-36) RDW 15.7 % H % (11.5-14.5) Plt Count 232 k/mm3 k/mm3 (150-375) MPV 8.2 fl fl (7.4-10.4) Immature Gran % (Auto) 0.6 % H % (0-0.5) Neut % (Auto) 94.4 % H % (45.5-73.1) Lymph % (Auto) 2.4 % L % (18.3-44.2) Alpine % (Auto) 2.6 % % (2.6-8.5) Eos % (Auto) 0.0 % % (0-4.4) Baso % (Auto) 0.0 % L % (0.2-1.2) Lymph # (Auto) 0.12 K/mm3 L K/mm3 (0.9-3.2) Alpine # (Auto) 0.1 K/mm3 K/mm3 (0.1-0.6) Eos # (Auto) 0.0 K/mm3 K/mm3 (0-0.3) Baso # (Auto) 0.0 K/mm3 K/mm3 (0.0-0.1) Abs Immat Gran (auto) 0.03 K/mm3 K/mm3 (0.00-0.031) Absolute Neuts (auto) 4.7 K/mm3 K/mm3 (1.3-6.7) Absolute Nucleated RBC 0.0 K/mm3 K/mm3 (0.0-0.012) Nucleated RBC % 0.0 % % (0.0-0.2) Platelet Estimate Adequate (Adequate) Ovalocytes 1+ (NORMAL) PT 15.1 Seconds H Seconds (11.1-14.7) INR 1.2 APTT 34.7 SECONDS SECONDS (22.3-36.8) Puncture Site
[2021-08-11] MEDS: LIDO 1%/EPINEPHRINE 1:100,000 50 ML VIAL INFILTRATE (16:22)
--- NOTE | 2021-08-11 18:23 | P.OP_ITS ---
Procedure Note - Detailed Date of Procedure 08/11/21 Pre-op Diagnosis Obstructed airway, supraglottic edema, glottic edema, history of laryngeal cancer, history of radiation Post-op Diagnosis same Procedure Performed Awake tracheostomy, direct laryngoscopy with biopsy Surgeon Randy Vela MD Anesthesia general Indications See above Findings Difficult airway difficult procedure to perform asleep little on awake, cricoidotomy performed, 7 proximal XLT Shiley placed over bougie small trachea. Some glottic edema some leukoplakic tissue on the left biopsied no ashwini or obvious recurrence Description of Procedure Patient identified in ER. Verbal consent obtained. Written consent obtained. Patient losing consciousness. Brought to OR urgently. Time-out performed. Patient prepped and draped for the aforementioned procedure. 5 cc of 1% lidocaine with 1 100,000 parts epinephrine drawn approximately 1-2 finger breaths above the sternal notch horizontal fashion deep to a pre drawn surgical incision with sterile marking. Bovie electrocautery at settings of 15 and 15 utilize cut through the skin coagulation to the deeper tissues midline dissection was carried down with Bovie an [employer] navies until the airway was encountered it was noted that the airway was very very deep and given the patient's movement and mild bleeding throughout the procedure perform a tracheostomy would be difficult. The patient became more stridulous and ventilation was becoming more difficult. The decision was made to perform cricoidotomy. Incision made there was a essentially duplication of the cartilage in no airway was encountered. Syringe with 18 gauge needle utilized to dissect and investigate deep to this air and countered 15 blade utilized to perform airway incision air noted 6.5 endotracheal tube secured patient was ventilated ventilation proper placement confirmed bougie inserted 7 proximal XLT Shiley placed over the bougie after the ET tube was removed significant force was required get the trach was able to advance into the trachea. Trach secured with 4 corner stitches very tight over silk. Trach ties applied tightly. Again ventilation was confirmed. Laryngoscope then inserted in the airway after covering of the maxillary dentition. Laryngoscopy performed. Some leukoplakic tissue noted on the left supraglottic. Structures this was biopsied. No obvious recurrence. Patient tolerated the procedure well. There were no immediate complications. Blood loss probably 10-20 cc. Care the patient turned over to Anesthesiology. Patient taken to ICU. I performed all dictated portions of the procedure. Surgicel was placed adjacent to the trach given the moderate bleeding. No further bleeding noted drain sponge applied also. Estimated Blood Loss 20 Drains No Packing Yes (surgicel ) Pathology yes Complications No immediate complications Condition stable Disposition ICU
--- NOTE | 2021-08-11 18:50 | ADMGEN ---
This patient, Campbell Chandra, was admitted to ICU-4 at 1745. No report received. Patient was brought up by anesthesia. Patient/family oriented to hospital policies and general routines including ID bracelet, bed and alarms, visiting hours, pain management, procedures, bathroom and other care routines, personal items, smoking policy, room service/diet, and visiting hours. Information on how to activate the Rapid Response Team has been discussed. Patient/Family are encouraged to report perceived risks to care and to ask questions if they do not understand what they are told or what they should do.
[2021-08-11] MEDS: FENTANYL 2,500MCG/NS250ML(*CRX 2,500 MCG/250 ML BAG 7.5 MCG IV CONT (19:01)
[2021-08-11] MEDS: MIDAZOLAM 100MG/NS 100ML(*CRX) 100 MG/100 ML BAG IV CONT (19:02)
[2021-08-11 19:43] LABS: Alveolar/Arterial O2 Gradient 201.4 mmHg; Base Excess ABG -2.3 mEq/l (+/-2.0); Fractional Inspired Oxygen 50 %; Oxygen Content ABG 15.1 %vol (16.0-22.0); Oxygen Saturation ABG 97.1 % (95.0-100.0); Oxyhemoglobin 95.9 % THb (90.0-100.0); PCO2 ABG 47.9 mmHg (35.0-45.0); PO2 ABG 101.2 mmHg (80.0-100.0); PO2 FiO2 Ratio Arterial Blood 2.02 %; Total Hemoglobin 11.1 g/dL (12.0-18.0); pH ABG 7.318 (7.350-7.450)
[2021-08-11 19:44] LABS: Device VENTILATOR; Modified Allen's Test Pass; Site Drawn RIGHT RADIAL
[2021-08-11 19:45] LABS: Arterial Blood Gas PEEP 5 cmH2O; Arterial Blood Gas Tidal Volume 340 ml; Arterial Blood Gas Vent Mode CMV; Arterial Blood Gas Ventilator rate 16 /MIN
--- NOTE | 2021-08-11 19:45 | PM.IMHP ---
H&P: HPI History of Present Illness Date/Time: 08/11/21 19:45 Chief Complaint: Shortness of breath. Narrative: This is a 60-year-old male smoker with COPD, diabetes, hypertension, sleep apnea, hypothyroidism, pulmonary embolism, and laryngeal cancer who presented to the emergency department today for evaluation of shortness of breath. He is currently sedated post tracheostomy and as such all of the following is obtained via a review of his electronic medical records. 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 He declined upfront total laryngectomy and received definitive radiation between December and February 2021 And chemotherapy. He saw Dr. Vela in follow-up on 07/26/2021 at which time he was noted to be quite edematous on fiberoptic laryngoscopy, treated with Medrol Dosepak. He was seen once again in follow-up on 08/08/2021 at which time he was complaining of shortness of breath and stridor. Repeat fiberoptic laryngoscopy showed significant supraglottic and glottic tumor, mass, or ulceration. Dr. Vela encouraged urgent referral and follow-up with [facility] though he has not yet followed up. 2 days ago he was seen in the emergency department with shortness of breath but again decided against referral/ transfer and said he did not want a tracheostomy at that time. Unfortunately this morning his shortness of breath was much worse and he presented in respiratory distress. He was emergently taken to the operating room as he was losing consciousness. There were difficulties performing tracheostomy and ultimately the decision was made to perform cricoidotomy and a 7 proximal XLT surely was able to be placed over bougie. he was transferred to the ICU where he has resting comfortably on sedation. Review of Systems Review of Systems: ROS unobtainable: Yes unobtainable due to medical condition PMFSH Past Medical History Medical History Atrophy of right kidney BPH w/o urinary obs/LUTS Chronic kidney disease February 2020 nuclear medicine Lasix renal scan:1. Negligible uptake at the right kidney which is essentially indiscernible from the surrounding background precluding assessment for clearance. 2. Moderately delayed clearance from the left kidney consistent with partial obstruction which may be clinically significant. Chronic kidney disease, stage 4 (severe) CKD (chronic kidney disease) stage 3, GFR 30-59 ml/min Closed pelvic fracture (11/2020) COPD mixed type Degenerative arthritis of knee, bilateral Diastolic dysfunction (11/2020) Dyslipidemia Essential (primary) hypertension Hemoglobin A1c less than 7.0% 04/11/21 A1C = 5.7 Hydronephrosis of right kidney severe chronic right hydronephrosis with severe right renal cortical atrophy Hypothyroidism (acquired) Kidney stones bilateral nonobstructing nephrolithiasis SAVANNA (obstructive sleep apnea) uses CPAP Osteoarthritis Osteoporosis uncertain etiology with multiple insufficiency fractures iliac crest, multiple lumbar compression fractures, old healed superior and inferior pubic rami fractures, multiple old bilateral rib fractures Smoker 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
--- NOTE | 2021-08-11 19:50 | PM.IMHP ---
H&P: HPI History of Present Illness Date/Time: 08/11/21 19:50 [facility] Past Medical History Medical History Atrophy of right kidney BPH w/o urinary obs/LUTS Chronic kidney disease February 2020 nuclear medicine Lasix renal scan:1. Negligible uptake at the right kidney which is essentially indiscernible from the surrounding background precluding assessment for clearance. 2. Moderately delayed clearance from the left kidney consistent with partial obstruction which may be clinically significant. CKD (chronic kidney disease) stage 3, GFR 30-59 ml/min Closed pelvic fracture (11/2020) COPD mixed type Degenerative arthritis of knee, bilateral Diastolic dysfunction (11/2020) Dyslipidemia Essential (primary) hypertension Hemoglobin A1c less than 7.0% 04/11/21 A1C = 5.7 Hydronephrosis of right kidney severe chronic right hydronephrosis with severe right renal cortical atrophy Hypothyroidism (acquired) Kidney stones bilateral nonobstructing nephrolithiasis SAVANNA (obstructive sleep apnea) uses CPAP Osteoarthritis Osteoporosis uncertain etiology with multiple insufficiency fractures iliac crest, multiple lumbar compression fractures, old healed superior and inferior pubic rami fractures, multiple old bilateral rib fractures Smoker 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 hips R: 2016, L: 2018 Hx of partial nephrectomy (~1973) lt kidney Submandibular sialolithiasis bilateral - s/p surgical removal 2017 and 2018 Family History Family History Father Lung cancer Sibling Diabetes mellitus Hypertension Grandparent Kidney disease Social History Social History Social History: Primary care physician: Dr. Caity Adamson Code status: Full code Smoking packs per day: 2 Smoking cigarettes per day: 40.0 Years smoked: 45 Smoking pack-years: 90.00 Smoking status: Former smoker Tobacco type: cigarettes Second hand tobacco smoke exposure: Yes Alcohol intake: never Alcohol use details: On occasion and in moderation. Substance use: never Substance use type: does not use Additional living arrangements comments: The patient lives at home with his . They do not have any children. He ambulates with a walker. Additional occupation/education comments: Patient is disabled. Gender identity (if verbalized by the patient): Male Spiritual care concerns: No Meds Home Medications and Allergies Home Medications Medication Instructions Recorded Confirmed Type aspirin 81 mg PO DAILY 07/03/19 08/08/21 History calcium carbonate-vitamin D3 1 tablet PO BID 07/03/19 08/08/21 History [Calcium 500 + D (D3)] magnesium oxide 400 mg PO DAILY #30 tablet 01/25/21 08/08/21 Rx apixaban 5 mg tablet 5 mg PO Q12HR #180 tablet 03/09/21 08/08/21 Rx glipizide 10 mg tablet, extended 10 mg PO DAILY #30 tablet 03/22/21 08/08/21 Rx release 24 hr atorvastatin 10 mg tablet 10 mg PO QHS tablet 04/04/21 08/08/21 History budesonide-formoterol HFA 160 2 puff INHALATION BID #30.6 g 04/04/21 08/08/21 Rx mcg-4.5 mcg/actuation aerosol inhaler denosumab 60 mg/mL subcutaneous 60 mg SUBCUT [id number] 04/04/21 08/08/21 History syringe amlodipine 5 mg tablet 5 mg PO DAILY #30 tablet 05/10/21 08/08/21 Rx blood sugar diagnostic See Rx Instructions .ROUTE 05/15/21 08/08/21 Rx .COMPLEX #300 strip albut
[2021-08-11] MEDS: MINERAL OIL/WHITE PETROLATUM OINTMENT 1 APPLIC EACH EYE (20:49)
[2021-08-12] VITALS (54 sets, daily range): BP systolic 114–140; BP diastolic 71–93; PULSE 68–94; RESP 0–20; TEMP 35.9–36.9; O2SAT 96–100; BMI 46.3
--- NOTE | 2021-08-12 02:21 | PCRCNOTE ---
Pt has trach bag outside room door. There are disposable inner cannulas available for his Shiley 7.0 XLT proximal trach. There are not, however, any additional Shiley XLT proximal trach (6.0 or 7.0) in central supply. There is not a backup trach in/outside the room.
[2021-08-12 03:01] LABS: Hematocrit 31.1 % (42.0-52.0); Hemoglobin 9.9 g/dL (14.0-18.0); Mean Corpuscular HGB Conc 31.8 g/dl (32-36); Mean Corpuscular Hemoglobin 28.4 pg (26-34); Mean Corpuscular Volume 89.1 fl (80-100); Mean Platelet Volume 8.1 fl (7.4-10.4); Platelet Count Result 175 k/mm3 (150-375); Red Blood Count 3.49 M/mm3 (4.6-6.20); Red Cell Distribution Width 15.7 % (11.5-14.5); White Blood Count 3.8 K/mm3 (4.5-10.0)
[2021-08-12 03:09] LABS: Hemoglobin A1C 7.7 % (<5.7)
[2021-08-12 03:11] LABS: Alanine Aminotransferase 22 U/L (4-50); Albumin Level 3.4 g/dL (3.5-5.1); Alkaline Phosphatase 91 U/L (38-126); Anion Gap 8 mmol/L (8-16); Aspartate Amino Transferase 25 U/L (17-59); Bilirubin,Total 0.3 mg/dL (0.2-1.3); Blood Urea Nitrogen 47 mg/dL (9-20); Calcium 8.2 mg/dL (8.4-10.2); Carbon Dioxide 24 mmol/L (22-30); Chloride 103 mmol/L (98-107); Estimated Glomerular Filt Rate 31; Glucose 167 mg/dL (65-110); Magnesium 2.1 mg/dL (1.6-2.3); Potassium 5.1 mmol/L (3.4-5.0); Sodium 135 mmol/L (137-145)
[2021-08-12 04:56] LABS: Alveolar/Arterial O2 Gradient 59.9 mmHg; Carboxyhemoglobin 0.1 % THb (0-2.0); Fractional Inspired Oxygen 30 %; HCO3 ABG 22.2 mEq/l (22.0-26.0); Methemoglobin ABG 0.2 %THb (0-1.5); Oxygen Content ABG 18.3 %vol (16.0-22.0); Oxygen Saturation ABG 97.1 % (95.0-100.0); Oxyhemoglobin 96.3 % THb (90.0-100.0); PCO2 ABG 44.8 mmHg (35.0-45.0); PO2 ABG 101.4 mmHg (80.0-100.0); PO2 FiO2 Ratio Arterial Blood 3.38 %; Reduced Hemoglobin 3.4 %THb (0-5.0); Total Hemoglobin 13.4 g/dL (12.0-18.0); pH ABG 7.313 (7.350-7.450)
[2021-08-12 04:57] LABS: Modified Allen's Test Pass; Site Drawn RIGHT RADIAL
[2021-08-12 04:58] LABS: Arterial Blood Gas PEEP 5 cmH2O; Arterial Blood Gas Tidal Volume 340 ml; Arterial Blood Gas Vent Mode CMV; Arterial Blood Gas Ventilator rate 16 /MIN; Device VENTILATOR
--- NOTE | 2021-08-12 07:16 | WPDANESPN ---
Anes - Prog Note Post-Op Date/Time: 08/12/21 07:16 Cardiovascular status: other Respiratory status: other (vented) Airway patency: other Mental status: other (sedated) Post-Op hydration status: normal Vital Signs: Last Vital Signs Temp 96.9 F L 08/12/21 04:01 Pulse 73 08/12/21 06:15 Resp 11 L 08/12/21 06:15 BP 126/77 08/12/21 06:15 Pulse Ox 100 08/12/21 06:15 Pain Score (VAS): 07/17 I/O: Intake & Output 08/11/21 08/11/21 08/12/21 15:59 23:59 07:59 Output Total 1950 900 Balance -1950 -900 Laboratory Tests 08/12/21 02:51 08/12/21 02:51 08/11/21 08/11/21 08/11/21 14:25 14:25 14:25 WBC 4.9 RBC 4.21 L Hgb 11.7 L Hct 37.1 L MCV 88.1 MCH 27.8 MCHC 31.5 L RDW 15.7 H Plt Count 232 MPV 8.2 Immature Gran % (Auto) 0.6 H Neut % (Auto) 94.4 H Lymph % (Auto) 2.4 L Gilmer % (Auto) 2.6 Eos % (Auto) 0.0 Baso % (Auto) 0.0 L Lymph # (Auto) 0.12 L Gilmer # (Auto) 0.1 Eos # (Auto) 0.0 Baso # (Auto) 0.0 Abs Immat Gran (auto) 0.03 Absolute Neuts (auto) 4.7 Absolute Nucleated RBC 0.0 Nucleated RBC % 0.0 Platelet Estimate Adequate Ovalocytes 1+ PT 15.1 H INR 1.2 APTT 34.7 Puncture Site ABG pH ABG pCO2 ABG pO2 ABG PO2/FiO2 Ratio ABG HCO3 ABG O2 Saturation ABG O2 Content ABG Base Excess A-a Gradient Oxyhemoglobin Carboxyhemoglobin Methemoglobin Reduced Hemoglobin Total Hemoglobin O2 Delivery Device O2 Liters/Min Minute Volume Vent Rate Vent Mode FiO2 Expiratory Pressure Tidal Volume PEEP Inspiratory Pressure Peak Inspir Pressure Pressure Support Sodium 134 L Potassium 5.2 H Chloride 98 Carbon Dioxide 27 Anion Gap 9 BUN 49 H Creatinine 2.40 H Estim Creat Clear Calc Not Reportable Estimated GFR 28 L Glucose 232 H Hemoglobin A1c Calcium 9.1 Magnesium Total Bilirubin 0.4 AST 34 ALT 24 Alkaline Phosphatase 131 H Troponin I 0.045 H* NT-Pro-B Natriuret Pep 405 H Total Protein 7.0 Albumin 4.3 Urine Color Urine Appearance Urine pH Ur Specific [place] Urine Protein Urine Glucose (UA) Urine Ketones Ur Blood (Man) Urine Nitrate Urine Bilirubin Urine Urobilinogen Leukocyte Esterase Rfl Urine RBC Urine WBC Ur Squamous Epith Cells SARS-CoV-2 RNA (RT-PCR) 08/11/21 08/11/21 08/11/21 14:41 14:43 14:54 WBC RBC Hgb Hct MCV MCH MCHC RDW Plt Count MPV Immature Gran % (Auto) Neut % (Auto) Lymph % (Auto) Gilmer % (Auto) Eos % (Auto) Baso % (Auto) Lymph # (Auto) Gilmer # (Auto) Eos # (Auto) Baso # (Auto) Abs Immat Gran (auto) Absolute Neuts (auto) Absolute Nucleated RBC Nucleated RBC % Platelet Estimate Ovalocytes PT INR APTT Puncture Site Right radial ABG pH 7.330 L ABG pCO2 48.7 H ABG pO2 481.4 H ABG PO2/FiO2 Ratio 4.81 ABG HCO3 25.1 ABG O2 Saturation 99.9 ABG O2 Content 18.3 ABG Base Excess -1.2 A-a Gradient 182.9 Oxyhemoglobin 98.8 Carboxyhemoglobin 0.3 Methemoglobin 0.2 Reduced Hemoglobin 0.7 Total Hemoglobin 12.2 O2 Delivery Device Bipap O2 Liters/Min Not Reportable Minute Volume Vent Rate Vent Mode FiO2 100 Expiratory Pressure 6 Tidal Volume PEEP Inspiratory Pressure 14 Peak Inspir Pressure Pressure Support Sodium Potassium Chloride Carbon Dioxide Anion Gap BUN Creatinine Estim Creat Clear Calc Estimated GFR Glucose Hemoglobin A1c Calcium Magnesium Total Bilirubin AST ALT Alkaline Phosphatase Troponin I NT-Pro-B Natriuret Pep Total Protein Albumin Urine Color Yellow Urine Appearance Clear Urine pH 6.0 Ur Specific [place]
[2021-08-12] MEDS: PANTOPRAZOLE SODIUM IV 40 MG VIAL IV PUSH (08:56)
[2021-08-12] MEDS: MINERAL OIL/WHITE PETROLATUM OINTMENT 1 APPLIC EACH EYE ×2 (08:56→20:52)
[2021-08-12 09:06] LABS: Troponin I 0.034 ng/mL (0.000-0.034)
[2021-08-12 12:36] LABS: Glucose Point of Care 114 mg/dl (65-105)
[2021-08-12] MEDS: LEVOTHYROXINE SODIUM 100 MCG, LEVOTHYROXINE SODIUM 75 MCG 175 MCG FEED TUBE (12:41)
[2021-08-12] MEDS: ASPIRIN 81 MG ENTERIC TABLET PO (12:41)
--- NOTE | 2021-08-12 13:07 | WPDCNINT ---
Assessment and Plan Assessment and plan (1) Acute respiratory failure: Qualifiers: Respiratory failure complication: unspecified whether with hypoxia or hypercapnia Qualified Code(s): J96.00 - Acute respiratory failure, unspecified whether with hypoxia or hypercapnia Code(s): J96.00 - Acute respiratory failure, unspecified whether with hypoxia or hypercapnia Status: Acute Assessment and Plan: Acute Respiratory failure secondary to acute airway obstruction, possible pneumonia aspiration, pulmonary edema and COVID-19 pneumonia Continue full mechanical ventilation support to prevent hypoxemia/hypercarbia and end organ damage. ABG and PCXR reviewed I will plan for sedation holiday and a weaning trial today Low tidal volume ventilation strategy to prevent volutrauma Check CT chest Bronchodilators (2) Acute airway obstruction: Code(s): J98.8 - Other specified respiratory disorders Status: Acute Assessment and Plan: Patient has history of laryngeal cancer and treatment with chemo radiation. He has been noncompliant with follow-up with oral surgery and ENT at [facility]. He presented with acutely oObstructed airway, supraglottic edema, glottic edema 2/4 Patient was taken to operating room from ER and underwent emergent cricoidotomy performed, 7 proximal XLT Shiley placed over bougie small trachea. Some glottic edema some leukoplakic tissue on the left biopsied no ashwini or obvious recurrence he is on dexamethasone both for COVID and should help with airway edema I have called [facility] for transfer for oral surgery to revise his tracheostomy. I am waiting for call back from them. I will check CT soft tissue neck (3) COVID-19: Code(s): U07.1 - COVID-19 Status: Acute Assessment and Plan: SARS-CoV-2 PCR positive Patient is in Airborne, Droplet and Contact Isolation Continue dexamethasone not a candidate for remdesivir as his GFR is less than [address] chest Continue antibiotics for empiric bacterial coverage checkinflammatory periodically (4) Chronic kidney disease, stage 4 (severe): Code(s): N18.4 - Chronic kidney disease, stage 4 (severe) Status: Acute Assessment and Plan: creatinine slightly increase as compared to baseline will give a small amount IV fluids monitor urine output electrolytes and creatinine (5) Type 2 diabetes mellitus: Code(s): E11.9 - Type 2 diabetes mellitus without complications Status: Acute Assessment and Plan: sliding scale insulin (6) Laryngeal cancer: Code(s): C32.9 - Malignant neoplasm of larynx, unspecified Status: Acute Assessment and Plan: biopsy was done at the time patient underwent cricothyrotomy management deferred to Oncology (7) Hyperkalemia: Code(s): E87.5 - Hyperkalemia Status: Acute Assessment and Plan: will give a dose of Kayexalate for mild hyperkalemia (8) Dietary surveillance and counseling: Code(s): Z71.3 - Dietary counseling and surveillance Status: Acute Assessment and Plan: NG tube placed and will start tube feeds. I anticipate the patient will continue need tube feeding light of emergent tracheostomy placement and will likely need a PEG tube. (9) Venous thromboembolism: Code(s): I82.90 - Acute embolism and thrombosis of unspecified vein Status: Acute Assessment and Plan: he has this history of VTE although I am not aware of any details but he is on apixaban as an outpatient. I will start him on Lovenox hence he will be needing further surgical procedures. (10) Elevated troponin: Code(s): R77.8 - Other specified abnormalities of plasma proteins Status: Acute Assessment and Plan: patient has slightly elevated troponin on presentation which could be secondary to respiratory failure and also has chronic kidney disease
[2021-08-12] MEDS: IPRATROPIUM BR 0.02% INH SOLN 0.5 MG/2.5 ML VIAL INHALATION ×2 (14:25→20:30)
[2021-08-12] MEDS: ALBUTEROL SULFATE NEB 2.5 MG/0.5 ML INH INHALATION ×2 (14:25→20:30)
[2021-08-12 15:16] LABS: Troponin I 0.025 ng/mL (0.000-0.034)
--- NOTE | 2021-08-12 15:24 | PM.IMPN ---
Progress Note: A&P Assessment and Plan (1) Acute respiratory failure: Qualifiers: Respiratory failure complication: unspecified whether with hypoxia or hypercapnia Qualified Code(s): J96.00 - Acute respiratory failure, unspecified whether with hypoxia or hypercapnia Code(s): J96.00 - Acute respiratory failure, unspecified whether with hypoxia or hypercapnia Status: Acute Assessment and Plan: Acute Respiratory failure secondary to acute airway obstruction, possible pneumonia, pulmonary edema and COVID-19 pneumonia Chest x-ray with patchy mid and lower infiltrates pneumonia versus pulmonary edema Currently on full mechanical ventilation support Vacuum Cleaner Repair Person following and further ventilatory management per senior regulatory affairs specialist Plan for CT chest today Continue Bronchodilators (2) Acute airway obstruction: Code(s): J98.8 - Other specified respiratory disorders Status: Acute Assessment and Plan: Patient has history of laryngeal cancer and treatment with chemo radiation. He has been noncompliant with follow-up with oral surgery and ENT at [facility]. He presented with acutely obstructed airway, supraglottic edema, glottic edema 2/4 Patient was taken to operating room from ER and underwent emergent cricoidotomy performed, 7 proximal XLT Shiley placed over bougie small trachea. Some glottic edema some leukoplakic tissue on the left biopsied no ashwini or obvious recurrence he is on dexamethasone both for COVID and should help with airway edema He is planned for transfer to [facility] for oral surgery (3) COVID-19: Code(s): U07.1 - COVID-19 Status: Acute Assessment and Plan: SARS-CoV-2 PCR positive Patient is in Airborne, Droplet and Contact Isolation Continue dexamethasone not a candidate for remdesivir as his GFR is less than 30 WBC count is normal Check CT chest Currently Zosyn for possible aspiration Monitor inflammatory markers (4) Chronic kidney disease, stage 4 (severe): Code(s): N18.4 - Chronic kidney disease, stage 4 (severe) Status: Acute Assessment and Plan: Baseline creatinine high 1s currently in low 2s continue to monitor (5) Type 2 diabetes mellitus: Code(s): E11.9 - Type 2 diabetes mellitus without complications Status: Acute Assessment and Plan: sliding scale insulin (6) Laryngeal cancer: Code(s): C32.9 - Malignant neoplasm of larynx, unspecified Status: Acute Assessment and Plan: biopsy was done at the time patient underwent cricothyrotomy management deferred to Oncology (7) Hyperkalemia: Code(s): E87.5 - Hyperkalemia Status: Acute Assessment and Plan: Kayexalate for mild hyperkalemia (8) Dietary surveillance and counseling: Code(s): Z71.3 - Dietary counseling and surveillance Status: Acute Assessment and Plan: NG tube placed started on tube feeds. I anticipate the patient will continue need tube feeding light of emergent tracheostomy placement and will likely need a PEG tube. (9) Venous thromboembolism: Code(s): I82.90 - Acute embolism and thrombosis of unspecified vein Status: Acute Assessment and Plan: he has this history of VTE although I am not aware of any details but he is on apixaban as an outpatient. I will start him on Lovenox hence he will be needing further surgical procedures. (10) Elevated troponin: Code(s): R77.8 - Other specified abnormalities of plasma proteins Status: Acute Assessment and Plan: patient has slightly elevated troponin on presentation which could be secondary to respiratory failure and also has chronic kidney disease repeat troponin normal this morning he is on aspirin statin and anticoagulation will be continued EKG reviewed Additional Plan DVT prophylaxis - Lovenox Stress ulcer prophylaxis - PPI Nutrition - start Tube Feeds if
[2021-08-12] MEDS: SODIUM POLYSTYRENE SULFONONATE 15 GM/60 ML BTL 30 GM PO (16:38)
[2021-08-12] MEDS: ENOXAPARIN 100 MG/ML SYRINGE SUB-Q (16:43)
[2021-08-12] MEDS: SODIUM CHLORIDE 0.9% IV 1,000 ML 100 ML IV CONT (16:44)
[2021-08-12 18:23] LABS: Glucose Point of Care 109 mg/dl (65-105)
--- NOTE | 2021-08-12 20:20 | W.PM.PROC2 ---
Procedure Note - Detailed Date of Procedure 08/12/21 Pre-op Diagnosis Right pneumothorax Post-op Diagnosis same Procedure Performed right Chest tube Placement (tube thoracostomy) Surgeon Celso Rubi MD Young Adult Librarian none Anesthesia local (1% xylocaine plain) and other (Local with 2% Xylocaine with epi) Indications Recently discovered pneumothorax on the right. (discovered by CT scan of the chest today). Findings normal chest wall anatomy on the side of tube placement. Description of Procedure . Standard full size tube thoracostomy: Patient is on a ventilator and has a tracheostomy tube that was placed yesterday. I carefully prepped the entire right chest wall with the patient lying slightly head up and supine. The arm on the side of chest tube placement was up above the head. Following this using sterile technique I carefully prepped the lateral right chest wall in the axillary area & this was draped off sterilely. Time-out was performed with the team helping me. Following this local anesthetic was infiltrated over the 6th rib and an incision was made using an 15 blade knife on that rib and I then tunneled up over the 5th rib and then using a hemostat penetrated the intercostal space and the parietal pleura. The hemostat was spread and a gush of air was noted. A Peon was then inserted and spread more. Following this the 28 Fr. size chest tube was carefully inserted after placing a finger into the chest cavity and sweeping it around the inside of the nearby chest cavity. The chest tube was inserted posteriorly and cephalad. It was inserted into about the 16 cm imtiaz and then sutured into place with a U shape stitch using 0 silk which was tied with just 1 knot and then wrapped around the tube and then tied with 3 knots. Vaseline gauze was applied around the tube as dressing followed by a 3 x 3 split gauze dressing and then 4 pieces of nylon tape that were cut with 3 arms using the center arm of each piece of tape to wrap around the tube to hold it in place. The tube was then connected to Pleur-Evac and the Pleur-Evac to 20 cm of suction. The patient tolerated the procedure well. Appropriately fluctuation was noted in the Pleur-evac after connection. Minimal serosanguineous fluid came through the chest tube during placement. There was a small air leak noted after connecting to suction. My interpretation of the portable chest x-ray immediately post procedure showed the chest tube about mid level in the chest with no remaining pneumothorax on chest x-ray Implants Rt.chest tube Estimated Blood Loss 10 Drains Yes (one size 28 Fr. chest tube) Packing No Pathology none sent Complications No immediate complications Condition stable Disposition ICU
--- NOTE | 2021-08-12 20:27 | PM.CNGS ---
Assessment and Plan Assessment and plan (1) Pneumothorax on right: Onset Date: ~08/12/21 Code(s): J93.9 - Pneumothorax, unspecified Status: Acute Assessment and Plan: I received an urgent call from ICU for a patient with a tracheostomy and on a ventilator. He had a CT scan of the neck and chest to evaluate current condition of his known laryngeal carcinoma and COPD. This revealed a right pneumothorax which was small to moderate in size. CT scan reviewed. We then urgently placed a standard 28 [place] right chest tube laterally in the right chest. Nurses had try to obtain consent from next of kin since the patient does not have advance directives. They had not been able to reach anybody. However, after the procedure I was able to reach both his spouse (Suzi) who could not hear well on the phone because of her hearing aids and she asked me to call her mother whose name is Deanna Wright (she states that patient's spouse who is next of kin cannot hear well on the phone because of the hearing aid). These are the only two listed on the contacts list in the compute that I can see. I called Deanna and let her know that we had urgently placed a chest tube and she was okay with that. She stated that she and her are usually once ago with [facility] to doctor's appointments. She will check on the patient later this evening or call in the morning. (2) COVID-19: Code(s): U07.1 - COVID-19 Status: Acute Assessment and Plan: appropriate precautions taken during above exam and procedure. (3) Type 2 diabetes mellitus: Code(s): E11.9 - Type 2 diabetes mellitus without complications Status: Acute Assessment and Plan: This makes the patient at high risk for poor outcome with COVID. Also put some at risk for poor healing. (4) Chronic kidney disease, stage 4 (severe): Code(s): N18.4 - Chronic kidney disease, stage 4 (severe) Status: Acute (5) Acute respiratory failure: Qualifiers: Respiratory failure complication: unspecified whether with hypoxia or hypercapnia Qualified Code(s): J96.00 - Acute respiratory failure, unspecified whether with hypoxia or hypercapnia Code(s): J96.00 - Acute respiratory failure, unspecified whether with hypoxia or hypercapnia Status: Acute (6) Laryngeal cancer: Code(s): C32.9 - Malignant neoplasm of larynx, unspecified Status: Acute History of Present Illness Consult details Consult date: 08/12/21 Reason for consult: chest tube (CT scan of the neck and chest revealed right pneumothorax this afternoon/evening.) Requesting physician: Cristi Overton MD Review of Systems Review of Systems: ROS unobtainable: Yes unobtainable due to endotracheal tube and unobtainable due to mental status PMFSH Past Medical History Medical History Atrophy of right kidney BPH w/o urinary obs/LUTS Chronic kidney disease February 2020 nuclear medicine Lasix renal scan:1. Negligible uptake at the right kidney which is essentially indiscernible from the surrounding background precluding assessment for clearance. 2. Moderately delayed clearance from the left kidney consistent with partial obstruction which may be clinically significant. Chronic kidney disease, stage 4 (severe) CKD (chronic kidney disease) stage 3, GFR 30-59 ml/min Closed pelvic fracture (11/2020) COPD mixed type Degenerative arthritis of knee, bilateral Diastolic dysfunction (11/2020) Dyslipidemia Essential (primary) hypertension Hemoglobin A1c less than 7.0% 04/11/21 A1C = 5.7 Hydronephrosis of right kidney severe chronic right hydronephrosis with severe right renal cortical atrophy Hypothyroidism (acquired) Kidney stones bilateral nonobstructing nephrolithiasis SAVANNA (obstructive sleep apnea) uses CPAP Osteoarthritis Osteoporosis uncertain etiology with multiple insufficiency fractures iliac crest, multiple lumba
[2021-08-12 21:01] LABS: Troponin I 0.024 ng/mL (0.000-0.034)
[2021-08-12 21:03] LABS: Glucose Point of Care 119 mg/dl (65-105)
[2021-08-12 23:32] LABS: Hematocrit 30.9 % (42.0-52.0); Hemoglobin 9.5 g/dL (14.0-18.0)
[2021-08-12] MEDS: CELLULOSE OXIDIZED 2 x 3 INCH 1 PKT XX ×2 (23:40)
[2021-08-12 23:43] LABS: INR 1.1; Prothrombin Time 13.9 Seconds (11.1-14.7)
[2021-08-12 23:46] LABS: Partial Thromboplastin Time 41.5 SECONDS (22.3-36.8)
[2021-08-13] VITALS (28 sets, daily range): BP systolic 94–121; BP diastolic 60–74; PULSE 71–101; RESP 8–99; TEMP 35.9–37.7; O2SAT 93–100
[2021-08-13] MEDS: FENTANYL 2,500MCG/NS250ML(*CRX 2,500 MCG/250 ML BAG 15 MCG IV CONT ×2 (00:29→16:55)
[2021-08-13] MEDS: MIDAZOLAM 100MG/NS 100ML(*CRX) 100 MG/100 ML BAG 6 MG IV CONT ×2 (00:30→16:56)
[2021-08-13 01:20] LABS: Glucose Point of Care 114 mg/dl (65-105)
[2021-08-13] MEDS: ALBUTEROL SULFATE NEB 2.5 MG/0.5 ML INH INHALATION ×4 (02:30→21:03)
[2021-08-13] MEDS: IPRATROPIUM BR 0.02% INH SOLN 0.5 MG/2.5 ML VIAL INHALATION ×4 (02:30→21:03)
[2021-08-13 04:40] LABS: Hematocrit 29.8 % (42.0-52.0); Hemoglobin 9.2 g/dL (14.0-18.0); Mean Corpuscular HGB Conc 30.9 g/dl (32-36); Mean Corpuscular Hemoglobin 28.3 pg (26-34); Mean Corpuscular Volume 91.7 fl (80-100); Mean Platelet Volume 8.3 fl (7.4-10.4); Platelet Count Result 189 k/mm3 (150-375); Red Blood Count 3.25 M/mm3 (4.6-6.20); Red Cell Distribution Width 15.7 % (11.5-14.5); White Blood Count 5.3 K/mm3 (4.5-10.0)
[2021-08-13 04:52] LABS: Alanine Aminotransferase 18 U/L (4-50); Albumin Level 2.9 g/dL (3.5-5.1); Alkaline Phosphatase 74 U/L (38-126); Anion Gap 4 mmol/L (8-16); Aspartate Amino Transferase 24 U/L (17-59); Bilirubin,Total 0.3 mg/dL (0.2-1.3); Blood Urea Nitrogen 50 mg/dL (9-20); Calcium 7.8 mg/dL (8.4-10.2); Carbon Dioxide 27 mmol/L (22-30); Chloride 108 mmol/L (98-107); Estimated Glomerular Filt Rate 36; Glucose 115 mg/dL (65-110); Lactate Dehydrogenase 485 U/L (313-618); Magnesium 2.1 mg/dL (1.6-2.3); Potassium 4.9 mmol/L (3.4-5.0); Sodium 139 mmol/L (137-145)
[2021-08-13] MEDS: LEVOTHYROXINE SODIUM 100 MCG, LEVOTHYROXINE SODIUM 75 MCG 175 MCG FEED TUBE (06:13)
[2021-08-13 08:15] LABS: Alveolar/Arterial O2 Gradient 43.6 mmHg; Base Excess ABG -5.9 mEq/l (+/-2.0); Carboxyhemoglobin 0.2 % THb (0-2.0); Fractional Inspired Oxygen 30 %; HCO3 ABG 19.6 mEq/l (22.0-26.0); Methemoglobin ABG 0.1 %THb (0-1.5); Oxygen Saturation ABG 98.3 % (95.0-100.0); Oxyhemoglobin 96.8 % THb (90.0-100.0); PCO2 ABG 38.4 mmHg (35.0-45.0); PO2 ABG 125.2 mmHg (80.0-100.0); PO2 FiO2 Ratio Arterial Blood 4.17 %; Reduced Hemoglobin 2.9 %THb (0-5.0); Total Hemoglobin 9.4 g/dL (12.0-18.0); pH ABG 7.326 (7.350-7.450)
[2021-08-13 08:16] LABS: Arterial Blood Gas PEEP 5 cmH2O; Arterial Blood Gas Tidal Volume 340 ml; Arterial Blood Gas Vent Mode CMV; Arterial Blood Gas Ventilator rate 16 /MIN; Device VENTILATOR; Modified Allen's Test Pass; Site Drawn LEFT RADIAL
--- NOTE | 2021-08-13 09:03 | ECG_ITS ---
Measurements Intervals [place] Rate: 93 P: 21 NE: 153 QRS: -61 QRSD: 104 T: 36 QT: 328 QTc: 409 Interpretive Statements SINUS RHYTHM LEFT ANTERIOR FASCICULAR BLOC BASELINE ARTIFACT- I, II, AVR, AVL, AVF, V1-V4 ABNORMAL ECG Electronically Signed On 08-13-2021 14:22:17 DANDY OPERATOR by Junior Renner D.O.
[2021-08-13] MEDS: PANTOPRAZOLE SODIUM IV 40 MG VIAL IV PUSH (09:19)
[2021-08-13] MEDS: MINERAL OIL/WHITE PETROLATUM OINTMENT 1 APPLIC EACH EYE ×2 (09:20→23:01)
[2021-08-13] MEDS: ASPIRIN 81 MG ENTERIC TABLET PO (09:20)
--- NOTE | 2021-08-13 10:26 | WPDINTPN ---
Progress Note: A&P Assessment and Plan (1) Acute respiratory failure: Qualifiers: Respiratory failure complication: unspecified whether with hypoxia or hypercapnia Qualified Code(s): J96.00 - Acute respiratory failure, unspecified whether with hypoxia or hypercapnia Code(s): J96.00 - Acute respiratory failure, unspecified whether with hypoxia or hypercapnia Status: Acute Assessment and Plan: Acute Respiratory failure secondary to acute airway obstruction, possible pneumonia aspiration, pulmonary edema and COVID-19 pneumonia, right pneumothorax Continue full mechanical ventilation support to prevent hypoxemia/hypercarbia and end organ damage. ABG and PCXR reviewed failed his weaning trial today due to appy Low tidal volume ventilation strategy to prevent volutrauma Bronchodilators CT chest IMPRESSION: 1. Small to moderate right-sided pneumothorax. 2. Mottled bone appearance, with numerous fractures most likely chronic but some subacute. Consider aggressive osteopenia, metastatic disease, multiple myeloma. 3. Multisegmental right lower lobe, segmental left lower lobe atelectasis. 4. Cardiomegaly. 5. Chronic findings. 6. Tubes in position. (2) Acute airway obstruction: Code(s): J98.8 - Other specified respiratory disorders Status: Acute Assessment and Plan: Patient has history of laryngeal cancer and treatment with chemo radiation. He has been noncompliant with follow-up with oral surgery and ENT at [facility]. He presented with acutely Obstructed airway, supraglottic edema, glottic edema 2/4 Patient was taken to operating room from ER and underwent emergent cricoidotomy performed, 7 proximal XLT Shiley placed over bougie small trachea. Some glottic edema some leukoplakic tissue on the left biopsied no ashwini or obvious recurrence he is on dexamethasone both for COVID and should help with airway edema I have called [facility] for transfer for oral surgery to revise his tracheostomy. I have discussed both ENT and Medical ICU physician there. They have accepted the patient But do not have a bed at this time.[facility] will call back once bed is available 2/5 CT soft tissue neck Generalized nonspecific fat stranding within the subcutaneous tissues of the neck. Mass previously described abutting the right submandibular gland, treated alex metastatic disease probably visualized on this noncontrast study There is no cervical lymphadenopathy. There are no masses identified. (3) COVID-19: Code(s): U07.1 - COVID-19 Status: Acute Assessment and Plan: SARS-CoV-2 PCR positive Patient is in Airborne, Droplet and Contact Isolation Continue dexamethasone not a candidate for remdesivir as his GFR is less than 30 CT chest does not suggest changes suggestive of COVID-19 pneumonia Continue antibiotics for empiric bacterial coverage his LDH and ferritin are normal which also goes against COVID-19 pneumonia (4) Chronic kidney disease, stage 4 (severe): Code(s): N18.4 - Chronic kidney disease, stage 4 (severe) Status: Acute Assessment and Plan: creatinine was elevated as compared to baseline on present improved with IV fluids. Hold further IV fluids as patient is overall volume overloaded monitor urine output electrolytes and creatinine (5) Type 2 diabetes mellitus: Code(s): E11.9 - Type 2 diabetes mellitus without complications Status: Acute Assessment and Plan: sliding scale insulin (6) Laryngeal cancer: Code(s): C32.9 - Malignant neoplasm of larynx, unspecified Status: Acute Assessment and Plan: biopsy was done at the time patient underwent cricothyrotomy management deferred to Oncology (7) Hyperkalemia: Code(s): E87.5 - Hyperkalemia Status: Acute Assessment and Plan: resolved with a dose of Kayexalate (8) Dietary surveillance and
[2021-08-13 10:48] LABS: Hematocrit 27.4 % (42.0-52.0); Hemoglobin 8.5 g/dL (14.0-18.0)
[2021-08-13 11:38] LABS: Glucose Point of Care 140 mg/dl (65-105)
[2021-08-13] MEDS: CELLULOSE OXIDIZED 2 x 14 INCH 2 PKT XX (12:41)
--- NOTE | 2021-08-13 12:56 | PM.CNCAR ---
Assessment and Plan Assessment and plan (1) Sinus pause: Code(s): I45.5 - Other specified heart block Status: Acute Assessment and Plan: 60-year-old male with history of COPD, hypertension, type 2 diabetes mellitus, sleep apnea, hypothyroidism, pulmonary embolism, and laryngeal cancer.. Patient admitted with respiratory distress, underwent emergent trach in the setting of underlying laryngeal cancer and airway obstruction; postprocedure had pneumothorax and status post right chest tube placement. During his stay in the ICU, patient had pauses up to 6 seconds in the setting of pneumothorax, respiratory failure, COVID-19 infection. He is not on any AV alex blocking agents. There is no known prior history of any bradyarrhythmias. -continue to monitor closely. Patient currently is in sinus rhythm. EKG showed sinus rhythm with left anterior fascicular block. -avoid any AV alex blocking agents -keep atropine and transcutaneous pads at bedside -echocardiogram with Doppler has been ordered, results are pending -patient is awaiting transfer to [facility] for further management of his laryngeal cancer (2) COVID-19: Code(s): U07.1 - COVID-19 Status: Acute Assessment and Plan: Management as per primary team. Patient is receiving steroids. Not a candidate for remdesivir due to renal failure. (3) Acute airway obstruction: Code(s): J98.8 - Other specified respiratory disorders Status: Acute Assessment and Plan: Status post trach, management by ENT and medical practice manager (4) Pneumothorax on right: Onset Date: ~08/12/21 Code(s): J93.9 - Pneumothorax, unspecified Status: Acute Assessment and Plan: Status post chest tube History of Present Illness History of Present Illness Consult date/time: 08/13/21 12:56 DATE OF CONSULT: 08/13/2021 REASON FOR CONSULT: Sinus pause REQUESTING PHYSICIAN:Cristi Overton MD CHIEF COMPLAINT: 60-year-old male with history of COPD, hypertension, type 2 diabetes mellitus, sleep apnea, hypothyroidism, pulmonary embolism, and laryngeal cancer. Patient presented to [facility] Emergency Room 08/11/2021 with complaints of shortness of worsening shortness of breath. He was found to be positive for COVID-19 infection. Patient was initially placed on BiPAP.. ENT was consulted and patient was taken emergently to operating room. Patient underwent emergent trach placement. Postprocedure he was admitted to ICU on mechanical ventilation and sedated. Patient was found to have pneumothorax and underwent right chest tube placement. During his stay in the ICU, patient had pauses, maximum up to 6 seconds. There is no known prior cardiac history including any known arrhythmias. EKG at admission showed sinus rhythm with incomplete right bundle-branch block. EKG from today showed sinus rhythm with left anterior fascicular block. Previous echocardiogram from 03/14/2019 showed normal LV systolic function. At the time of evaluation today, patient was on trach and on ventilator, and sedated. Information was gathered from the extent review of the chart and from the ICU physician and the staff. Reason For Visit: Obstructed airway Review of Systems Review of Systems: Review of system is unobtainable due to patient being on trach and vent and sedated. He presented with worsening shortness of breath. There is no documented chest pain. I personally did extensive review of the chart, spoke with the medical practice manager and ICU team. Information was gathered from all the available sources. ROS unobtainable: Yes unobtainable due to endotracheal tube, unobtainable due to medical condition and unobtainable due to mental status PMFSH Past Medical History Medical History Atrophy of right kidney BPH w/o urinary obs/LUTS Chronic kidney disease February 2020 nuclear medicine Lasix renal scan:1. Negligible uptake
[2021-08-13] MEDS: ATORVASTATIN 10 MG TABLET FEED TUBE (13:32)
[2021-08-13 13:42] LABS: Glucose Point of Care 147 mg/dl (65-105)
--- NOTE | 2021-08-13 14:44 | PM.IMPN ---
Progress Note: A&P Assessment and Plan (1) Acute respiratory failure: Qualifiers: Respiratory failure complication: unspecified whether with hypoxia or hypercapnia Qualified Code(s): J96.00 - Acute respiratory failure, unspecified whether with hypoxia or hypercapnia Code(s): J96.00 - Acute respiratory failure, unspecified whether with hypoxia or hypercapnia Status: Acute Assessment and Plan: Acute Respiratory failure secondary to acute airway obstruction, possible pneumonia, pulmonary edema and COVID-19 pneumonia Chest x-ray with patchy mid and lower infiltrates pneumonia versus pulmonary edema Currently on full mechanical ventilation support Graphics Artist following and further ventilatory management per bulk coolers installer ct chest with right small to mderate pneumothorax s/p chest tube placement 08/12/2021 Continue Bronchodilators on wean trial this am, which he failed (2) Acute airway obstruction: Code(s): J98.8 - Other specified respiratory disorders Status: Acute Assessment and Plan: Patient has history of laryngeal cancer and treatment with chemo radiation. He has been noncompliant with follow-up with oral surgery and ENT at [facility]. He presented with acutely obstructed airway, supraglottic edema, glottic edema 2 Patient was taken to operating room from ER and underwent emergent cricoidotomy performed, 7 proximal XLT Shiley placed over bougie small trachea. Some glottic edema some leukoplakic tissue on the left biopsied no ashwini or obvious recurrence he is on dexamethasone both for COVID and should help with airway edema He is planned for transfer to [facility] for oral surgery (3) COVID-19: Code(s): U07.1 - COVID-19 Status: Acute Assessment and Plan: SARS-CoV-2 PCR positive Patient is in Airborne, Droplet and Contact Isolation Continue dexamethasone not a candidate for remdesivir as his GFR is less than [address] chest with right ptx. s/p chset tube placement 08/12/2021 Currently Zosyn for possible aspiration Monitor inflammatory markers (4) Chronic kidney disease, stage 4 (severe): Code(s): N18.4 - Chronic kidney disease, stage 4 (severe) Status: Acute Assessment and Plan: Baseline creatinine high 1s currently in low 2s continue to monitor (5) Type 2 diabetes mellitus: Code(s): E11.9 - Type 2 diabetes mellitus without complications Status: Acute Assessment and Plan: sliding scale insulin (6) Laryngeal cancer: Code(s): C32.9 - Malignant neoplasm of larynx, unspecified Status: Acute Assessment and Plan: biopsy was done at the time patient underwent cricothyrotomy management deferred to Oncology (7) Hyperkalemia: Code(s): E87.5 - Hyperkalemia Status: Acute Assessment and Plan: Kayexalate for mild hyperkalemia (8) Dietary surveillance and counseling: Code(s): Z71.3 - Dietary counseling and surveillance Status: Acute Assessment and Plan: NG tube placed started on tube feeds. I anticipate the patient will continue need tube feeding light of emergent tracheostomy placement and will likely need a PEG tube. (9) Venous thromboembolism: Code(s): I82.90 - Acute embolism and thrombosis of unspecified vein Status: Acute Assessment and Plan: he has this history of VTE although I am not aware of any details but he is on apixaban as an outpatient. I will start him on Lovenox hence he will be needing further surgical procedures. (10) Elevated troponin: Code(s): R77.8 - Other specified abnormalities of plasma proteins Status: Acute Assessment and Plan: patient has slightly elevated troponin on presentation which could be secondary to respiratory failure and also has chronic kidney disease repeat troponin normal this morning he is on aspirin statin and anticoagulation wi
[2021-08-13 17:22] LABS: CRP 3.3 mg/dL (<1.0)
[2021-08-13 19:37] LABS: Glucose Point of Care 179 mg/dl (65-105)
[2021-08-13 21:44] LABS: Glucose Point of Care 140 mg/dl (65-105)
[2021-08-13 21:49] LABS: Hematocrit 24.7 % (42.0-52.0); Hemoglobin 7.6 g/dL (14.0-18.0)
--- NOTE | 2021-08-13 22:07 | PC.NURSE ---
2485 Pause noted per cardiac rehabilitation specialist. Dr. Overton informed. Pacer pads on and atropine at bedside.
--- NOTE | 2021-08-13 23:38 | PM.PNGS ---
Progress Note: A&P Assessment and Plan (1) Pneumothorax on right: Onset Date: ~08/12/21 Code(s): J93.9 - Pneumothorax, unspecified Status: Acute Assessment and Plan: The chest x-ray today shows the pneumothorax has been resolved. However patient is on positive pressure breathing. Would recommend leaving the right chest tube in place until he is off positive pressure breathing breathing and there is no air leak. (2) COVID-19: Code(s): U07.1 - COVID-19 Status: Acute (3) Type 2 diabetes mellitus: Code(s): E11.9 - Type 2 diabetes mellitus without complications Status: Acute (4) Acute respiratory failure: Qualifiers: Respiratory failure complication: unspecified whether with hypoxia or hypercapnia Qualified Code(s): J96.00 - Acute respiratory failure, unspecified whether with hypoxia or hypercapnia Code(s): J96.00 - Acute respiratory failure, unspecified whether with hypoxia or hypercapnia Status: Acute Additional Plan Care discussed with Dr. Overton. Subjective Subjective Date/Time Seen: 08/13/21 10:38 Patient is sedated and a ventilator. Nurses report patient comfortable. No air leak in the chest tube system. I was called round this time because patient was continuing to ooze some bright red blood around the chest tube site. Review of Systems Review of Systems: ROS unobtainable: Yes unobtainable due to endotracheal tube and unobtainable due to mental status Exam Narrative: Limited to the chest. Patient had distant breath sounds. Nurses had removed all the dressing around his chest tube. There was a slow ooze of some red blood mainly anterior to the chest tube. Procedure: In order to try to put and the bleeding around the chest tube put on sterile gloves cleansed around the tube with some Betadine and then obtained a 2 0 silk suture [id number] silk suture was placed both the anterior and superior and lateral to the chest tube in the incision from previous test tube placement this was tied then 2 small pieces of Surgicel were cut and placed into the remaining opening along side the chest tube these were folded and then the entire it covered with Vaseline gauze. Following this a 3 x 3 was split and around the chest tube exit site and then chest tube was taped to the patient standard fashion with nylon 2 in tape from all 4 directions. Also noticed that there was blood clot within the connector between the chest tube and the Pleur-Evac therefore I went ahead and removed the tape holding this together remove the connector from the chest tube and blood clot was rolled out of the chest tube with a sterile 4 x 4 and then this was reconnected. I checked the fluctuation on the Pleur-Evac after this was done and when the nurse did endotracheal suction on the patient and he coughs there was fluctuation within the system indicating patent chest tube in Pleur-Evac system. I left this to the nurses to re-taped the connector to be sure that would come apart. Approximately 5 hours later in the day I did check back the nurse and they stated stated that the dressing was stained dry. Const: General: tired appearing and other ( Sedated on the ventilator with a tracheostomy tube in place.) Nutritional Appearance: obese Objective Data Vital Signs Vital Signs: Vital Signs - 24 hr 08/13/21 00:00 08/13/21 00:29 08/13/21 02:00 Temperature 35.9 C L Pulse Rate 71 72 72 Respiratory Rate 16 8 L Blood Pressure 105/73 121/73 Pulse Oximetry 100 99 08/13/21 02:30 08/13/21 02:45 08/13/21 04:00 Temperature Pulse Rate 76 74 74 Respiratory Rate 16 16 16 Blood Pressure 94/71 L Pulse Oximetry 100 08/13/21 06:00 08/13/21 08:00 08/13/21 08:35 Temperature 35.9 C L 37.7 C H Pulse Rate 80 92 80 Respiratory Rate 16 16 Blood Pressure 97/70 L 103/72 Pulse Oximetry 99 93 98 08/13/21 08:36 08/13/21 08:50 08/13/21 10:00 Temperature Pulse Rate 80 8
[2021-08-14] VITALS (35 sets, daily range): BP systolic 102–137; BP diastolic 58–85; PULSE 70–100; RESP 16–98; TEMP 36–36.6; O2SAT 93–100; BMI 36.1
--- NOTE | 2021-08-14 | ECHO_ITS ---
Patient Info Name: Campbell Chandra Age: 60 years : 1960 Gender: Male Ht: 57 in Wt: 213 lbs BSA: 2.04 m2 HR: 89 bpm BP: 123 / 73 mmHg Heart Rhythm: Sinus Rhythm Exam Date: 08/14/2021 9:18 AM Exam Location: [facility] Pulmonary Patient Status: Inpatient Admit Date: 08/11/2021 Staff Ordering Physician: Cristi Overton MD Broke Man: Eugenio Mcgregor, SHAUNCS, RT Attending Provider: Faiza Caldera MD Exam Type: CA echo doppler color flow Study Info Indications I50.9 - Heart failure, unspecified Complete two-dimensional, color flow and Doppler transthoracic echocardiogram is performed. Summary 1. Complete two-dimensional, color flow and Doppler transthoracic echocardiogram is performed. 2. Left ventricular chamber dimension is normal. 3. Left ventricular systolic function is normal, estimated at 60-65%. 4. Right ventricular chamber dimension is mildly enlarged. 5. No significant valvular abnormality. 6. Compared with exam from January of 2021. RV systolic function looks better,. Left Ventricle Left ventricular chamber dimension is normal. Left ventricular systolic function is normal, estimated at 60-65%. The left ventricular diastolic function is grade I diastolic dysfunction. Right Ventricle Right ventricular chamber dimension is mildly enlarged. Right ventricular systolic function is normal. Left Atria Left atrial chamber dimension is mildly enlarged. Right Atria Right atrial chamber dimension is normal. Aortic Valve The aortic valve is normal. Pulmonic Valve The pulmonic valve is not well visualized. Mitral Valve The mitral valve has normal leaflets. Tricuspid Valve The tricuspid valve leaflets are not well visualized. Pericardium/Pleural The pericardium appears normal. Aorta The aortic root size at the sinus of Valsalva is normal. Left Ventricular Outflow Tract Name Value Normal LVOT 2D LVOT Diameter 1.9 cm LVOT Doppler LVOT Peak Gradient 2 mmHg LVOT Mean Gradient 1 mmHg LVOT VTI 12 cm LVOT VTI/AV VTI Ratio 0.6 LVOT Stroke Volume 32 ml LVOT CO 2.7 l/min LVOT CI 1.3 l/min/m2 Mitral Valve Name Value Normal MV Doppler MV Decel [place] 401 cm/s2 MV PHT 57 ms MV Area (PHT) 3.9 cm2 4.0-5.0 MV Diastolic Function MV E Peak Velocity 78 cm/s MV A Peak Velocity 59 cm/s MV E/A 1.3 MV Decel Time 196 ms MV Annular TDI
[2021-08-14 00:36] LABS: Glucose Point of Care 140 mg/dl (65-105)
[2021-08-14 03:38] LABS: Hematocrit 22.6 % (42.0-52.0); Hemoglobin 7.1 g/dL (14.0-18.0); Mean Corpuscular HGB Conc 31.4 g/dl (32-36); Mean Corpuscular Hemoglobin 28.2 pg (26-34); Mean Corpuscular Volume 89.7 fl (80-100); Mean Platelet Volume 8.9 fl (7.4-10.4); Platelet Count Result 190 k/mm3 (150-375); Red Blood Count 2.52 M/mm3 (4.6-6.20); Red Cell Distribution Width 15.9 % (11.5-14.5); White Blood Count 2.2 K/mm3 (4.5-10.0)
[2021-08-14 04:19] LABS: Alanine Aminotransferase 16 U/L (4-50); Albumin Level 2.7 g/dL (3.5-5.1); Alkaline Phosphatase 61 U/L (38-126); Anion Gap 2 mmol/L (8-16); Aspartate Amino Transferase 21 U/L (17-59); Bilirubin,Total 0.2 mg/dL (0.2-1.3); Blood Urea Nitrogen 64 mg/dL (9-20); Calcium 7.8 mg/dL (8.4-10.2); Carbon Dioxide 28 mmol/L (22-30); Chloride 107 mmol/L (98-107); Estimated Glomerular Filt Rate 32; Glucose 150 mg/dL (65-110); Magnesium 2.3 mg/dL (1.6-2.3); Potassium 5.2 mmol/L (3.4-5.0); Sodium 137 mmol/L (137-145)
[2021-08-14] MEDS: LEVOTHYROXINE SODIUM 100 MCG, LEVOTHYROXINE SODIUM 75 MCG 175 MCG FEED TUBE (06:07)
[2021-08-14 06:47] LABS: Alveolar/Arterial O2 Gradient 109.4 mmHg; Base Excess ABG 0.2 mEq/l (+/-2.0); Carboxyhemoglobin 0.3 % THb (0-2.0); Fractional Inspired Oxygen 35 %; HCO3 ABG 26.1 mEq/l (22.0-26.0); Methemoglobin ABG 0.3 %THb (0-1.5); Oxygen Content ABG 10.4 %vol (16.0-22.0); Oxygen Saturation ABG 95.5 % (95.0-100.0); Oxyhemoglobin 93.1 % THb (90.0-100.0); PCO2 ABG 49.2 mmHg (35.0-45.0); PO2 FiO2 Ratio Arterial Blood 2.37 %; Reduced Hemoglobin 6.3 %THb (0-5.0); pH ABG 7.342 (7.350-7.450)
[2021-08-14 06:49] LABS: Modified Allen's Test Pass; Site Drawn RIGHT RADIAL; Total Hemoglobin 7.8 g/dL (12.0-18.0)
[2021-08-14 06:50] LABS: Arterial Blood Gas PEEP 5 cmH2O; Arterial Blood Gas Tidal Volume 340 ml; Arterial Blood Gas Vent Mode CMV; Arterial Blood Gas Ventilator rate 16 /MIN; Device VENTILATOR
[2021-08-14] MEDS: ATORVASTATIN 10 MG TABLET FEED TUBE (08:01)
[2021-08-14] MEDS: PANTOPRAZOLE SODIUM IV 40 MG VIAL IV PUSH ×3 (08:02→20:31)
[2021-08-14] MEDS: MINERAL OIL/WHITE PETROLATUM OINTMENT 1 APPLIC EACH EYE ×2 (08:02→20:31)
[2021-08-14] MEDS: MIDAZOLAM 100MG/NS 100ML(*CRX) 100 MG/100 ML BAG 6 MG IV CONT (08:19)
[2021-08-14] MEDS: IPRATROPIUM BR 0.02% INH SOLN 0.5 MG/2.5 ML VIAL INHALATION ×3 (08:39→19:37)
[2021-08-14] MEDS: ALBUTEROL SULFATE NEB 2.5 MG/0.5 ML INH INHALATION ×3 (08:39→19:37)
[2021-08-14 09:30] LABS: Glucose Point of Care 149 mg/dl (65-105)
[2021-08-14] MEDS: FENTANYL 2,500MCG/NS250ML(*CRX 2,500 MCG/250 ML BAG 15 MCG IV CONT (09:56)
[2021-08-14] MEDS: SODIUM POLYSTYRENE SULFONONATE 15 GM/60 ML BTL 30 GM FEED TUBE (09:56)
[2021-08-14] MEDS: DEXTROSE 50% 25 GM/50 ML SYRINGE IV PUSH (10:20)
[2021-08-14] MEDS: INSULIN HUMAN REGULAR (*BKC) 100 UNITS/ML 7.6 UNITS IV PUSH (10:21)
--- NOTE | 2021-08-14 11:05 | WPDINTPN ---
Progress Note: A&P Assessment and Plan (1) Acute respiratory failure: Qualifiers: Respiratory failure complication: unspecified whether with hypoxia or hypercapnia Qualified Code(s): J96.00 - Acute respiratory failure, unspecified whether with hypoxia or hypercapnia Code(s): J96.00 - Acute respiratory failure, unspecified whether with hypoxia or hypercapnia Status: Acute Assessment and Plan: Acute Respiratory failure secondary to acute airway obstruction, possible pneumonia aspiration, pulmonary edema and COVID-19 pneumonia, right pneumothorax Continue full mechanical ventilation support to prevent hypoxemia/hypercarbia and end organ damage. ABG reviewed and increase respiratory rate to 18 PCXR reviewed 2/6 failed weaning trial due to apnea. He is too unstable at this time for weaning trial Low tidal volume ventilation strategy to prevent volutrauma Bronchodilators CT chest IMPRESSION: 1. Small to moderate right-sided pneumothorax. 2. Mottled bone appearance, with numerous fractures most likely chronic but some subacute. Consider aggressive osteopenia, metastatic disease, multiple myeloma. 3. Multisegmental right lower lobe, segmental left lower lobe atelectasis. 4. Cardiomegaly. 5. Chronic findings. 6. Tubes in position. (2) Acute airway obstruction: Code(s): J98.8 - Other specified respiratory disorders Status: Acute Assessment and Plan: Patient has history of laryngeal cancer and treatment with chemo radiation. He has been noncompliant with follow-up with oral surgery and ENT at [facility]. He presented with acutely Obstructed airway, supraglottic edema, glottic edema 2/4 Patient was taken to operating room from ER and underwent emergent cricoidotomy performed, 7 proximal XLT Shiley placed over bougie small trachea. Some glottic edema some leukoplakic tissue on the left biopsied no ashwini or obvious recurrence he is on dexamethasone both for COVID and should help with airway edema I have called [facility] for transfer for oral surgery to revise his tracheostomy. I have discussed both ENT and Medical ICU physician there. They have accepted the patient But do not have a bed at this time. [facility] will call back once bed is available 2/5 CT soft tissue neck Generalized nonspecific fat stranding within the subcutaneous tissues of the neck. Mass previously described abutting the right submandibular gland, treated alex metastatic disease probably visualized on this noncontrast study There is no cervical lymphadenopathy. There are no masses identified. (3) COVID-19: Code(s): U07.1 - COVID-19 Status: Acute Assessment and Plan: SARS-CoV-2 PCR positive Patient is in Airborne, Droplet and Contact Isolation Continue dexamethasone. He is not a candidate for remdesivir as his GFR is less than 30 CT chest does not suggest changes suggestive of COVID-19 pneumonia Continue antibiotics for empiric bacterial coverage his LDH and ferritin are normal which also goes against COVID-19 pneumonia (4) Chronic kidney disease, stage 4 (severe): Code(s): N18.4 - Chronic kidney disease, stage 4 (severe) Status: Acute Assessment and Plan: creatinine was elevated as compared to baseline on present improved with IV fluids. Hold further IV fluids as patient is overall volume overloaded add albumin to minimize third-spacing monitor urine output electrolytes and creatinine (5) Type 2 diabetes mellitus: Code(s): E11.9 - Type 2 diabetes mellitus without complications Status: Acute Assessment and Plan: sliding scale insulin (6) Laryngeal cancer: Code(s): C32.9 - Malignant neoplasm of larynx, unspecified Status: Acute Assessment and Plan: biopsy was done at the time patient underwent cricothyrotomy management deferred to Oncology (7) Hyperkalemia: Code(s):
[2021-08-14 11:52] LABS: Glucose Point of Care 135 mg/dl (65-105)
[2021-08-14 12:21] LABS: Hematocrit 24.6 % (42.0-52.0); Hemoglobin 7.6 g/dL (14.0-18.0); Mean Corpuscular HGB Conc 30.9 g/dl (32-36); Mean Corpuscular Volume 90.8 fl (80-100); Mean Platelet Volume 8.4 fl (7.4-10.4); Platelet Count Result 207 k/mm3 (150-375); Red Blood Count 2.71 M/mm3 (4.6-6.20); Red Cell Distribution Width 15.8 % (11.5-14.5); White Blood Count 2.5 K/mm3 (4.5-10.0)
[2021-08-14 12:31] LABS: INR 1.1; Prothrombin Time 13.9 Seconds (11.1-14.7)
[2021-08-14] MEDS: ALBUMIN HUMAN 25% 25 GM/100 ML 100 ML IVPB ×3 (12:32→23:07)
[2021-08-14 12:37] LABS: Fibrinogen 286 mg/dl (215-510)
--- NOTE | 2021-08-14 14:57 | PM.EVENT ---
Event Note Event Note Event Note: Family Meeting I met with patient's , 's sister, patient's mother and father in law in presence of home visit field care manager Tye and patient's nurse Maria to discuss medical decisions and level of care regarding patient's current condition. I had spoken to patient's mother and father love who essentially take care of both patient and his earlier on phone. Patient himself is unable to participate. I updated all of them Again patient's current condition including airway obstruction requiring emergent cricothyroidotomy and need for revision of his tracheostomy, the fact that tracheostomy may end up being permanent, he may need a feeding tube, he may need to go to a long-term or a long-term acute care facility post discharge, drop in hemoglobin, right pneumothorax requiring chest tube placement, underlying medical conditions of chronic kidney disease and diabetes and episodes of sinus pauses which may need of temporary if not permanent pacemaker. I also explained detail our current treatment plan, our plan to transfer patient to [facility] once bed is available, expected prognosis and different potential outcomes. they told me that patient clearly told them that he did not want hemodialysis, did not want tracheostomy and did not want to live in a facility of any kind. we also discussed his current level of activity and the need of help he was needing at home. I discussed options of continuing current treatment, continue current treatment and making him DNR in the event of cardiac arrest and also option of hospice and comfort care. They have decided to make patient DNR at this time but continue current therapy. They will discuss among themselves and also with patient's mother for making any decisions regarding goals of care. Total time spent in advance care planning 35 minutes
--- NOTE | 2021-08-14 17:22 | PM.IMPN ---
Progress Note: A&P Assessment and Plan (1) Acute respiratory failure: Qualifiers: Respiratory failure complication: unspecified whether with hypoxia or hypercapnia Qualified Code(s): J96.00 - Acute respiratory failure, unspecified whether with hypoxia or hypercapnia Code(s): J96.00 - Acute respiratory failure, unspecified whether with hypoxia or hypercapnia Status: Acute Assessment and Plan: Acute Respiratory failure secondary to acute airway obstruction, possible pneumonia, pulmonary edema and COVID-19 pneumonia Chest x-ray with patchy mid and lower infiltrates pneumonia versus pulmonary edema Currently on full mechanical ventilation support Video Arc[employer] Manager following and further ventilatory management per ream cutter ct chest with right small to mderate pneumothorax s/p chest tube placement 08/12/2021 Continue Bronchodilators He has failed weaning trial (2) Acute airway obstruction: Code(s): J98.8 - Other specified respiratory disorders Status: Acute Assessment and Plan: Patient has history of laryngeal cancer and treatment with chemo radiation. He has been noncompliant with follow-up with oral surgery and ENT at [facility]. He presented with acutely obstructed airway, supraglottic edema, glottic edema 08/11 Patient was taken to operating room from ER and underwent emergent cricoidotomy performed, 7 proximal XLT Shiley placed over bougie small trachea. Some glottic edema some leukoplakic tissue on the left biopsied no ashwini or obvious recurrence he is on dexamethasone both for COVID and should help with airway edema He is planned for transfer to [facility] for oral surgery (3) COVID-19: Code(s): U07.1 - COVID-19 Status: Acute Assessment and Plan: SARS-CoV-2 PCR positive Patient is in Airborne, Droplet and Contact Isolation Continue dexamethasone not a candidate for remdesivir as his GFR is less than [address] chest with right ptx. s/p chset tube placement 08/12/2021 Currently Zosyn for possible aspiration Monitor inflammatory markers (4) Chronic kidney disease, stage 4 (severe): Code(s): N18.4 - Chronic kidney disease, stage 4 (severe) Status: Acute Assessment and Plan: Baseline creatinine high 1s currently in low 2s continue to monitor (5) Type 2 diabetes mellitus: Code(s): E11.9 - Type 2 diabetes mellitus without complications Status: Acute Assessment and Plan: sliding scale insulin (6) Laryngeal cancer: Code(s): C32.9 - Malignant neoplasm of larynx, unspecified Status: Acute Assessment and Plan: biopsy was done at the time patient underwent cricothyrotomy management deferred to Oncology (7) Hyperkalemia: Code(s): E87.5 - Hyperkalemia Status: Acute Assessment and Plan: Kayexalate for mild hyperkalemia (8) Dietary surveillance and counseling: Code(s): Z71.3 - Dietary counseling and surveillance Status: Acute Assessment and Plan: NG tube placed started on tube feeds. I anticipate the patient will continue need tube feeding light of emergent tracheostomy placement and will likely need a PEG tube. (9) Venous thromboembolism: Code(s): I82.90 - Acute embolism and thrombosis of unspecified vein Status: Acute Assessment and Plan: he has this history of VTE although I am not aware of any details but he is on apixaban as an outpatient. I will start him on Lovenox hence he will be needing further surgical procedures. (10) Elevated troponin: Code(s): R77.8 - Other specified abnormalities of plasma proteins Status: Acute Assessment and Plan: patient has slightly elevated troponin on presentation which could be secondary to respiratory failure and also has chronic kidney disease repeat troponin normal this morning he is on aspirin statin and anticoagulation will be eliezer
[2021-08-14 20:51] LABS: Glucose Point of Care 187 mg/dl (65-105)
[2021-08-14 21:04] LABS: Hematocrit 21.2 % (42.0-52.0); Mean Corpuscular HGB Conc 30.2 g/dl (32-36); Mean Corpuscular Hemoglobin 27.7 pg (26-34); Mean Corpuscular Volume 91.8 fl (80-100); Platelet Count Result 184 k/mm3 (150-375); Red Blood Count 2.31 M/mm3 (4.6-6.20); Red Cell Distribution Width 15.9 % (11.5-14.5); White Blood Count 2.2 K/mm3 (4.5-10.0)
[2021-08-14 21:07] LABS: Glucose Point of Care 177 mg/dl (65-105)
[2021-08-14 21:07] LABS: Hemoglobin 6.4 g/dL (14.0-18.0)
[2021-08-15] VITALS (28 sets, daily range): BP systolic 129–164; BP diastolic 70–80; PULSE 71–88; RESP 15–22; TEMP 36.2–36.4; O2SAT 92–99
[2021-08-15 00:46] LABS: Glucose Point of Care 190 mg/dl (65-105)
[2021-08-15] MEDS: SODIUM CHLORIDE 0.9% IV 250 ML 30 ML IV CONT (00:50)
[2021-08-15] MEDS: ALBUTEROL SULFATE NEB 2.5 MG/0.5 ML INH INHALATION ×3 (02:06→14:34)
[2021-08-15] MEDS: IPRATROPIUM BR 0.02% INH SOLN 0.5 MG/2.5 ML VIAL INHALATION ×3 (02:07→14:34)
[2021-08-15] MEDS: MIDAZOLAM 100MG/NS 100ML(*CRX) 100 MG/100 ML BAG 6 MG IV CONT (02:27)
[2021-08-15] MEDS: FENTANYL 2,500MCG/NS250ML(*CRX 2,500 MCG/250 ML BAG 15 MCG IV CONT (02:29)
--- NOTE | 2021-08-15 03:59 | PCRCNOTE ---
Window of time for administration has passed. See next scheduled administration.
[2021-08-15 05:36] LABS: Hematocrit 25.2 % (42.0-52.0); Hemoglobin 7.7 g/dL (14.0-18.0); Mean Corpuscular HGB Conc 30.6 g/dl (32-36); Mean Corpuscular Hemoglobin 28.1 pg (26-34); Mean Platelet Volume 8.8 fl (7.4-10.4); Platelet Count Result 180 k/mm3 (150-375); Red Blood Count 2.74 M/mm3 (4.6-6.20); Red Cell Distribution Width 15.9 % (11.5-14.5); White Blood Count 2.3 K/mm3 (4.5-10.0)
[2021-08-15] MEDS: LEVOTHYROXINE SODIUM 100 MCG, LEVOTHYROXINE SODIUM 75 MCG 175 MCG FEED TUBE (05:37)
[2021-08-15 05:41] LABS: pH ABG 7.235 (7.350-7.450)
[2021-08-15] MEDS: ALBUMIN HUMAN 25% 25 GM/100 ML 100 ML IVPB (05:41)
[2021-08-15 05:42] LABS: Base Excess ABG 1.1 mEq/l (+/-2.0); HCO3 ABG 29.1 mEq/l (22.0-26.0); PCO2 ABG 70.2 mmHg (35.0-45.0); PO2 ABG 63.9 mmHg (80.0-100.0)
[2021-08-15 05:43] LABS: Alanine Aminotransferase 16 U/L (4-50); Albumin Level 3.9 g/dL (3.5-5.1); Alkaline Phosphatase 53 U/L (38-126); Anion Gap 4 mmol/L (8-16); Aspartate Amino Transferase 23 U/L (17-59); Bilirubin,Total 0.3 mg/dL (0.2-1.3); Blood Urea Nitrogen 65 mg/dL (9-20); Calcium 8.3 mg/dL (8.4-10.2); Carbon Dioxide 31 mmol/L (22-30); Chloride 112 mmol/L (98-107); Estimated Glomerular Filt Rate 32; Glucose 194 mg/dL (65-110); Lactate Dehydrogenase 397 U/L (313-618); Magnesium 2.3 mg/dL (1.6-2.3); Sodium 147 mmol/L (137-145)
[2021-08-15 05:43] LABS: Oxygen Saturation ABG 87.6 % (95.0-100.0)
[2021-08-15 05:44] LABS: Oxygen Content ABG 9.2 %vol (16.0-22.0); Total Hemoglobin 7.5 g/dL (12.0-18.0)
[2021-08-15 05:45] LABS: Carboxyhemoglobin 0.4 % THb (0-2.0); Methemoglobin ABG 0.3 %THb (0-1.5); Oxyhemoglobin 86.8 % THb (90.0-100.0); Reduced Hemoglobin 12.5 %THb (0-5.0)
[2021-08-15 05:46] LABS: Device VENTILATOR; Fractional Inspired Oxygen 35 %; Modified Allen's Test Pass; PO2 FiO2 Ratio Arterial Blood 1.83 %; Site Drawn LEFT RADIAL
[2021-08-15 05:47] LABS: Arterial Blood Gas PEEP 5 cmH2O; Arterial Blood Gas Tidal Volume 340 ml; Arterial Blood Gas Vent Mode CMV; Arterial Blood Gas Ventilator rate 18 /MIN
[2021-08-15] MEDS: PANTOPRAZOLE SODIUM IV 40 MG VIAL IV PUSH (08:56)
[2021-08-15] MEDS: MINERAL OIL/WHITE PETROLATUM OINTMENT 1 APPLIC EACH EYE (08:56)
[2021-08-15] MEDS: ATORVASTATIN 10 MG TABLET FEED TUBE (08:56)
--- NOTE | 2021-08-15 11:10 | PM.PNCARD ---
Progress Note: A&P Assessment and Plan (1) Sinus pause: Code(s): I45.5 - Other specified heart block Status: Acute Assessment and Plan: 60-year-old male with history of COPD, hypertension, type 2 diabetes mellitus, sleep apnea, hypothyroidism, pulmonary embolism, and laryngeal cancer.. Patient admitted with respiratory distress, underwent emergent trach in the setting of underlying laryngeal cancer and airway obstruction; postprocedure had pneumothorax and status post right chest tube placement. During his stay in the ICU, patient had pauses up to 6 seconds in the setting of pneumothorax, respiratory failure, COVID-19 infection. He is not on any AV alex blocking agents. There is no known prior history of any bradyarrhythmias. -continue to monitor closely. Patient currently is in sinus rhythm. EKG showed sinus rhythm with left anterior fascicular block. -avoid any AV alex blocking agents -keep atropine and transcutaneous pads at bedside (2) COVID-19: Code(s): U07.1 - COVID-19 Status: Acute Assessment and Plan: Management as per primary team. Patient is receiving steroids. Not a candidate for remdesivir due to renal failure. 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 He is currently sedated post tracheostomy and as such all of the following is obtained via a review of his electronic medical records. 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 He declined upfront total laryngectomy and received definitive radiation between December and February 2021 And chemotherapy. He saw Dr. Vela in follow-up on 07/26/2021 at which time he was noted to be quite edematous on fiberoptic laryngoscopy, treated with Medrol Dosepak. He was seen once again in follow-up on 08/08/2021 at which time he was complaining of shortness of breath and stridor. Repeat fiberoptic laryngoscopy showed significant supraglottic and glottic tumor, mass, or ulceration. Dr. Vela encouraged urgent referral and follow-up with [facility] though he has not yet followed up. 2 days ago he was seen in the emergency department with shortness of breath but again decided against referral/ transfer and said he did not want a tracheostomy at that time. Unfortunately this morning his shortness of breath was much worse and he presented in respiratory distress. He was emergently taken to the operating room as he was losing consciousness. There were difficulties performing tracheostomy and ultimately the decision was made to perform cricoidotomy and a 7 proximal XLT surely was able to be placed over bougie. he was transferred to the ICU where he has resting comfortably on sedation. Date of service 08/15/2021: No significant arrhythmias or pauses. Still intubated. Review of Systems Review of Systems: ROS unobtainable: Yes unobtainable due to endotracheal tube, unobtainable due to medical condition and unobtainable due to mental status Exam Narrative: PHYSICAL EXAMINATION: GENERAL: Sedated, unresponsive MENTAL STATUS: Sedated, unresponsive EYES: Eyes closed EARS: External ears appear normal NOSE: NG tube in place MOUTH: Mucous me
--- NOTE | 2021-08-15 11:15 | WPDINTPN ---
Progress Note: A&P Assessment and Plan (1) Acute respiratory failure: Qualifiers: Respiratory failure complication: unspecified whether with hypoxia or hypercapnia Qualified Code(s): J96.00 - Acute respiratory failure, unspecified whether with hypoxia or hypercapnia Code(s): J96.00 - Acute respiratory failure, unspecified whether with hypoxia or hypercapnia Status: Acute Assessment and Plan: Acute Respiratory failure secondary to acute airway obstruction, possible pneumonia aspiration, pulmonary edema and COVID-19 pneumonia, right pneumothorax Continue full mechanical ventilation support to prevent hypoxemia/hypercarbia and end organ damage. Chest x-ray and ABGs reviewed, will infuse respiratory rate to 22 2/6 failed weaning trial due to apnea. He is too unstable at this time for weaning trial Low tidal volume ventilation strategy to prevent volutrauma Bronchodilators CT chest IMPRESSION: 1. Small to moderate right-sided pneumothorax. 2. Mottled bone appearance, with numerous fractures most likely chronic but some subacute. Consider aggressive osteopenia, metastatic disease, multiple myeloma. 3. Multisegmental right lower lobe, segmental left lower lobe atelectasis. 4. Cardiomegaly. 5. Chronic findings. 6. Tubes in position. (2) Acute airway obstruction: Code(s): J98.8 - Other specified respiratory disorders Status: Acute Assessment and Plan: Patient has history of laryngeal cancer and treatment with chemo radiation. He has been noncompliant with follow-up with oral surgery and ENT at [facility]. He presented with acutely Obstructed airway, supraglottic edema, glottic edema 08/11 Patient was taken to operating room from ER and underwent emergent cricoidotomy performed, 7 proximal XLT Shiley placed over bougie small trachea. Some glottic edema some leukoplakic tissue on the left biopsied no ashwini or obvious recurrence he is on dexamethasone both for COVID and should help with airway edema - On 08/14: Dr. Overton called [facility] for transfer for oral surgery to revise his tracheostomy. He has discussed both with ENT and Medical ICU physician there. They have accepted the patient But do not have a bed at this time. [facility] will call back once bed is available 08/12 CT soft tissue neck Generalized nonspecific fat stranding within the subcutaneous tissues of the neck. Mass previously described abutting the right submandibular gland, treated alex metastatic disease probably visualized on this noncontrast study There is no cervical lymphadenopathy. There are no masses identified. (3) COVID-19: Code(s): U07.1 - COVID-19 Status: Acute Assessment and Plan: SARS-CoV-2 PCR positive Patient is in Airborne, Droplet and Contact Isolation Continue dexamethasone. He is not a candidate for remdesivir as his GFR is less than 30 CT chest does not suggest changes suggestive of COVID-19 pneumonia Continue antibiotics for empiric bacterial coverage his LDH and ferritin are normal which also goes against COVID-19 pneumonia (4) Chronic kidney disease, stage 4 (severe): Code(s): N18.4 - Chronic kidney disease, stage 4 (severe) Status: Acute Assessment and Plan: creatinine was elevated as compared to baseline on present improved with IV fluids. Hold further IV fluids as patient is overall volume overloaded Continue albumin to minimize third-spacing monitor urine output electrolytes and creatinine (5) Type 2 diabetes mellitus: Code(s): E11.9 - Type 2 diabetes mellitus without complications Status: Acute Assessment and Plan: sliding scale insulin (6) Laryngeal cancer: Code(s): C32.9 - Malignant neoplasm of larynx, unspecified Status: Acute Assessment and Plan: biopsy was done at the time patient underwent cricothyrotomy management deferred to Oncology (7) [place]kale
[2021-08-15 11:50] LABS: Glucose Point of Care 167 mg/dl (65-105)
--- NOTE | 2021-08-15 12:17 | PCNFU ---
Nutrition Follow-Up Complete: Inadequate Oral Intake as related to mechanical ventilation as evidenced by NPO Goal: Meet estimated nutritional needs Patient is progressing towards goal. Pt current nutrition is Nepro at 20 ml/hr over 22 hours. Last recorded weight is 75.8 kg-stable Bowel Motility: No BM reported. Labs Reviewed:Cr 2.10,Na 147, Hct 25.2,Hgb 7.7 Meds Noted:Versed, Fentanyl, Lipitor, Protonix, Zosyn, Atrovent, Decadron. Skin: WNL Additional Notes: Patient remains on mechanical vent. Chest tube placed 2/5-right pneumothorax. Tube feedings of Nepro at 20 ml/hr over 22 hours. Goal rate at 30 ml/hr over 22 hours providing 1188 kcals/53 gm protein/ 480 ml water. Free water flush 30 ml q 4 hours. Plans for hospice consult. Will monitor in ICU rounds and reassessing every Saturday and Saturday.
[2021-08-15 19:25] LABS: CRP 2.2 mg/dL (<1.0)
--- NOTE | 2021-08-19 09:28 | PM.DS ---
DS: Admitting Diagnosis Discharge Date 08/15/21 Admitting Diagnosis Short of breath DS: Discharge Diagnosis Discharge Diagnosis (1) Acute respiratory failure: Qualifiers: Respiratory failure complication: unspecified whether with hypoxia or hypercapnia Qualified Code(s): J96.00 - Acute respiratory failure, unspecified whether with hypoxia or hypercapnia Code(s): J96.00 - Acute respiratory failure, unspecified whether with hypoxia or hypercapnia Status: Acute (2) Acute airway obstruction: Code(s): J98.8 - Other specified respiratory disorders Status: Acute (3) Laryngeal cancer: Code(s): C32.9 - Malignant neoplasm of larynx, unspecified Status: Acute (4) Chronic kidney disease, stage 4 (severe): Code(s): N18.4 - Chronic kidney disease, stage 4 (severe) Status: Acute (5) Type 2 diabetes mellitus: Code(s): E11.9 - Type 2 diabetes mellitus without complications Status: Acute (6) COPD mixed type: Code(s): J44.9 - Chronic obstructive pulmonary disease, unspecified Status: Acute (7) Essential (primary) hypertension: Code(s): I10 - Essential (primary) hypertension Status: Acute (8) COVID-19: Code(s): U07.1 - COVID-19 Status: Acute DS: Summary Hospital Course Reason for hospitalization: 60yo male smoker with COPD, diabetes, hypertension, sleep apnea, hypothyroidism, pulmonary embolism, and laryngeal cancer who presented to the ED for evaluation of shortness of breath. Please see H&P for details Hospital Course: Patient presents with SOB and found to have acute respiratory failure secondary to acute airway obstruction, possible pneumonia aspiration, pulmonary edema and/or COVID-19 pneumonia. Patient was taken to operating room on 08/11 and underwent emergent cricoidotomy. Some glottic edema and leukoplakic tissue on the left that was biopsied but no ashwini or obvious recurrence. He was on dexamethasone both for COVID and should help with airway edema. He did develop a right pneumothorax requiring chest tube on 08/12. He became too unstable for weaning trials. Last year when cancer was diagnosed the patient had refused surgery because he did not want to not be able to speak and communicate which was very important to him. He had been refusing tracheostomy despite having swelling. Family was updated on the need for a tracheostomy revision as well as the patient's other medical issues including right pneumothorax requiring a chest tube, drop in hemoglobin, sinus pauses that may need a transvenous pacemaker, CKD, DM and COVID PNA. They inquired about hospice and comfort care options and information provided. They decided to move the patient to hospice care. Patient will be readmitted to hospice care and then will do terminal wean. Status at Discharge Cognitive/behavioral status at discharge: Stable Time Spent with Patient Time attestation: Total time spent providing and/or coordinating discharge services: 32 minutesd Time spent: Greater than 30 minutes Exam Narrative: General: Pt is sedated, tracheostomy in place, on mechanical ventilation Lungs/Chest: patient's neck is enlarged and erythematous and indurated, tracheostomy tube in place, chest tube site examined and bleeding at the site appears to have improved, no air leak, Cardiac: RRR. Normal S1 S2. No murmurs Circulation: Bilateral lower extremity pedal pulses are palpable, Abdomen: Decreased bowel sounds. Soft. NT. ND. Dobbhoff in place Extremities: No clubbing, cyanosis bilateral edema. Warm : Cochran in place Neurologic: sedated, does not follow commands or open his eyes PERRL (Patient seenby board certified orthodontist only on this day) DS: Data Data Completed and Pending Completed studies during hospitalization: Pending at discharge 08/11/21 17:00 Surgical [PTH] Routine Discharge Plan Discharge Attending physician on discharge: Niharika Lugo
== END 2021-08-15 18:04 | disposition hospice, inpatient (51) | DRG 4 ==
LOC: ANHED 14:35 → ANHSURGERY 15:33 → ANHICU 19:14
PROVIDERS: Emergency Medicine; Internal Medicine; Otolaryngology; Physician Assistant; Admitting Provider Family Medicine; Emergency Provider Emergency Medicine; PCP Family Medicine; Visit Provider Internal Medicine
PROC: 0B110F4 Bypass Trachea to Cutaneous with Tracheostomy Device, Open Approach (ICD-10-PCS; principal; 2021-08-11 15:45)
DX: U07.1 COVID-19 (principal); J96.00 Acute respiratory failure, unspecified whether with hypoxia or hypercapnia; J12.82 Pneumonia due to coronavirus disease 2019; N18.4 Chronic kidney disease, stage 4 (severe); J93.9 Pneumothorax, unspecified; C77.0 Secondary and unspecified malignant neoplasm of lymph nodes of head, face and neck; C32.9 Malignant neoplasm of larynx, unspecified; J38.4 Edema of larynx; Z87.891 Personal history of nicotine dependence; J44.9 Chronic obstructive pulmonary disease, unspecified; I12.9 Hypertensive chronic kidney disease with stage 1 through stage 4 chronic kidney disease, or unspecified chronic kidney disease; E03.9 Hypothyroidism, unspecified; E87.5 Hyperkalemia; E11.22 Type 2 diabetes mellitus with diabetic chronic kidney disease; G47.33 Obstructive sleep apnea (adult) (pediatric); R77.8 Other specified abnormalities of plasma proteins; Z92.21 Personal history of antineoplastic chemotherapy; Z90.5 Acquired absence of kidney; Z92.3 Personal history of irradiation; Z79.82 Long term (current) use of aspirin; Z86.711 Personal history of pulmonary embolism; Z79.899 Other long term (current) drug therapy; Z86.718 Personal history of other venous thrombosis and embolism; Z79.84 Long term (current) use of oral hypoglycemic drugs; Z79.01 Long term (current) use of anticoagulants; I45.5 Other specified heart block; Z66 Do not resuscitate
CPT/HCPCS: 36415; 36430; 36569; 36600; 70490; 71045; 71250; 74018; 80053; 81001; 82375; 82728; 82805; 82948; 83036; 83050; 83615; 83735; 83880; 84484; 85014; 85018; 85025; 85027; 85384; 85610; 85730; 86140; 86850; 86900; 86901; 86920; 88305; 93005; 93306; 94002; 94003; 94640; 96360; 96374; 96375; 99285; A9270; C1751; C9113; C9803; J0461; J1100; J1650; J1815; J2060; J2250; J2543; J3010; J7030; J7040; J7050; P9016; P9047; U0003; U0005

== ENCOUNTER 2021-08-15 17:00 | HOS | payer OTHER, MEDICARE, SELFPAY ==
[2021-08-15 18:55] VITALS: PULSE 110; RESP 11
[2021-08-15] MEDS: FENTANYL 2,500MCG/NS250ML(*CRX 2,500 MCG/250 ML BAG 15 MCG IV CONT (18:55)
--- NOTE | 2021-08-15 20:35 | PC.NURSE ---
pt at [facility] at [facility]. 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
--- NOTE | 2021-08-19 09:51 | PM.IMHP ---
H&P: HPI History of Present Illness Date/Time: 08/19/21 09:51 Chief Complaint: Hospice care and Terminal wean Narrative: 60yo male admitted for hospice care and for terminal wean. Patinet intubated and sedated Review of Systems Review of Systems: ROS unobtainable: Yes unobtainable due to endotracheal tube PMFSH Past Medical History Medical History Atrophy of right kidney BPH w/o urinary obs/LUTS Chronic kidney disease February 2020 nuclear medicine Lasix renal scan:1. Negligible uptake at the right kidney which is essentially indiscernible from the surrounding background precluding assessment for clearance. 2. Moderately delayed clearance from the left kidney consistent with partial obstruction which may be clinically significant. Chronic kidney disease, stage 4 (severe) CKD (chronic kidney disease) stage 3, GFR 30-59 ml/min Closed pelvic fracture (11/2020) COPD mixed type Degenerative arthritis of knee, bilateral Diastolic dysfunction (11/2020) Dyslipidemia Essential (primary) hypertension Hemoglobin A1c less than 7.0% 04/11/21 A1C = 5.7 Hydronephrosis of right kidney severe chronic right hydronephrosis with severe right renal cortical atrophy Hypothyroidism (acquired) Kidney stones bilateral nonobstructing nephrolithiasis SAVANNA (obstructive sleep apnea) uses CPAP Osteoarthritis Osteoporosis uncertain etiology with multiple insufficiency fractures iliac crest, multiple lumbar compression fractures, old healed superior and inferior pubic rami fractures, multiple old bilateral rib fractures Smoker 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p surgical removal 2017 and 2018 Family History Family History Father Lung cancer Sibling Diabetes mellitus Hypertension Grandparent Kidney disease Social History Social History Social History: Primary care physician: Dr. Caity Adamson Code status: Full code Smoking packs per day: 2 Smoking cigarettes per day: 40.0 Years smoked: 45 Smoking pack-years: 90.00 Smoking status: Former smoker Second hand tobacco smoke exposure: Yes Alcohol intake: never Alcohol use details: On occasion and in moderation. Substance use: never Substance use type: does not use Additional living arrangements comments: The patient lives at home with his . They do not have any children. He ambulates with a walker. Additional occupation/education comments: Patient is disabled. Gender identity (if verbalized by the patient): Male Spiritual care concerns: No Meds Home Medications and Allergies Home Medications Medication Instructions Recorded Confirmed Type aspirin 81 mg PO DAILY 07/03/19 08/08/21 History calcium carbonate-vitamin D3 1 tablet PO BID 07/03/19 08/08/21 History [Calcium 500 + D (D3)] magnesium oxide 400 mg PO DAILY #30 tablet 01/25/21 08/08/21 Rx apixaban 5 mg tablet 5 mg PO Q12HR #180 tablet 03/09/21 08/08/21 Rx glipizide 10 mg tablet, extended 10 mg PO DAILY #30 tablet 03/22/21 08/08/21 Rx release 24 hr atorvastatin 10 mg tablet 10 mg PO QHS tablet 04/04/21 08/08/21 History budesonide-formoterol HFA 160 2 puff INHALATION BID #30.6 g 04/04/21 08/08/21 Rx mcg-4.5 mcg/actuation aerosol inhaler
--- NOTE | 2021-08-19 09:54 | P.DN_ITS ---
Discharge Summary Date and Time Date of : 08/15/21 Time of : 19:22 Provider Pronounced By: david pablo Probable Cause of Probable Cause of : Respiratory failure Summary Hospital Course: Patient presents with SOB and found to have acute respiratory failure secondary to acute airway obstruction, possible pneumonia aspiration, pulmonary edema and/or COVID-19 pneumonia. Patient was taken to operating room on 08/11 and underwent emergent cricoidotomy. Some glottic edema and leukoplakic tissue on the left that was biopsied but no ashwini or obvious recurrence. He was on dexamethasone both for COVID and should help with airway edema. He did develop a right pneumothorax requiring chest tube on 08/12. He became too unstable for weaning trials. Last year when cancer was diagnosed the patient had refused surgery because he did not want to not be able to speak and communicate which was very important to him. He had been refusing tracheostomy despite having swelling. Family was updated on the need for a tracheostomy revision as well as the patient's other medical issues including right pneumothorax requiring a chest tube, drop in hemoglobin, sinus pauses that may need a transvenous pacemaker, CKD, DM and COVID PNA. They inquired about hospice and comfort care options and information provided. They decided to move the patient to hospice care. Patient will be readmitted to hospice care and then will do terminal wean. Additional Data Confirmation of as documented by pronouncing clinician: Pupillary Reflex, Palpable Pulses, Response to Stimuli, Heart Tones and Breath Sounds Name of Provider Notified: gay Time Provider Notified: 19:40 Provider Requests Autopsy: No Family Requests Autopsy: No Gravity Meter Observer Notified: Yes Date [facility] Notified of : 08/15/21 Time [facility] Notified of : 20:00
== END 2021-08-15 19:22 | disposition expired | DRG 951 ==
LOC: ANHICU 08-16 15:49
PROVIDERS: Admitting Provider Internal Medicine; PCP Family Medicine; Visit Provider Internal Medicine
DX: Z51.5 Encounter for palliative care (principal); U07.1 COVID-19; J96.00 Acute respiratory failure, unspecified whether with hypoxia or hypercapnia; J12.82 Pneumonia due to coronavirus disease 2019; N18.4 Chronic kidney disease, stage 4 (severe); J93.9 Pneumothorax, unspecified; G47.33 Obstructive sleep apnea (adult) (pediatric); I45.5 Other specified heart block; I12.9 Hypertensive chronic kidney disease with stage 1 through stage 4 chronic kidney disease, or unspecified chronic kidney disease; J44.9 Chronic obstructive pulmonary disease, unspecified; E78.5 Hyperlipidemia, unspecified; E03.9 Hypothyroidism, unspecified; E11.22 Type 2 diabetes mellitus with diabetic chronic kidney disease; R58 Hemorrhage, not elsewhere classified; Z90.5 Acquired absence of kidney; Z87.891 Personal history of nicotine dependence; Z79.82 Long term (current) use of aspirin; Z79.84 Long term (current) use of oral hypoglycemic drugs; Z79.899 Other long term (current) drug therapy
CPT/HCPCS: A9270; J3010